=== PATIENT | female | born 1955 | race Caucasian/White ===

== ENCOUNTER 2019-01-19 19:56 | Emergency (ER) | payer OTHER ==
[2019-01-19] MEDS ORDERED: ASPIRIN 81 MG TABLET, CHEWABLE PO ONE (20:12)
--- NOTE | 2019-01-19 20:13 | ER Document Report ---
ED Medical Screen (RME) - General Chief Complaint: Chest Pain Stated Complaint: RAPID HEART BEAT Time Seen by Provider: 01/19/19 20:09 Mode of Arrival: Ambulatory Information source: Patient Notes: Patient presents complaining of fluttering in her chest for the past 5 days. Patient reports some shortness of breath and nausea. Patient states that she does not have chest pain although does report chest discomfort. I have greeted and performed a rapid initial assessment of this patient. A comprehensive ED assessment and evaluation of the patient, analysis of test results and completion of the medical decision making process will be conducted by additional ED providers. Physical Exam - Cardiovascular Rhythm: Regular Heart sounds: S1 appreciated, S2 appreciated
[2019-01-19 20:49] LABS: ABSOLUTE BASOPHILS # (AUTO) 0.1 10^3/uL (0.0-0.2); ABSOLUTE EOSINOPHILS # (AUTO) 0.1 10^3/uL (0.0-0.6); ABSOLUTE LYMPHOCYTES (AUTO) 0.8 10^3/uL (0.5-4.7); ABSOLUTE MONOCYTES (AUTO) 1.2 10^3/uL (0.1-1.4); BASOPHILS % (AUTO) 0.7 % (0-2); EOSINOPHILS % (AUTO) 1.6 % (0-6); HEMATOCRIT 29.1 % (36.0-47.0); HEMOGLOBIN 10.1 g/dL (12.0-15.5); LYMPHOCYTES % (AUTO) 10.1 % (13-45); MEAN CORPUSCULAR HEMOGLOBIN 32.1 pg (27.0-33.4); MEAN CORPUSCULAR HGB CONC 34.9 g/dL (32.0-36.0); MEAN CORPUSCULAR VOLUME 92 fl (80-97); MONOCYTES % (AUTO) 14.9 % (3-13); PLATELET COUNT 416 10^3/uL (150-450); RED BLOOD COUNT 3.16 10^6/uL (3.72-5.28); RED CELL DISTRIBUTION WIDTH 14.4 % (11.5-14.0); SEGMENTED NEUTROPHILS % (AUTO) 72.7 % (42-78); TOTAL CELLS COUNTED % (AUTO) 100 %; WHITE BLOOD COUNT 8.3 10^3/uL (4.0-10.5)
--- NOTE | 2019-01-19 21:02 | RADIOLOGY REPORT (SQ) ---
EXAM DESCRIPTION: XR CHEST 2 VIEWS COMPLETED DATE/TME: 01/19/2019 20:12 CLINICAL HISTORY: 63 years, Female, palpitations COMPARISON: None. NUMBER OF VIEWS: TECHNIQUE: LIMITATIONS: None. FINDINGS: There is possible emphysema. There is a probable calcified granuloma in the lateral aspect of the left mid lung. There is some scarring at the left costophrenic angle. No evidence of acute pulmonary infiltrate or pleural effusion. The heart and mediastinum are unremarkable. Pulmonary vascularity appears normal. IMPRESSION: Possible emphysema. copyright 2010 [employer]- All Rights Reserved
[2019-01-19 21:15] LABS: ALKALINE PHOSPHATASE 115 U/L (38-126); ANION GAP 10 (5-19); ASPARTATE AMINO TRANSFERASE 31 U/L (14-36); BILIRUBIN,DIRECT 0.1 mg/dL (0.0-0.4); BILIRUBIN,TOTAL 2.4 mg/dL (0.2-1.3); BLOOD UREA NITROGEN 13 mg/dL (7-20); CALCIUM 9.8 mg/dL (8.4-10.2); CARBON DIOXIDE 27 mmol/L (22-30); CHLORIDE 104 mmol/L (98-107); GLUCOSE 153 mg/dL (75-110); POTASSIUM 4.8 mmol/L (3.6-5.0); TOTAL PROTEIN 6.7 g/dL (6.3-8.2)
[2019-01-19 22:34] LABS: APPEARANCE,URINE CLEAR; BILIRUBIN,URINE NEGATIVE (NEGATIVE); COLOR,URINE YELLOW; GLUCOSE, URINE NEGATIVE (NEGATIVE); KETONES,URINE TRACE mg/dL (NEGATIVE); LEUKOCYTE ESTERASE,URINE NEGATIVE (NEGATIVE); NITRITE,URINE NEGATIVE (NEGATIVE); PROTEIN,URINE NEGATIVE (NEGATIVE); URINE SPECIFIC GRAVITY 1.013; UROBILINOGEN,URINE NEGATIVE mg/dL (<2.0)
--- NOTE | 2019-01-19 22:54 | EKG REPORT ---
SEVERITY:- ABNORMAL ECG - SINUS TACHYCARDIA MULTIPLE ATRIAL PREMATURE COMPLEXES BORDERLINE T ABNORMALITIES, ANT-LAT LEADS : Confirmed by: Marianela Lima MD 19-Jan-2019 22:53:06
--- NOTE | 2019-01-19 22:57 | ER Document Report ---
ED General - General Chief Complaint: Chest Pain Stated Complaint: RAPID HEART BEAT Time Seen by Provider: 01/19/19 20:09 Mode of Arrival: Ambulatory Notes: Patient is a 63-year-old female presents to the emergency department for a "fluttering sensation in my chest." Patient voices she is currently attempting to moved to [place] from [place]. States she has been under "so much stress" in the last 2 weeks. States she was diagnosed with "palpitations" in the 80s. States she was on digoxin but has not been on it since the 80s. States her primary care provider took her off of it. Patient's denying any chest pain or shortness of breath while sitting in bed. States when the "fluttering" feeling does happen she does get intermittently short of breath. States she is an every day smoker. Does have albuterol for home use. Patient is currently denying any chest pain, shortness of breath, abdominal pain , nausea, vomiting, headache. Past medical history: Cold agglutinin hemolytic anemia, mitral valve prolapse, palpitations Medications: Albuterol Allergies: Morphine - Related Data Allergies/Adverse Reactions: morphine Allergy (Verified 01/19/19 20:20) Home Medications: alavert Past Medical History - General Information source: Patient - Social History Smoking Status: Current Every Day Smoker Chew tobacco use (# tins/day): No Frequency of alcohol use: None Drug Abuse: None Family History: Reviewed & Not Pertinent Patient has suicidal ideation: No Patient has homicidal ideation: No Review of Systems - Review of Systems Constitutional: denies: Fever EENT: No symptoms reported Cardiovascular: See HPI Respiratory: See HPI Gastrointestinal: No symptoms reported Genitourinary: No symptoms reported Female Genitourinary: No symptoms reported Musculoskeletal: No symptoms reported Skin: No symptoms reported Hematologic/Lymphatic: See HPI Neurological/Psychological: No symptoms reported Physical Exam - Vital signs Vitals: Pulse Ox 98 01/19/19 19:57 - Notes Notes: GENERAL: Alert, interacts well. No acute distress. HEAD: Normocephalic, atraumatic. EYES: Pupils equal, round, and reactive to light. Extraocular movements intact. ENT: Oral mucosa moist, tongue midline. NECK: Full range of motion. Supple. Trachea midline. LUNGS: Scant and expiratory wheeze heard left upper lung field, cleared with cough. Then clear to auscultation bilaterally, no wheezes, rales, or rhonchi. No respiratory distress. HEART: Regular rate and rhythm. No murmur ABDOMEN: Soft, non-tender. Non-distended. Bowel sounds present in all 4 quadrants. EXTREMITIES: Moves all 4 extremities spontaneously. No edema, normal radial and dorsalis pedis pulses bilaterally. No cyanosis. BACK: no cervical, thoracic, lumbar midline tenderness. No saddle anesthesia, normal distal neurovascular exam. NEUROLOGICAL: Alert and oriented x3. Normal speech. cranial nerves II through XII grossly intact PSYCH: Normal affect, normal mood. SKIN: Warm, dry, normal turgor. No rashes or lesions noted. Course - Re-evaluation Re-evalutation: Laboratory 01/19/19 01/19/19 01/19/19 20:35 20:35 20:35 WBC 8.3 RBC 3.16 L Hgb 10.1 L Hct 29.1 L MCV 92 MCH 32.1 MCHC 34.9 RDW 14.4 H Plt Count 416 Lymph % (Auto) 10.1 L Addison % (Auto) 14.9 H Eos % (Auto) 1.6 Baso % (Auto) 0.7 Absolute Neuts (auto) 6.0 Absolute Lymphs (auto) 0.8 Absolute Monos (auto) 1.2 Absolute Eos (auto) 0.1 Absolute Basos (auto) 0.1 Seg Neutrophils % 72.7 Sodium 141.2 Potassium 4.8 Chloride 104 Carbon Dioxide 27 Anion Gap 10 BUN 13 Creatinine 0.76 Est GFR ( Amer) > 60 Est GFR (MDRD) Non-Af > 60 Glucose 153 H Calcium 9.8 Magnesium Total Bilirubin 2.4 H Direct Bilirubin 0.1 Neonat Total Bilirubin Not Reportable Neonat Direct Bilirubin Not Reportable Neonat Indirect Bili Not Reportable AST 31 ALT 21 Alkaline Phosphatase 115 Troponin I < 0.012 Total Protein 6.7 Albumin 4.0 TSH Free T4 Urine Color Urine Appearance Urine pH Ur Specific [place] Urine Protein Urine Glucose (UA) Urine Ketones Urine Blood Urine Nitrite Urine Bilirubin Urine Urobilinogen Ur Leukocyte Esterase Urine WBC (Auto) Urine RBC (Auto) U Hyaline Cast (Auto) Urine Mucus (Auto) Urine Ascorbic Acid 01/19/19 01/19/19 01/19/19 20:35 20:35 20:35 WBC RBC Hgb Hct MCV MCH MCHC RDW Plt Count Lymph % (Auto) Addison % (Auto) Eos % (Auto) Baso % (Auto) Absolute Neuts (auto) Absolute Lymphs (auto) Absolute Monos (auto) Absolute Eos (auto) Absolute Basos (auto) Seg Neutrophils % Sodium Potassium Chloride Carbon Dioxide Anion Gap BUN Creatinine Est GFR ( Amer) Est GFR (MDRD) Non-Af Glucose Calcium Magnesium 2.0 Total Bilirubin Direct Bilirubin Neonat Total Bilirubin Neonat Direct Bilirubin Neonat Indirect Bili AST ALT Alkaline Phosphatase Troponin I Total Protein Albumin TSH 1.57 Free T4 1.31 Urine Color Urine Appearance Urine pH Ur Specific [place] Urine Protein Urine Glucose (UA) Urine Ketones Urine Blood Urine Nitrite Urine Bilirubin Urine Urobilinogen Ur Leukocyte Esterase Urine WBC (Auto) Urine RBC (Auto) U Hyaline Cast (Auto) Urine Mucus (Auto) Urine Ascorbic Acid 01/19/19 21:51 WBC RBC Hgb Hct MCV MCH MCHC RDW Plt Count Lymph % (Auto) Addison % (Auto) Eos % (Auto) Baso % (Auto) Absolute Neuts (auto) Absolute Lymphs (auto) Absolute Monos (auto) Absolute Eos (auto) Absolute Basos (auto) Seg Neutrophils % Sodium Potassium Chloride Carbon Dioxide Anion Gap BUN Creatinine Est GFR ( Amer) Est GFR (MDRD) Non-Af Glucose Calcium Magnesium Total Bilirubin Direct Bilirubin Neonat Total Bilirubin Neonat Direct Bilirubin Neonat Indirect Bili AST ALT Alkaline Phosphatase Troponin I Total Protein Albumin TSH Free T4 Urine Color YELLOW Urine Appearance CLEAR Urine pH 6.0 Ur Specific [place] 1.013 Urine Protein NEGATIVE Urine Glucose (UA) NEGATIVE Urine Ketones TRACE H Urine Blood NEGATIVE Urine Nitrite NEGATIVE Urine Bilirubin NEGATIVE Urine Urobilinogen NEGATIVE Ur Leukocyte Esterase NEGATIVE Urine WBC (Auto) 0 Urine RBC (Auto) 1 U Hyaline Cast (Auto) 1 Urine Mucus (Auto) RARE Urine Ascorbic Acid NEGATIVE Chest X-Ray 01/19/19 20:12 IMPRESSION: Possible emphysema. copyright 2011 [employer]- All Rights Reserved I discussed patient's labs with her at bedside to include her anemia and elevated total bilirubin. Patient voices "my bilirubin has been way higher in the past." She is denying any abdominal pain. I see no scleral icterus or yellowing of the patient's skin. Patient also voices her hemoglobin has been down to 4 and she has had to have blood transfusions in the past. I discussed with her at length the need to follow-up with her primary care provider and inevitably cardiology. Patient voices she still has insurance and primary care providers in [place] at this time. States she is attempting to get insurance in [place] but is unsure when she will be able to follow- up. I have again discussed with her importance of following up in the next 12 to 24 hours. I provided her phone numbers to [facility] in [facility] as these are clinics she can go to even uninsured. Patient voices she has not had the "fluttering" sensation in her chest since being in the emergency department. Patient stable for discharge. - Vital Signs Vital signs: Temp Pulse Resp BP Pulse Ox 98.2 F 96 19 115/47 L 96 01/19/19 20:00 01/19/19 21:00 01/19/19 22:01 01/19/19 22:01 01/19/19 21:00 - Laboratory Result Diagrams: 01/19/19 20:35 01/19/19 20:35 Laboratory results interpreted by me: 01/19/19 01/19/19 01/19/19 20:35 20:35 21:51 RBC 3.16 L Hgb 10.1 L Hct 29.1 L RDW 14.4 H Lymph % (Auto) 10.1 L Addison % (Auto) 14.9 H Glucose 153 H Total Bilirubin 2.4 H Urine Ketones TRACE H Discharge - Discharge Clinical Impression: Fluttering heart, Total bilirubin, elevated Condition: Stable Disposition: HOME, SELF-CARE Additional Instructions: As we discussed you have been seen and treated in the emergency department for your "fluttering" heart. Your tests do show slight decrease in your hemoglobin and a slight increase in your bilirubin. This could be her baseline based on your history of hemolytic anemia. This is something you should have checked by a primary care provider in the next 12 to 24 hours. You should also follow-up with cardiology, phone numbers will be provided in this packet. I understand that you trying to change your insurance around. [facility], [facility] are to clinics you can go to in this area even though you are uninsured. It is my recommendation you follow-up as soon as possible. Referrals: [facility] [Provider Group] - Follow up as needed [facility] [Provider Group] - Follow up as needed MIAH SAEZ MD [ACTIVE STAFF] - Follow up as needed
[2019-01-19 23:17] VITALS: BP 113/60
== END 2019-01-19 23:14 | disposition home or self-care (01) ==
LOC: ER 19:56
DX: I49.8 Other specified cardiac arrhythmias (principal); E80.6 Other disorders of bilirubin metabolism; R07.9 Chest pain, unspecified; F17.200 Nicotine dependence, unspecified, uncomplicated; Z88.6 Allergy status to analgesic agent
CPT/HCPCS: 36415; 71046; 80053; 81001; 83735; 84439; 84443; 84484; 85025; 93005; 93010; 99285

== ENCOUNTER 2019-05-16 11:42 | Inpatient (IN) | payer MEDICAID, OTHER ==
--- NOTE | 2019-05-16 12:16 | ER Document Report ---
ED General - General Chief Complaint: Shortness Of Breath Stated Complaint: SHORTNESS OF BREATH Notes: 63-year-old lady heavy smoker, down from 2 packs a day to 4 cigarettes/day with help of Wellbutrin presents with chest pain pressure-like anterior with shortness of breath. Is been going on, the shortness of breath at least, for several weeks and is worse with exertion got position. No cough sputum hemoptysis or fever. The chest pressure is been the last couple days most with exertion but also when her breath gets worse, which also occurs with exertion. Also has right leg swelling which occurred about 2 3 days ago. She came from [place] over a month ago and is planning to move here, has no primary care. TRAVEL OUTSIDE OF THE [place] IN LAST 30 DAYS: No - Related Data Allergies/Adverse Reactions: morphine Allergy (Verified 01/19/19 20:20) shellfish derived Allergy (Verified 05/16/19 13:30) Home Medications: vitamin b-12 oxycarbazeoibne Past Medical History - Social History Smoking Status: Current Every Day Smoker Chew tobacco use (# tins/day): No Smoking Education Provided: Yes - The patient ED visit today was directly related to their abuse of tobacco. Frequency of alcohol use: None Drug Abuse: None Family History: Reviewed & Not Pertinent Patient has suicidal ideation: No Patient has homicidal ideation: No Review of Systems - Review of Systems Notes: REVIEW OF SYSTEMS GEN: Denies fever, chills, weight loss ENT: Denies sore throat, nasal discharge, ear pain EYES: Denies blurry vision, eye pain, discharge CV: As pressure RESP: Dyspnea GI: Denies abdominal pain, nausea, vomiting, diarrhea MSK: Denies joint pain/swelling, edema, SKIN: Denies rash, skin lesions LYMPH: Denies swollen glands/lymph nodes NEURO: Denies headache, focal weakness or numbness, dizziness PSYCH: Denies depression, suicidal or homicidal ideation PHYSICAL EXAMINATION General: No acute distress, well-nourished Head: Atraumatic, normocephalic ENT: Mouth normal, oropharynx moist, no exudates or tonsillar enlargement Eyes: Conjunctiva normal, pupils equal, lids normal Neck: No JVD, supple, no guarding CVS: Normal rate, regular rhythm, no murmurs Resp: No resp distress, equal and normal breath sounds bilaterally GI: Nondistended, soft, no tenderness to palpation, no rebound or guarding Ext: Very scant right lower extremity edema asymmetric to the left, with very faint erythema poorly delineated not tender Back: No CVA or midline TTP Skin: No rash, warm Lymphatic: No lymphadeopathy noted Neuro: Awake, alert. Face symmetric. GCS 15. Physical Exam - Vital signs Vitals: Resp Pulse Ox 17 95 05/16/19 12:28 05/16/19 12:28 Course - Re-evaluation Re-evalutation: 05/16/19 15:26 Patient presents progressive shortness of breath, and has a smoking history as well as right leg pain. No recent travel but is been here for about 2 months Concern for ACS PE pneumonia pleural effusion COPD Patient's EKG negative troponin negative labs normal X-ray shows possible left pleural effusion. CTA shows moderate left pleural effusion with some lesions and possible either pneumonia or mass No cough no white countdeferring antibiotics. Discussed with Connor garber hospitalist for admission for further diagnosis and treatment. - Vital Signs Vital signs: Temp Pulse Resp BP Pulse Ox 19 116/71 96 05/16/19 12:31 05/16/19 12:31 05/16/19 12:31 - Laboratory Result Diagrams: 05/16/19 12:42 05/16/19 13:11 Laboratory results interpreted by me: 05/16/19 12:42 RBC 3.19 L Hgb 10.0 L Hct 29.4 L RDW 16.6 H Lymph % (Auto) 9.5 L Seg Neutrophils % 79.0 H - Diagnostic Test Radiology reviewed: Image reviewed, Reports reviewed Discharge - Discharge Clinical Impression: Pleural effusion Condition: Good Disposition: ADMITTED INPATIENT Admitting Provider: Aaron (Hospitalist) Unit Admitted: Medical Floor
--- NOTE | 2019-05-16 12:54 | RADIOLOGY REPORT (SQ) ---
EXAM DESCRIPTION: CHEST SINGLE VIEW COMPLETED DATE/TIME: 05/16/2019 12:29 pm REASON FOR STUDY: sob COMPARISON: 01/19/2019 EXAM PARAMETERS: NUMBER OF VIEWS: One view. TECHNIQUE: Single frontal radiographic view of the chest acquired. RADIATION DOSE: NA LIMITATIONS: None. FINDINGS: LUNGS AND PLEURA: Increased opacification in the left base. There may be a small left ple ural effusion. MEDIASTINUM AND HILAR STRUCTURES: No masses. Contour normal. HEART AND VASCULAR STRUCTURES: Heart normal in size. Normal vasculature. BONES: No acute findings. HARDWARE: None in the chest. OTHER: No other significant finding. IMPRESSION: Possible small left pleural effusion. Cannot exclude airspace disease in the left lower lobe, pneumonia versus atelectasis. TECHNICAL DOCUMENTATION: JOB ID: [id number] 2010 [employer]- All Rights Reserved Reading location - IP/workstation name: [email or web address]
[2019-05-16 12:56] LABS: ABSOLUTE EOSINOPHILS # (AUTO) 0.1 10^3/uL (0.0-0.6); ABSOLUTE LYMPHOCYTES (AUTO) 0.6 10^3/uL (0.5-4.7); ABSOLUTE MONOCYTES (AUTO) 0.7 10^3/uL (0.1-1.4); ABSOLUTE NEUT (AUTO) 5.2 10^3/uL (1.7-8.2); BASOPHILS % (AUTO) 0.3 % (0-2); EOSINOPHILS % (AUTO) 0.9 % (0-6); HEMATOCRIT 29.4 % (36.0-47.0); LYMPHOCYTES % (AUTO) 9.5 % (13-45); MEAN CORPUSCULAR HEMOGLOBIN 31.2 pg (27.0-33.4); MEAN CORPUSCULAR HGB CONC 33.9 g/dL (32.0-36.0); MEAN CORPUSCULAR VOLUME 92 fl (80-97); MONOCYTES % (AUTO) 10.3 % (3-13); PLATELET COUNT 302 10^3/uL (150-450); RED BLOOD COUNT 3.19 10^6/uL (3.72-5.28); RED CELL DISTRIBUTION WIDTH 16.6 % (11.5-14.0); TOTAL CELLS COUNTED % (AUTO) 100 %; WHITE BLOOD COUNT 6.6 10^3/uL (4.0-10.5)
[2019-05-16 13:46] LABS: ANION GAP 7 (5-19); BLOOD UREA NITROGEN 13 mg/dL (7-20); CALCIUM 8.8 mg/dL (8.4-10.2); CARBON DIOXIDE 24 mmol/L (22-30); CHLORIDE 107 mmol/L (98-107); GLUCOSE 77 mg/dL (75-110)
--- NOTE | 2019-05-16 15:21 | RADIOLOGY REPORT (SQ) ---
EXAM DESCRIPTION: CTA CHEST COMPLETED DATE/TIME: 05/16/2019 2:02 pm REASON FOR STUDY: CO SOB. Palpitations. COMPARISON: Chest radiograph, 01/19/2019. Chest radiograph, same date. TECHNIQUE: CT scan of the chest performed using helical scanning technique with dynamic intravenous contrast injection. Images reviewed with lung, soft tissue and bone windows. Reconstructed coronal and sagittal MPR images reviewed. Additional 3 dimensional post-processing performed to develop Maximal Intensity Projection images (MA P). All images stored on PACS. All CT scanners at this facility use dose modulation, iterative reconstruction, and/or weight based d osing when appropriate to reduce radiation dose to as low as reasonably achievable (ALARA). [facility]: Dose Right [facility]: CareDose [facility]: Dose Right [facility]: Teradose 4D [facility]: Sovran [employer] CONTRAST TYPE AND DOSE: contrast/concentration: Isovue 350.00 mg/ml; Total Contrast Delivered: 57.0 ml; Total Saline Delivered: 80.0 ml Contrast bolus optimized for the pulmonary arteries. Not diagnostic for the aorta. RENAL FUNCTION: GFR > 60. RADIATION DOSE: CT Rad equipment meets quality standard of care and radiation dose reduction techniq ues were employed. CTDIvol: 3.3 - 14.3 mGy. DLP: 560 mGy-cm. . LIMITATIONS: None. FINDINGS: LUNGS AND PLEURA: The trachea has normal caliber and appearance. No bronchial wall thicke aleks or bronchiectasis. Background moderate to severe pulmonary emphysema. Biapical pleural and par enchymal scarring. There is a small to moderate left pleural effusion. No right effusion. Calcifie d granuloma in the right upper lobe. Spiculated 1.5 cm nodule in the left lower lobe along the fissu re. No focal consolidation. No pneumothorax. AORTA AND GREAT VESSELS: No aneurysm. Contrast bolus not optimized for the aorta. HEART: No pericardial effusion. No significant coronary artery calcifications. PULMONARY ARTERIES: No emboli visualized in the main pulmonary arteries or the segmental branches. HILAR AND MEDIASTINAL STRUCTURES: Enlarged left hilar lymph node measures 1.3 x 1.1 cm. No mediastin al adenopathy. The esophagus is unremarkable. HARDWARE: None in the chest. UPPER ABDOMEN: Asymmetric enhancement of the right kidney with moderate to severe right hydronephrosi s. Calcified gallstone within the gallbladder lumen. Benign left adrenal adenoma. THYROID AND OTHER SOFT TISSUES: No thyroid nodule. Asymmetric 2 cm rounded masslike nodule in the giraldo bareolar region left breast with central low density, indeterminate. Bilateral axillary adenopathy, with lymph nodes on the left measuring up to 2.8 by 2.8 x 1.3 cm and right axillary lymphadenopathy w ith lymph nodes measuring up to 2.3 by 1.7 cm. BONES: No acute or significant finding. 3D MIPS: Confirm above findings. OTHER: No other significant finding. IMPRESSION: 1. No pulmonary embolism. 2. Small to moderate left pleural effusion with compressive atelectasis. No focal consolidation. 3. Background moderate to severe pulmonary emphysema. 4. Spiculated 1.5 cm nodule left lower lobe, indeterminate. PET CT may provide additional informatio n. 5. Left breast mass. Further evaluation with nonemergent diagnostic mammogram and possible ultrasoun d recommended. 6. Bilateral axillary adenopathy and left hilar lymphadenopathy, indeterminate. 7. Asymmetric enhancement of the right kidney with moderate to severe right hydronephrosis. Finding is suspicious for distal right ureteral obstruction. Clinical correlation recommended. 8. Cholelithiasis. COMMENT: Quality ID # [id number]: Final reports with documentation of one or more dose reduction techniques (e.g., Automated exposure control, adjustment of the mA and/or kV according to patient size, use of iterative reconstruction technique) TECHNICAL DOCUMENTATION: JOB ID: [id number] 2010 [employer]- All Rights Reserved Reading location - IP/workstation name: [email or web address]
[2019-05-16] MEDS ORDERED: OXYCODONE-ACETAMINOPHEN 5-325 MG TABLET PO PRN (15:54)
[2019-05-16] MEDS ORDERED: MAG HYDROX/AL HYDROX/SIMETH SUSP 30 ML UDCUP PO PRN (15:54)
[2019-05-16] MEDS ORDERED: ACETAMINOPHEN 325 MG TABLET PO PRN (15:54)
[2019-05-16] MEDS ORDERED: ONDANSETRON 4 MG TAB.RAPDIS PO PRN (15:54)
[2019-05-16] MEDS ORDERED: ONDANSETRON HCL INJ/PF 4 MG/2 ML SDV IV PRN (15:54)
--- NOTE | 2019-05-16 16:53 | PDOC H&P ---
History of Present Illness Admission Date/PCP: 05/16/19 15:21 History of Present Illness: LUPILLO DE LA ROSA is a 63 year old female who comes in with increased shortness of breath since Sunday, 3 days ago, as well as right leg pain.. Patient states that Sunday evening she got up to go to the bathroom and when she did she noticed that her right leg was very painful and "swollen". She sta rivas she is never had any problems with her legs before, certainly nothing this painful. Patient states she did not think she was going to be able to get back to bed because of the right leg pain. Patient states that also at the same time she was very short of breath and noticed a significant increase in her difficulty breathing. Patient does have COPD although she is never been told emphysema. Chest x-ray done here at this hospital back in November showed emphysema at that time. Patient states that she used to smoke 2 packs of cigarettes per day and has done so for probably over 40 years. Recently she has cut back to 3 or 4 cigarettes/day. Patient has never had to use a nebulizer machine, she is never been on home oxygen, she has never used inhalers. Patient denies any recent fever or chills nausea or vomiting. Patient is still living between [place] and [place] but is making the transition to live permanently in [place] where her children and grandchildren are. Patient does not have any primary care down here. Patient denies other comorbidities such as diabetes or hypertension. 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 CTA of the chest shows no evidence of pulmonary emboli, ever it does show a 1.5 spiculated nodule of the left lower lung. Because of this and also because of the adenopathy that is mentioned in the report I have consulted oncology. I am going to start pulmonary toiletry with IV steroids and p.o. antibiotics, as we continue to work her up. Past Medical History Cardiac Medical History: Reports: Myocardial Infarction Pulmonary Medical History: Reports: Chronic Obstructive Pulmonary Disease (COPD) Social History Smoking Status: Current Every Day Smoker Electronic Cigarette use?: No - Advance Directive Resuscitation Status: Full Code Family History Family History: Reviewed & Not Pertinent Parental Family History Reviewed: No Children Family History Reviewed: No Sibling(s) Family History Reviewed.: No Medication/Allergy Allergies/Adverse Reactions: morphine Allergy (Verified 01/19/19 20:20) shellfish derived Allergy (Verified 05/16/19 13:30) Review of Systems Constitutional: ABSENT: chills, fever(s), headache(s), weight gain, weight loss Cardiovascular: PRESENT: dyspnea on exertion Respiratory: PRESENT: dyspnea Musculoskeletal: PRESENT: other - Right leg pain and swelling Neurological: ABSENT: abnormal gait, abnormal speech, confusion, dizziness, focal weakness, syncope Psychiatric: ABSENT: anxiety, depression, homidical ideation, suicidal ideation Physical Exam Vital Signs: Temp Pulse Resp BP Pulse Ox 19 116/71 96 05/16/19 12:31 05/16/19 12:31 05/16/19 12:31 General appearance: PRESENT: mild distress, other - Due to shortness of breath Respiratory exam: PRESENT: decreased breath sounds Cardiovascular exam: PRESENT: RRR. ABSENT: diastolic murmur, rubs, systolic murmur Extremities exam: PRESENT: tenderness, other - Patient has tenderness to palpation over the thigh, popliteal, calf region, also mild edema. No redness however and no warmth to the touch. Good distal pulses. Neurological exam: PRESENT: alert, awake, oriented to person, oriented to place, oriented to time, oriented to situation, CN II-XII grossly intact. ABSENT: motor sensory deficit Psychiatric exam: PRESENT: appropriate affect, normal mood. ABSENT: homicidal ideation, suicidal ideation Results Laboratory Results: 05/16/19 12:42 05/16/19 13:11 05/16/19 05/16/19 05/16/19 12:42 12:42 13:11 WBC 6.6 RBC 3.19 L Hgb 10.0 L Hct 29.4 L MCV 92 MCH 31.2 MCHC 33.9 RDW 16.6 H Plt Count 302 Seg Neutrophils % 79.0 H Sodium Cancelled 137.9 Potassium Cancelled 4.0 Chloride Cancelled 107 Carbon Dioxide Cancelled 24 Anion Gap Cancelled 7 BUN Cancelled 13 Creatinine Cancelled 0.60 Est GFR ( Amer) Cancelled > 60 Est GFR (Non-Af Amer) Cancelled Glucose Cancelled 77 Calcium Cancelled 8.8 05/16/19 05/16/19 12:42 13:11 Troponin I Cancelled < 0.012 Impressions: Chest/Abdomen CTA 05/16/19 12:14 IMPRESSION: 1. No pulmonary embolism. 2. Small to moderate left pleural effusion with compressive atelectasis. No focal consolidation. 3. Background moderate to severe pulmonary emphysema. 4. Spiculated 1.5 cm nodule left lower lobe, indeterminate. PET CT may provide additional information. 5. Left breast mass. Further evaluation with nonemergent diagnostic mammogram and possible ultrasound recommended. 6. Bilateral axillary adenopathy and left hilar lymphadenopathy, indeterminate. 7. Asymmetric enhancement of the right kidney with moderate to severe right hydronephrosis. Finding is suspicious for distal right ureteral obstruction. Clinical correlation recommended. 8. Cholelithiasis. Chest X-Ray 05/16/19 12:15 IMPRESSION: Possible small left pleural effusion. Cannot exclude airspace disease in the left lower lobe, pneumonia versus atelectasis. Assessment and Plan - Diagnosis (1) Abnormal CT scan, chest Is this a current diagnosis for this admission?: Yes (2) COPD (chronic obstructive pulmonary disease) Is this a current diagnosis for this admission?: Yes (3) Emphysema lung Is this a current diagnosis for this admission?: Yes (4) Tobacco abuse Is this a current diagnosis for this admission?: Yes (5) Lower extremity pain Is this a current diagnosis for this admission?: Yes (6) Cold agglutinin disease Is this a current diagnosis for this admission?: Yes (7) Pleural effusion Is this a current diagnosis for this admission?: Yes - Plan Summary Summary: Patient will be treated as a COPD exacerbation with pulmonary toiletry, IV steroids, antibiotics. Ever due to patient's abnormal CT scan of the chest involving the spiculated lesion, adenopathy, hilar fullness, I have consulted oncology as well. Also I have ordered a venous Doppler of the right lower extremity. I explained all this to the patient she seems satisfied with the admission and work-up so far. Patient's son was in the room during the history and physical - Time Time Spent with patient: 35 or more minutes
[2019-05-16 17:50] LABS: INTERNATIONAL RATION (INR) 1.05; PROTHROMBIN TIME 13.7 SEC (11.4-15.4)
[2019-05-16 17:59] LABS: ARTERIAL BLOOD BASE EXCESS -0.7 mmol/L; ARTERIAL BLOOD H2CO3 0.99 mmol/L (1.05-1.35); ARTERIAL BLOOD HCO3 22.8 mmol/L (20-24); ARTERIAL BLOOD O2 SATURATION 94.4 % (94-98); ARTERIAL BLOOD PH 7.46 (7.35-7.45); ARTERIAL BLOOD PO2 66.8 mmHg (80-100); ARTERIAL BLOOD TOTAL CO2 23.8 mmol/L (21-25)
[2019-05-16 18:00] LABS: ARTERIAL BLOOD FIO2 21%
[2019-05-16 18:14] LABS: CREATINE KINASE MB 0.44 ng/mL (<4.55); NT PRO BNP 308 pg/mL (<125)
[2019-05-16 18:23] LABS: TROPONIN I < 0.012 ng/mL
[2019-05-16] MEDS: DOXYCYCLINE HYCLATE 100 MG TABLET PO SCH (18:40)
--- NOTE | 2019-05-16 18:40 | EKG REPORT ---
SEVERITY:- NORMAL ECG - SINUS RHYTHM BORDERLINE T ABNORMALITIES, ANT-LAT LEADS : Confirmed by: Parth Argueta 16-May-2019 18:38:46
[2019-05-16] MEDS ORDERED: OXCARBAZEPINE 150 MG TABLET PO SCH (20:15)
[2019-05-16] MEDS: IPRATROPIUM/ALBUTEROL 0.5-2.5 MG/3 ML AMPUL NEB PRN (21:10)
[2019-05-16] MEDS: BUPROPION HCL 75 MG TABLET PO SCH (21:42)
[2019-05-16] MEDS: HYDROCODONE/ACETAMINOPHEN 5-325 MG TABLET PO PRN (21:42)
[2019-05-16] MEDS: METHYLPREDNISOLONE INJ 40 MG/1 ML SDV IV SCH (21:43)
[2019-05-16] MEDS: FAMOTIDINE 20 MG TABLET PO SCH (21:43)
[2019-05-16] MEDS: OXCARBAZEPINE 150 MG TABLET PO SCH (21:44)
[2019-05-16 22:31] LABS: APPEARANCE,URINE CLEAR; BILIRUBIN,URINE NEGATIVE (NEGATIVE); COLOR,URINE YELLOW; GLUCOSE, URINE NEGATIVE (NEGATIVE); KETONES,URINE TRACE mg/dL (NEGATIVE); LEUKOCYTE ESTERASE,URINE NEGATIVE (NEGATIVE); NITRITE,URINE NEGATIVE (NEGATIVE); PROTEIN,URINE NEGATIVE (NEGATIVE)
[2019-05-16 23:18] LABS: CREATINE KINASE MB 0.37 ng/mL (<4.55)
[2019-05-16 23:19] LABS: TROPONIN I < 0.012 ng/mL
[2019-05-17] MEDS: IPRATROPIUM/ALBUTEROL 0.5-2.5 MG/3 ML AMPUL NEB PRN ×6 (01:11→19:47)
[2019-05-17 05:19] LABS: ABSOLUTE LYMPHOCYTES (AUTO) 0.3 10^3/uL (0.5-4.7); ABSOLUTE MONOCYTES (AUTO) 0.1 10^3/uL (0.1-1.4); ABSOLUTE NEUT (AUTO) 5.2 10^3/uL (1.7-8.2); BASOPHILS % (AUTO) 0.4 % (0-2); HEMATOCRIT 26.5 % (36.0-47.0); LYMPHOCYTES % (AUTO) 5.6 % (13-45); MEAN CORPUSCULAR HEMOGLOBIN 30.9 pg (27.0-33.4); MEAN CORPUSCULAR VOLUME 91 fl (80-97); MONOCYTES % (AUTO) 2.1 % (3-13); PLATELET COUNT 300 10^3/uL (150-450); RED BLOOD COUNT 2.92 10^6/uL (3.72-5.28); RED CELL DISTRIBUTION WIDTH 16.9 % (11.5-14.0); SEGMENTED NEUTROPHILS % (AUTO) 91.9 % (42-78); TOTAL CELLS COUNTED % (AUTO) 100 %; WHITE BLOOD COUNT 5.7 10^3/uL (4.0-10.5)
[2019-05-17 05:41] LABS: ALBUMIN 3.7 g/dL (3.5-5.0); ALKALINE PHOSPHATASE 127 U/L (38-126); ANION GAP 7 (5-19); ASPARTATE AMINO TRANSFERASE 33 U/L (14-36); BILIRUBIN,DIRECT 0.3 mg/dL (0.0-0.4); BILIRUBIN,TOTAL 1.1 mg/dL (0.2-1.3); BLOOD UREA NITROGEN 13 mg/dL (7-20); CALCIUM 9.2 mg/dL (8.4-10.2); CARBON DIOXIDE 25 mmol/L (22-30); CHLORIDE 106 mmol/L (98-107); GLUCOSE 190 mg/dL (75-110); PHOSPHORUS 4.5 mg/dL (2.5-4.5); POTASSIUM 4.2 mmol/L (3.6-5.0); TOTAL PROTEIN 6.4 g/dL (6.3-8.2)
[2019-05-17 05:53] LABS: CREATINE KINASE MB 0.35 ng/mL (<4.55)
[2019-05-17 05:59] LABS: TROPONIN I < 0.012 ng/mL
[2019-05-17] MEDS: METHYLPREDNISOLONE INJ 40 MG/1 ML SDV IV SCH ×3 (06:35→21:05)
[2019-05-17] MEDS: ENOXAPARIN SODIUM INJ 40 MG/0.4 ML DISP.SYRIN SUBCUT SCH (09:37)
[2019-05-17] MEDS: CHOLECALCIFEROL (D3) 1,000 UNIT (25 MCG) TABLET PO SCH (09:38)
[2019-05-17] MEDS: ASPIRIN 81 MG TABLET, ENT COATED PO SCH (09:38)
[2019-05-17] MEDS: DOXYCYCLINE HYCLATE 100 MG TABLET PO SCH (09:38)
[2019-05-17] MEDS: OXCARBAZEPINE 150 MG TABLET PO SCH ×2 (09:38→21:06)
[2019-05-17] MEDS: FAMOTIDINE 20 MG TABLET PO SCH ×2 (09:38→21:06)
[2019-05-17] MEDS: CYANOCOBALAMIN (VITAMIN B-12) 1,000 MCG TABLET PO SCH (09:38)
[2019-05-17] MEDS: BUPROPION HCL 75 MG TABLET PO SCH ×2 (09:39→21:06)
[2019-05-17] MEDS ORDERED: DOCUSATE SODIUM 100 MG CAPSULE PO SCH (10:00)
--- NOTE | 2019-05-17 11:11 | PDOC PROGRESS REPORT ---
Subjective Progress Note for:: 05/17/19 Reason For Visit: COPD, RIGHT LEG PAIN, ACUTE SHORTNESS OF BREATH, 05/17/2019 Shortness of breath, COPD, emphysema, right leg pain Physical Exam Vital Signs: Temp Pulse Resp BP Pulse Ox 98.2 F 82 16 98/44 L 96 05/17/19 08:02 05/17/19 08:18 05/17/19 08:18 05/17/19 08:02 05/17/19 08:18 Intake & Output 05/16/19 05/17/19 05/18/19 06:59 06:59 06:59 Intake Total 200 Output Total 200 Balance 0 Weight 65 kg General appearance: PRESENT: no acute distress, other - Patient reports feeling significantly better Respiratory exam: PRESENT: wheezes - Both bases but mild Cardiovascular exam: PRESENT: RRR. ABSENT: diastolic murmur, rubs, systolic murmur Neurological exam: PRESENT: alert, awake, oriented to person, oriented to place, oriented to time, oriented to situation, CN II-XII grossly intact. ABSENT: motor sensory deficit Psychiatric exam: PRESENT: appropriate affect, normal mood. ABSENT: homicidal ideation, suicidal ideation Results Laboratory Results: 05/17/19 04:41 05/17/19 04:41 05/16/19 05/16/19 05/16/19 12:42 12:42 13:11 WBC 6.6 RBC 3.19 L Hgb 10.0 L Hct 29.4 L MCV 92 MCH 31.2 MCHC 33.9 RDW 16.6 H Plt Count 302 Seg Neutrophils % 79.0 H Carbonic Acid HCO3/H2CO3 Ratio ABG pH ABG pCO2 ABG pO2 ABG HCO3 ABG O2 Saturation ABG Base Excess FiO2 Sodium Cancelled 137.9 Potassium Cancelled 4.0 Chloride Cancelled 107 Carbon Dioxide Cancelled 24 Anion Gap Cancelled 7 BUN Cancelled 13 Creatinine Cancelled 0.60 Est GFR ( Amer) Cancelled > 60 Est GFR (Non-Af Amer) Cancelled Glucose Cancelled 77 Calcium Cancelled 8.8 Phosphorus Magnesium Total Bilirubin AST Alkaline Phosphatase Total Protein Albumin TSH Urine Color Urine Appearance Urine pH Ur Specific [place] Urine Protein Urine Glucose (UA) Urine Ketones Urine Blood Urine Nitrite Ur Leukocyte Esterase Urine WBC (Auto) Urine RBC (Auto) 05/16/19 05/16/19 05/16/19 17:25 17:44 21:46 WBC RBC Hgb Hct MCV MCH MCHC RDW Plt Count Seg Neutrophils % Carbonic Acid 0.99 L HCO3/H2CO3 Ratio 23:1 ABG pH 7.46 H ABG pCO2 33.0 L ABG pO2 66.8 L ABG HCO3 22.8 ABG O2 Saturation 94.4 ABG Base Excess -0.7 FiO2 21% Sodium Potassium Chloride Carbon Dioxide Anion Gap BUN Creatinine Est GFR ( Amer) Est GFR (Non-Af Amer) Glucose Calcium Phosphorus Magnesium Total Bilirubin AST Alkaline Phosphatase Total Protein Albumin TSH 1.36 Urine Color YELLOW Urine Appearance CLEAR Urine pH 7.0 Ur Specific [place] 1.040 Urine Protein NEGATIVE Urine Glucose (UA) NEGATIVE Urine Ketones TRACE H Urine Blood NEGATIVE Urine Nitrite NEGATIVE Ur Leukocyte Esterase NEGATIVE Urine WBC (Auto) 1 Urine RBC (Auto) 0 05/17/19 05/17/19 04:41 04:41 WBC 5.7 RBC 2.92 L Hgb 9.0 L Hct 26.5 L MCV 91 MCH 30.9 MCHC 34.0 RDW 16.9 H Plt Count 300 Seg Neutrophils % 91.9 H Carbonic Acid HCO3/H2CO3 Ratio ABG pH ABG pCO2 ABG pO2 ABG HCO3 ABG O2 Saturation ABG Base Excess FiO2 Sodium 138.1 Potassium 4.2 Chloride 106 Carbon Dioxide 25 Anion Gap 7 BUN 13 Creatinine 0.57 Est GFR ( Amer) > 60 Est GFR (Non-Af Amer) Glucose 190 H Calcium 9.2 Phosphorus 4.5 Magnesium 2.2 Total Bilirubin 1.1 AST 33 Alkaline Phosphatase 127 H Total Protein 6.4 Albumin 3.7 TSH Urine Color Urine Appearance Urine pH Ur Specific [place] Urine Protein Urine Glucose (UA) Urine Ketones Urine Blood Urine Nitrite Ur Leukocyte Esterase Urine WBC (Auto) Urine RBC (Auto) 05/16/19 05/16/19 05/16/19 12:42 13:11 17:25 CK-MB (CK-2) 0.44 Troponin I Cancelled < 0.012 < 0.012 NT-Pro-B Natriuret Pep 308 H 05/16/19 05/17/19 22:08 04:41 CK-MB (CK-2) 0.37 0.35 Troponin I < 0.012 < 0.012 NT-Pro-B Natriuret Pep Impressions: Chest/Abdomen CTA 05/16/19 12:14 IMPRESSION: 1. No pulmonary embolism. 2. Small to moderate left pleural effusion with compressive atelectasis. No focal consolidation. 3. Background moderate to severe pulmonary emphysema. 4. Spiculated 1.5 cm nodule left lower lobe, indeterminate. PET CT may provide additional information. 5. Left breast mass. Further evaluation with nonemergent diagnostic mammogram and possible ultrasound recommended. 6. Bilateral axillary adenopathy and left hilar lymphadenopathy, indeterminate. 7. Asymmetric enhancement of the right kidney with moderate to severe right hydronephrosis. Finding is suspicious for distal right ureteral obstruction. Clinical correlation recommended. 8. Cholelithiasis. Chest X-Ray 05/16/19 12:15 IMPRESSION: Possible small left pleural effusion. Cannot exclude airspace disease in the left lower lobe, pneumonia versus atelectasis. Assessment and Plan - Diagnosis (1) Abnormal CT scan, chest Is this a current diagnosis for this admission?: Yes (2) COPD (chronic obstructive pulmonary disease) Is this a current diagnosis for this admission?: Yes (3) Emphysema lung Is this a current diagnosis for this admission?: Yes (4) Tobacco abuse Is this a current diagnosis for this admission?: Yes (5) Lower extremity pain Is this a current diagnosis for this admission?: Yes (6) Cold agglutinin disease Is this a current diagnosis for this admission?: Yes (7) Pleural effusion Is this a current diagnosis for this admission?: Yes - Plan Summary Summary: Patient will be treated as a COPD exacerbation with pulmonary toiletry, IV steroids, antibiotics. Ever due to patient's abnormal CT scan of the chest involving the spiculated lesion, adenopathy, hilar fullness, I have consulted oncology as well. Also I have ordered a venous Doppler of the right lower extremity. I explained all this to the patient she seems satisfied with the admission and work-up so far. Patient's son was in the room during the history and physical 05/17/2019 Vital signs are stable temperature 97.5 pulse 86 blood pressure 123/56, although has been lower at 98/44 patient is asymptomatic O2 sat 94% on room air Patient's labs all look stable CBC grossly normal chemistry panel is normal hemoglobin A1c is normal at 5 Cardiac enzymes are normal BNP is normal Patient has significantly less shortness of breath today. She reports she can get up and walk to the bathroom without getting short of breath Patient feels like is the nebulizer treatments that are helping her a lot Venous Dopplers of the right lower extremity per the technologist are normal however physician has not read the study yet. She reports she is having less pain in her right leg. I suspect that the combination of the IV steroids and the nebulizer treatments that are making her feel better, will start to wean her steroids slightly tomorrow as well as decrease the frequency of her nebulizer treatments Oncology consult is pending concerning abnormal CT scan of the chest - Time Time Spent with patient: 25-34 minutes
--- NOTE | 2019-05-17 11:44 | PDOC CONSULTATION ---
Consultation Consult Date: 05/17/19 Attending physician:: KAREN GOSS Provider Consulted: RAY SALDANA Consult reason:: Patient with new left spiculated nodule, left pleural effusion and diffuse adenopathy History of Present Illness Admission Date/PCP: 05/16/19 15:21 Patient complains of: Increase shortness of breath, right lower extremity swelling History of Present Illness: LUPILLO DE LA ROSA is a 63 year old female with recently worsened shortness of breath. She has an [id number] history of tobacco and does have known COPD so goes through episodes of shortness of breath. She does get short of breath on exertion of 50 feet. But in the last 2 months the shortness of breath is gotten worse, about 3 months ago the whole family came down with some sort of viral illness, and she feels like she never fully recovered. However over the last 3 to 4 days prior to admission she had extreme worsening of shortness of breath along with right lower extremity swelling and pain to the point that she could not stand on it. Ultimately she was so short of breath and having pain in the right leg that she presented, the initial concern was DVT and PE, CTA of the chest was done and no PE was found but there was a left lung 1.5 cm spiculated nodule along with a left pleural effusion, mediastinal adenopathy, bilateral axillary adenopathy left greater than right, concern of a left breast mass, and although not reported on the imaging, I discussed her imaging extensively with radiology this morning there does seem to be some upper abdominal adenopathy as well. She notes about a 10 pound weight loss. She was primarily living in [place] but has mostly moved here, still waiting to sell the house in [place]. She wants to get further work-up done here because all of her family support is here. She notes that she has had longstanding history of fibrocystic breast disease and has had fluid drawn off as well as multiple biopsies done of both the right and left breast. The last mammogram however was 2 years ago. The last biopsy on the left breast was 3 years ago. The right breast biopsy was done about 2 years ago and fluid was drawn off then. Of note she also has history of cold agglutinin Hemolytic anemia. She was treated in [place], specifically at [facility] in [place]. She actually was on an experimental regimen for this, but unfortunately the regimen failed and ultimately she did receive standard R ituxan. After that, her hemoglobin has recovered to some extent and she has stabilized in the 9-10 range. Past Medical History Cardiac Medical History: Reports: Myocardial Infarction Pulmonary Medical History: Reports: Chronic Obstructive Pulmonary Disease (COPD) Past Surgical History Past Surgical History: Reports: Other - Breast biopsies Social History Information Source: Patient Smoking Status: Current Every Day Smoker Cigarettes Packs Per Day: 1 Electronic Cigarette use?: No Frequency of Alcohol Use: None Hx Recreational Drug Use: No Drugs: None Hx Prescription Drug Abuse: No - Advance Directive Resuscitation Status: Full Code Family History Family History: Reviewed & Not Pertinent Parental Family History Reviewed: Yes Children Family History Reviewed: Yes Sibling(s) Family History Reviewed.: Yes Medication/Allergy Home Medications: Aspirin [Ecotrin 81 mg EC Tablet] 81 mg PO DAILY 05/16/19 Bupropion HCl [Bupropion Xl] 150 mg PO DAILY 05/16/19 Cholecalciferol (Vitamin D3) [Vitamin D] 50,000 unit PO MCKAY 05/16/19 Cyanocobalamin (Vitamin B-12) [Vitamin B-12 1000 Mcg Tablet] 1 tab PO DAILY 05/16/19 Fexofenadine HCl [Jael Allergy] 60 mg PO Q12 05/16/19 Oxcarbazepine 300 mg PO BID 05/16/19 Allergies/Adverse Reactions: morphine Allergy (Verified 01/19/19 20:20) shellfish derived Allergy (Verified 05/16/19 13:30) Review of Systems Constitutional: ABSENT: chills, fever(s), headache(s), weight gain, weight loss Eyes: ABSENT: visual disturbances Ears: ABSENT: hearing changes Cardiovascular: ABSENT: chest pain, dyspnea on exertion, edema, orthropnea, palpitations Respiratory: ABSENT: cough, hemoptysis Gastrointestinal: ABSENT: abdominal pain, constipation, diarrhea, hematemesis, hematochezia, nausea, vomiting Genitourinary: ABSENT: dysuria, hematuria Musculoskeletal: ABSENT: joint swelling Integumentary: ABSENT: rash, wounds Neurological: ABSENT: abnormal gait, abnormal speech, confusion, dizziness, focal weakness, syncope Psychiatric: ABSENT: anxiety, depression, homidical ideation, suicidal ideation Endocrine: ABSENT: cold intolerance, heat intolerance, polydipsia, polyuria Hematologic/Lymphatic: ABSENT: easy bleeding, easy bruising Physical Exam Vital Signs: Temp Pulse Resp BP Pulse Ox 98.2 F 82 16 98/44 L 96 05/17/19 08:02 05/17/19 08:18 05/17/19 08:18 05/17/19 08:02 05/17/19 08:18 Intake & Output 05/16/19 05/17/19 05/18/19 06:59 06:59 06:59 Intake Total 200 Output Total 200 Balance 0 Weight 65 kg General appearance: PRESENT: no acute distress, well-developed, well-nourished Head exam: PRESENT: atraumatic, normocephalic Eye exam: PRESENT: conjunctiva pink, EOMI, PERRLA. ABSENT: scleral icterus Ear exam: PRESENT: normal external ear exam Mouth exam: PRESENT: moist, tongue midline Neck exam: ABSENT: carotid bruit, JVD, lymphadenopathy, thyromegaly Respiratory exam: PRESENT: clear to auscultation clare. ABSENT: rales, rhonchi, wheezes Cardiovascular exam: PRESENT: RRR. ABSENT: diastolic murmur, rubs, systolic murmur Pulses: PRESENT: normal dorsalis pedis pul Vascular exam: PRESENT: normal capillary refill GI/Abdominal exam: PRESENT: normal bowel sounds, soft. ABSENT: distended, guarding, mass, organolmegaly, rebound, tenderness Rectal exam: PRESENT: deferred Extremities exam: PRESENT: full ROM. ABSENT: calf tenderness, clubbing, pedal edema Neurological exam: PRESENT: alert, awake, oriented to person, oriented to place, oriented to time, oriented to situation, CN II-XII grossly intact. ABSENT: motor sensory deficit Psychiatric exam: PRESENT: appropriate affect, normal mood. ABSENT: homicidal ideation, suicidal ideation Skin exam: PRESENT: dry, intact, warm. ABSENT: cyanosis, rash Results Laboratory Results: 05/17/19 04:41 05/17/19 04:41 05/16/19 05/16/19 05/16/19 12:42 12:42 13:11 WBC 6.6 RBC 3.19 L Hgb 10.0 L Hct 29.4 L MCV 92 MCH 31.2 MCHC 33.9 RDW 16.6 H Plt Count 302 Seg Neutrophils % 79.0 H Carbonic Acid HCO3/H2CO3 Ratio ABG pH ABG pCO2 ABG pO2 ABG HCO3 ABG O2 Saturation ABG Base Excess FiO2 Sodium Cancelled 137.9 Potassium Cancelled 4.0 Chloride Cancelled 107 Carbon Dioxide Cancelled 24 Anion Gap Cancelled 7 BUN Cancelled 13 Creatinine Cancelled 0.60 Est GFR ( Amer) Cancelled > 60 Est GFR (Non-Af Amer) Cancelled Glucose Cancelled 77 Calcium Cancelled 8.8 Phosphorus Magnesium Total Bilirubin AST Alkaline Phosphatase Total Protein Albumin TSH Urine Color Urine Appearance Urine pH Ur Specific [place] Urine Protein Urine Glucose (UA) Urine Ketones Urine Blood Urine Nitrite Ur Leukocyte Esterase Urine WBC (Auto) Urine RBC (Auto) 05/16/19 05/16/19 05/16/19 17:25 17:44 21:46 WBC RBC Hgb Hct MCV MCH MCHC RDW Plt Count Seg Neutrophils % Carbonic Acid 0.99 L HCO3/H2CO3 Ratio 23:1 ABG pH 7.46 H ABG pCO2 33.0 L ABG pO2 66.8 L ABG HCO3 22.8 ABG O2 Saturation 94.4 ABG Base Excess -0.7 FiO2 21% Sodium Potassium Chloride Carbon Dioxide Anion Gap BUN Creatinine Est GFR ( Amer) Est GFR (Non-Af Amer) Glucose Calcium Phosphorus Magnesium Total Bilirubin AST Alkaline Phosphatase Total Protein Albumin TSH 1.36 Urine Color YELLOW Urine Appearance CLEAR Urine pH 7.0 Ur Specific [place] 1.040 Urine Protein NEGATIVE Urine Glucose (UA) NEGATIVE Urine Ketones TRACE H Urine Blood NEGATIVE Urine Nitrite NEGATIVE Ur Leukocyte Esterase NEGATIVE Urine WBC (Auto) 1 Urine RBC (Auto) 0 05/17/19 05/17/19 04:41 04:41 WBC 5.7 RBC 2.92 L Hgb 9.0 L Hct 26.5 L MCV 91 MCH 30.9 MCHC 34.0 RDW 16.9 H Plt Count 300 Seg Neutrophils % 91.9 H Carbonic Acid HCO3/H2CO3 Ratio ABG pH ABG pCO2 ABG pO2 ABG HCO3 ABG O2 Saturation ABG Base Excess FiO2 Sodium 138.1 Potassium 4.2 Chloride 106 Carbon Dioxide 25 Anion Gap 7 BUN 13 Creatinine 0.57 Est GFR ( Amer) > 60 Est GFR (Non-Af Amer) Glucose 190 H Calcium 9.2 Phosphorus 4.5 Magnesium 2.2 Total Bilirubin 1.1 AST 33 Alkaline Phosphatase 127 H Total Protein 6.4 Albumin 3.7 TSH Urine Color Urine Appearance Urine pH Ur Specific [place] Urine Protein Urine Glucose (UA) Urine Ketones Urine Blood Urine Nitrite Ur Leukocyte Esterase Urine WBC (Auto) Urine RBC (Auto) 05/16/19 05/16/19 05/16/19 12:42 13:11 17:25 CK-MB (CK-2) 0.44 Troponin I Cancelled < 0.012 < 0.012 NT-Pro-B Natriuret Pep 308 H 05/16/19 05/17/19 22:08 04:41 CK-MB (CK-2) 0.37 0.35 Troponin I < 0.012 < 0.012 NT-Pro-B Natriuret Pep Impressions: Chest/Abdomen CTA 05/16/19 12:14 IMPRESSION: 1. No pulmonary embolism. 2. Small to moderate left pleural effusion with compressive atelectasis. No focal consolidation. 3. Background moderate to severe pulmonary emphysema. 4. Spiculated 1.5 cm nodule left lower lobe, indeterminate. PET CT may provide additional information. 5. Left breast mass. Further evaluation with nonemergent diagnostic mammogram and possible ultrasound recommended. 6. Bilateral axillary adenopathy and left hilar lymphadenopathy, indeterminate. 7. Asymmetric enhancement of the right kidney with moderate to severe right hydronephrosis. Finding is suspicious for distal right ureteral obstruction. C linical correlation recommended. 8. Cholelithiasis. Chest X-Ray 05/16/19 12:15 IMPRESSION: Possible small left pleural effusion. Cannot exclude airspace disease in the left lower lobe, pneumonia versus atelectasis. Status: Image reviewed by me Assessment & Plan - Diagnosis (1) Pulmonary nodule Is this a current diagnosis for this admission?: Yes Plan: Pulmonary nodule spiculated in the setting of left pleural effusion and 80-pack- year history of tobacco concerning for a primary lung cancer. However patient has diffuse adenopathy in multiple areas that would not fully go along with lung cancer. I discussed her case with radiology who notes that the pleural effusion may be worsening her shortness of breath and may get us an answer in terms of diagnosis so recommended CT-guided thoracentesis. Also, because of the upper abdomen adenopathy and the fact that the right lower extremity Doppler was negative for DVT, recommendation for CT of the abdomen pelvis with IV and oral contrast to look for adenopathy. I am concerned that the right lower extremity swelling may be from adenopathy from the groin. (2) Diffuse lymphadenopathy Is this a current diagnosis for this admission?: Yes Plan: Diffuse lymphadenopathy, concerning for malignant process may be even concerning for something like lymphoma. 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 Will follow. - Time Time Spent: Greater than 70 Minutes - Inpatient Certification Based on my medical assessment, after consideration of the patient's comorbidities, presenting symptoms, or acuity I expect that the services needed warrant INPATIENT care.: Yes I certify that my determination is in accordance with my understanding of Medicare's requirements for reasonable and necessary INPATIENT services [42 CFR 412.3e].: Yes Medical Necessity: Need for Nebulizer Therapy and Monitoring of Response, Need for Surgery, Risk of Complication if Not Cared For in Hospital
--- NOTE | 2019-05-17 12:12 | XCELERA REPORT ---
[address] [facility] [address] Lower Extremity Venous Evaluation Procedure: Color flow and duplex imaging of the veins of the right lower extremity as well as the right Common Femoral vein. Right Sided Venous Evaluation Normal vessel filling wall to wall, compression and augmentation as well as Colour flow down to the infrageniculate veins. Left Sided Venous Evaluation The left common femoral vein is fully compressible. Spontaneous and phasic flow is present in the left common femoral vein. Interpretation Summary No duplex evidence of DVT or obstruction in the right lower extremity nor in the left Common Femoral vein. Name: LUPILLO DE LA ROSA Age: 63 yrs Gender: Female : 1955 Patient Status: Inpatient Patient Location: [place] [address]^A Study Date: 05/16/2019 04:38 PM Reason For Study: right leg pain and edema Ordering Physician: BRITTNY CLINE Performed By: Adelaida Pastrana : BRITTNY CLINE > Arturo Clark
--- NOTE | 2019-05-17 17:06 | RADIOLOGY REPORT (SQ) ---
EXAM DESCRIPTION: CT ABD/PELVIS WITH IV ORAL COMPLETED DATE/TIME: 05/17/2019 3:01 pm REASON FOR STUDY: adenopathy, malignancy r/o. Recent CT angiography of the chest demonstrated moder ate to severe right hydronephrosis suspicious for distal right ureteral obstruction. Right breast ma ss was seen on that CT. COMPARISON: CT angiography, 05/16/2019. TECHNIQUE: CT scan of the abdomen and pelvis performed using helical scanning technique with dynamic intravenous contrast injection. No oral contrast. Images reviewed with lung, soft tissue, and bone windows. Reconstructed coronal and sagittal MPR images reviewed. Delayed images for evaluation of the urinary system also acquired. All images stored on PACS. All CT scanners at this facility use dose modulation, iterative reconstruction, and/or weight based d osing when appropriate to reduce radiation dose to as low as reasonably achievable (ALARA). [facility]: Dose Right [facility]: CareDose [facility]: Dose Right [facility]: Teradose 4D [facility]: Popdeem CONTRAST TYPE AND DOSE: contrast/concentration: Isovue 350.00 mg/ml; Total Contrast Delivered: 74.0 ml; Total Saline Delivered: 67.0 ml RENAL FUNCTION: GFR > 60. RADIATION DOSE: CT Rad equipment meets quality standard of care and radiation dose reduction techniq ues were employed. CTDIvol: 7.6 - 9.8 mGy. DLP: 882 mGy-cm.. LIMITATIONS: None. FINDINGS: LOWER CHEST: Partial visualization of a small left pleural effusion, appears to be decreas ed from previous examination. Compressive atelectasis at the left lung base is stable. Trace right pleural effusion. No focal consolidation. LIVER: The liver has normal size and contour. No focal hepatic mass. Hepatic and portal veins are p atent. No intrahepatic or extrahepatic biliary ductal dilation. SPLEEN: Normal size. Multiple calcified granulomas consistent with healed granulomatous disease. PANCREAS: No masses. No significant calcifications. No adjacent inflammation or peripancreatic fluid collections. Pancreatic duct not dilated. GALLBLADDER: The gallbladder is moderately distended measuring 5.8 x 4.6 cm diameter. There is circu mferential gallbladder wall calcification and asymmetric thickening of the gallbladder wall along the anterior margin measuring up to 8 mm thickness. No calcified gallstones are detected. No perichole cystic fluid. ADRENAL GLANDS: 1.1 cm left adrenal adenoma. No right adrenal mass. . RIGHT KIDNEY AND URETER: There is no solid or cystic right renal mass. No significant calcification s. Moderate right hydronephrosis and hydroureter to the mid ureter . The delayed phase images demo nstrate excretion of contrast into the dilated collecting system and possible enhancement of the stri cture or ureteral mass at the mid ureter. The transition point is not well visualized. The distal u reter appears normal in caliber. No ureteral calculi are detected. LEFT KIDNEY AND URETER: No solid masses. No significant calcifications. No hydronephrosis or hydr oureter. AORTA AND VESSELS: No aneurysm. No dissection. Renal arteries, SMA, celiac without stenosis. RETROPERITONEUM: There appear to be prominent retroperitoneal lymph nodes particularly along the left para-aortic region measuring approximately 1.8 x 1.7 cm. There are also enlarged external iliac and bilateral inguinal lymph nodes, for example a right inguinal node measures 3.5 by 1.4 cm, a left ing uinal node measures 2.5 x 2 cm, a right external iliac node measures 1.6 x 1.6 cm and the left accounts receivable collector al iliac node measures 1.7 by 1.1 cm. No mesenteric or upper abdominal adenopathy. BOWEL AND PERITONEAL CAVITY: No masses or inflammatory changes. No free fluid or peritoneal masses. APPENDIX: Normal. PELVIS: Uterus and ovaries have normal size. No adnexal mass. Urinary bladder has normal contour. No bladder wall thickening, intraluminal bladder mass or debris. ABDOMINAL WALL: No masses. No hernias. BONES: No significant or acute findings. OTHER: No other significant finding. IMPRESSION: 1. Irregular gallbladder wall calcification and asymmetric gallbladder wall thickening, suggestive of porcelain gallbladder. This has increased risk for gallbladder carcinoma. Surgical consultation sh ould be considered. No calcified gallstones are seen. 2. There is retroperitoneal and bilateral external iliac and inguinal lymphadenopathy. Findings are nonspecific. Differential includes infectious or inflammatory process or lymphoma. Metastatic disea se is thought less likely given the bilateral inguinal involvement. 3. Moderate severe right hydronephrosis and hydroureter with possible ureteral stricture or mass in t he mid ureter. Finding may represent a transitional cell carcinoma or ureteral stricture. Clinical correlation and correlation with cystoscopy/ureteroscopy should be considered. 4. Small to moderate left pleural effusion appears decreased since previous CT chest. TECHNICAL DOCUMENTATION: JOB ID: [id number] Quality ID # [id number]: Final reports with documentation of one or more dose reduction techniques (e.g., Au tomated exposure control, adjustment of the mA and/or kV according to patient size, use of iterative reconstruction technique) 2010 [employer]- All Rights Reserved Reading location - IP/workstation name: [email or web address]
[2019-05-17] MEDS: HYDROCODONE/ACETAMINOPHEN 5-325 MG TABLET PO PRN (22:37)
[2019-05-18] MEDS: IPRATROPIUM/ALBUTEROL 0.5-2.5 MG/3 ML AMPUL NEB PRN ×3 (00:42→12:32)
[2019-05-18] MEDS: HYDROCODONE/ACETAMINOPHEN 5-325 MG TABLET PO PRN (05:07)
[2019-05-18] MEDS: METHYLPREDNISOLONE INJ 40 MG/1 ML SDV IV SCH (05:07)
[2019-05-18] MEDS: BUPROPION HCL 75 MG TABLET PO SCH (09:31)
[2019-05-18] MEDS: CHOLECALCIFEROL (D3) 1,000 UNIT (25 MCG) TABLET PO SCH (09:31)
[2019-05-18] MEDS: ASPIRIN 81 MG TABLET, ENT COATED PO SCH (09:31)
[2019-05-18] MEDS: ENOXAPARIN SODIUM INJ 40 MG/0.4 ML DISP.SYRIN SUBCUT SCH (09:31)
[2019-05-18] MEDS: FAMOTIDINE 20 MG TABLET PO SCH (09:31)
[2019-05-18] MEDS: OXCARBAZEPINE 150 MG TABLET PO SCH (09:31)
[2019-05-18] MEDS: CYANOCOBALAMIN (VITAMIN B-12) 1,000 MCG TABLET PO SCH (09:31)
[2019-05-18] MEDS: DOXYCYCLINE HYCLATE 100 MG TABLET PO SCH (09:31)
--- NOTE | 2019-05-18 10:28 | PDOC PROGRESS REPORT ---
Subjective Progress Note for:: 05/18/19 Subjective:: Patient feeling really good this morning, swelling in the legs still improved, eating well, getting up and around very well. Breathing seems back to baseline. Reason For Visit: COPD, RIGHT LEG PAIN, ACUTE SHORTNESS OF BREATH, Physical Exam Vital Signs: Temp Pulse Resp BP Pulse Ox 98.6 F 103 H 16 121/63 92 05/18/19 08:34 05/18/19 08:34 05/18/19 08:34 05/18/19 08:34 05/18/19 08:34 Intake & Output 05/17/19 05/18/19 05/19/19 06:59 06:59 06:59 Intake Total 200 1088 Output Total 200 Balance 0 1088 Weight 65 kg 61.4 kg Results Laboratory Results: 05/17/19 04:41 05/17/19 04:41 05/16/19 05/16/19 05/16/19 12:42 13:11 17:25 CK-MB (CK-2) 0.44 Troponin I Cancelled < 0.012 < 0.012 NT-Pro-B Natriuret Pep 308 H 05/16/19 05/17/19 22:08 04:41 CK-MB (CK-2) 0.37 0.35 Troponin I < 0.012 < 0.012 NT-Pro-B Natriuret Pep Impressions: Chest/Abdomen CTA 05/16/19 12:14 IMPRESSION: 1. No pulmonary embolism. 2. Small to moderate left pleural effusion with compressive atelectasis. No focal consolidation. 3. Background moderate to severe pulmonary emphysema. 4. Spiculated 1.5 cm nodule left lower lobe, indeterminate. PET CT may provide additional information. 5. Left breast mass. Further evaluation with nonemergent diagnostic mammogram and possible ultrasound recommended. 6. Bilateral axillary adenopathy and left hilar lymphadenopathy, indeterminate. 7. Asymmetric enhancement of the right kidney with moderate to severe right hydronephrosis. Finding is suspicious for distal right ureteral obstruction. Clinical correlation recommended. 8. Cholelithiasis. Chest X-Ray 05/16/19 12:15 IMPRESSION: Possible small left pleural effusion. Cannot exclude airspace disease in the left lower lobe, pneumonia versus atelectasis. Abdomen/Pelvis CT 05/17/19 00:00 IMPRESSION: 1. Irregular gallbladder wall calcification and asymmetric gallbladder wall thickening, suggestive of porcelain gallbladder. This has increased risk for gallbladder carcinoma. Surgical consultation should be considered. No calcified gallstones are seen. 2. There is retroperitoneal and bilateral external iliac and inguinal lymphadenopathy. Findings are nonspecific. Differential includes infectious or inflammatory process or lymphoma. Metastatic disease is thought less likely given the bilateral inguinal involvement. 3. Moderate severe right hydronephrosis and hydroureter with possible ureteral stricture or mass in the mid ureter. Finding may represent a transitional cell carcinoma or ureteral stricture. Clinical correlation and correlation with cystoscopy/ureteroscopy should be considered. 4. Small to moderate left pleural effusion appears decreased since previous CT chest. 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 This may be a cholangiocarcinoma with metastatic spread to lymph nodes. Of note there is also a hydro-nephrosis on the right side, probably from ureteric compression from a mass, so ultimately if patient is going to require surgical approach she may need urology support as well. Ultimately we will need to do a PET scan as an outpatient to further characterize PET positive disease, Prior to considering a surgical approach. 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
--- NOTE | 2019-05-18 11:54 | PDOC CONSULTATION ---
Consultation Consult Date: 05/18/19 Attending physician:: RAY HILLMAN Provider Consulted: YONATAN GRAEJDA Consult reason:: lymphadenopathy. dilated gallbladder History of Present Illness Admission Date/PCP: 05/16/19 15:21 History of Present Illness: LUPILLO DE LA ROSA is a 64 year old female a 63 year old female with recently worsened shortness of breath. She has an 80 -pack-year history of tobacco and does have known COPD so goes through episodes of shortness of breath. She does get short of breath on exertion of 50 feet. But in the last 2 months the shortness of breath is gotten worse, about 3 months ago the whole family came down with some sort of viral illness, and she feels like she never fully recovered. However over the last 3 to 4 days prior to admission she had extreme worsening of shortness of breath along with right lower extremity swelling and pain to the point that she could not stand on it. Ultimately she was so short of breath and having pain in the right leg that she presented, the initial concern was DVT and PE, CTA of the chest was done and no PE was found but there was a left lung 1.5 cm spiculated nodule along with a left pleural effusion, mediastinal adenopathy, bilateral axillary adenopathy left greater than right, concern of a left breast mass, and although not reported on the imaging, there does seem to be some upper abdominal adenopathy as well. 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 She was primarily living in [place] but has mostly moved here, still waiting to sell the house in [place]. She wants to get further work-up done here because all of her family support is here. She notes that she has had longstanding history of fibrocystic breast disease and has had fluid drawn off as well as multiple biopsies done of both the right and left breast. The last mammogram however was 2 years ago. The last biopsy on the left breast was 3 years ago. The right breast biopsy was done about 2 years ago and fluid was drawn off then. Of note she also has history of cold aggl utinin Hemolytic anemia. She was treated in [facility] She underwent a colonoscopy 3 years ago because of her anemia which was reported by her is negative. Evelyn vang from oncology is concerned that because of her dilated gallbladder this could be indicative of possible metastatic cholangiocarcinoma however liver function studies have been reported as normal so far. So noted on the CT scan there is difficult ureteral obstruction on the right side causing a hydronephrosis on the right side. Past Medical History Cardiac Medical History: Reports: Myocardial Infarction Pulmonary Medical History: Reports: Chronic Obstructive Pulmonary Disease (COPD) Past Surgical History Past Surgical History: Reports: Other - Breast biopsies, multiple always negative for malignant disease. Social History Smoking Status: Current Every Day Smoker Cigarettes Packs Per Day: 1 Electronic Cigarette use?: No Frequency of Alcohol Use: None Hx Recreational Drug Use: No Drugs: None Hx Prescription Drug Abuse: No - Advance Directive Resuscitation Status: Full Code Family History Family History: Reviewed & Not Pertinent Parental Family History Reviewed: No Children Family History Reviewed: NA Sibling(s) Family History Reviewed.: NA Medication/Allergy Home Medications: Aspirin [Ecotrin 81 mg EC Tablet] 81 mg PO DAILY 05/16/19 Bupropion HCl [Bupropion Xl] 150 mg PO DAILY 05/16/19 Cholecalciferol (Vitamin D3) [Vitamin D3] 50,000 unit PO MCKAY 05/16/19 Cyanocobalamin (Vitamin B-12) [Vitamin B-12 1000 mcg Tablet] 1 tab PO DAILY 05/16/19 Fexofenadine HCl [Jael Allergy] 60 mg PO Q12 05/16/19 Oxcarbazepine 300 mg PO BID 05/16/19 Acetaminophen [Tylenol 325 mg Tablet] 650 mg PO Q4HP PRN tablet 05/18/19 Doxycycline Hyclate [Vibramycin 100 mg Tablet] 100 mg PO DAILY 8 Days #8 tablet 05/18/19 Hydrocodone/Acetaminophen [[place] 5-325 mg Tablet] 1 tab PO Q6HP PRN 3 Days #12 tablet 05/18/19 Methylprednisolone [Medrol Dosepack (4 mg/Tab) 21 Tab/Dosepak] 4 mg PO ASDIR PRN #21 tab.ds.pk 05/18/19 Allergies/Adverse Reactions: morphine Allergy (Verified 01/19/19 20:20) shellfish derived Allergy (Verified 05/16/19 13:30) Review of Systems Constitutional: PRESENT: fatigue Eyes: ABSENT: as per HPI, visual disturbances, other Ears: ABSENT: as per HPI, hearing changes, other Nose, Mouth, and Throat: ABSENT: as per HPI, headache(s), mouth pain, sore throat, vertigo, other Breasts: PRESENT: other - Fibrocystic changes in both breasts with palpable mass in the left breast however this is unchanged according the patient Cardiovascular: ABSENT: as per HPI, chest pain, dyspnea on exertion, edema, orthropnea, palpitations, other Respiratory: PRESENT: other - Mild shortness of breath which has improved since her hospitalization here. Gastrointestinal: ABSENT: as per HPI, abdominal pain, bloating, coffee ground emesis, constipation, diarrhea, dysphagia, heartburn, hematemesis, hematochezia, melena, nausea, vomiting, other Genitourinary: ABSENT: as per HPI, difficulty urinating, dysuria, hematuria, nocturia, other Musculoskeletal: PRESENT: other - Right lower extremity swelling which also has improved since her hospitalization here Integumentary: ABSENT: as per HPI, diaphoresis, erythema, lesions, pruritus, rash, wounds, other Neurological: ABSENT: as per HPI, abnormal gait, abnormal movements, abnormal speech, confusion, convulsions, dizziness, focal weakness, frequent falls, lack of coordination, memory loss, numbness, paresthesias, restless legs, syncope, tingling, tremor(s), vertigo, weakness, other Psychiatric: ABSENT: as per HPI, anxiety, depression, hallucinations, homidical ideation, suicidal ideation, other Endocrine: ABSENT: as per HPI, cold intolerance, flushing, heat intolerance, menstrual abnormalities, polydipsia, polyphagia, polyuria, other Hematologic/Lymphatic: ABSENT: as per HPI, easy bleeding, easy bruising, lymphadenopathy, other Physical Exam Vital Signs: Temp Pulse Resp BP Pulse Ox 98.6 F 103 H 16 121/63 92 05/18/19 08:34 05/18/19 08:34 05/18/19 08:34 05/18/19 08:34 05/18/19 08:34 Intake & Output 05/17/19 05/18/19 05/19/19 06:59 06:59 06:59 Intake Total 200 1088 Output Total 200 Balance 0 1088 Weight 65 kg 61.4 kg General appearance: PRESENT: no acute distress Head exam: PRESENT: normocephalic Eye exam: PRESENT: EOMI Ear exam: PRESENT: normal external ear exam Mouth exam: PRESENT: moist Neck exam: PRESENT: full ROM Respiratory exam: PRESENT: decreased breath sounds - Decreased on the right side Cardiovascular exam: ABSENT: bradycardia, clicks, diastolic murmur, gallop, irregular rhythm, RRR, rubs, +S1, +S2, systolic murmur, tachycardia, other Pulses: PRESENT: normal dorsalis pedis pul Vascular exam: PRESENT: normal capillary refill Breast: PRESENT: Other - Bilateral fibrocystic changes in both breasts on the left side there is a more dominant mass on the lateral aspect of the left breast at the 9 o'clock position is approximately 2 cm in diameter is firm. Shotty lymphadenopathy bilaterally right greater than left. GI/Abdominal exam: PRESENT: soft Rectal exam: PRESENT: deferred Extremities exam: PRESENT: full ROM Musculoskeletal exam: PRESENT: full ROM Neurological exam: PRESENT: alert, awake, oriented to person, oriented to place Skin exam: PRESENT: dry Results Laboratory Results: 05/17/19 04:41 05/17/19 04:41 05/16/19 05/16/19 05/16/19 12:42 13:11 17:25 CK-MB (CK-2) 0.44 Troponin I Cancelled < 0.012 < 0.012 NT-Pro-B Natriuret Pep 308 H 05/16/19 05/17/19 22:08 04:41 CK-MB (CK-2) 0.37 0.35 Troponin I < 0.012 < 0.012 NT-Pro-B Natriuret Pep Impressions: Chest/Abdomen CTA 05/16/19 12:14 IMPRESSION: 1. No pulmonary embolism. 2. Small to moderate left pleural effusion with compressive atelectasis. No focal consolidation. 3. Background moderate to severe pulmonary emphysema. 4. Spiculated 1.5 cm nodule left lower lobe, indeterminate. PET CT may provide additional information. 5. Left breast mass. Further evaluation with nonemergent diagnostic mammogram and possible ultrasound recommended. 6. Bilateral axillary adenopathy and left hilar lymphadenopathy, indeterminate. 7. Asymmetric enhancement of the right kidney with moderate to severe right hydronephrosis. Finding is suspicious for distal right ureteral obstruction. Clinical correlation recommended. 8. Cholelithiasis. Chest X-Ray 05/16/19 12:15 IMPRESSION: Possible small left pleural effusion. Cannot exclude airspace disease in the left lower lobe, pneumonia versus atelectasis. Abdomen/Pelvis CT 05/17/19 00:00 IMPRESSION: 1. Irregular gallbladder wall calcification and asymmetric gallbladder wall thickening, suggestive of porcelain gallbladder. This has increased risk for gallbladder carcinoma. Surgical consultation should be considered. No calcified gallstones are seen. 2. There is retroperitoneal and bilateral external iliac and inguinal lymphadenopathy. Findings are nonspecific. Differential includes infectious or inflammatory process or lymphoma. Metastatic disease is thought less likely given the bilateral inguinal involvement. 3. Moderate severe right hydronephrosis and hydroureter with possible ureteral stricture or mass in the mid ureter. Finding may represent a transitional cell carcinoma or ureteral stricture. Clinical correlation and correlation with cystoscopy/ureteroscopy should be considered. 4. Small to moderate left pleural effusion appears decreased since previous CT chest. Assessment & Plan - Plan Summary Plan Summary: This is a 64-year-old female with a long history of smoking and COPD who presents with increasing dyspnea right lower extremity swelling and fatigue. She recently moved here from [place] and has yet to have a follow-up with a MD here in [place]. She has a history of cold agglutinin anemia which she has been cared for in [place] by an oncologist. Work-up while she is been admitted here included a CT scan of her chest and abdomen as well as work-up for a right lower extremity swelling with Dopplers which were negative for deep venous thrombosis. She has generalized lymphadenopathy greatest in the right groin as well as a dilated gallbladder with calcifications in the wall on CT scan and a near obstructing right ureteral obstruction. Current plans are for PET scan in the next week to evaluate her lymphadenopathy. Surgical consult was made because of her dilated gallbladder with calcifications in the wall rule out possible cholangiocarcinoma. Recommendations I discussed the case with Dr. Hillman from oncology who is ordered a PET scan scheduled next week. Most likely she will need lymph node biopsy in order to make a diagnosis of the diffuse lymphadenopathy. In addition to that I have contacted Dr. Jeferson Shine and urologist at [facility]. I will attempt to schedule an appointment for her with him when he returns my phone call. Patient will follow-up with Dr. Evelyn vang as well as myself next week after PET scan for further discussion.
[2019-05-18 13:09] VITALS: BP 122/66
--- NOTE | 2019-05-19 18:14 | PDOC DISCHARGE SUMMARY ---
Impression - Admit/DC Date/PCP Admission Date/Primary Care Provider: 05/16/19 15:21 Discharge Date: 05/18/19 - Discharge Diagnosis (1) Abnormal CT scan, chest Is this a current diagnosis for this admission?: Yes (2) COPD (chronic obstructive pulmonary disease) Is this a current diagnosis for this admission?: Yes (3) Emphysema lung Is this a current diagnosis for this admission?: Yes (4) Tobacco abuse Is this a current diagnosis for this admission?: Yes (5) Lower extremity pain Is this a current diagnosis for this admission?: Yes (6) Cold agglutinin disease Is this a current diagnosis for this admission?: Yes (7) Pleural effusion Is this a current diagnosis for this admission?: Yes - Assessment Summary: Patient will be treated as a COPD exacerbation with pulmonary toiletry, IV steroids, antibiotics. Ever due to patient's abnormal CT scan of the chest involving the spiculated lesion, adenopathy, hilar fullness, I have consulted oncology as well. Also I have ordered a venous Doppler of the right lower extremity. I explained all this to the patient she seems satisfied with the admission and work-up so far. Patient's son was in the room during the history and physical 05/17/2019 Vital signs are stable temperature 97.5 pulse 86 blood pressure 123/56, although has been lower at 98/44 patient is asymptomatic O2 sat 94% on room air Patient's labs all look stable CBC grossly normal chemistry panel is normal hemoglobin A1c is normal at 5 Cardiac enzymes are normal BNP is normal Patient has significantly less shortness of breath today. She reports she can get up and walk to the bathroom without getting short of breath Patient feels like is the nebulizer treatments that are helping her a lot Venous Dopplers of the right lower extremity per the technologist are normal however physician has not read the study yet. She reports she is having less pain in her right leg. I suspect that the combination of the IV steroids and the nebulizer treatments that are making her feel better, will start to wean her steroids slightly tomorrow as well as decrease the frequency of her nebulizer treatments Oncology consult is pending concerning abnormal CT scan of the chest 05/18/2019 She is feeling significantly better concerning her shortness of breath. Not requiring oxygen She has been seen by general surgery as well as oncology. Feel that she can be managed as an outpatient We will follow-up with Dr. Hillman with a PET scan next week She will need probably a lymph node biopsy Will need to see urologist at [facility] Dr. Shine she was discharged home on a Medrol Dosepak 8 days of doxycycline and 3 days worth of Vicodin She is medically stable for discharge follow-up as an outpatient Patient has a dilated gallbladder with calcifications in the wall that needs to be studied further to rule out cholangiocarcinoma Also has a spiculated nodule in her lungs Patient also has narrowing of the ureter which could be secondary to a mass - Additional Information Resuscitation Status: Full Code Discharge Diet: As Tolerated Discharge Activity: Activity As Tolerated Referrals: YONATAN GRAJEDA MD [ACTIVE STAFF] - 05/30/19 10:30 am RAY HILLMAN MD [ACTIVE STAFF] - 05/30/19 8:15 am Prescriptions: Methylprednisolone [Medrol Dosepack (4 mg/Tab) 21 Tab/Dosepak] 4 mg PO ASDIR PRN #21 tab.ds.pk PRN Reason: Hydrocodone/Acetaminophen [[place] 5-325 mg Tablet] 1 tab PO Q6HP PRN 3 Days #12 tablet PRN Reason: Doxycycline Hyclate [Vibramycin 100 mg Tablet] 100 mg PO DAILY 8 Days #8 tablet Home Medications: Aspirin [Ecotrin 81 mg EC Tablet] 81 mg PO DAILY 05/16/19 Bupropion HCl [Bupropion Xl] 150 mg PO DAILY 05/16/19 Cholecalciferol (Vitamin D3) [Vitamin D3] 50,000 unit PO MCKAY 05/16/19 Cyanocobalamin (Vitamin B-12) [Vitamin B-12 1000 mcg Tablet] 1 tab PO DAILY 05/16/19 Fexofenadine HCl [Jael Allergy] 60 mg PO Q12 05/16/19 Oxcarbazepine 300 mg PO BID 05/16/19 Acetaminophen [Tylenol 325 mg Tablet] 650 mg PO Q4HP PRN tablet 05/18/19 Doxycycline Hyclate [Vibramycin 100 mg Tablet] 100 mg PO DAILY 8 Days #8 tablet 05/18/19 Hydrocodone/Acetaminophen [[place] 5-325 mg Tablet] 1 tab PO Q6HP PRN 3 Days #12 tablet 05/18/19 Methylprednisolone [Medrol Dosepack (4 mg/Tab) 21 Tab/Dosepak] 4 mg PO ASDIR PRN #21 tab.ds.pk 05/18/19 History of Present Illiness History of Present Illness: LUPILLO DE LA ROSA is a 63 year old female who comes in with increased shortness of breath since Sunday, 3 days ago, as well as right leg pain.. Patient states that Sunday evening she got up to go to the bathroom and when she did she noticed that her right leg was very painful and "swollen". She states she is never had any problems with her legs before, certainly nothing this painful. Patient states she did not think she was going to be able to get back to bed because of the right leg pain. Patient states that also at the same time she was very short of breath and noticed a significant increase in her difficulty breathing. Patient does have COPD although she is never been told emphysema. Chest x-ray done here at this hospital back in November showed emphysema at that time. Patient states that she used to smoke 2 packs of cigarettes per day and has done so for probably over 40 years. Recently she has cut back to 3 or 4 cigarettes/day. Patient has never had to use a nebulizer machine, she is never been on home oxygen, she has never used inhalers. Patient denies any recent fever or chills nausea or vomiting. Patient is still living between [place] and [place] but is making the transition to live permanently in [place] where her children and grandchildren are. Patient does not have any primary care down here. Patient denies other comorbidities such as diabetes or hypertension. 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 CTA of the chest shows no evidence of pulmonary emboli, ever it does show a 1.5 spiculated nodule of the left lower lung. Because of this and also because of the adenopathy that is mentioned in the report I have consulted oncology. I am going to start pulmonary toiletry with IV steroids and p.o. antibiotics, as we continue to work her up. Physical Exam Vital Signs: Temp Pulse Resp BP Pulse Ox 98.6 F 86 16 122/66 95 05/18/19 13:04 05/18/19 13:04 05/18/19 13:04 05/18/19 13:04 05/18/19 13:04 Intake & Output 05/18/19 05/19/19 05/20/19 06:59 06:59 06:59 Intake Total 1088 600 Output Total 2 Balance 1088 598 Weight 61.4 kg Results Laboratory Results: WBC 5.7 10^3/uL (4.0-10.5) 05/17/19 04:41 RBC 2.92 10^6/uL (3.72-5.28) L 05/17/19 04:41 Hgb 9.0 g/dL (12.0-15.5) L 05/17/19 04:41 Hct 26.5 % (36.0-47.0) L 05/17/19 04:41 MCV 91 fl (80-97) 05/17/19 04:41 MCH 30.9 pg (27.0-33.4) 05/17/19 04:41 MCHC 34.0 g/dL (32.0-36.0) 05/17/19 04:41 RDW 16.9 % (11.5-14.0) H 05/17/19 04:41 Plt Count 300 10^3/uL (150-450) 05/17/19 04:41 Lymph % (Auto) 5.6 % (13-45) L 05/17/19 04:41 [place] % (Auto) 2.1 % (3-13) L 05/17/19 04:41 Eos % (Auto) 0.0 % (0-6) 05/17/19 04:41 Baso % (Auto) 0.4 % (0-2) 05/17/19 04:41 Absolute Neuts (auto) 5.2 10^3/uL (1.7-8.2) 05/17/19 04:41 Absolute Lymphs (auto) 0.3 10^3/uL (0.5-4.7) L 05/17/19 04:41 Absolute Monos (auto) 0.1 10^3/uL (0.1-1.4) 05/17/19 04:41 Absolute Eos (auto) 0.0 10^3/uL (0.0-0.6) 05/17/19 04:41 Absolute Basos (auto) 0.0 10^3/uL (0.0-0.2) 05/17/19 04:41 Seg Neutrophils % 91.9 % (42-78) H 05/17/19 04:41 PT 13.7 SEC (11.4-15.4) 05/16/19 17:25 INR 1.05 05/16/19 17:25 APTT 32.6 SEC (23.5-35.8) 05/17/19 04:41 Carbonic Acid 0.99 mmol/L (1.05-1.35) L 05/16/19 17:44 HCO3/H2CO3 Ratio 23:1 05/16/19 17:44 ABG pH 7.46 (7.35-7.45) H 05/16/19 17:44 ABG pCO2 33.0 mmHg (35-45) L 05/16/19 17:44 ABG pO2 66.8 mmHg (80-100) L 05/16/19 17:44 ABG HCO3 22.8 mmol/L (20-24) 05/16/19 17:44 ABG Total CO2 23.8 mmol/L (21-25) 05/16/19 17:44 ABG O2 Saturation 94.4 % (94-98) 05/16/19 17:44 ABG Base Excess -0.7 mmol/L 05/16/19 17:44 FiO2 21% 05/16/19 17:44 Sodium 138.1 mmol/L (137-145) 05/17/19 04:41 Potassium 4.2 mmol/L (3.6-5.0) 05/17/19 04:41 Chloride 106 mmol/L (98-107) 05/17/19 04:41 Carbon Dioxide 25 mmol/L (22-30) 05/17/19 04:41 Anion Gap 7 (5-19) 05/17/19 04:41 BUN 13 mg/dL (7-20) 05/17/19 04:41 Creatinine 0.57 mg/dL (0.52-1.25) 05/17/19 04:41 Est GFR ( Amer) > 60 (>60) 05/17/19 04:41 Est GFR (Non-Af Amer) Cancelled 05/16/19 12:42 Est GFR (MDRD) Non-Af > 60 (>60) 05/17/19 04:41 Glucose 190 mg/dL (75-110) H 05/17/19 04:41 Hemoglobin A1c % 5.0 % (4.7-6.0) 05/17/19 04:41 Calcium 9.2 mg/dL (8.4-10.2) 05/17/19 04:41 Phosphorus 4.5 mg/dL (2.5-4.5) 05/17/19 04:41 Magnesium 2.2 mg/dL (1.6-2.3) 05/17/19 04:41 Total Bilirubin 1.1 mg/dL (0.2-1.3) 05/17/19 04:41 Direct Bilirubin 0.3 mg/dL (0.0-0.4) 05/17/19 04:41 Neonat Total Bilirubin Not Reportable 05/17/19 04:41 Neonat Direct Bilirubin Not Reportable 05/17/19 04:41 Neonat Indirect Bili Not Reportable 05/17/19 04:41 AST 33 U/L (14-36) 05/17/19 04:41 ALT 23 U/L (<35) 05/17/19 04:41 Alkaline Phosphatase 127 U/L (38-126) H 05/17/19 04:41 CK-MB (CK-2) 0.35 ng/mL (<4.55) 05/17/19 04:41 Troponin I < 0.012 ng/mL 05/17/19 04:41 NT-Pro-B Natriuret Pep 308 pg/mL (<125) H 05/16/19 17:25 Total Protein 6.4 g/dL (6.3-8.2) 05/17/19 04:41 Albumin 3.7 g/dL (3.5-5.0) 05/17/19 04:41 EGFR Cancelled 05/16/19 12:42 TSH 1.36 uIU/mL (0.47-4.68) 05/16/19 17:25 Urine Color YELLOW 05/16/19 21:46 Urine Appearance CLEAR 05/16/19 21:46 Urine pH 7.0 (5.0-9.0) 05/16/19 21:46 Ur Specific [place] 1.040 05/16/19 21:46 Urine Protein NEGATIVE mg/dL (NEGATIVE) 05/16/19 21:46 Urine Glucose (UA) NEGATIVE mg/dL (NEGATIVE) 05/16/19 21:46 Urine Ketones TRACE mg/dL (NEGATIVE) H 05/16/19 21:46 Urine Blood NEGATIVE (NEGATIVE) 05/16/19 21:46 Urine Nitrite NEGATIVE (NEGATIVE) 05/16/19 21:46 Urine Bilirubin NEGATIVE (NEGATIVE) 05/16/19 21:46 Urine Urobilinogen 2.0 mg/dL (<2.0) H 05/16/19 21:46 Ur Leukocyte Esterase NEGATIVE (NEGATIVE) 05/16/19 21:46 Urine WBC (Auto) 1 /HPF 05/16/19 21:46 Urine RBC (Auto) 0 /HPF 05/16/19 21:46 Urine Bacteria (Auto) TRACE /HPF 05/16/19 21:46 Squamous Epi Cells Auto <1 /HPF 05/16/19 21:46 Urine Ascorbic Acid NEGATIVE (NEGATIVE) 05/16/19 21:46 05/16/19 05/16/19 05/16/19 12:42 13:11 17:25 CK-MB (CK-2) 0.44 Troponin I Cancelled < 0.012 < 0.012 NT-Pro-B Natriuret Pep 308 H 05/16/19 05/17/19 22:08 04:41 CK-MB (CK-2) 0.37 0.35 Troponin I < 0.012 < 0.012 NT-Pro-B Natriuret Pep Impressions: Chest/Abdomen CTA 05/16/19 12:14 IMPRESSION: 1. No pulmonary embolism. 2. Small to moderate left pleural effusion with compressive atelectasis. No focal consolidation. 3. Background moderate to severe pulmonary emphysema. 4. Spiculated 1.5 cm nodule left lower lobe, indeterminate. PET CT may provide additional information. 5. Left breast mass. Further evaluation with nonemergent diagnostic mammogram and possible ultrasound recommended. 6. Bilateral axillary adenopathy and left hilar lymphadenopathy, indeterminate. 7. Asymmetric enhancement of the right kidney with moderate to severe right hydronephrosis. Finding is suspicious for distal right ureteral obstruction. Clinical correlation recommended. 8. Cholelithiasis. Chest X-Ray 05/16/19 12:15 IMPRESSION: Possible small left pleural effusion. Cannot exclude airspace dis ease in the left lower lobe, pneumonia versus atelectasis. Abdomen/Pelvis CT 05/17/19 00:00 IMPRESSION: 1. Irregular gallbladder wall calcification and asymmetric gallbladder wall thickening, suggestive of porcelain gallbladder. This has increased risk for gallbladder carcinoma. Surgical consultation should be considered. No calcified gallstones are seen. 2. There is retroperitoneal and bilateral external iliac and inguinal lymphadenopathy. Findings are nonspecific. Differential includes infectious or inflammatory process or lymphoma. Metastatic disease is thought less likely given the bilateral inguinal involvement. 3. Moderate severe right hydronephrosis and hydroureter with possible ureteral stricture or mass in the mid ureter. Finding may represent a transitional cell carcinoma or ureteral stricture. Clinical correlation and correlation with cystoscopy/ureteroscopy should be considered. 4. Small to moderate left pleural effusion appears decreased since previous CT chest. Stroke Is this a Stroke Patient?: No Acute Heart Failure - Is this a Heart Failure Patient?: No
== END 2019-05-18 13:40 | disposition home health service (06) | DRG 191 ==
LOC: ER 11:42 → EH 15:21 → 3W 18:07
PROVIDERS: ADMIT Hospitalist; ATTEND Hospitalist
DX: J43.9 Emphysema, unspecified (principal); D59.1 Other autoimmune hemolytic anemias; N13.30 Unspecified hydronephrosis; R59.0 Localized enlarged lymph nodes; K82.8 Other specified diseases of gallbladder; R91.1 Solitary pulmonary nodule; K80.20 Calculus of gallbladder without cholecystitis without obstruction; N60.11 Diffuse cystic mastopathy of right breast; N60.12 Diffuse cystic mastopathy of left breast; F17.210 Nicotine dependence, cigarettes, uncomplicated; I25.2 Old myocardial infarction; Z91.013 Allergy to seafood; Z88.5 Allergy status to narcotic agent; Z79.82 Long term (current) use of aspirin
CPT/HCPCS: 36415; 36600; 71045; 71275; 74177; 80048; 80053; 81001; 82553; 82803; 83036; 83735; 83880; 84100; 84443; 84484; 85025; 85610; 85730; 93005; 93010; 93971; 94640; 99285; J1650; J2920; J7620

== ENCOUNTER → 2019-05-27 | Outpatient (CLI) | payer MEDICAID ==
--- NOTE | 2019-05-28 09:50 | RADIOLOGY REPORT (SQ) ---
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 TECHNIQUE: Blood glucose level was verified. Above dose of FDG was injected intravenously. 2-D seg mented attenuation correction images were obtained from the base of the skull to the midthighs. Nonc ontrast CT images were obtained for attenuation correction and fusion with emission images. CT image s were performed without oral or intravenous contrast and are not sensitive for parenchymal lesions. A series of overlapping emission PET images were obtained. Images reviewed and manipulated at indep [employer] work station by the radiologist. Images stored on PACS. LIMITATIONS: None. FINDINGS: HEAD AND NECK: No areas of abnormal metabolic activity in the soft tissues of the head and neck. CHEST: The mass in the left breast (image 89 of series 3) that measures 2.3 x 1.6 cm demonstrates mil d FDG uptake with a maximum SUV of 2.1. There are enlarged bilateral axillary lymph nodes that on th e left measure up to 2 x 1 cm and on the right measure up to 2.2 x 8 cm ; the lymph nodes demonstrate mild FDG uptake with maximum SUVs up to 3.7. The 1.2 x 1.1 cm spiculated perifissural nodule in the left lower lobe demonstrates mild FDG uptake with a maximum SUV of 2.1. There is a moderate left pl eural effusion and nodular thickening of the posterior-lateral aspect of the left hemithorax ; the ef fusion and the pleura demonstrate increased FDG uptake with maximum SUVs in the range of 3 to 4. The confluent adenopathy in the left rosina also demonstrates mild FDG uptake with maximum SUVs in the range of 3 to 4. ABDOMEN AND PELVIS: The liver demonstrates heterogeneous non focal FDG uptake with an average SUV of 2.1. There is expected physiologic activity throughout the gastrointestinal and genitourinary tracts . There is no abnormal uptake in the gallbladder. The confluent asymmetric retroperitoneal adenopat hy/ mass that on the right-side encases the common iliac artery demonstrates diffuse increased FDG up take with a maximum SUV of 3.9. There are also enlarged bilateral external iliac, obturator, deep in guinal and superficial inguinal lymph nodes that demonstrate varying degrees of increased FDG uptake with maximum SUVs in the range of 3 to 4 ; for reference these include the 2.9 x 2.2 cm left deep ing uinal lymph node on image 197 of series 3 There is increased abnormal soft tissue in the presacral space and there is asymmetric effacement of the intramuscular fat of the right gluteus medius (image 171 of series 3) ; these areas also demonstr ate increased abnormal FDG uptake. PROXIMAL LOWER EXTREMITIES: As above. BONES: There is diffuse increased marrow FDG uptake with superimposed focal areas of increased FDG up take in the right humerus (maximum SUV of 5.1), right ilium (maximum SUV is 6.7) and left femur (maxi mum SUV of 4.3). ADDITIONAL CT FINDINGS: The gallbladder is filled with calculi ; the asymmetric thickening of the gal lbladder wall demonstrates no abnormal FDG uptake on PET. The spleen is normal in size. The degree of right-sided hydronephrosis has decreased. OTHER: No other findings. IMPRESSION: The overall constellation of findings suggests a lymphomatous process given the confluen t retroperitoneal adenopathy and diffuse increased marrow uptake. However, given the left breast mas s and the spiculated nodule in the left lower lobe further work-up to exclude synchronous breast and bronchogenic neoplasms is recommended. TECHNICAL DOCUMENTATION: JOB ID: [id number] 2010 [employer]- All Rights Reserved Reading location - IP/workstation name: [email or web address]
== END ==
LOC: RAD 09:01
PROVIDERS: ATTEND Internal Medicine
DX: C24.0 Malignant neoplasm of extrahepatic bile duct (principal)
CPT/HCPCS: 78815; A9552

== ENCOUNTER 2019-06-02 13:14 | Inpatient (IN) | payer MEDICAID ==
--- NOTE | 2019-06-02 13:46 | ER Document Report ---
ED Medical Screen (RME) - General Chief Complaint: Breathing Difficulty Stated Complaint: DIFFICULTY BREATHING Time Seen by Provider: 06/02/19 13:41 Mode of Arrival: Wheelchair Information source: Patient Notes: 64-year-old female patient with recent cancer diagnosis presenting to the emergency department with extreme shortness of breath. Patient reports she does not know what type of cancer she has, states that they were still in the process of working her up. She states over the last 2 days she has had worsening dyspnea and shortness of breath. Patient is working hard to breathe up in triage, her respiratory rate is at least 30. Her pulse ox is 94% and her heart rate is 110. She was designated as an JEANMARIE 2, she will be taken straight to a room. I have greeted and performed a rapid initial assessment of this patient. A comprehensive ED assessment and evaluation of the patient, analysis of test results and completion of the medical decision making process will be conducted by additional ED providers. I have specifically instructed the patient or family members with the patient to immediately return to any nursing staff should anything change in the patient's condition or with their chief complaint. TRAVEL OUTSIDE OF THE [place] IN LAST 30 DAYS: No - Related Data Allergies/Adverse Reactions: morphine Allergy (Verified 06/02/19 13:43) shellfish derived Allergy (Verified 06/02/19 13:43) Past Medical History - Past Medical History Cardiac Medical History: Reports: Hx Heart Attack Pulmonary Medical History: Reports: Hx COPD Past Surgical History: Reports: Other - Breast biopsies, multiple always negative for malignant disease. Physical Exam - Vital signs Vitals: Temp Pulse Resp BP Pulse Ox 97.4 F 110 H 22 H 117/53 L 94 06/02/19 13:21 06/02/19 13:21 06/02/19 13:21 06/02/19 13:21 06/02/19 13:21 Course - Vital Signs Vital signs: Temp Pulse Resp BP Pulse Ox 97.4 F 110 H 22 H 117/53 L 94 06/02/19 13:21 06/02/19 13:21 06/02/19 13:21 06/02/19 13:21 06/02/19 13:21
--- NOTE | 2019-06-02 13:50 | ER Document Report ---
ED General - General Chief Complaint: Shortness Of Breath Stated Complaint: DIFFICULTY BREATHING Time Seen by Provider: 06/02/19 13:41 Mode of Arrival: Wheelchair TRAVEL OUTSIDE OF THE [place] IN LAST 30 DAYS: No - HPI Patient complains to provider of: SOB Notes: Unfortunate 64-year-old female presents with increasing shortness of breath and cough. Patient does have history of COPD. Patient recently diagnosed with diffuse metastatic cancer and large lymph nodes throughout her body in April. Secondary to PET scan. Patient still undergoing evaluation by oncology to find primary source. Patient scheduled to get biopsies of her breast performed. Patient also has recent history of pleural effusion did not require drainage self resolved. Patient was just discharged from our hospital about 7 days ago had been doing better at home but getting worse and worse since last Sunday. Now patient having profound tachypnea. Denies fever nausea vomiting or any pain. - Related Data Allergies/Adverse Reactions: morphine Allergy (Verified 06/02/19 13:43) shellfish derived Allergy (Verified 06/02/19 13:43) Past Medical History - General Information source: Patient - Social History Smoking Status: Former Smoker Chew tobacco use (# tins/day): No Frequency of alcohol use: None Drug Abuse: None Family History: Reviewed & Not Pertinent Patient has suicidal ideation: No Patient has homicidal ideation: No - Past Medical History Cardiac Medical History: Reports: Hx Heart Attack Pulmonary Medical History: Reports: Hx COPD Past Surgical History: Reports: Other - Breast biopsies, multiple always negative for malignant disease. Review of Systems - Review of Systems Notes: REVIEW OF SYSTEMS: CONSTITUTIONAL: -fevers, -chills EENT: -eye pain, -difficulty swallowing, -nasal congestion CARDIOVASCULAR: -chest pain, -syncope. RESPIRATORY: cough and SOB GASTROINTESTINAL: -abdominal pain, -nausea, -vomiting, -diarrhea GENITOURINARY: -dysuria, -hematuria MUSCULOSKELETAL: -back pain, -neck pain SKIN: -rash or skin lesions. HEMATOLOGIC: -easy bruising or bleeding. LYMPHATIC: -swollen, enlarged glands. NEUROLOGICAL: -altered mental status or loss of consciousness, -headache, - neurologic symptoms PSYCHIATRIC: -anxiety, -depression. ALL OTHER SYSTEMS REVIEWED AND NEGATIVE. Physical Exam - Vital signs Vitals: Temp Pulse Resp BP Pulse Ox 97.4 F 110 H 22 H 117/53 L 94 06/02/19 13:21 06/02/19 13:21 06/02/19 13:21 06/02/19 13:21 06/02/19 13:21 - Notes Notes: PHYSICAL EXAMINATION: GENERAL: Well-appearing, well-nourished and in severe acute distress. HEAD: Atraumatic, normocephalic. EYES: Pupils equal round and reactive to light, extraocular movements intact, sclera anicteric, conjunctiva are normal. ENT: nares patent, oropharynx clear without exudates. Moist mucous membranes. NECK: Normal range of motion, supple without lymphadenopathy LUNGS: Diffuse rhonchi, mild respiratory distress. HEART: Regular rate and rhythm without murmurs ABDOMEN: Soft, nontender, normoactive bowel sounds. No guarding, no rebound. No masses appreciated. EXTREMITIES: Normal range of motion, no pitting or edema. No cyanosis. NEUROLOGICAL: Cranial nerves grossly intact. Normal speech, normal gait. Normal sensory and motor exams. PSYCH: Normal mood, normal affect. SKIN: Warm, Dry, normal turgor, no rashes or lesions noted. Course - Re-evaluation Re-evalutation: 06/02/19 13:57 Unfortunate 64-year-old female underlying malignancy presents with profound shortness of breath tachypnea. Tachycardia as well. Will obtain extensive lab work-up patient will require CAT scan chest to make sure there are no blood clots in the lung to further evaluate possible pleural pleural effusion she had last week. Will initiate aggressive pulmonary care with numerous breathing treatments and IV steroids. 06/02/19 16:34 64-year-old female presents in mild respiratory distress. Patient not requiring any additional oxygen at this time. Patient is extensive lab work-up shows no gross abnormalities. Patient has CAT scan chest performed with IV contrast finds worsening left-sided pleural effusion, left lung mass along with left breast mass. Patient pain markedly improved this time. Patient will require admission to hospital for further management thoracentesis. - Vital Signs Vital signs: Temp Pulse Resp BP Pulse Ox 97.4 F 110 H 22 H 117/53 L 94 06/02/19 13:21 06/02/19 13:21 06/02/19 13:21 06/02/19 13:21 06/02/19 14:01 - Laboratory Result Diagrams: 06/02/19 15:38 06/02/19 15:38 Laboratory results interpreted by me: 06/02/19 06/02/19 15:38 15:38 RBC 3.01 L Hgb 9.4 L Hct 28.0 L RDW 18.9 H Lymph % (Auto) 6.6 L Seg Neutrophils % 88.9 H Glucose 126 H Total Bilirubin 2.4 H Total Protein 6.2 L Critical Care Note - Critical Care Note Total time excluding time spent on procedures (mins): 32 Discharge - Discharge Clinical Impression: Pleural effusion COPD (chronic obstructive pulmonary disease) Qualifiers: COPD type: unspecified COPD Qualified Code(s): J44.9 - Chronic obstructive pulmonary disease, unspecified Condition: Stable Disposition: ADMITTED INPATIENT Admitting Provider: Rafa (Hospitalist) Unit Admitted: Medical Floor
[2019-06-02] MEDS ORDERED: IPRATROPIUM/ALBUTEROL 0.5-2.5 MG/3 ML AMPUL NEB ONE ×3 (13:54)
[2019-06-02] MEDS ORDERED: METHYLPREDNISOLONE INJ 125 MG/2 ML SDV IV ONE (13:55)
--- NOTE | 2019-06-02 14:30 | RADIOLOGY REPORT (SQ) ---
EXAM DESCRIPTION: CHEST SINGLE VIEW COMPLETED DATE/TIME: 06/02/2019 2:12 pm REASON FOR STUDY: SHORTNESS OF BREATH COMPARISON: 05/16/2019 EXAM PARAMETERS: NUMBER OF VIEWS: One view. TECHNIQUE: Single frontal radiographic view of the chest acquired. RADIATION DOSE: NA LIMITATIONS: None. FINDINGS: LUNGS AND PLEURA: Increasing size of the moderate left-sided pleural effusion with associa carolyn basilar consolidation. No pneumothorax. Unremarkable right hemithorax. MEDIASTINUM AND HILAR STRUCTURES: No masses. Contour normal. HEART AND VASCULAR STRUCTURES: Partially obscured. BONES: No acute findings. HARDWARE: None in the chest. OTHER: No other significant finding. IMPRESSION: Increased size of the moderate left-sided pleural effusion with associated basilar conso lidation, likely atelectasis. TECHNICAL DOCUMENTATION: JOB ID: [id number] 2010 [employer]- All Rights Reserved Reading location - IP/workstation name: [email or web address]
[2019-06-02] MEDS ORDERED: HYDROMORPHONE HCL INJ/PF 2 MG/ML AMPULE IV ONE (15:23)
[2019-06-02 15:49] LABS: ABSOLUTE LYMPHOCYTES (AUTO) 0.5 10^3/uL (0.5-4.7); ABSOLUTE MONOCYTES (AUTO) 0.3 10^3/uL (0.1-1.4); ABSOLUTE NEUT (AUTO) 7.1 10^3/uL (1.7-8.2); BASOPHILS % (AUTO) 0.5 % (0-2); EOSINOPHILS % (AUTO) 0.3 % (0-6); HEMOGLOBIN 9.4 g/dL (12.0-15.5); LYMPHOCYTES % (AUTO) 6.6 % (13-45); MEAN CORPUSCULAR HEMOGLOBIN 31.3 pg (27.0-33.4); MEAN CORPUSCULAR HGB CONC 33.6 g/dL (32.0-36.0); MEAN CORPUSCULAR VOLUME 93 fl (80-97); MONOCYTES % (AUTO) 3.7 % (3-13); PLATELET COUNT 310 10^3/uL (150-450); RED BLOOD COUNT 3.01 10^6/uL (3.72-5.28); RED CELL DISTRIBUTION WIDTH 18.9 % (11.5-14.0); SEGMENTED NEUTROPHILS % (AUTO) 88.9 % (42-78); TOTAL CELLS COUNTED % (AUTO) 100 %
--- NOTE | 2019-06-02 15:54 | RADIOLOGY REPORT (SQ) ---
EXAM DESCRIPTION: CT CHEST WITH COMPLETED DATE/TIME: 06/02/2019 3:12 pm REASON FOR STUDY: Shortness of breath COMPARISON: 05/27/2019 TECHNIQUE: CT scan of the chest performed using helical scanning technique with dynamic intravenous contrast injection. Images reviewed with lung, soft tissue and bone windows. Reconstructed coronal and sagittal MPR and MIP images reviewed. All images stored on PACS. All CT scanners at this facility use dose modulation, iterative reconstruction, and/or weight based d osing when appropriate to reduce radiation dose to as low as reasonably achievable (ALARA). [facility]: Dose Right [facility]: CareDose [facility]: Dose Right [facility]: Teradose 4D [facility]: Bityota CONTRAST TYPE AND DOSE: contrast/concentration: Isovue 350.00 mg/ml; Total Contrast Delivered: 80.0 ml; Total Saline Delivered: 42.8 ml RENAL FUNCTION: Creatinine 0.57 RADIATION DOSE: CT Rad equipment meets quality standard of care and radiation dose reduction techniq ues were employed. CTDIvol: 5.6 mGy. DLP: 221 mGy-cm. . LIMITATIONS: None. FINDINGS: LUNGS AND PLEURA: Increased size of the moderate to large left-sided pleural effusion with associated lower lobe consolidation, likely atelectasis. Previously-seen left lower lobe nodule is largely obscured. Emphysematous change. Unremarkable right hemithorax aside from a calcified granul darren. No pneumothorax. HILAR AND MEDIASTINAL STRUCTURES: Stable bilateral axillary adenopathy from recent PET-CT. Largest l eft axillary node measures 1 cm in short axis. No discrete mediastinal or hilar adenopathy. HEART AND VASCULAR STRUCTURES: Normal heart size. No aneurysm. No central PE. HARDWARE: None in the chest. UPPER ABDOMEN: No significant findings. Limited exam. THYROID AND OTHER SOFT TISSUES: Asymmetric left breast soft tissue density measuring 29 x 17 mm, stab le. BONES: No acute bony abnormality. No suspicious osseous lesions. OTHER: No other significant finding. IMPRESSION: 1. Increased size of the moderate to large left-sided pleural effusion with associated lower lobe atelectasis. 2. Stable bilateral axillary adenopathy from recent PET-CT. Stable asymmetric left breast mass. 3. Previously-seen left lower lobe pulmonary nodule is largely obscured on today's exam. TECHNICAL DOCUMENTATION: JOB ID: [id number] Quality ID # [id number]: Final reports with documentation of one or more dose reduction techniques (e.g., Au tomated exposure control, adjustment of the mA and/or kV according to patient size, use of iterative reconstruction technique) 2010 [employer]- All Rights Reserved Reading location - IP/workstation name: [email or web address]
[2019-06-02 16:09] LABS: ALBUMIN 3.8 g/dL (3.5-5.0); ALKALINE PHOSPHATASE 102 U/L (38-126); ANION GAP 9 (5-19); ASPARTATE AMINO TRANSFERASE 21 U/L (14-36); BILIRUBIN,DIRECT 0.1 mg/dL (0.0-0.4); BILIRUBIN,TOTAL 2.4 mg/dL (0.2-1.3); BLOOD UREA NITROGEN 7 mg/dL (7-20); CALCIUM 8.9 mg/dL (8.4-10.2); CARBON DIOXIDE 24 mmol/L (22-30); CHLORIDE 105 mmol/L (98-107); GLUCOSE 126 mg/dL (75-110); POTASSIUM 4.1 mmol/L (3.6-5.0); TOTAL PROTEIN 6.2 g/dL (6.3-8.2)
--- NOTE | 2019-06-02 17:25 | PDOC H&P ---
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 All this started about 2-1/2 weeks ago when she first came to the hospital. She has been scheduled to have follow-up for a surgery for the breast lump as well as a lymph node dissection. Back in April she was noted to have a pleural effusion on the left side but it was not draining. She said that today try to walk and discuss short of breath and could not catch her breath. She came to the ER and she got a couple of nebulizer treatments and her breathing was feeling better. She is being admitted for drainage of the pleural effusion and fluid studies. Past Medical History Cardiac Medical History: Reports: Myocardial Infarction Pulmonary Medical History: Reports: Chronic Obstructive Pulmonary Disease (COPD) Past Surgical History Past Surgical History: Reports: Other - Breast biopsies, multiple always negative for malignant disease. Social History Smoking Status: Former Smoker Electronic Cigarette use?: No Frequency of Alcohol Use: None Hx Recreational Drug Use: No Drugs: None Hx Prescription Drug Abuse: No Family History Family History: Reviewed & Not Pertinent, Arthritis, Hypertension, Thyroid Disfunction Parental Family History Reviewed: Yes Children Family History Reviewed: Yes Sibling(s) Family History Reviewed.: Yes Medication/Allergy Home Medications: Aspirin [Ecotrin 81 mg EC Tablet] 81 mg PO DAILY 05/16/19 Bupropion HCl [Bupropion Xl] 150 mg PO DAILY 05/16/19 Cholecalciferol (Vitamin D3) [Vitamin D3] 50,000 unit PO MCKAY 05/16/19 Cyanocobalamin (Vitamin B-12) [Vitamin B-12 1000 mcg Tablet] 1 tab PO DAILY 05/16/19 Fexofenadine HCl [Jael Allergy] 60 mg PO Q12 05/16/19 Oxcarbazepine 300 mg PO DAILY 05/16/19 Allergies/Adverse Reactions: morphine Allergy (Verified 06/02/19 13:43) shellfish derived Allergy (Verified 06/02/19 13:43) Review of Systems All systems: reviewed and no additional remarkable complaints except as stated - All systems were reviewed and were negative except as noted in the HPI Physical Exam Vital Signs: Temp Pulse Resp BP Pulse Ox 97.4 F 110 H 22 H 117/53 L 94 06/02/19 13:21 06/02/19 13:21 06/02/19 13:21 06/02/19 13:21 06/02/19 14:01 Intake & Output 06/01/19 06/02/19 06/03/19 06:59 06:59 06:59 Weight 60.6 kg General appearance: PRESENT: no acute distress, cooperative, disheveled Head exam: PRESENT: atraumatic, normocephalic Eye exam: PRESENT: EOMI, PERRLA. ABSENT: conjunctival injection, nystagmus, scleral icterus Ear exam: PRESENT: normal external ear exam Mouth exam: PRESENT: moist, neck supple Throat exam: ABSENT: post pharyngeal erythema Neck exam: PRESENT: full ROM. ABSENT: carotid bruit, JVD, lymphadenopathy, meningismus, tenderness, thyromegaly Respiratory exam: PRESENT: decreased breath sounds - Overall, worse in left base, unlabored. ABSENT: accessory muscle use, chest wall tenderness, prolonged expiratory phas, retraction, rhonchi, symmetrical, tachypnea, wheezes Cardiovascular exam: PRESENT: RRR, +S1, +S2 Pulses: PRESENT: normal carotid pulses Vascular exam: PRESENT: normal capillary refill GI/Abdominal exam: PRESENT: normal bowel sounds, soft. ABSENT: distended, guarding, rebound, tenderness Extremities exam: ABSENT: clubbing, pedal edema Musculoskeletal exam: PRESENT: normal inspection. ABSENT: deformity Neurological exam: PRESENT: alert, awake, oriented to person, oriented to place, oriented to time, oriented to situation, CN II-XII grossly intact. ABSENT: motor sensory deficit Psychiatric exam: PRESENT: appropriate affect, normal mood Skin exam: PRESENT: dry, warm Results Laboratory Results: 06/02/19 15:38 06/02/19 15:38 06/02/19 06/02/19 06/02/19 14:04 14:04 15:38 WBC Cancelled RBC Cancelled Hgb Cancelled Hct Cancelled MCV Cancelled MCH Cancelled MCHC Cancelled RDW Cancelled Plt Count Cancelled Seg Neutrophils % Cancelled Sodium Cancelled 138.1 Potassium Cancelled 4.1 Chloride Cancelled 105 Carbon Dioxide Cancelled 24 Anion Gap Cancelled 9 BUN Cancelled 7 Creatinine Cancelled 0.57 Est GFR ( Amer) Cancelled > 60 Est GFR (Non-Af Amer) Cancelled Glucose Cancelled 126 H Calcium Cancelled 8.9 Total Bilirubin Cancelled 2.4 H AST Cancelled 21 Alkaline Phosphatase Cancelled 102 Total Protein Cancelled 6.2 L Albumin Cancelled 3.8 06/02/19 15:38 WBC 8.0 RBC 3.01 L Hgb 9.4 L Hct 28.0 L MCV 93 MCH 31.3 MCHC 33.6 RDW 18.9 H Plt Count 310 Seg Neutrophils % 88.9 H Sodium Potassium Chloride Carbon Dioxide Anion Gap BUN Creatinine Est GFR ( Amer) Est GFR (Non-Af Amer) Glucose Calcium Total Bilirubin AST Alkaline Phosphatase Total Protein Albumin 06/02/19 06/02/19 14:04 15:38 Troponin I Cancelled < 0.012 Impressions: Chest X-Ray 06/02/19 00:00 IMPRESSION: Increased size of the moderate left-sided pleural effusion with associated basilar consolidation, likely atelectasis. Chest CT 06/02/19 13:54 IMPRESSION: 1. Increased size of the moderate to large left-sided pleural effusion with associated lower lobe atelectasis. 2. Stable bilateral axillary adenopathy from recent PET-CT. Stable asymmetric left breast mass. 3. Previously-seen left lower lobe pulmonary nodule is largely obscured on today's exam. Assessment and Plan - Diagnosis (1) Malignant pleural effusion Is this a current diagnosis for this admission?: Yes Plan: She has a greater than 1 cm spiculated left lung mass. The effusion is been there for at least a couple of weeks. She is having worsening trouble breathing. We will get a drain the fluid do fluid studies on her including cytology. If her breathing is improved after the thoracentesis we will watch her for a little while to make sure she does not have any complications and then possibly let her go home. (2) COPD (chronic obstructive pulmonary disease) Qualifiers: COPD type: unspecified COPD Qualified Code(s): J44.9 - Chronic obstructive pulmonary disease, unspecified Is this a current diagnosis for this admission?: Yes Plan: Not acutely exacerbated. She does not seem to be on any medications for it at home. We will have PRN bronchodilators. - Time Time Spent with patient: 35 or more minutes - Inpatient Certification Based on my medical assessment, after consideration of the patient's c omorbidities, presenting symptoms, or acuity I expect that the services needed warrant INPATIENT care.: Yes I certify that my determination is in accordance with my understanding of Medicare's requirements for reasonable and necessary INPATIENT services [42 CFR 412.3e].: Yes Medical Necessity: Significant Comorbidiites Make Outpatient Treatment Too Risky, Need Close Monitoring Due to Risk of Patient Decompensation, Need for Surgery
[2019-06-02] MEDS: IPRATROPIUM/ALBUTEROL 0.5-2.5 MG/3 ML AMPUL NEB PRN (22:44)
[2019-06-02] MEDS ORDERED: KETOROLAC TROMETHAMINE INJ/PF 30 MG/1 ML SDV IV PRN (23:22)
[2019-06-03 06:16] LABS: HEMATOCRIT 25.3 % (36.0-47.0); HEMOGLOBIN 8.4 g/dL (12.0-15.5); MEAN CORPUSCULAR HEMOGLOBIN 31.1 pg (27.0-33.4); MEAN CORPUSCULAR HGB CONC 33.4 g/dL (32.0-36.0); MEAN CORPUSCULAR VOLUME 93 fl (80-97); PLATELET COUNT 289 10^3/uL (150-450); RED BLOOD COUNT 2.71 10^6/uL (3.72-5.28); WHITE BLOOD COUNT 5.9 10^3/uL (4.0-10.5)
[2019-06-03 06:29] LABS: ANION GAP 9 (5-19); BLOOD UREA NITROGEN 10 mg/dL (7-20); CALCIUM 8.9 mg/dL (8.4-10.2); CARBON DIOXIDE 24 mmol/L (22-30); CHLORIDE 106 mmol/L (98-107); GLUCOSE 150 mg/dL (75-110); POTASSIUM 4.4 mmol/L (3.6-5.0)
[2019-06-03 11:13] LABS: PROTHROMBIN TIME 14.3 SEC (11.4-15.4)
[2019-06-03 11:14] LABS: PARTIAL THROMBOPLASTIN TIME 27.7 SEC (23.5-35.8)
--- NOTE | 2019-06-03 11:46 | EKG REPORT ---
SEVERITY:- BORDERLINE ECG - SINUS TACHYCARDIA LOW VOLTAGE IN FRONTAL LEADS BORDERLINE T ABNORMALITIES, INFERIOR LEADS : Confirmed by: Parth Argueta 03-Jun-2019 11:45:51
[2019-06-03] MEDS: IPRATROPIUM/ALBUTEROL 0.5-2.5 MG/3 ML AMPUL NEB PRN (13:34)
--- NOTE | 2019-06-03 15:17 | RADIOLOGY REPORT (SQ) ---
EXAM DESCRIPTION: U/S THORACENTESIS WITH IMAGING COMPLETED DATE/TIME: 06/03/2019 2:58 pm REASON FOR STUDY: malignant pleural effusion COMPARISON: CT chest 06/01/2028 PET-CT 05/27/2019 LIMITATIONS: None. PROCEDURE: Procedure, risks, benefit, and alternative explained to patient who then gave written con sent. The posterior left chest wall was marked using ultrasound guidance. A time-out was called for correct marking verification. Chest prepped and draped using sterile technique. Local anesthesia ac hieved using 6 ml of 1% lidocaine injection. A 6fr Safe-T- Centesis set was introduced into the left pleural space. Fluid was aspirated. The catheter was removed and the entry site was covered with s terile bandage. No immediate complications noted. Fluid was sent for testing to include cytology Images acquired during the procedure were stored on PACS. FINDINGS: ENTRY SITE: Left posterior pleural space FLUID VOLUME: 1 L of magi colored fluid FLUID ANALYSIS: Sent for testing to the lab including cytology OTHER: Post procedure chest film dictated separately demonstrates no left apical pneumothorax. IMPRESSION: SUCCESSFUL THORACENTESIS USING ULTRASOUND GUIDANCE. LEFT PLEURAL FLUID SENT FOR TESTING COMMENT: Patient medication list reviewed: Yes- Quality ID# [id number]:Eligible professional attests to doc umenting in the medical record they obtained, updated, or reviewed the patient's current medications. TECHNICAL DOCUMENTATION: JOB ID: [id number] 2010 [employer]- All Rights Reserved Reading location - IP/workstation name: [email or web address]
--- NOTE | 2019-06-03 15:20 | RADIOLOGY REPORT (SQ) ---
EXAM DESCRIPTION: CHEST SINGLE VIEW COMPLETED DATE/TIME: 06/03/2019 3:01 pm REASON FOR STUDY: S/P LT THORA COMPARISON: PET-CT 05/27/2019 Chest films 05/16/2019, 06/02/2019 EXAM PARAMETERS: NUMBER OF VIEWS: One view. TECHNIQUE: Single frontal radiographic view of the chest acquired. RADIATION DOSE: NA LIMITATIONS: None. FINDINGS: LUNGS AND PLEURA: Post left thoracentesis with removal of 1 L of fluid from the left hemit horax. No left pneumothorax. Trace residual left pleural fluid with left basilar atelectasis. Right lung well inflated and grossly clear. No right pleural effusion or pneumothorax. Calcified gr anuloma right midlung. MEDIASTINUM AND HILAR STRUCTURES: No masses. Contour normal. HEART AND VASCULAR STRUCTURES: Heart normal in size. Normal vasculature. BONES: No acute findings. HARDWARE: None in the chest. OTHER: No other significant finding. IMPRESSION: No pneumothorax immediately post left thoracentesis TECHNICAL DOCUMENTATION: JOB ID: [id number] 2010 [employer]- All Rights Reserved Reading location - IP/workstation name: [email or web address]
[2019-06-03 16:27] LABS: FLUID SOURCE LUNG; FLUID TYPE PLEURAL
[2019-06-03 16:30] LABS: FLUID APPEARANCE CLOUDY; FLUID COLOR AMBER; FLUID VISCOSITY SLIGHTLY VISCOUS
[2019-06-03] MEDS: ASPIRIN 81 MG TABLET, ENT COATED PO SCH (18:14)
[2019-06-03] MEDS: LORATADINE 10 MG TABLET PO SCH (18:14)
[2019-06-03] MEDS: OXCARBAZEPINE 150 MG TABLET PO SCH (18:14)
[2019-06-03] MEDS: CYANOCOBALAMIN (VITAMIN B-12) 1,000 MCG TABLET PO SCH (18:14)
--- NOTE | 2019-06-03 18:38 | RADIOLOGY REPORT (SQ) ---
EXAM DESCRIPTION: CHEST SINGLE VIEW COMPLETED DATE/TIME: 06/03/2019 5:01 pm REASON FOR STUDY: 2 HRS S/P LT THORA COMPARISON: 06/03/2019 at 1503 hours. EXAM PARAMETERS: NUMBER OF VIEWS: One view. TECHNIQUE: Single frontal radiographic view of the chest acquired. RADIATION DOSE: NA LIMITATIONS: None. FINDINGS: LUNGS AND PLEURA: Left pleural effusion. No pneumothorax. Right lung clear. MEDIASTINUM AND HILAR STRUCTURES: No masses. Contour normal. HEART AND VASCULAR STRUCTURES: Heart normal in size. Normal vasculature. BONES: No acute findings. HARDWARE: None in the chest. OTHER: No other significant finding. IMPRESSION: NO PNEUMOTHORAX 2 HOURS FOLLOWING THORACENTESIS. TECHNICAL DOCUMENTATION: JOB ID: [id number] 2010 [employer]- All Rights Reserved Reading location - IP/workstation name: [email or web address]
[2019-06-03] MEDS ORDERED: ERGOCALCIFEROL (VITAMIN D2) 50000 UNIT (1.25 MG) CAPSULE PO SCH (19:00)
[2019-06-03] MEDS ORDERED: BUPROPION HCL 75 MG TABLET PO SCH (19:00)
--- NOTE | 2019-06-03 19:51 | PDOC PROGRESS REPORT ---
Subjective Progress Note for:: 06/03/19 Subjective:: No adverse events overnight. No new complaints. Vital signs been stable. She initially did not want to do the thoracentesis, and she was questioning everyone and they called Dr. Hillman and he told her to do it and so she agreed. They got 1 L of fluid off of her chest. Reason For Visit: MALIGNANT PLEURAL EFFUSION, DYSPNEA Physical Exam Vital Signs: Temp Pulse Resp BP Pulse Ox 98.3 F 76 16 111/55 L 99 06/03/19 15:54 06/03/19 15:54 06/03/19 15:54 06/03/19 15:54 06/03/19 15:54 Intake & Output 06/02/19 06/03/19 06/04/19 06:59 06:59 06:59 Weight 63.8 kg General appearance: PRESENT: no acute distress, cooperative, disheveled Respiratory exam: PRESENT: decreased breath sounds - Overall, worse in left base, unlabored. ABSENT: accessory muscle use, chest wall tenderness, prolonged expiratory phas, retraction, rhonchi, symmetrical, tachypnea, wheezes Cardiovascular exam: PRESENT: RRR, +S1, +S2 Pulses: PRESENT: normal carotid pulses Vascular exam: PRESENT: normal capillary refill GI/Abdominal exam: PRESENT: normal bowel sounds, soft. ABSENT: distended, guarding, rebound, tenderness Extremities exam: ABSENT: clubbing, pedal edema Musculoskeletal exam: PRESENT: normal inspection. ABSENT: deformity Neurological exam: PRESENT: alert, awake, oriented to person, oriented to place, oriented to time, oriented to situation Psychiatric exam: PRESENT: appropriate affect, normal mood Skin exam: PRESENT: dry, warm Results Laboratory Results: 06/03/19 06:02 06/03/19 06:02 06/03/19 06/03/19 06/03/19 06:02 06:02 14:40 WBC 5.9 RBC 2.71 L Hgb 8.4 L Hct 25.3 L MCV 93 MCH 31.1 MCHC 33.4 RDW 19.0 H Plt Count 289 Sodium 138.6 Potassium 4.4 Chloride 106 Carbon Dioxide 24 Anion Gap 9 BUN 10 Creatinine 0.54 Est GFR ( Amer) > 60 Glucose 150 H Calcium 8.9 Total Protein 6.0 L Fluid Type PLEURAL Fluid Source LUNG Fluid Color DANE Fluid Appearance CLOUDY Fluid Viscosity SLIGHTLY VISCOUS Fluid WBC 1547 Fluid RBC 5885 06/02/19 06/02/19 14:04 15:38 Troponin I Cancelled < 0.012 Impressions: Chest CT 06/02/19 13:54 IMPRESSION: 1. Increased size of the moderate to large left-sided pleural effusion with associated lower lobe atelectasis. 2. Stable bilateral axillary adenopathy from recent PET-CT. Stable asymmetric left breast mass. 3. Previously-seen left lower lobe pulmonary nodule is largely obscured on today's exam. Thoracentesis Ultrasound 06/03/19 00:00 IMPRESSION: SUCCESSFUL THORACENTESIS USING ULTRASOUND GUIDANCE. LEFT PLEURAL FLUID SENT FOR TESTING Chest X-Ray 06/03/19 16:50 IMPRESSION: NO PNEUMOTHORAX 2 HOURS FOLLOWING THORACENTESIS. Assessment and Plan - Diagnosis (1) Malignant pleural effusion Is this a current diagnosis for this admission?: Yes Plan: Age her a liter of fluid off of her chest today. It has been sent for multiple studies. When she is breathing better she can be discharged home and can follow-up on the studies as an outpatient. (2) COPD (chronic obstructive pulmonary disease) Qualifiers: COPD type: unspecified COPD Qualified Code(s): J44.9 - Chronic obstructive pulmonary disease, unspecified Is this a current diagnosis for this admission?: Yes Plan: Not acutely exacerbated - Time Time Spent with patient: 15-24 minutes
[2019-06-03] MEDS ORDERED: (PENDING PHARMACY ID) (Fexofenadine Hcl [Allegra Allergy] 60 MG) PO SCH (22:00)
[2019-06-04 05:26] LABS: HEMATOCRIT 23.6 % (36.0-47.0); MEAN CORPUSCULAR HEMOGLOBIN 31.7 pg (27.0-33.4); MEAN CORPUSCULAR HGB CONC 33.8 g/dL (32.0-36.0); MEAN CORPUSCULAR VOLUME 94 fl (80-97); PLATELET COUNT 280 10^3/uL (150-450); RED BLOOD COUNT 2.52 10^6/uL (3.72-5.28); RED CELL DISTRIBUTION WIDTH 18.8 % (11.5-14.0); WHITE BLOOD COUNT 5.1 10^3/uL (4.0-10.5)
[2019-06-04 05:51] LABS: ANION GAP 5 (5-19); BLOOD UREA NITROGEN 13 mg/dL (7-20); CALCIUM 8.5 mg/dL (8.4-10.2); CARBON DIOXIDE 26 mmol/L (22-30); CHLORIDE 109 mmol/L (98-107); GLUCOSE 84 mg/dL (75-110)
[2019-06-04] MEDS: OXCARBAZEPINE 150 MG TABLET PO SCH (06:21)
[2019-06-04] MEDS: CYANOCOBALAMIN (VITAMIN B-12) 1,000 MCG TABLET PO SCH (09:50)
[2019-06-04] MEDS: ASPIRIN 81 MG TABLET, ENT COATED PO SCH (09:50)
[2019-06-04] MEDS: LORATADINE 10 MG TABLET PO SCH (09:50)
[2019-06-04] MEDS: IPRATROPIUM/ALBUTEROL 0.5-2.5 MG/3 ML AMPUL NEB PRN (09:56)
[2019-06-04] MEDS ORDERED: BUPROPION HCL 75 MG TABLET PO SCH (10:00)
[2019-06-04 16:32] VITALS: BP 104/59
--- NOTE | 2019-06-04 18:53 | PDOC DISCHARGE SUMMARY ---
Impression - Admit/DC Date/PCP Admission Date/Primary Care Provider: 06/02/19 17:26 Discharge Date: 06/04/19 - Discharge Diagnosis (1) Malignant pleural effusion Is this a current diagnosis for this admission?: Yes (2) COPD (chronic obstructive pulmonary disease) Is this a current diagnosis for this admission?: Yes - Additional Information Resuscitation Status: Full Code Discharge Diet: Regular Discharge Activity: Activity As Tolerated, Balance Activity w/Rest Referrals: RAY SALDANA MD [ACTIVE STAFF] - 06/13/19 1:15 pm Prescriptions: Nebulizer [Compact Ultrasonic Nebulizer] 1 each IH Q6HP PRN #1 each PRN Reason: Albuterol Sulfate [Ventolin 0.042% Neb 1.25 mg/3 mL Ampul] 1 vial NEB Q6HP PRN #60 vial.neb PRN Reason: Home Medications: Aspirin [Ecotrin 81 mg EC Tablet] 81 mg PO DAILY 05/16/19 Bupropion HCl [Bupropion Xl] 150 mg PO DAILY 05/16/19 Cholecalciferol (Vitamin D3) [Vitamin D3] 50,000 unit PO MCKAY 05/16/19 Cyanocobalamin (Vitamin B-12) [Vitamin B-12 1000 mcg Tablet] 1 tab PO DAILY 05/16/19 Fexofenadine HCl [Jael Allergy] 60 mg PO Q12 05/16/19 Oxcarbazepine 150 mg PO Q12 05/16/19 Albuterol Sulfate [Ventolin 0.042% Neb 1.25 mg/3 mL Ampul] 1 vial NEB Q6HP PRN #60 vial.neb 06/04/19 Nebulizer [Compact Ultrasonic Nebulizer] 1 each IH Q6HP PRN #1 each 06/04/19 History of Present Illiness History of Present Illness: LUPILLO DE LA ROSA is a 64 year old female with a history of recently diagnosed left breast mass was also found to have a spiculated left lung mass along with 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 All this started about 2-1/2 weeks ago when she first came to the hospital. She has been scheduled to have follow-up for a surgery for the breast lump as well as a lymph node dissection. Back in April she was noted to have a pleural effusion on the left side but it was not draining. She said that today try to walk and discuss short of breath and could not catch her breath. She came to the ER and she got a couple of nebulizer treatments and her breathing was feeling better. She is being admitted for drainage of the pleural effusion and fluid studies. Hospital Course Hospital Course: She had the fluid drained and it has been sent for studies. Gram stain appeared negative. Fluid appears exudative. Fluid was sent for cytology. She had immediate improvement in her breathing after a liter of fluid was taken out of her chest. She did not have any postprocedural pneumothorax. She was ambulating independently on room air. Her hemoglobin is in normal range. She asked if she can have a nebulizer at discharge and a prescription was provided. Her labs and examination were reassuring and she was discharged in stable condition. She has a follow-up scheduled for just over a week with Dr. Saldana. Physical Exam Vital Signs: Temp Pulse Resp BP Pulse Ox 98.0 F 83 18 108/41 L 96 06/04/19 16:24 06/04/19 16:24 06/04/19 16:24 06/04/19 16:24 06/04/19 16:24 Intake & Output 06/03/19 06/04/19 06/05/19 06:59 06:59 06:59 Intake Total 400 480 Balance 400 480 Weight 63.8 kg 64.5 kg General appearance: PRESENT: no acute distress, cooperative, disheveled Respiratory exam: PRESENT: decreased breath sounds - Overall, worse in left base, unlabored. ABSENT: accessory muscle use, chest wall tenderness, prolonged expiratory phas, retraction, rhonchi, symmetrical, tachypnea, wheezes Cardiovascular exam: PRESENT: RRR, +S1, +S2 Pulses: PRESENT: normal carotid pulses Vascular exam: PRESENT: normal capillary refill GI/Abdominal exam: PRESENT: normal bowel sounds, soft. ABSENT: distended, guarding, rebound, tenderness Extremities exam: ABSENT: clubbing, pedal edema Musculoskeletal exam: PRESENT: normal inspection. ABSENT: deformity Neurological exam: PRESENT: alert, awake, oriented to person, oriented to place, oriented to time, oriented to situation Psychiatric exam: PRESENT: appropriate affect, normal mood Skin exam: PRESENT: dry, warm Results Laboratory Results: WBC 5.1 10^3/uL (4.0-10.5) 06/04/19 05:17 RBC 2.52 10^6/uL (3.72-5.28) L 06/04/19 05:17 Hgb 8.0 g/dL (12.0-15.5) L 06/04/19 05:17 Hct 23.6 % (36.0-47.0) L 06/04/19 05:17 MCV 94 fl (80-97) 06/04/19 05:17 MCH 31.7 pg (27.0-33.4) 06/04/19 05:17 MCHC 33.8 g/dL (32.0-36.0) 06/04/19 05:17 RDW 18.8 % (11.5-14.0) H 06/04/19 05:17 Plt Count 280 10^3/uL (150-450) 06/04/19 05:17 Lymph % (Auto) 6.6 % (13-45) L 06/02/19 15:38 [place] % (Auto) 3.7 % (3-13) 06/02/19 15:38 Eos % (Auto) 0.3 % (0-6) 06/02/19 15:38 Baso % (Auto) 0.5 % (0-2) 06/02/19 15:38 Absolute Neuts (auto) 7.1 10^3/uL (1.7-8.2) 06/02/19 15:38 Absolute Lymphs (auto) 0.5 10^3/uL (0.5-4.7) 06/02/19 15:38 Absolute Monos (auto) 0.3 10^3/uL (0.1-1.4) 06/02/19 15:38 Absolute Eos (auto) 0.0 10^3/uL (0.0-0.6) 06/02/19 15:38 Absolute Basos (auto) 0.0 10^3/uL (0.0-0.2) 06/02/19 15:38 Seg Neutrophils % 88.9 % (42-78) H 06/02/19 15:38 Platelet Estimate Cancelled 06/02/19 14:04 PT 14.3 SEC (11.4-15.4) 06/03/19 10:55 INR 1.10 06/03/19 10:55 APTT 27.7 SEC (23.5-35.8) 06/03/19 10:55 Sodium 140.0 mmol/L (137-145) 06/04/19 05:17 Potassium 4.0 mmol/L (3.6-5.0) 06/04/19 05:17 Chloride 109 mmol/L (98-107) H 06/04/19 05:17 Carbon Dioxide 26 mmol/L (22-30) 06/04/19 05:17 Anion Gap 5 (5-19) 06/04/19 05:17 BUN 13 mg/dL (7-20) 06/04/19 05:17 Creatinine 0.63 mg/dL (0.52-1.25) 06/04/19 05:17 Est GFR ( Amer) > 60 (>60) 06/04/19 05:17 Est GFR (Non-Af Amer) Cancelled 06/02/19 14:04 Est GFR (MDRD) Non-Af > 60 (>60) 06/04/19 05:17 Glucose 84 mg/dL (75-110) 06/04/19 05:17 Calcium 8.5 mg/dL (8.4-10.2) 06/04/19 05:17 Total Bilirubin 2.4 mg/dL (0.2-1.3) H 06/02/19 15:38 Direct Bilirubin 0.1 mg/dL (0.0-0.4) 06/02/19 15:38 Neonat Total Bilirubin Not Reportable 06/02/19 15:38 Neonat Direct Bilirubin Not Reportable 06/02/19 15:38 Neonat Indirect Bili Not Reportable 06/02/19 15:38 AST 21 U/L (14-36) 06/02/19 15:38 ALT 14 U/L (<35) 06/02/19 15:38 Alkaline Phosphatase 102 U/L (38-126) 06/02/19 15:38 Lactate Dehydrogenase 188 U/L (120-246) 06/03/19 06:02 Troponin I < 0.012 ng/mL 06/02/19 15:38 Total Protein 6.0 g/dL (6.3-8.2) L 06/03/19 06:02 Albumin 3.8 g/dL (3.5-5.0) 06/02/19 15:38 EGFR Cancelled 06/02/19 14:04 Fluid Type PLEURAL 06/03/19 14:40 Fluid Source LUNG 06/03/19 14:40 Fluid Color DANE 06/03/19 14:40 Fluid Appearance CLOUDY 06/03/19 14:40 Fluid Viscosity SLIGHTLY VISCOUS 06/03/19 14:40 Fluid WBC 1547 /uL 06/03/19 14:40 Fluid RBC 5885 /uL 06/03/19 14:40 Fluid Seg Neutrophils 44 % 06/03/19 14:40 Fluid Lymphocytes 56 % 06/03/19 14:40 Fluid Monocytes 0 % 06/03/19 14:40 Fluid Eosinophils 0 % 06/03/19 14:40 Fluid Basophils 0 % 06/03/19 14:40 Slides for Path Review Cancelled 06/02/19 14:04 06/02/19 06/02/19 14:04 15:38 Troponin I Cancelled < 0.012 Impressions: Chest X-Ray 06/02/19 00:00 IMPRESSION: Increased size of the moderate left-sided pleural effusion with associated basilar consolidation, likely atelectasis. Chest CT 06/02/19 13:54 IMPRESSION: 1. Increased size of the moderate to large left-sided pleural effusion with associated lower lobe atelectasis. 2. Stable bilateral axillary adenopathy from recent PET-CT. Stable asymmetric left breast mass. 3. Previously-seen left lower lobe pulmonary nodule is largely obscured on today's exam. Thoracentesis Ultrasound 06/03/19 00:00 IMPRESSION: SUCCESSFUL THORACENTESIS USING ULTRASOUND GUIDANCE. LEFT PLEURAL FLUID SENT FOR TESTING Chest X-Ray 06/03/19 14:50 IMPRESSION: No pneumothorax immediately post left thoracentesis Chest X-Ray 06/03/19 16:50 IMPRESSION: NO PNEUMOTHORAX 2 HOURS FOLLOWING THORACENTESIS. Plan Time Spent: Greater than 30 Minutes Stroke Is this a Stroke Patient?: No Acute Heart Failure - Is this a Heart Failure Patient?: No
[2019-06-05 11:46] LABS: TOTAL PROTEIN BODY FLUID 3.5 g/dL (.)
[2019-06-08] MEDS ORDERED: ERGOCALCIFEROL (VITAMIN D2) 50000 UNIT (1.25 MG) CAPSULE PO SCH (10:00)
[2019-06-08] MEDS ORDERED: (PENDING PHARMACY ID) (Cholecalciferol (Vitamin D3) [Vitamin D3] 50,000 UNIT) PO SCH (17:35)
== END 2019-06-04 16:55 | disposition home or self-care (01) | DRG 845 ==
LOC: ER 13:14 → EH 17:26 → 5 18:36
PROVIDERS: ADMIT Family Medicine; ATTEND Family Medicine
PROC: 0W9B3ZX Drainage of Left Pleural Cavity, Percutaneous Approach, Diagnostic (ICD-10-PCS; principal; 2019-06-03)
DX: C80.1 Malignant (primary) neoplasm, unspecified (principal); J91.0 Malignant pleural effusion; R91.8 Other nonspecific abnormal finding of lung field; N63.20 Unspecified lump in the left breast, unspecified quadrant; J44.9 Chronic obstructive pulmonary disease, unspecified; I25.2 Old myocardial infarction
CPT/HCPCS: 32555; 36415; 71045; 71260; 80048; 80053; 82945; 83615; 84155; 84157; 84484; 85025; 85027; 85610; 85730; 87070; 87075; 87205; 88305; 88341; 88342; 89050; 93005; 93010; 94640; 96374; 96375; 99291; J1170; J1885; J2930; J7620

== ENCOUNTER → 2019-06-05 | Outpatient (CLI) | payer MEDICAID ==
--- NOTE | 2019-06-05 13:14 | WOMENS IMAGING REPORT ---
EXAM DESCRIPTION: BILAT DIAGNOSTIC MAMMO W/CAD; U/S BREAST UNILAT LIMITED COMPLETED DATE/TIME: 06/05/2019 10:52 am; 06/05/2019 11:36 am REASON FOR STUDY: N63.20 UNSPECIFIED LUMP IN THE LEFT BREAST, UNSPECIFIED QUADRANT; RIGHT BREAST; N6 3.20 LEFT BREAST N63.20 UNSPECIFIED LUMP IN THE LEFT BREAST, UNSPECIFIED QUAD COMPARISON: None. EXAM PARAMETERS: Standard craniocaudal and mediolateral oblique views of each breast recorded using digital acquisition. True lateral views and cone compression views of both breasts. Read with the assistance of CAD: .[facility] - [employer] Version 9.2 LIMITATIONS: None. FINDINGS: RIGHT BREAST MASSES: No suspicious masses. CALCIFICATIONS: No new or suspicious calcifications. ARCHITECTURAL DISTORTION: None. ASYMMETRY: Focal asymmetry upper outer quadrant posterior 3rd. OTHER: No other significant findings. LEFT BREAST MASSES: Dominant mass at 3 o'clock corresponding to the palpable abnormality. CALCIFICATIONS: No new or suspicious calcifications. ARCHITECTURAL DISTORTION: None. ASYMMETRY: None noted. OTHER: No other significant finding. Ultrasound of both breasts was performed. On the left, there is a 3.1 x 1.8 x 2.5 cm hypoechoic mass with irregular margins and internal flow on color Doppler. Enlarged left axillary nodes measuring u p to 2.2 x 1.5 cm. On the right, enlarged lymph node in the axilla measuring 3.0 x 1.4 cm. IMPRESSION: Suspicious mass in the left breast confirmed with ultrasound. Focal asymmetry in the right breast without clear correlate on ultrasound. Bilateral axillary adenopathy. BREAST DENSITY: b. There are scattered areas of fibroglandular density. BIRAD: ASSESSMENT: 5 Highly suggestive of malignancy. Biopsy should be performed in the absence of clinical contra-indication. RECOMMENDATION: RECOMMENDED FOLLOW UP: Birads 5: Biopsy should be performed in the absence of clinic al contraindication. SPECIFIC INTERVENTION/IMAGING/CONSULTATION RECOMMENDED:The suspicious finding in the left breast amen able to US guided core/vacuum assisted biopsy. Ultimately breast MRI may be necessary to assess the findings in the right breast. COMMUNICATION:The imaging findings were not discussed with the patient. Her referring provider has be en notified of the findings. COMMENT: The patient has been notified of the results by letter per MQSA requirements. Additional no tification policies are in place for contacting patient with suspicious or incomplete findings. Quality ID #225: The [employer] recommends an annual screening mammogram for women aged 40 years or over. This facility utilizes a reminder system to ensure that all patients receive reminder letters, and/or direct phone calls for appointments. This includes reminders for routine scr eening mammograms, diagnostic mammograms, or other Breast Imaging Interventions when appropriate. Th is patient will be placed in the appropriate reminder system. TECHNICAL DOCUMENTATION: FINDING NUMBER: (1) ASSESSMENT: (1) JOB ID: [id number] 2010 [employer]- All Rights Reserved Reading location - IP/workstation name: [email or web address]
--- NOTE | 2019-06-05 13:14 | WOMENS IMAGING REPORT ---
EXAM DESCRIPTION: BILAT DIAGNOSTIC MAMMO W/CAD; U/S BREAST UNILAT LIMITED COMPLETED DATE/TIME: 06/05/2019 10:52 am; 06/05/2019 11:36 am REASON FOR STUDY: N63.20 UNSPECIFIED LUMP IN THE LEFT BREAST, UNSPECIFIED QUADRANT; RIGHT BREAST; N6 3.20 LEFT BREAST N63.20 UNSPECIFIED LUMP IN THE LEFT BREAST, UNSPECIFIED QUAD COMPARISON: None. EXAM PARAMETERS: Standard craniocaudal and mediolateral oblique views of each breast recorded using digital acquisition. True lateral views and cone compression views of both breasts. Read with the assistance of CAD: .[facility] - [employer] Director Of Cardiac Rehabilitation Version 9.2 LIMITATIONS: None. FINDINGS: RIGHT BREAST MASSES: No suspicious masses. CALCIFICATIONS: No new or suspicious calcifications. ARCHITECTURAL DISTORTION: None. ASYMMETRY: Focal asymmetry upper outer quadrant posterior 3rd. OTHER: No other significant findings. LEFT BREAST MASSES: Dominant mass at 3 o'clock corresponding to the palpable abnormality. CALCIFICATIONS: No new or suspicious calcifications. ARCHITECTURAL DISTORTION: None. ASYMMETRY: None noted. OTHER: No other significant finding. Ultrasound of both breasts was performed. On the left, there is a 3.1 x 1.8 x 2.5 cm hypoechoic mass with irregular margins and internal flow on color Doppler. Enlarged left axillary nodes measuring u p to 2.2 x 1.5 cm. On the right, enlarged lymph node in the axilla measuring 3.0 x 1.4 cm. IMPRESSION: Suspicious mass in the left breast confirmed with ultrasound. Focal asymmetry in the right breast without clear correlate on ultrasound. Bilateral axillary adenopathy. BREAST DENSITY: b. There are scattered areas of fibroglandular density. BIRAD: ASSESSMENT: 5 Highly suggestive of malignancy. Biopsy should be performed in the absence of clinical contra-indication. RECOMMENDATION: RECOMMENDED FOLLOW UP: Birads 5: Biopsy should be performed in the absence of clinic al contraindication. SPECIFIC INTERVENTION/IMAGING/CONSULTATION RECOMMENDED:The suspicious finding in the left breast amen able to US guided core/vacuum assisted biopsy. Ultimately breast MRI may be necessary to assess the findings in the right breast. COMMUNICATION:The imaging findings were not discussed with the patient. Her referring provider has be en notified of the findings. COMMENT: The patient has been notified of the results by letter per MQSA requirements. Additional no tification policies are in place for contacting patient with suspicious or incomplete findings. Quality ID #225: The [employer] recommends an annual screening mammogram for women aged 40 years or over. This facility utilizes a reminder system to ensure that all patients receive reminder letters, and/or direct phone calls for appointments. This includes reminders for routine scr eening mammograms, diagnostic mammograms, or other Breast Imaging Interventions when appropriate. Th is patient will be placed in the appropriate reminder system. TECHNICAL DOCUMENTATION: FINDING NUMBER: (1) ASSESSMENT: (1) JOB ID: [id number] 2010 [employer]- All Rights Reserved Reading location - IP/workstation name: [email or web address]-
--- NOTE | 2019-06-05 13:14 | WOMENS IMAGING REPORT ---
EXAM DESCRIPTION: BILAT DIAGNOSTIC MAMMO W/CAD; U/S BREAST UNILAT LIMITED COMPLETED DATE/TIME: 06/05/2019 10:52 am; 06/05/2019 11:36 am REASON FOR STUDY: N63.20 UNSPECIFIED LUMP IN THE LEFT BREAST, UNSPECIFIED QUADRANT; RIGHT BREAST; N6 3.20 LEFT BREAST N63.20 UNSPECIFIED LUMP IN THE LEFT BREAST, UNSPECIFIED QUAD COMPARISON: None. EXAM PARAMETERS: Standard craniocaudal and mediolateral oblique views of each breast recorded using digital acquisition. True lateral views and cone compression views of both breasts. Read with the assistance of CAD: .[facility] - [employer] Facility Administrator Version 9.2 LIMITATIONS: None. FINDINGS: RIGHT BREAST MASSES: No suspicious masses. CALCIFICATIONS: No new or suspicious calcifications. ARCHITECTURAL DISTORTION: None. ASYMMETRY: Focal asymmetry upper outer quadrant posterior 3rd. OTHER: No other significant findings. LEFT BREAST MASSES: Dominant mass at 3 o'clock corresponding to the palpable abnormality. CALCIFICATIONS: No new or suspicious calcifications. ARCHITECTURAL DISTORTION: None. ASYMMETRY: None noted. OTHER: No other significant finding. Ultrasound of both breasts was performed. On the left, there is a 3.1 x 1.8 x 2.5 cm hypoechoic mass with irregular margins and internal flow on color Doppler. Enlarged left axillary nodes measuring u p to 2.2 x 1.5 cm. On the right, enlarged lymph node in the axilla measuring 3.0 x 1.4 cm. IMPRESSION: Suspicious mass in the left breast confirmed with ultrasound. Focal asymmetry in the right breast without clear correlate on ultrasound. Bilateral axillary adenopathy. BREAST DENSITY: b. There are scattered areas of fibroglandular density. BIRAD: ASSESSMENT: 5 Highly suggestive of malignancy. Biopsy should be performed in the absence of clinical contra-indication. RECOMMENDATION: RECOMMENDED FOLLOW UP: Birads 5: Biopsy should be performed in the absence of clinic al contraindication. SPECIFIC INTERVENTION/IMAGING/CONSULTATION RECOMMENDED:The suspicious finding in the left breast amen able to US guided core/vacuum assisted biopsy. Ultimately breast MRI may be necessary to assess the findings in the right breast. COMMUNICATION:The imaging findings were not discussed with the patient. Her referring provider has be en notified of the findings. COMMENT: The patient has been notified of the results by letter per MQSA requirements. Additional no tification policies are in place for contacting patient with suspicious or incomplete findings. Quality ID #225: The [employer] recommends an annual screening mammogram for women aged 40 years or over. This facility utilizes a reminder system to ensure that all patients receive reminder letters, and/or direct phone calls for appointments. This includes reminders for routine scr eening mammograms, diagnostic mammograms, or other Breast Imaging Interventions when appropriate. Th is patient will be placed in the appropriate reminder system. TECHNICAL DOCUMENTATION: FINDING NUMBER: (1) ASSESSMENT: (1) JOB ID: [id number] 2010 [employer]- All Rights Reserved Reading location - IP/workstation name: [email or web address]
== END ==
LOC: WI 10:15
PROVIDERS: ATTEND Internal Medicine
DX: N63.20 Unspecified lump in the left breast, unspecified quadrant (principal); N63.10 Unspecified lump in the right breast, unspecified quadrant; R59.0 Localized enlarged lymph nodes
CPT/HCPCS: 76642; 77066

== ENCOUNTER 2019-06-11 06:02 | Inpatient (IN) | payer MEDICAID ==
--- NOTE | 2019-06-11 06:58 | ER Document Report ---
ED Medical Screen (RME) - General Chief Complaint: Shortness Of Breath Stated Complaint: SHORTNESS OF BREATH TRAVEL OUTSIDE OF THE [place] IN LAST 30 DAYS: No - HPI Notes: 06/11/19 06:57 Patient is a 64-year-old female with a history of COPD as well as cancer, unknown as to the specifics (left breast mass, left lung, and retroperitoneal adenopathy), pleural effusion presents complaining of having increased shortness of breath for the past week. She was admitted a week ago and had a liter of fluid drained from her left lung area and was noted to be malignant pleural effusion. No fever or recent illness otherwise. I have treated and performed a rapid initial assessment of this patient. A comprehensive ED assessment and evaluation of the patient, analysis of test results and completion of medical decision making process will be conducted by additional ED providers. PHYSICAL EXAMINATION: GENERAL: no acute distress. A&Ox4. Answers questions appropriately. Lungs: Diminished bilaterally at the base. Scant expiratory wheeze noted on the right. - Related Data Allergies/Adverse Reactions: morphine Allergy (Verified 06/02/19 13:43) shellfish derived Allergy (Verified 06/02/19 13:43) Past Medical History - Past Medical History Cardiac Medical History: Reports: Hx Heart Attack Pulmonary Medical History: Reports: Hx COPD Past Surgical History: Reports: Other - Breast biopsies, multiple always negative for malignant disease. Course - Laboratory Result Diagrams: 06/11/19 06:10 06/11/19 06:10
[2019-06-11] MEDS ORDERED: IPRATROPIUM/ALBUTEROL 0.5-2.5 MG/3 ML AMPUL NEB ONE (06:59)
[2019-06-11 07:42] LABS: HEMATOCRIT 22.5 % (36.0-47.0); MEAN CORPUSCULAR HEMOGLOBIN 31.5 pg (27.0-33.4); MEAN CORPUSCULAR HGB CONC 34.2 g/dL (32.0-36.0); MEAN CORPUSCULAR VOLUME 92 fl (80-97); PLATELET COUNT 350 10^3/uL (150-450); RED BLOOD COUNT 2.44 10^6/uL (3.72-5.28); RED CELL DISTRIBUTION WIDTH 18.6 % (11.5-14.0); WHITE BLOOD COUNT 3.7 10^3/uL (4.0-10.5)
[2019-06-11] MEDS ORDERED: METHYLPREDNISOLONE INJ 125 MG/2 ML SDV IV ONE (07:54)
[2019-06-11 07:55] LABS: HEMOGLOBIN 7.7 g/dL (12.0-15.5)
--- NOTE | 2019-06-11 08:01 | RADIOLOGY REPORT (SQ) ---
EXAM DESCRIPTION: XR CHEST 1 VIEW COMPLETED DATE/TME: 06/11/2019 06:35 CLINICAL HISTORY: SOB COMPARISON: 06/03/2019 FINDINGS: Single frontal view of the chest. Cardiomediastinal silhouette: Normal size and contour. This is incompletely characterized due to left basilar opacity. Lungs: Interval increase in size of now moderate left pleural effusion with underlying opacity. No pneumothorax. Leads overlie the chest. Bones: No acute osseous abnormality. Upper abdomen: No abnormality identified. IMPRESSION: 1. Moderate left pleural effusion with likely underlying consolidation or atelectasis.
[2019-06-11 08:04] LABS: ALBUMIN 3.3 g/dL (3.5-5.0); ALKALINE PHOSPHATASE 89 U/L (38-126); ANION GAP 9 (5-19); ASPARTATE AMINO TRANSFERASE 27 U/L (14-36); BILIRUBIN,TOTAL 1.3 mg/dL (0.2-1.3); BLOOD UREA NITROGEN 7 mg/dL (7-20); CALCIUM 8.5 mg/dL (8.4-10.2); CARBON DIOXIDE 26 mmol/L (22-30); CHLORIDE 105 mmol/L (98-107); GLUCOSE 102 mg/dL (75-110); POTASSIUM 3.6 mmol/L (3.6-5.0); TOTAL PROTEIN 5.8 g/dL (6.3-8.2)
[2019-06-11 08:07] LABS: CREATINE KINASE < 20 U/L (30-135)
[2019-06-11 08:08] LABS: ABSOLUTE LYMPHOCYTES# (MANUAL) 0.3 10^3/uL (0.5-4.7); ABSOLUTE MONOCYTES # (MANUAL) 0.2 10^3/uL (0.1-1.4); BAND NEUTROPHILS % (MANUAL) 1 % (3-5); BASOPHILS % (MANUAL) 0 % (0-2); EOSINOPHILS % (MANUAL) 1 % (0-6); LYMPHOCYTES % (MANUAL) 8 % (13-45); MONOCYTES % (MANUAL) 6 % (3-13); SEGMENTED NEUTROPHILS % (MAN) 84 % (42-78); TOTAL CELLS COUNTED 100
[2019-06-11 08:09] LABS: ANISOCYTOSIS 1+; HYPOCHROMASIA 1+; OVALOCYTES SLIGHT; PLATELET CLUMPS PRESENT; PLATELET COMMENT ADEQUATE; POIKILOCYTOSIS SLIGHT; POLYCHROMASIA SLIGHT
[2019-06-11 08:17] LABS: NT PRO BNP 182 pg/mL (<125)
[2019-06-11 08:19] LABS: CREATINE KINASE MB < 0.22 ng/mL (<4.55); TROPONIN I < 0.012 ng/mL
--- NOTE | 2019-06-11 08:42 | ER Document Report ---
Entered by COLBY AGUIRRE SCRIBE 06/11/19 0745 Acting as scribe for:BRIDGETT SWEET MD ED General - General Chief Complaint: Shortness Of Breath Stated Complaint: SHORTNESS OF BREATH Time Seen by Provider: 06/11/19 07:41 Mode of Arrival: Medic Information source: Patient Notes: This 64 year old female patient with a history of COPD brought in by EMS presents to the ED today with increasing shortness of breath for the past x1 week. 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 Patient was admitted x8 days ago where x1 L of fluid was drained from the left lung area. Patient states that her chest hurts when she breaths, but denies a fever. EMS report that they administered x3 breathing treatment en route, x2 Albuterol and x1 DuoNeb. EMS states that the patient's pulse ox was 84% on RA at home. Patient notes that she has a biopsy scheduled in the future. TRAVEL OUTSIDE OF THE [place] IN LAST 30 DAYS: No - Related Data Allergies/Adverse Reactions: morphine Allergy (Verified 06/02/19 13:43) shellfish derived Allergy (Verified 06/02/19 13:43) Past Medical History - Social History Smoking Status: Former Smoker Cigarette use (# per day): No Chew tobacco use (# tins/day): No Smoking Education Provided: No Family History: Reviewed & Not Pertinent, Arthritis, Hypertension, Thyroid Disfunction Patient has suicidal ideation: No Patient has homicidal ideation: No - Past Medical History Cardiac Medical History: Reports: Hx Heart Attack Pulmonary Medical History: Reports: Hx COPD Past Surgical History: Reports: Hx Orthopedic Surgery - L5-S1 discectomy, Other - Breast biopsies, multiple always negative for malignant disease. Review of Systems - Review of Systems Constitutional: See HPI. denies: Fever EENT: No symptoms reported Cardiovascular: See HPI, Chest pain Respiratory: See HPI, Short of breath Gastrointestinal: No symptoms reported Genitourinary: No symptoms reported Female Genitourinary: No symptoms reported Musculoskeletal: No symptoms reported Skin: No symptoms reported Hematologic/Lymphatic: No symptoms reported Neurological/Psychological: No symptoms reported -: Yes All other systems reviewed and negative Physical Exam - Vital signs Vitals: Resp 29 H 06/11/19 06:08 - General General appearance: Alert - HEENT Head: Normocephalic, Atraumatic Eyes: Normal Pupils: PERRL - Respiratory Respiratory status: No respiratory distress Chest status: Nontender Breath sounds: Rhonchi - In right side, Wheezing - In left upper lung and right side of lung, none appreciated in left lower lung., Other - Dyspneic when talking Chest palpation: Normal - Cardiovascular Rhythm: Regular Heart sounds: Normal auscultation Murmur: No Friction rub: No Gallop: None auscultated - Abdominal Inspection: Normal Distension: No distension Bowel sounds: Normal Tenderness: Nontender - Abdomen soft Organomegaly: No organomegaly - Back Back: Normal, Nontender - Extremities General upper extremity: Normal inspection General lower extremity: Normal inspection. No: Edema - Neurological Neuro grossly intact: Yes - Psychological Associated symptoms: Normal affect, Normal mood - Skin Skin Temperature: Warm Skin Moisture: Dry Skin Color: Normal Course - Vital Signs Vital signs: Temp Pulse Resp BP Pulse Ox 98.3 F 15 105/55 L 93 06/11/19 06:32 06/11/19 08:01 06/11/19 08:01 06/11/19 08:01 - Laboratory Result Diagrams: 06/11/19 07:25 06/11/19 07:25 Laboratory results interpreted by me: 06/11/19 06/11/19 06/11/19 07:25 07:25 07:25 WBC 3.7 L RBC 2.44 L Hgb 7.7 L Hct 22.5 L RDW 18.6 H Seg Neuts % (Manual) 84 H Band Neutrophils % 1 L Lymphocytes % (Manual) 8 L Abs Lymphs (Manual) 0.3 L Creatine Kinase < 20 L NT-Pro-B Natriuret Pep 182 H Total Protein 5.8 L Albumin 3.3 L - Diagnostic Test Radiology reviewed: Image reviewed, Reports reviewed - Chest x-ray shows reaccumulation of left pleural effusion with some atelectasis. - EKG Interpretation by Ma EKG shows normal: Sinus rhythm, [place], Intervals, QRS Complexes. abnormal: ST-T Waves - Borderline T abnormalities in the anterior lateral leads Rate: Normal - 96 Rhythm: NSR, PVC's Voltage: Decreased voltage, Throughout P Waves: LAE When compared to previous EKG there are: No significant change - Consults ZOE Howell Time consulted: 08:50 Consulted provider: will come to ER Discharge - Discharge Clinical Impression: Pleural effusion, left, Cold agglutinin disease, Tobacco abuse, Shortness of breath Anemia Qualifiers: Anemia type: unspecified type Qualified Code(s): D64.9 - Anemia, unspecified Emphysema lung Qualifiers: Emphysema type: unspecified Qualified Code(s): J43.9 - Emphysema, unspecified Condition: Stable Disposition: ADMITTED INPATIENT Admitting Provider: Aaron (Hospitalist) Unit Admitted: Medical Floor I personally performed the services described in the documentation, reviewed and edited the documentation which was dictated to the scribe in my presence, and it accurately records my words and actions.
[2019-06-11] MEDS: MAGNESIUM SULFATE/D5W 1 GM/100 ML RTUPB IV SCH ×2 (08:43→09:02)
[2019-06-11] MEDS ORDERED: OXYCODONE-ACETAMINOPHEN 5-325 MG TABLET PO PRN (10:43)
[2019-06-11] MEDS ORDERED: PROMETHAZINE HCL INJ 25 MG/1 ML VIAL IV PRN (10:43)
[2019-06-11] MEDS ORDERED: ACETAMINOPHEN 325 MG TABLET PO PRN (10:43)
[2019-06-11 11:13] LABS: INTERNATIONAL RATION (INR) 1.06; PROTHROMBIN TIME 13.8 SEC (11.4-15.4)
--- NOTE | 2019-06-11 11:14 | EKG REPORT ---
SEVERITY:- ABNORMAL ECG - SINUS RHYTHM VENTRICULAR PREMATURE COMPLEX PROBABLE LEFT ATRIAL ABNORMALITY LOW VOLTAGE THROUGHOUT BORDERLINE T ABNORMALITIES, ANT-LAT LEADS : Confirmed by: Marianela Lima MD 11-Jun-2019 11:13:49
[2019-06-11 11:39] LABS: APPEARANCE,URINE CLEAR; BILIRUBIN,URINE NEGATIVE (NEGATIVE); COLOR,URINE YELLOW; GLUCOSE, URINE NEGATIVE (NEGATIVE); KETONES,URINE TRACE mg/dL (NEGATIVE); LEUKOCYTE ESTERASE,URINE NEGATIVE (NEGATIVE); NITRITE,URINE NEGATIVE (NEGATIVE); PROTEIN,URINE NEGATIVE (NEGATIVE); UROBILINOGEN,URINE NEGATIVE mg/dL (<2.0)
[2019-06-11] MEDS ORDERED: DEXTROSE 40% GEL 15 GM TUBE PO PRN ×2 (13:47)
[2019-06-11] MEDS ORDERED: GLUCAGON,HUMAN RECOMB 1 MG INJ SUBCUT PRN (13:47)
[2019-06-11] MEDS ORDERED: DEXTROSE 50%-WATER 25 GM/50 ML DISP.SYRIN IV PRN ×2 (13:47)
--- NOTE | 2019-06-11 14:48 | PDOC H&P ---
History of Present Illness Admission Date/PCP: 06/11/19 09:22 History of Present Illness: LUPILLO DE LA ROSA is a 64 year old female who unfortunately probably has a history of lung cancer although this is not been definitively diagnosed at the present time. Patient comes in with an acute onset of shortness of breath last night and subsequently today has been found to have a large left pleural effusion. Patient had this actually tapped last time she was here in the hospital within the last week, at which time the thoracentesis yielded 1 L of fluid. Pathology is unknown at this time. Patient also reportedly has retroperitoneal adenopathy and possible adenopathy in the axilla and breast. Patient is currently being worked up by general surgery as well as oncology. Resenting complaint today is shortness of breath secondary to the large left pleural effusion. Patient does have underlying COPD however. Patient is to be admitted to the hospital for general surgery consultation concerning the best way to drain her pleural effusion as well as possible staging of her probable m alignancy. Patient is only in mild respiratory distress at this time, however reportedly her oxygen saturation was 84% at home on room air according to EMS. Patient recently moved here from [place] to be with her family. Past Medical History Cardiac Medical History: Reports: Myocardial Infarction Pulmonary Medical History: Reports: Chronic Obstructive Pulmonary Disease (COPD) Past Surgical History Past Surgical History: Reports: Orthopedic Surgery - L5-S1 discectomy, Other - Breast biopsies, multiple always negative for malignant disease. Social History Smoking Status: Former Smoker Frequency of Alcohol Use: None Hx Recreational Drug Use: No Drugs: None Hx Prescription Drug Abuse: No - Advance Directive Resuscitation Status: Full Code Family History Family History: Reviewed & Not Pertinent, Arthritis, Hypertension, Thyroid Disfunction Parental Family History Reviewed: No Children Family History Reviewed: No Sibling(s) Family History Reviewed.: No Medication/Allergy Home Medications: Aspirin [Ecotrin 81 mg EC Tablet] 81 mg PO DAILY 05/16/19 Bupropion HCl [Bupropion Xl] 150 mg PO DAILY 05/16/19 Cholecalciferol (Vitamin D3) [Vitamin D3] 50,000 unit PO MCKAY 05/16/19 Cyanocobalamin (Vitamin B-12) [Vitamin B-12 1000 mcg Tablet] 1 tab PO DAILY 05/16/19 Fexofenadine HCl [Jael Allergy] 60 mg PO Q12 05/16/19 Oxcarbazepine 150 mg PO Q12 05/16/19 Allergies/Adverse Reactions: morphine Allergy (Verified 06/02/19 13:43) shellfish derived Allergy (Verified 06/02/19 13:43) Review of Systems Constitutional: PRESENT: night sweats. ABSENT: chills, fever(s), headache(s), weight gain, weight loss Cardiovascular: PRESENT: dyspnea on exertion, orthropnea Respiratory: PRESENT: dyspnea Neurological: ABSENT: abnormal gait, abnormal speech, confusion, dizziness, focal weakness, syncope Psychiatric: ABSENT: anxiety, depression, homidical ideation, suicidal ideation Physical Exam Vital Signs: Temp Pulse Resp BP Pulse Ox 98.4 F 92 20 108/53 L 90 L 06/11/19 11:59 06/11/19 11:59 06/11/19 11:59 06/11/19 11:59 06/11/19 11:59 Intake & Output 06/10/19 06/11/19 06/12/19 06:59 06:59 06:59 Intake Total 200 Balance 200 Weight 64.5 kg 61.1 kg General appearance: PRESENT: mild distress, other - Patient is sitting up in the bed talking although she becomes short of breath with long sentences Respiratory exam: PRESENT: decreased breath sounds - Left lower lobe, wheezes Cardiovascular exam: PRESENT: RRR. ABSENT: diastolic murmur, rubs, systolic murmur Neurological exam: PRESENT: alert, awake, oriented to person, oriented to place, oriented to time, oriented to situation, CN II-XII grossly intact. ABSENT: motor sensory deficit Psychiatric exam: PRESENT: depressed - Situational depression Results Laboratory Results: 06/11/19 07:25 06/11/19 07:25 06/11/19 06/11/19 06/11/19 06:10 06:10 07:25 WBC Cancelled RBC Cancelled Hgb Cancelled Hct Cancelled MCV Cancelled MCH Cancelled MCHC Cancelled RDW Cancelled Plt Count Cancelled Seg Neutrophils % Cancelled Sodium Cancelled 139.7 Potassium Cancelled 3.6 Chloride Cancelled 105 Carbon Dioxide Cancelled 26 Anion Gap Cancelled 9 BUN Cancelled 7 Creatinine Cancelled 0.54 Est GFR ( Amer) Cancelled > 60 Est GFR (Non-Af Amer) Cancelled Glucose Cancelled 102 Calcium Cancelled 8.5 Total Bilirubin Cancelled 1.3 AST Cancelled 27 Alkaline Phosphatase Cancelled 89 Total Protein Cancelled 5.8 L Albumin Cancelled 3.3 L Urine Color Urine Appearance Urine pH Ur Specific [place] Urine Protein Urine Glucose (UA) Urine Ketones Urine Blood Urine Nitrite Ur Leukocyte Esterase Urine WBC (Auto) Urine RBC (Auto) Blood Type Antibody Screen 06/11/19 06/11/19 06/11/19 07:25 08:30 11:19 WBC 3.7 L RBC 2.44 L Hgb 7.7 L Hct 22.5 L MCV 92 MCH 31.5 MCHC 34.2 RDW 18.6 H Plt Count 350 Seg Neutrophils % Not Reportable Sodium Potassium Chloride Carbon Dioxide Anion Gap BUN Creatinine Est GFR ( Amer) Est GFR (Non-Af Amer) Glucose Calcium Total Bilirubin AST Alkaline Phosphatase Total Protein Albumin Urine Color YELLOW Urine Appearance CLEAR Urine pH 5.0 Ur Specific [place] 1.010 Urine Protein NEGATIVE Urine Glucose (UA) NEGATIVE Urine Ketones TRACE H Urine Blood NEGATIVE Urine Nitrite NEGATIVE Ur Leukocyte Esterase NEGATIVE Urine WBC (Auto) 1 Urine RBC (Auto) 1 Blood Type O NEGATIVE Antibody Screen NEGATIVE 06/11/19 06/11/19 06/11/19 06:10 06:10 07:25 Creatine Kinase Cancelled < 20 L CK-MB (CK-2) Cancelled Troponin I Cancelled NT-Pro-B Natriuret Pep Cancelled 06/11/19 07:25 Creatine Kinase CK-MB (CK-2) < 0.22 Troponin I < 0.012 NT-Pro-B Natriuret Pep 182 H Impressions: Chest X-Ray 06/11/19 06:35 IMPRESSION: 1. Moderate left pleural effusion with likely underlying consolidation or atelectasis. Assessment and Plan - Diagnosis (1) Anemia Qualifiers: Anemia type: unspecified type Qualified Code(s): D64.9 - Anemia, unspecified Is this a current diagnosis for this admission?: Yes (2) Cold agglutinin disease Is this a current diagnosis for this admission?: Yes (3) Emphysema lung Qualifiers: Emphysema type: unspecified Qualified Code(s): J43.9 - Emphysema, unspecified Is this a current diagnosis for this admission?: Yes (4) Pleural effusion, left Is this a current diagnosis for this admission?: Yes (5) Shortness of breath Is this a current diagnosis for this admission?: Yes (6) Tobacco abuse Is this a current diagnosis for this admission?: Yes (7) Abnormal CT scan, chest Is this a current diagnosis for this admission?: Yes (8) COPD (chronic obstructive pulmonary disease) Is this a current diagnosis for this admission?: Yes (9) Diffuse lymphadenopathy Is this a current diagnosis for this admission?: Yes (10) Pleural effusion Is this a current diagnosis for this admission?: Yes (11) Pulmonary nodule Is this a current diagnosis for this admission?: Yes - Plan Summary Summary: Patient will be admitted to the hospital and will consult general surgery concerning her left pleural effusion, and possibly biopsy of the adenopathy, this was being contemplated just 48 hours ago by general surgery. We will also notify oncology of her admission, for their input. Will treat patient with pulmonary toiletry concerning her underlying COPD, although her primary pathology for her shortness of breath is her pleural effusion. Patient's son is in the room and he understands the treatment plan - Time Time Spent with patient: 35 or more minutes
--- NOTE | 2019-06-11 15:07 | PDOC CONSULTATION ---
Consultation Consult Date: 06/11/19 Attending physician:: KAREN GOSS Provider Consulted: RAY SALDANA Consult reason:: Increasing shortness of breath with recurrent pleural effusion, diffuse adenopathy, concern of malignancy History of Present Illness Admission Date/PCP: 06/11/19 09:22 Patient complains of: Shortness of breath History of Present Illness: LUPILLO DE LA ROSA is a 64 year old female well-known to our oncology service we have been seeing her for about a month now, trying to diagnosis suspected cancer, recently we saw her at our office after which she had a PET/CT and this indicated multiple hypermetabolic lymph nodes bilateral axilla mediastinum, and multiple lymph nodes in the abdomen and inguinal areas. She also had pleural effusion as well as lung nodule. She also had hypermetabolic breast mass. She was seen by Dr. Mittal of general surgery who is planning on taking her as an outpatient to get axillary lymph node excision as well as breast biopsy, but unfortunately patient came back with recurrent pleural effusion, so is planning on doing these procedures as well as thoracentesis tomorrow. 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 Past Medical History Cardiac Medical History: Reports: Myocardial Infarction Pulmonary Medical History: Reports: Chronic Obstructive Pulmonary Disease (COPD) Past Surgical History Past Surgical History: Reports: Orthopedic Surgery - L5-S1 discectomy, Other - Breast biopsies, multiple always negative for malignant disease. Social History Smoking Status: Former Smoker Frequency of Alcohol Use: None Hx Recreational Drug Use: No Drugs: None Hx Prescription Drug Abuse: No - Advance Directive Resuscitation Status: Full Code Family History Family History: Reviewed & Not Pertinent, Arthritis, Hypertension, Thyroid Disfunction Parental Family History Reviewed: Yes Children Family History Reviewed: Yes Sibling(s) Family History Reviewed.: Yes Medication/Allergy Home Medications: Aspirin [Ecotrin 81 mg EC Tablet] 81 mg PO DAILY 05/16/19 Bupropion HCl [Bupropion Xl] 150 mg PO DAILY 05/16/19 Cholecalciferol (Vitamin D3) [Vitamin D3] 50,000 unit PO MCKAY 05/16/19 Cyanocobalamin (Vitamin B-12) [Vitamin B-12 1000 mcg Tablet] 1 tab PO DAILY 05/16/19 Fexofenadine HCl [Jael Allergy] 60 mg PO Q12 05/16/19 Oxcarbazepine 150 mg PO Q12 05/16/19 Allergies/Adverse Reactions: morphine Allergy (Verified 06/02/19 13:43) shellfish derived Allergy (Verified 06/02/19 13:43) Review of Systems Constitutional: ABSENT: chills, fever(s), headache(s), weight gain, weight loss Eyes: ABSENT: visual disturbances Ears: ABSENT: hearing changes Cardiovascular: ABSENT: chest pain, dyspnea on exertion, edema, orthropnea, palpitations Respiratory: ABSENT: cough, hemoptysis Gastrointestinal: ABSENT: abdominal pain, constipation, diarrhea, hematemesis, hematochezia, nausea, vomiting Genitourinary: ABSENT: dysuria, hematuria Musculoskeletal: ABSENT: joint swelling Integumentary: ABSENT: rash, wounds Neurological: ABSENT: abnormal gait, abnormal speech, confusion, dizziness, focal weakness, syncope Psychiatric: ABSENT: anxiety, depression, homidical ideation, suicidal ideation Endocrine: ABSENT: cold intolerance, heat intolerance, polydipsia, polyuria Hematologic/Lymphatic: ABSENT: easy bleeding, easy bruising Physical Exam Vital Signs: Temp Pulse Resp BP Pulse Ox 98.4 F 92 20 108/53 L 90 L 06/11/19 11:59 06/11/19 11:59 06/11/19 11:59 06/11/19 11:59 06/11/19 11:59 Intake & Output 06/10/19 06/11/19 06/12/19 06:59 06:59 06:59 Intake Total 200 Balance 200 Weight 64.5 kg 61.1 kg General appearance: PRESENT: no acute distress, well-developed, well-nourished Head exam: PRESENT: atraumatic, normocephalic Eye exam: PRESENT: conjunctiva pink, EOMI, PERRLA. ABSENT: scleral icterus Ear exam: PRESENT: normal external ear exam Mouth exam: PRESENT: moist, tongue midline Neck exam: ABSENT: carotid bruit, JVD, lymphadenopathy, thyromegaly Respiratory exam: PRESENT: clear to auscultation clare. ABSENT: rales, rhonchi, wheezes Cardiovascular exam: PRESENT: RRR. ABSENT: diastolic murmur, rubs, systolic murmur Pulses: PRESENT: normal dorsalis pedis pul Vascular exam: PRESENT: normal capillary refill GI/Abdominal exam: PRESENT: normal bowel sounds, soft. ABSENT: distended, guarding, mass, organolmegaly, rebound, tenderness Rectal exam: PRESENT: deferred Extremities exam: PRESENT: full ROM. ABSENT: calf tenderness, clubbing, pedal edema Neurological exam: PRESENT: alert, awake, oriented to person, oriented to place, oriented to time, oriented to situation, CN II-XII grossly intact. ABSENT: motor sensory deficit Psychiatric exam: PRESENT: appropriate affect, normal mood. ABSENT: homicidal ideation, suicidal ideation Skin exam: PRESENT: dry, intact, warm. ABSENT: cyanosis, rash Results Laboratory Results: 06/11/19 07:25 06/11/19 07:25 06/11/19 06/11/19 06/11/19 06:10 06:10 07:25 WBC Cancelled RBC Cancelled Hgb Cancelled Hct Cancelled MCV Cancelled MCH Cancelled MCHC Cancelled RDW Cancelled Plt Count Cancelled Seg Neutrophils % Cancelled Sodium Cancelled 139.7 Potassium Cancelled 3.6 Chloride Cancelled 105 Carbon Dioxide Cancelled 26 Anion Gap Cancelled 9 BUN Cancelled 7 Creatinine Cancelled 0.54 Est GFR ( Amer) Cancelled > 60 Est GFR (Non-Af Amer) Cancelled Glucose Cancelled 102 Calcium Cancelled 8.5 Total Bilirubin Cancelled 1.3 AST Cancelled 27 Alkaline Phosphatase Cancelled 89 Total Protein Cancelled 5.8 L Albumin Cancelled 3.3 L Urine Color Urine Appearance Urine pH Ur Specific [place] Urine Protein Urine Glucose (UA) Urine Ketones Urine Blood Urine Nitrite Ur Leukocyte Esterase Urine WBC (Auto) Urine RBC (Auto) Blood Type Antibody Screen 06/11/19 06/11/19 06/11/19 07:25 08:30 11:19 WBC 3.7 L RBC 2.44 L Hgb 7.7 L Hct 22.5 L MCV 92 MCH 31.5 MCHC 34.2 RDW 18.6 H Plt Count 350 Seg Neutrophils % Not Reportable Sodium Potassium Chloride Carbon Dioxide Anion Gap BUN Creatinine Est GFR ( Amer) Est GFR (Non-Af Amer) Glucose Calcium Total Bilirubin AST Alkaline Phosphatase Total Protein Albumin Urine Color YELLOW Urine Appearance CLEAR Urine pH 5.0 Ur Specific [place] 1.010 Urine Protein NEGATIVE Urine Glucose (UA) NEGATIVE Urine Ketones TRACE H Urine Blood NEGATIVE Urine Nitrite NEGATIVE Ur Leukocyte Esterase NEGATIVE Urine WBC (Auto) 1 Urine RBC (Auto) 1 Blood Type O NEGATIVE Antibody Screen NEGATIVE 06/11/19 06/11/19 06/11/19 06:10 06:10 07:25 Creatine Kinase Cancelled < 20 L CK-MB (CK-2) Cancelled Troponin I Cancelled NT-Pro-B Natriuret Pep Cancelled 06/11/19 07:25 Creatine Kinase CK-MB (CK-2) < 0.22 Troponin I < 0.012 NT-Pro-B Natriuret Pep 182 H Impressions: Chest X-Ray 06/11/19 06:35 IMPRESSION: 1. Moderate left pleural effusion with likely underlying consolidation or atelectasis. Assessment & Plan - Diagnosis (1) Diffuse lymphadenopathy Is this a current diagnosis for this admission?: Yes Plan: Very concerning for malignancy, agree with procedure Dr. Mittal is going to do, await results (2) Pleural effusion, left Is this a current diagnosis for this admission?: Yes Plan: Likely to be malignant although cytology was previously negative, plan for repeat thoracentesis, agree that given the fact that we do not have tissue diagnosis and official diagnosis of malignancy because of that, would not place Pleurx catheter until we have that diagnosis. 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 Otherwise, transfusion can be given if patient is unstable, but we usually hold on this until absolutely necessary as there is multiple antibodies usually. Steroids can be tried but have been ineffective in the past. I discussed her case with anesthesia, to ensure that they would be able to do the procedure even though the hemoglobin was lower, and since she is hemod ynamically stable they feel that this is a low risk. I would agree. - Time Time Spent: Greater than 70 Minutes - Inpatient Certification Based on my medical assessment, after consideration of the patient's comorbidities, presenting symptoms, or acuity I expect that the services needed warrant INPATIENT care.: Yes I certify that my determination is in accordance with my understanding of Medicare's requirements for reasonable and necessary INPATIENT services [42 CFR 412.3e].: Yes Medical Necessity: Need for Nebulizer Therapy and Monitoring of Response, Need for Surgery, Risk of Complication if Not Cared For in Hospital
[2019-06-11] MEDS: IPRATROPIUM/ALBUTEROL 0.5-2.5 MG/3 ML AMPUL NEB PRN ×2 (17:43→22:15)
[2019-06-11] MEDS ORDERED: (PENDING PHARMACY ID) (Bupropion Hcl [Bupropion Xl] 150 MG) PO SCH (18:30)
[2019-06-11] MEDS: METHYLPREDNISOLONE INJ 40 MG/1 ML SDV IV SCH ×2 (18:55→21:11)
--- NOTE | 2019-06-11 20:03 | EKG REPORT ---
SEVERITY:- OTHERWISE NORMAL ECG - SINUS RHYTHM LOW VOLTAGE IN FRONTAL LEADS : Confirmed by: Marianela Lima MD 11-Jun-2019 20:02:01
[2019-06-11] MEDS: OXCARBAZEPINE 150 MG TABLET PO SCH (21:19)
--- NOTE | 2019-06-11 21:54 | PDOC CONSULTATION ---
Consultation Consult Date: 06/11/19 Provider Consulted: SURGICAL SURGICALIST History of Present Illness Admission Date/PCP: 06/11/19 09:22 Patient complains of: shortness of breath History of Present Illness: LUPILLO DE LA ROSA is a 64 year old female with a breast mass, axillary lymphadenopathy, and left-sided pleural effusion. 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 The patient reports increasing amounts of shortness of breath today. She presented to the emergency department for acute care. The patient is now receiving supplemental oxygen. Her shortness of breath is much improved. She denies chest pain, fevers, chills, nausea, vomiting, melena, hematochezia, hematemesis, dizziness, blurry vision, orthostasis, malaise, or fatigue. The patient is currently undergoing work-up for her lymphadenopathy, breast mass, and pleural effusion. Recent cytology for pleural fluid was negative for malignancy. She sees Dr. Mittal in the office, at [facility]. Past Medical History Cardiac Medical History: Reports: Myocardial Infarction Pulmonary Medical History: Reports: Chronic Obstructive Pulmonary Disease (COPD) Past Surgical History Past Surgical History: Reports: Orthopedic Surgery - L5-S1 discectomy, Other - Breast biopsies, multiple always negative for malignant disease. Social History Smoking Status: Former Smoker Frequency of Alcohol Use: None Hx Recreational Drug Use: No Drugs: None Hx Prescription Drug Abuse: No - Advance Directive Resuscitation Status: Full Code Family History Family History: Reviewed & Not Pertinent, Arthritis, Hypertension, Thyroid Disfunction Parental Family History Reviewed: Yes Children Family History Reviewed: Yes Sibling(s) Family History Reviewed.: Yes Medication/Allergy Home Medications: Aspirin [Ecotrin 81 mg EC Tablet] 81 mg PO DAILY 05/16/19 Bupropion HCl [Bupropion Xl] 150 mg PO DAILY 05/16/19 Cholecalciferol (Vitamin D3) [Vitamin D3] 50,000 unit PO MCKAY 05/16/19 Cyanocobalamin (Vitamin B-12) [Vitamin B-12 1000 mcg Tablet] 1 tab PO DAILY 05/16/19 Fexofenadine HCl [Jael Allergy] 60 mg PO Q12 05/16/19 Oxcarbazepine 150 mg PO Q12 05/16/19 Allergies/Adverse Reactions: morphine Allergy (Verified 06/02/19 13:43) shellfish derived Allergy (Verified 06/02/19 13:43) Review of Systems Constitutional: ABSENT: fatigue, fever(s), headache(s) Eyes: ABSENT: visual disturbances Ears: ABSENT: hearing changes Nose, Mouth, and Throat: ABSENT: mouth pain, sore throat Cardiovascular: PRESENT: dyspnea on exertion. ABSENT: chest pain Respiratory: PRESENT: dyspnea. ABSENT: cough, hemoptysis Gastrointestinal: ABSENT: abdominal pain, bloating, nausea, vomiting Genitourinary: ABSENT: difficulty urinating Musculoskeletal: ABSENT: back pain Integumentary: ABSENT: pruritus, rash Neurological: ABSENT: confusion, convulsions, dizziness Psychiatric: ABSENT: anxiety, depression Endocrine: ABSENT: cold intolerance, heat intolerance Hematologic/Lymphatic: ABSENT: easy bleeding, easy bruising Physical Exam Vital Signs: Temp Pulse Resp BP Pulse Ox 98.5 F 86 20 110/44 L 94 06/11/19 19:29 06/11/19 19:29 06/11/19 19:29 06/11/19 19:29 06/11/19 19:29 Intake & Output 06/10/19 06/11/19 06/12/19 06:59 06:59 06:59 Intake Total 680 Balance 680 Weight 64.5 kg 61.1 kg General appearance: PRESENT: no acute distress, cooperative Head exam: PRESENT: atraumatic, normocephalic Eye exam: PRESENT: EOMI, PERRLA. ABSENT: scleral icterus Mouth exam: PRESENT: moist, neck supple Neck exam: ABSENT: meningismus, tenderness, thyromegaly, tracheal deviation Respiratory exam: PRESENT: decreased breath sounds - left base. ABSENT: chest wall tenderness Cardiovascular exam: ABSENT: tachycardia Pulses: PRESENT: normal radial pulses Vascular exam: PRESENT: normal capillary refill. ABSENT: pallor GI/Abdominal exam: PRESENT: soft. ABSENT: distended, firm, guarding, tenderness Rectal exam: PRESENT: deferred Extremities exam: ABSENT: clubbing Musculoskeletal exam: ABSENT: deformity Neurological exam: PRESENT: alert, awake, oriented to person, oriented to place, oriented to time, oriented to situation, CN II-XII grossly intact Psychiatric exam: ABSENT: agitated, anxious, depressed Focused psych exam: ABSENT: delusional Skin exam: ABSENT: cyanosis, erythema, jaundice Results Laboratory Results: 06/11/19 07:25 06/11/19 07:25 06/11/19 06/11/19 06/11/19 06:10 06:10 07:25 WBC Cancelled RBC Cancelled Hgb Cancelled Hct Cancelled MCV Cancelled MCH Cancelled MCHC Cancelled RDW Cancelled Plt Count Cancelled Seg Neutrophils % Cancelled Sodium Cancelled 139.7 Potassium Cancelled 3.6 Chloride Cancelled 105 Carbon Dioxide Cancelled 26 Anion Gap Cancelled 9 BUN Cancelled 7 Creatinine Cancelled 0.54 Est GFR ( Amer) Cancelled > 60 Est GFR (Non-Af Amer) Cancelled Glucose Cancelled 102 Calcium Cancelled 8.5 Total Bilirubin Cancelled 1.3 AST Cancelled 27 Alkaline Phosphatase Cancelled 89 Total Protein Cancelled 5.8 L Albumin Cancelled 3.3 L Urine Color Urine Appearance Urine pH Ur Specific [place] Urine Protein Urine Glucose (UA) Urine Ketones Urine Blood Urine Nitrite Ur Leukocyte Esterase Urine WBC (Auto) Urine RBC (Auto) Blood Type Antibody Screen 06/11/19 06/11/19 06/11/19 07:25 08:30 11:19 WBC 3.7 L RBC 2.44 L Hgb 7.7 L Hct 22.5 L MCV 92 MCH 31.5 MCHC 34.2 RDW 18.6 H Plt Count 350 Seg Neutrophils % Not Reportable Sodium Potassium Chloride Carbon Dioxide Anion Gap BUN Creatinine Est GFR ( Amer) Est GFR (Non-Af Amer) Glucose Calcium Total Bilirubin AST Alkaline Phosphatase Total Protein Albumin Urine Color YELLOW Urine Appearance CLEAR Urine pH 5.0 Ur Specific [place] 1.010 Urine Protein NEGATIVE Urine Glucose (UA) NEGATIVE Urine Ketones TRACE H Urine Blood NEGATIVE Urine Nitrite NEGATIVE Ur Leukocyte Esterase NEGATIVE Urine WBC (Auto) 1 Urine RBC (Auto) 1 Blood Type O NEGATIVE Antibody Screen NEGATIVE 06/11/19 06/11/19 06/11/19 06:10 06:10 07:25 Creatine Kinase Cancelled < 20 L CK-MB (CK-2) Cancelled Troponin I Cancelled NT-Pro-B Natriuret Pep Cancelled 06/11/19 07:25 Creatine Kinase CK-MB (CK-2) < 0.22 Troponin I < 0.012 NT-Pro-B Natriuret Pep 182 H Impressions: Chest X-Ray 06/11/19 06:35 IMPRESSION: 1. Moderate left pleural effusion with likely underlying consolidation or atelectasis. Assessment & Plan - Diagnosis (1) Lymphadenopathy Is this a current diagnosis for this admission?: Yes (2) Pleural effusion, left Is this a current diagnosis for this admission?: Yes - Plan Summary Plan Summary: This is a 64-year-old female followed at [facility] by Dr. Mittal. Consult has been made for treatment and diagnosis of the cause of her pleural effusion. Her constellation of symptoms are very suspicious for malignancy. I have discussed the case at length with Dr. Mittal. We will make the patient n.p.o. after midnight, with an expectation to perform lymph node biopsy, thoracentesis, possible breast biopsy. The patient is in agreement with the treatment plan. Risks/benefits discussed, informed consent obtained, and all questions answered.
[2019-06-11] MEDS ORDERED: OXCARBAZEPINE 150 MG PO SCH (22:00)
[2019-06-11] MEDS ORDERED: BUPROPION HCL 75 MG TABLET PO SCH (22:00)
[2019-06-12] MEDS: METHYLPREDNISOLONE INJ 40 MG/1 ML SDV IV SCH ×3 (05:13→21:47)
[2019-06-12] MEDS: PANTOPRAZOLE SODIUM 20 MG TABLET.DR PO SCH (05:16)
[2019-06-12] MEDS: IPRATROPIUM/ALBUTEROL 0.5-2.5 MG/3 ML AMPUL NEB PRN ×2 (05:55→17:42)
[2019-06-12 06:06] LABS: ANION GAP 8 (5-19); BLOOD UREA NITROGEN 11 mg/dL (7-20); CARBON DIOXIDE 25 mmol/L (22-30); CHLORIDE 107 mmol/L (98-107); GLUCOSE 160 mg/dL (75-110)
[2019-06-12 06:10] LABS: ABSOLUTE LYMPHOCYTES (AUTO) 0.5 10^3/uL (0.5-4.7); ABSOLUTE MONOCYTES (AUTO) 0.6 10^3/uL (0.1-1.4); ABSOLUTE NEUT (AUTO) 4.8 10^3/uL (1.7-8.2); HEMATOCRIT 21.8 % (36.0-47.0); LYMPHOCYTES % (AUTO) 8.8 % (13-45); MEAN CORPUSCULAR HEMOGLOBIN 30.9 pg (27.0-33.4); MEAN CORPUSCULAR HGB CONC 33.5 g/dL (32.0-36.0); MEAN CORPUSCULAR VOLUME 92 fl (80-97); MONOCYTES % (AUTO) 9.4 % (3-13); PLATELET COUNT 381 10^3/uL (150-450); RED BLOOD COUNT 2.36 10^6/uL (3.72-5.28); RED CELL DISTRIBUTION WIDTH 18.9 % (11.5-14.0); SEGMENTED NEUTROPHILS % (AUTO) 81.8 % (42-78); TOTAL CELLS COUNTED % (AUTO) 100 %; WHITE BLOOD COUNT 5.9 10^3/uL (4.0-10.5)
[2019-06-12 06:19] LABS: POTASSIUM 4.9 mmol/L (3.6-5.0)
[2019-06-12 06:21] LABS: HEMOGLOBIN 7.3 g/dL (12.0-15.5)
[2019-06-12] MEDS ORDERED: LIDOCAINE 2% INJ (20 MG/ML) 20 ML MDV ONE (07:14)
[2019-06-12] MEDS ORDERED: BUPIVACAINE HCL 0.5%-EPI 1:200000 INJ/PF 30 ML VIAL ONE (10:53)
[2019-06-12] MEDS ORDERED: LIDOCAINE 2% INJ-PF (20 MG/ML) 10 ML AMPUL ONE (10:55)
[2019-06-12] MEDS ORDERED: MIDAZOLAM 2 MG/2 ML INJ ONE (10:56)
[2019-06-12] MEDS ORDERED: ONDANSETRON HCL INJ/PF 4 MG/2 ML SDV ONE (10:56)
[2019-06-12] MEDS ORDERED: DEXAMETHASONE SOD PHOSPHATE INJ 4 MG/1 ML VIAL ONE (10:56)
[2019-06-12] MEDS ORDERED: FENTANYL CITRATE INJ/PF 100 MCG/2 ML AMPUL ONE (10:56)
[2019-06-12] MEDS ORDERED: PROPOFOL INJ 200 MG/20 ML VIAL IV ONE (10:56)
--- NOTE | 2019-06-12 13:13 | Operative Report ---
Nonrecallable Operative Report DATE OF SURGERY: 06/12/19 PREOPERATIVE DIAGNOSIS: pleural effusion, left breast mass POSTOPERATIVE DIAGNOSIS: pleural effusion, left breast mass OPERATION: left thoracentesis, left breast biopsy, bilateral axillary node biopsy TISSUE REMOVED OR ALTERED: bilateral axillary nodes, left breast mass, 1200cc of serous pleural fluid COMPLICATIONS: none ESTIMATED BLOOD LOSS: 20cc. INTRAOPERATIVE FINDINGS: see note PROCEDURE: Patient was brought to the operating awake alert stable condition placed on the operative table in a sitting position and draped her arms over a reinforced Espinoza stand for her thoracentesis. The left posterior chest was prepped and draped in usual sterile fashion. After appropriate timeout and site verification the procedure commenced. A area over the seventh intercostal space with anesthetized with 1% lidocaine plain. Using the 11 blade scalpel supplied with a thoracentesis kit a small nohelia was made over the seventh intercostal space. Then the thoracentesis needle along with the overlying catheter was placed on top of the sixth rib at the posterior axillary line. The catheter was then advanced into the chest cavity. We then aspirated approximately 1200 cc of straw-colored fluid. This fluid was sent to cytology. we then slowly removed the catheter after the full amount of fluid could be aspirated. Then attention was then turned to the bilateral axillary biopsies and left breast mass. The patient was then placed in a supine position on the operating table and given IV sedation. The left breast and bilateral axilla were prepped and draped in usual sterile fashion. We approached the right axilla first after anesthetizing the axilla with 1% lidocaine with epinephrine a transverse incision was made in the right axilla and dissection was carried down through subcutaneous tissue with Bovie cautery we gained access to the axilla after dividing the clavipectoral fascia with the Bovie cautery once this was identified we then gained access to the axilla identified the chest wall and the long thoracic nerve. We also identified the thoracodorsal vein. At this point I was able to palpate a fairly large lymph node 2 to 3 cm in diameter which was gently dissected from the surrounding subcutaneous fat and the small tributaries were hemoclipped and then the node was removed. It was sent to pathology fresh. The clavipectoral fascia was then closed with interrupted 3-0 Vicryl sutures and the skin was closed with intracuticular 4-0 Biosyn. Attention was then turned to the left side. The mass in the left breast of the lateral aspect of it at the 9 o'clock position was to be biopsied. We anesthetized the lateral aspect of the area [place] skin margin with 1% lidocaine plain and incision was made in that margin with a 15 blade we carried our dissection down through subcutaneous tissue with Bovie cautery. The mass was identified and incisional biopsy was then performed with a 15 blade. Upon incising the mass there was a pasty greenish fluid that exuded from the mass itself however the entire cystic mass was removed. It was sent to pathology. After obtaining hemostasis with Bovie cautery the subcutaneous tissue was reapproximated with interrupted 3-0 Vicryl and skin was then reapproximated with intracuticular 4-0 Biosyn. We then turned attention to the left axilla. Similarly on the right side we anesthetized the axilla with 1% lidocaine plain made a transverse incision in the left axilla carried our dissection down through subcutaneous tissue with Bovie cautery to identify the clavipectoral fascia which was opened with Bovie cautery to gain access to the axillary space identified the long thoracic nerve and then identified the subclavian vein. The mass reilly tissue that could be palpated was excised with Bovie cautery after clipping the tributaries with a Hemoclip.'s number of nodes were removed approximately 2-3 that was sent to pathology the nodes on the left side were not as large as the nodes on the right side. The subcutaneous tissue was then reapproximated with interrupted 3-0 Vicryl and the skin was reapproximated intracuticular 4-0 Biosyn's and Steri-Strips completed the procedure. Estimated blood loss for the entire procedure was approximately 20 cc. Sponge and needle counts were correct x2 sterile dressings were applied the patient was transferred recovery in stable condition no complications
[2019-06-12] MEDS ORDERED: OXYCODONE-ACETAMINOPHEN 5-325 MG TABLET PO PRN (13:15)
[2019-06-12] MEDS: FENTANYL CITRATE INJ/PF 100 MCG/2 ML AMPUL ONE ×2 (13:23→13:35)
--- NOTE | 2019-06-12 14:06 | RADIOLOGY REPORT (SQ) ---
EXAM DESCRIPTION: CHEST SINGLE VIEW COMPLETED DATE/TIME: 06/12/2019 1:29 pm REASON FOR STUDY: s/p left thoracentesis COMPARISON: Previous day. EXAM PARAMETERS: NUMBER OF VIEWS: One view. TECHNIQUE: Single frontal radiographic view of the chest acquired. RADIATION DOSE: NA LIMITATIONS: None. FINDINGS: LUNGS AND PLEURA: Decrease in left pleural effusion with residual small effusion. No pneu mothorax. Right lung is clear. MEDIASTINUM AND HILAR STRUCTURES: No masses. Contour normal. HEART AND VASCULAR STRUCTURES: Heart normal in size. Normal vasculature. BONES: No acute findings. HARDWARE: None in the chest. OTHER: Left axillary clips. IMPRESSION: No pneumothorax status post left thoracentesis. TECHNICAL DOCUMENTATION: JOB ID: [id number] 2010 [employer]- All Rights Reserved Reading location - IP/workstation name: [email or web address]
[2019-06-12] MEDS: CYANOCOBALAMIN (VITAMIN B-12) 1,000 MCG TABLET PO SCH (14:57)
[2019-06-12] MEDS: ASPIRIN 81 MG TABLET, ENT COATED PO SCH (14:57)
[2019-06-12] MEDS: OXCARBAZEPINE 150 MG TABLET PO SCH ×2 (14:58→21:48)
[2019-06-12] MEDS: DOCUSATE SODIUM 100 MG CAPSULE PO SCH (15:23)
--- NOTE | 2019-06-12 17:05 | RADIOLOGY REPORT (SQ) ---
EXAM DESCRIPTION: CHEST SINGLE VIEW COMPLETED DATE/TIME: 06/12/2019 4:37 pm REASON FOR STUDY: post thoracentesis COMPARISON: 06/12/2019 EXAM PARAMETERS: NUMBER OF VIEWS: One view. TECHNIQUE: Single frontal radiographic view of the chest acquired. RADIATION DOSE: NA LIMITATIONS: None. FINDINGS: LUNGS AND PLEURA: Left pleural effusions slightly increased from the prior examination an d left lower lung mild parenchymal density. The right lung remains clear. No evidence of pneumothor ax. Small calcified granuloma in the right lung. Question of a left lung nodule versus nipple shado w. MEDIASTINUM AND HILAR STRUCTURES: No masses. Contour normal. HEART AND VASCULAR STRUCTURES: Heart normal in size. Normal vasculature. BONES: No acute findings. HARDWARE: None in the chest. OTHER: Subcutaneous emphysematous changes along the lateral chest wall bilaterally, slightly more so on the right. Surgical metallic clips in the axilla bilaterally. These findings are unchanged. IMPRESSION: 1. No evidence of pneumothorax post left thoracentesis. 2. Small left pleural effusion persists with slight increase from the prior study. Left lower lung mild parenchymal density has also increased. 3. Question of left nipple shadow versus lung nodule. Correlation with nipple markers on the follow -up examination. TECHNICAL DOCUMENTATION: JOB ID: [id number] 2010 [employer]- All Rights Reserved Reading location - IP/workstation name: [email or web address]
[2019-06-12 17:17] LABS: FOLATE 7.48 ng/mL (>2.76)
--- NOTE | 2019-06-12 17:29 | PDOC DISCHARGE SUMMARY ---
Impression - Admit/DC Date/PCP Admission Date/Primary Care Provider: 06/11/19 09:22 Discharge Date: 06/12/19 - Discharge Diagnosis (1) Anemia Is this a current diagnosis for this admission?: Yes (2) Cold agglutinin disease Is this a current diagnosis for this admission?: Yes (3) Emphysema lung Is this a current diagnosis for this admission?: Yes (4) Pleural effusion, left Is this a current diagnosis for this admission?: Yes (5) Shortness of breath Is this a current diagnosis for this admission?: Yes (6) Tobacco abuse Is this a current diagnosis for this admission?: Yes (7) Abnormal CT scan, chest Is this a current diagnosis for this admission?: Yes (8) COPD (chronic obstructive pulmonary disease) Is this a current diagnosis for this admission?: Yes (9) Diffuse lymphadenopathy Is this a current diagnosis for this admission?: Yes (10) Pleural effusion Is this a current diagnosis for this admission?: Yes (11) Pulmonary nodule Is this a current diagnosis for this admission?: Yes - Assessment Summary: Patient will be admitted to the hospital and will consult general surgery concerning her left pleural effusion, and possibly biopsy of the adenopathy, this was being contemplated just 48 hours ago by general surgery. We will also notify oncology of her admission, for their input. Will treat patient with pulmonary toiletry concerning her underlying COPD, although her primary pathology for her shortness of breath is her pleural effusion. Patient's son is in the room and he understands the treatment plan 06/12/2019 Patient was seen by oncology as well as general surgery shortly after admission. Patient underwent a left-sided thoracentesis draining 1200 cc of serous pleural fluid, bilateral axillary node biopsy, left breast biopsy. Patient tolerated the procedure well with estimated blood loss of 20 cc and sent to the recovery room in good condition. Immediate postop chest x-ray showed no evidence of pneumothorax, repeat portable chest x-ray prior to discharge 3 hours later confirm patient had no evidence of pneumothorax. Patient was discharged able to eat and drink without difficulty. I called in a prescription for Percocet 07/26/2024 #12, 3 days worth of prednisone 60, 40 and 20 mg. I also called in Xopenex 1.25 mg nebulizer solution. She was told not to take the Steri-Strips off to let them come off on their own. Son was in the room during all of the discussions. Patient has an appointment set up for June 19 with the oncologist to discuss biopsy results. Patient was told to return to the emergency room for any acute shortness of breath. Prior to discharge patient's lungs were auscultated with good breath sounds in all lung gorman. - Additional Information Resuscitation Status: Full Code Discharge Diet: As Tolerated Discharge Activity: Activity As Tolerated Prescriptions: Prednisone [Deltasone 20 mg Tablet] 20 mg PO DAILY 3 Days #6 tablet Oxycodone HCl/Acetaminophen [Percocet 5-325 mg Tablet] 1 tab PO Q6HP PRN 3 Days #12 tablet PRN Reason: Levalbuterol HCl [Xopenex Neb 1.25 mg/3 ml Ampul] 1.25 mg NEB RTQ4 14 Days #60 vial.neb Home Medications: Aspirin [Ecotrin 81 mg EC Tablet] 81 mg PO DAILY 05/16/19 Bupropion HCl [Bupropion Xl] 150 mg PO DAILY 05/16/19 Cholecalciferol (Vitamin D3) [Vitamin D3] 50,000 unit PO MCKAY 05/16/19 Cyanocobalamin (Vitamin B-12) [Vitamin B-12 1000 mcg Tablet] 1 tab PO DAILY 05/16/19 Fexofenadine HCl [Jael Allergy] 60 mg PO Q12 05/16/19 Oxcarbazepine 150 mg PO Q12 05/16/19 Acetaminophen [Tylenol 325 mg Tablet] 650 mg PO Q4HP PRN tablet 06/12/19 Docusate Sodium [Colace 100 mg Capsule] 100 mg PO DAILY capsule 06/12/19 Levalbuterol HCl [Xopenex Neb 1.25 mg/3 ml Ampul] 1.25 mg NEB RTQ4 14 Days #60 vial.neb 06/12/19 Oxycodone HCl/Acetaminophen [Percocet 5-325 mg Tablet] 1 tab PO Q6HP PRN 3 Days #12 tablet 06/12/19 Prednisone [Deltasone 20 mg Tablet] 20 mg PO DAILY 3 Days #6 tablet 06/12/19 History of Present Illiness History of Present Illness: LUPILLO DE LA ROSA is a 64 year old female who unfortunately probably has a history of lung cancer although this is not been definitively diagnosed at the present time. Patient comes in with an acute onset of shortness of breath last night and subsequently today has been found to have a large left pleural effusion. Patient had this actually tapped last time she was here in the hospital within the last week, at which time the thoracentesis yielded 1 L of fluid. Pathology is unknown at this time. Patient also reportedly has retroperitoneal adenopathy and possible adenopathy in the axilla and breast. Patient is currently being worked up by general surgery as well as oncology. Resenting complaint today is shortness of breath secondary to the large left pleural effusion. Patient does have underlying COPD however. Patient is to be admitted to the hospital for general surgery consultation concerning the best way to drain her pleural effusion as well as possible staging of her probable malignancy. Patient is only in mild respiratory distress at this time, however reportedly her oxygen saturation was 84% at home on room air according to EMS. Patient recently moved here from [place] to be with her family. Physical Exam Vital Signs: Temp Pulse Resp BP Pulse Ox 98.2 F 75 12 139/57 H 94 06/12/19 14:05 06/12/19 14:05 06/12/19 14:05 06/12/19 14:05 06/12/19 14:05 Intake & Output 06/11/19 06/12/19 06/13/19 06:59 06:59 06:59 Intake Total 830 1100 Output Total 20 Balance 830 1080 Weight 64.5 kg 62.3 kg Results Laboratory Results: WBC 5.9 10^3/uL (4.0-10.5) 06/12/19 05:33 RBC 2.36 10^6/uL (3.72-5.28) L 06/12/19 05:33 Hgb 7.3 g/dL (12.0-15.5) L 06/12/19 05:33 Hct 21.8 % (36.0-47.0) L 06/12/19 05:33 MCV 92 fl (80-97) 06/12/19 05:33 MCH 30.9 pg (27.0-33.4) 06/12/19 05:33 MCHC 33.5 g/dL (32.0-36.0) 06/12/19 05:33 RDW 18.9 % (11.5-14.0) H 06/12/19 05:33 Plt Count 381 10^3/uL (150-450) 06/12/19 05:33 Lymph % (Auto) 8.8 % (13-45) L 06/12/19 05:33 [place] % (Auto) 9.4 % (3-13) 06/12/19 05:33 Eos % (Auto) 0.0 % (0-6) 06/12/19 05:33 Baso % (Auto) 0.0 % (0-2) 06/12/19 05:33 Absolute Neuts (auto) 4.8 10^3/uL (1.7-8.2) 06/12/19 05:33 Absolute Lymphs (auto) 0.5 10^3/uL (0.5-4.7) 06/12/19 05:33 Absolute Monos (auto) 0.6 10^3/uL (0.1-1.4) 06/12/19 05:33 Absolute Eos (auto) 0.0 10^3/uL (0.0-0.6) 06/12/19 05:33 Absolute Basos (auto) 0.0 10^3/uL (0.0-0.2) 06/12/19 05:33 Total Counted 100 06/11/19 07:25 Seg Neutrophils % 81.8 % (42-78) H 06/12/19 05:33 Seg Neuts % (Manual) 84 % (42-78) H 06/11/19 07:25 Band Neutrophils % 1 % (3-5) L 06/11/19 07:25 Lymphocytes % (Manual) 8 % (13-45) L 06/11/19 07:25 Monocytes % (Manual) 6 % (3-13) 06/11/19 07:25 Eosinophils % (Manual) 1 % (0-6) 06/11/19 07:25 Basophils % (Manual) 0 % (0-2) 06/11/19 07:25 Abs Neuts (Manual) 3.1 10^3/uL (1.7-8.2) 06/11/19 07:25 Abs Lymphs (Manual) 0.3 10^3/uL (0.5-4.7) L 06/11/19 07:25 Abs Monocytes (Manual) 0.2 10^3/uL (0.1-1.4) 06/11/19 07:25 Absolute Eos (Manual) 0.0 10^3/uL (0.0-0.6) 06/11/19 07:25 Abs Basophils (Manual) 0.0 10^3/uL (0.0-0.2) 06/11/19 07:25 Platelet Estimate Cancelled 06/11/19 06:10 Clumped Platelets PRESENT 06/11/19 07:25 Platelet Comment ADEQUATE 06/11/19 07:25 Polychromasia SLIGHT 06/11/19 07:25 Hypochromasia 1+ 06/11/19 07:25 Poikilocytosis SLIGHT 06/11/19 07:25 Anisocytosis 1+ 06/11/19 07:25 Ovalocytes SLIGHT 06/11/19 07:25 PT 13.8 SEC (11.4-15.4) 06/11/19 07:25 INR 1.06 06/11/19 07:25 APTT 26.4 SEC (23.5-35.8) 06/12/19 05:33 Sodium 140.3 mmol/L (137-145) 06/12/19 05:33 Potassium 4.9 mmol/L (3.6-5.0) D 06/12/19 05:33 Chloride 107 mmol/L (98-107) 06/12/19 05:33 Carbon Dioxide 25 mmol/L (22-30) 06/12/19 05:33 Anion Gap 8 (5-19) 06/12/19 05:33 BUN 11 mg/dL (7-20) 06/12/19 05:33 Creatinine 0.50 mg/dL (0.52-1.25) L 06/12/19 05:33 Est GFR ( Amer) > 60 (>60) 06/12/19 05:33 Est GFR (Non-Af Amer) Cancelled 06/11/19 06:10 Est GFR (MDRD) Non-Af > 60 (>60) 06/12/19 05:33 Glucose 160 mg/dL (75-110) H 06/12/19 05:33 Calcium 9.0 mg/dL (8.4-10.2) 06/12/19 05:33 Magnesium 2.5 mg/dL (1.6-2.3) H 06/12/19 05:33 Total Bilirubin 1.3 mg/dL (0.2-1.3) 06/11/19 07:25 Direct Bilirubin 0.0 mg/dL (0.0-0.4) 06/11/19 07:25 Neonat Total Bilirubin Not Reportable 06/11/19 07:25 Neonat Direct Bilirubin Not Reportable 06/11/19 07:25 Neonat Indirect Bili Not Reportable 06/11/19 07:25 AST 27 U/L (14-36) 06/11/19 07:25 ALT 12 U/L (<35) 06/11/19 07:25 Alkaline Phosphatase 89 U/L (38-126) 06/11/19 07:25 Creatine Kinase < 20 U/L (30-135) L 06/11/19 07:25 CK-MB (CK-2) < 0.22 ng/mL (<4.55) 06/11/19 07:25 Troponin I < 0.012 ng/mL 06/11/19 07:25 NT-Pro-B Natriuret Pep 182 pg/mL (<125) H 06/11/19 07:25 Total Protein 5.8 g/dL (6.3-8.2) L 06/11/19 07:25 Albumin 3.3 g/dL (3.5-5.0) L 06/11/19 07:25 EGFR Cancelled 06/11/19 06:10 Vitamin B12 890.0 pg/mL (239-931) 06/12/19 05:33 Folate 7.48 ng/mL (>2.76) 06/12/19 05:33 Urine Color YELLOW 06/11/19 11:19 Urine Appearance CLEAR 06/11/19 11:19 Urine pH 5.0 (5.0-9.0) 06/11/19 11:19 Ur Specific [place] 1.010 06/11/19 11:19 Urine Protein NEGATIVE mg/dL (NEGATIVE) 06/11/19 11:19 Urine Glucose (UA) NEGATIVE mg/dL (NEGATIVE) 06/11/19 11:19 Urine Ketones TRACE mg/dL (NEGATIVE) H 06/11/19 11:19 Urine Blood NEGATIVE (NEGATIVE) 06/11/19 11:19 Urine Nitrite NEGATIVE (NEGATIVE) 06/11/19 11:19 Urine Bilirubin NEGATIVE (NEGATIVE) 06/11/19 11:19 Urine Urobilinogen NEGATIVE mg/dL (<2.0) 06/11/19 11:19 Ur Leukocyte Esterase NEGATIVE (NEGATIVE) 06/11/19 11:19 Urine WBC (Auto) 1 /HPF 06/11/19 11:19 Urine RBC (Auto) 1 /HPF 06/11/19 11:19 Urine Bacteria (Auto) TRACE /HPF 06/11/19 11:19 Squamous Epi Cells Auto <1 /HPF 06/11/19 11:19 Urine Mucus (Auto) FEW /LPF 06/11/19 11:19 Urine Ascorbic Acid NEGATIVE (NEGATIVE) 06/11/19 11:19 Slides for Path Review Cancelled 06/11/19 06:10 Blood Type O NEGATIVE 06/11/19 08:30 Antibody Screen NEGATIVE 06/11/19 08:30 06/11/19 06/11/19 06:10 07:25 CK-MB (CK-2) Cancelled < 0.22 Troponin I Cancelled < 0.012 NT-Pro-B Natriuret Pep Cancelled 182 H Impressions: Chest X-Ray 06/11/19 06:35 IMPRESSION: 1. Moderate left pleural effusion with likely underlying consolidation or atelectasis. Chest X-Ray 06/12/19 00:00 IMPRESSION: No pneumothorax status post left thoracentesis. Chest X-Ray 06/12/19 00:00 IMPRESSION: 1. No evidence of pneumothorax post left thoracentesis. 2. Small left pleural effusion persists with slight increase from the prior study. Left lower lung mild parenchymal density has also increased. 3. Question of left nipple shadow versus lung nodule. Correlation with nipple markers on the follow-up examination. Stroke Is this a Stroke Patient?: No Acute Heart Failure - Is this a Heart Failure Patient?: No
[2019-06-13] MEDS: PANTOPRAZOLE SODIUM 20 MG TABLET.DR PO SCH (05:13)
[2019-06-13] MEDS: METHYLPREDNISOLONE INJ 40 MG/1 ML SDV IV SCH ×2 (05:13→13:52)
[2019-06-13] MEDS: IPRATROPIUM/ALBUTEROL 0.5-2.5 MG/3 ML AMPUL NEB PRN ×3 (05:26→13:40)
--- NOTE | 2019-06-13 10:03 | Progress Note ---
Provider Note Provider Note: Patient was actually discharged yesterday afternoon late following surgery. Surgeon stated the patient could be discharged home. I put the discharge plan and called in the prescriptions, and dictated the discharge summary. However when the nurse got the patient up to ambulate in the hallway and to get her ready for discharge her oxygen saturations dropped down into the 70s. Even resting in the bed on room air her ox oxygen saturations were in the low 80s. She is feeling much better this morning she was eating breakfast without her supplemental oxygen. Patient will need home oxygen at the time of discharge 2 L nasal cannula PRN. I have given an order to discharge the patient once the home health oxygen has been set up
[2019-06-13] MEDS: ASPIRIN 81 MG TABLET, ENT COATED PO SCH (10:41)
[2019-06-13] MEDS: CYANOCOBALAMIN (VITAMIN B-12) 1,000 MCG TABLET PO SCH (10:41)
[2019-06-13] MEDS: OXCARBAZEPINE 150 MG TABLET PO SCH (10:41)
[2019-06-13] MEDS: DOCUSATE SODIUM 100 MG CAPSULE PO SCH (10:43)
[2019-06-13 13:01] VITALS: BP 108/47
[2019-06-15] MEDS ORDERED: ERGOCALCIFEROL (VITAMIN D2) 50000 UNIT (1.25 MG) CAPSULE PO SCH (10:00)
[2019-06-15] MEDS ORDERED: (PENDING PHARMACY ID) (Cholecalciferol (Vitamin D3) [Vitamin D3] 50,000 UNIT) PO SCH ×2 (18:17→19:19)
== END 2019-06-13 15:28 | disposition home or self-care (01) | DRG 988 ==
LOC: ER 06:02 → EH 09:22 → 3N 11:40
PROVIDERS: ADMIT Hospitalist; ATTEND Physician Assistant
PROC: 07B50ZX Excision of Right Axillary Lymphatic, Open Approach, Diagnostic (ICD-10-PCS; 2019-06-12)
PROC: 0HBU0ZZ Excision of Left Breast, Open Approach (ICD-10-PCS; 2019-06-12)
PROC: 07B50ZX Excision of Right Axillary Lymphatic, Open Approach, Diagnostic (ICD-10-PCS; 2019-06-12)
PROC: 0W9B3ZX Drainage of Left Pleural Cavity, Percutaneous Approach, Diagnostic (ICD-10-PCS; principal; 2019-06-12 11:15)
DX: J90 Pleural effusion, not elsewhere classified (principal); D59.1 Other autoimmune hemolytic anemias; J43.9 Emphysema, unspecified; J44.9 Chronic obstructive pulmonary disease, unspecified; R59.1 Generalized enlarged lymph nodes; R91.1 Solitary pulmonary nodule; N63.0 Unspecified lump in unspecified breast; F43.21 Adjustment disorder with depressed mood; F17.200 Nicotine dependence, unspecified, uncomplicated; Z79.82 Long term (current) use of aspirin; Z79.899 Other long term (current) drug therapy; I25.2 Old myocardial infarction; Z88.6 Allergy status to analgesic agent; Z91.013 Allergy to seafood
CPT/HCPCS: 36415; 71045; 80048; 80053; 81001; 82550; 82553; 82607; 82746; 83735; 83880; 84484; 85025; 85610; 85730; 86850; 86900; 86901; 87040; 88184; 88185; 88233; 88262; 88305; 88342; 93005; 93010; 94640; 96365; 96375; 99285; J1100; J2250; J2405; J2704; J2920; J2930; J3010; J3475; J3490; J7620

== ENCOUNTER 2019-06-26 07:44 | Outpatient (CLI) | payer MEDICAID ==
[~2019-06-26 07:44] MED LIST: ACETAMINOPHEN 325 MG TABLET PO PRN; FOSAPREPITANT 150 MG in NS 150 ML IV PRN
[2019-06-26] MEDS ORDERED: VINCRISTINE SULFATE 2 MG in SYRINGE, DISPOSABLE, 1 EACH IV PRN (08:00)
[2019-06-26] MEDS ORDERED: NORMAL SALINE IV PRN ×4 (08:00)
[2019-06-26] MEDS ORDERED: PALONOSETRON 0.25 MG/5 ML VIAL IV PRN (08:00)
[2019-06-26] MEDS ORDERED: DIPHENHYDRAMINE 50 MG in NS 50 ML IV PRN (08:00)
[2019-06-26] MEDS ORDERED: DEXAMETHASONE 10 MG in NS 50 ML IV PRN (08:00)
[2019-06-26] MEDS ORDERED: CYCLOPHOSPHAMIDE IV PRN ×3 (08:00)
[2019-06-26] MEDS ORDERED: NORMAL SALINE 500 ML @ KVO IV PRN (08:00)
[2019-06-26] MEDS ORDERED: RITUXIMAB IV PRN (08:00)
[2019-06-26] MEDS ORDERED: ACETAMINOPHEN 325 MG TABLET ONE (08:51)
[2019-06-26 08:54] VITALS: BP 101/47
== END 2019-06-26 14:40 | disposition home or self-care (01) ==
LOC: II 07:44 → 5TH 07:47 → II 14:40
PROVIDERS: ATTEND Internal Medicine
DX: Z51.11 Encounter for antineoplastic chemotherapy (principal); C82.08 Follicular lymphoma grade I, lymph nodes of multiple sites
CPT/HCPCS: 96411; 96413; 96415; 96367; 96375; 96417; J9070; J1200; J7050 ×2; J7040; J3490; J9312 ×2; J1100; J1453; J2469; J9370

== ENCOUNTER 2019-06-28 12:10 | Inpatient (IN) | payer MEDICAID ==
--- NOTE | 2019-06-28 13:50 | RADIOLOGY REPORT (SQ) ---
EXAM DESCRIPTION: CHEST 2 VIEWS IMAGES COMPLETED DATE/TIME: 06/28/2019 12:29 pm REASON FOR STUDY: shortness of breath/lymphoma COMPARISON: 06/12/2019 EXAM PARAMETERS: NUMBER OF VIEWS: two views TECHNIQUE: Digital Frontal and Lateral radiographic views of the chest acquired. RADIATION DOSE: NA LIMITATIONS: none FINDINGS: LUNGS AND PLEURA: Increased now moderate left effusion with compressive atelectasis/ conso lidation at the left lung base. The lungs are hyperinflated. No pneumothorax. Right lung is clear. No right effusion. A new 1 cm nodular density in the peripheral left lung may represent loculated fluid or possible nodule or focal atelectasis. MEDIASTINUM AND HILAR STRUCTURES: No masses or contour abnormalities. HEART AND VASCULAR STRUCTURES: Heart normal size. No evidence for failure. BONES: No acute findings. HARDWARE: None in the chest. OTHER: No other significant finding. IMPRESSION: Increased moderate left effusion with compressive atelectasis/consolidation at the left lung base. Possible nodule in the peripheral left lung versus focal loculated effusion. TECHNICAL DOCUMENTATION: JOB ID: [id number] [employer]- All Rights Reserved Reading location - IP/workstation name: [email or web address]
[2019-06-28 13:56] LABS: VENOUS BLOOD BASE EXCESS 2.4 mmol/L; VENOUS BLOOD PCO2 56.3 mmHg (35-63); VENOUS BLOOD PH 7.33 (7.30-7.42)
[2019-06-28 14:03] LABS: HEMATOCRIT 23.9 % (36.0-47.0); HEMOGLOBIN 8.1 g/dL (12.0-15.5); INTERNATIONAL RATION (INR) 1.18; MEAN CORPUSCULAR HEMOGLOBIN 32.5 pg (27.0-33.4); MEAN CORPUSCULAR HGB CONC 33.7 g/dL (32.0-36.0); PLATELET COUNT 416 10^3/uL (150-450); PROTHROMBIN TIME 15.1 SEC (11.4-15.4); RED BLOOD COUNT 2.48 10^6/uL (3.72-5.28); RED CELL DISTRIBUTION WIDTH 20.9 % (11.5-14.0); WHITE BLOOD COUNT 6.2 10^3/uL (4.0-10.5)
[2019-06-28 14:04] LABS: PARTIAL THROMBOPLASTIN TIME 27.2 SEC (23.5-35.8)
[2019-06-28 14:12] LABS: ALBUMIN 3.2 g/dL (3.5-5.0); ALKALINE PHOSPHATASE 91 U/L (38-126); ASPARTATE AMINO TRANSFERASE 21 U/L (14-36); BILIRUBIN,DIRECT 0.1 mg/dL (0.0-0.4); BILIRUBIN,TOTAL 1.5 mg/dL (0.2-1.3); BLOOD UREA NITROGEN 12 mg/dL (7-20); CALCIUM 8.7 mg/dL (8.4-10.2); CHLORIDE 103 mmol/L (98-107); GLUCOSE 84 mg/dL (75-110); POTASSIUM 4.8 mmol/L (3.6-5.0); TOTAL PROTEIN 5.8 g/dL (6.3-8.2)
[2019-06-28 14:18] LABS: CARBON DIOXIDE 31 mmol/L (22-30)
[2019-06-28 14:19] LABS: ANION GAP 3 (5-19)
[2019-06-28 14:24] LABS: NT PRO BNP 448 pg/mL (<125); TROPONIN I < 0.012 ng/mL
[2019-06-28 14:32] LABS: ABSOLUTE LYMPHOCYTES# (MANUAL) 0.4 10^3/uL (0.5-4.7); BASOPHILS % (MANUAL) 0 % (0-2); EOSINOPHILS % (MANUAL) 2 % (0-6); LYMPHOCYTES % (MANUAL) 6 % (13-45); MONOCYTES % (MANUAL) 0 % (3-13); SEGMENTED NEUTROPHILS % (MAN) 92 % (42-78); TOTAL CELLS COUNTED 100
[2019-06-28 14:34] LABS: ANISOCYTOSIS 2+; OVALOCYTES SLIGHT; PLATELET COMMENT ADEQUATE
[2019-06-28 14:36] LABS: MEAN CORPUSCULAR VOLUME 96 fl (80-97)
--- NOTE | 2019-06-28 15:21 | RADIOLOGY REPORT (SQ) ---
EXAM DESCRIPTION: CT CHEST WITHOUT IMAGES COMPLETED DATE/TIME: 06/28/2019 1:49 pm REASON FOR STUDY: sobr/lymphoma/left pleural effusion. COMPARISON: CT chest, 06/02/2019. Chest radiograph same date. Chest radiograph, 06/12/2019. TECHNIQUE: CT scan performed of the chest without intravenous contrast. Images reviewed with lung, soft tissue and bone windows. Reconstructed coronal and sagittal MPR images reviewed. All images st ored on PACS. All CT scanners at this facility use dose modulation, iterative reconstruction, and/or weight based d osing when appropriate to reduce radiation dose to as low as reasonably achievable (ALARA). [facility]: Dose Right [facility]: CareDose [facility]: Dose Right [facility]: Teradose 4D [facility]: [employer] RADIATION DOSE: CT Rad equipment meets quality standard of care and radiation dose reduction techniq ues were employed. CTDIvol: 6.3 mGy. DLP: 241 mGy-cm. mGy. LIMITATIONS: No technical limitations. FINDINGS: LUNGS AND PLEURA: There is a moderate left pleural effusion with compressive atelectasis/ consolidation at the left lung base. New 1.3 cm solid nodule in the left lower lobe along the fissur e (image 35). Calcified granuloma the right middle lobe. Trace right pleural effusion. No focal co nsolidation. No pneumothorax. Background moderate pulmonary emphysema. HILAR AND MEDIASTINAL STRUCTURES: No identified masses or abnormal nodes. No obvious aneurysm. HEART AND VASCULAR STRUCTURES: No aneurysm. No pericardial effusion. UPPER ABDOMEN: No significant findings. Limited exam. THYROID AND OTHER SOFT TISSUES: Interval resection of bilateral lymph nodes in the axilla with new bi lateral axillary surgical clips. Small postoperative seroma in the right axilla. BONES: No significant finding. HARDWARE: None in the chest. OTHER: No other significant findings. IMPRESSION: 1. Moderate left pleural effusion with compressive atelectasis/consolidation in the left lung base. Trace right effusion. 2. New left lower lobe pulmonary nodule. This may be infectious/ inflammatory or may be related to p atient's lymphoma. 3. Interval resection bilateral axillary lymph nodes. TECHNICAL DOCUMENTATION: JOB ID: [id number] Quality ID # [id number]: Final reports with documentation of one or more dose reduction techniques (e.g., Au tomated exposure control, adjustment of the mA and/or kV according to patient size, use of iterative reconstruction technique) 2010 [employer]- All Rights Reserved Reading location - IP/workstation name: [email or web address]
[2019-06-28 16:27] LABS: APPEARANCE,URINE CLEAR; BILIRUBIN,URINE NEGATIVE (NEGATIVE); COLOR,URINE YELLOW; GLUCOSE, URINE NEGATIVE (NEGATIVE); KETONES,URINE NEGATIVE (NEGATIVE); LEUKOCYTE ESTERASE,URINE NEGATIVE (NEGATIVE); NITRITE,URINE NEGATIVE (NEGATIVE); PROTEIN,URINE NEGATIVE (NEGATIVE); URINE SPECIFIC GRAVITY 1.013
--- NOTE | 2019-06-28 16:43 | ER Document Report ---
Entered by ALEJANDRO BURNHAM SCRIBE 06/28/19 1256 Acting as scribe for:MIGUEL DIXON MD ED General - General Chief Complaint: Shortness Of Breath Stated Complaint: DIFFICUTLY BREATHING Time Seen by Provider: 06/28/19 12:27 Primary Care Provider: RAY SALDANA MD [Primary Care Provider] - Follow up as needed Information source: Patient Notes: This 64-year-old female with lymphoma and hemolytic anemia presents to the emergency department with difficulty breathing that began last night. Patient explains that she has been to the doctors twice in the last month for a thoracentesis with the last time being 2 weeks ago. Patient stated that she was recently diagnosed with lymphoma and started chemotherapy two days ago. Patient denies sick contact. Patient reports brown thick phlegm, leg swelling and chest pressure. Patient denies fever, nausea, vomiting, diarrhea and chest pain. Patient said that she does have oxygen at home but only uses her oxygen when she has a difficult time breathing. TRAVEL OUTSIDE OF THE [place] IN LAST 30 DAYS: No - Related Data Allergies/Adverse Reactions: morphine Allergy (Verified 06/28/19 12:19) shellfish derived Allergy (Verified 06/28/19 12:19) Past Medical History - General Information source: Patient - Social History Smoking Status: Former Smoker - Quit Apr 2019 Cigarette use (# per day): No Chew tobacco use (# tins/day): No Drug Abuse: None Lives with: Family Family History: Reviewed & Not Pertinent, Arthritis, Hypertension, Thyroid Disfunction Patient has suicidal ideation: No Patient has homicidal ideation: No - Past Medical History Cardiac Medical History: Reports: Hx Coronary Artery Disease, Hx Heart Attack Pulmonary Medical History: Reports: Hx COPD Past Surgical History: Reports: Hx Orthopedic Surgery - L5-S1 discectomy, Other - Breast biopsies, multiple always negative for malignant disease. Review of Systems - Review of Systems Constitutional: See HPI. denies: Fever EENT: No symptoms reported Cardiovascular: See HPI. denies: Chest pain Respiratory: See HPI, Cough, Short of breath, Sputum Gastrointestinal: See HPI. denies: Diarrhea, Nausea, Vomiting Genitourinary: No symptoms reported Female Genitourinary: No symptoms reported Musculoskeletal: See HPI, Leg swelling Skin: No symptoms reported Hematologic/Lymphatic: No symptoms reported Neurological/Psychological: No symptoms reported -: Yes All other systems reviewed and negative Physical Exam - Vital signs Vitals: Temp Pulse Resp BP Pulse Ox 98.6 F 102 H 24 H 117/92 H 97 06/28/19 12:14 06/28/19 12:14 06/28/19 12:14 06/28/19 12:14 06/28/19 12:14 - Notes Notes: Physical Exam: General: Alert, appears well. HEENT: Normocephalic. Atraumatic. PERRL. Extraocular movements intact. Oropharynx clear. Mild scleral icterus. Neck: Supple. Non-tender. Respiratory: Mild respiratory distress when talking. 97% SaO2 on 2L of oxygen. Clear breath sounds bilaterally. Diminished breath sounds at the basis; left gre ater than the right. Cardiovascular: Regular rate and rhythm. Abdominal: Normal Inspection. Non-tender. No distension. Normal Bowel Sounds. Back: No gross abnormalities. Extremities: Moves all four extremities. Upper extremities: Normal inspection. Normal ROM. Lower extremities: Normal inspection. No edema. Normal ROM. Neurological: Normal cognition. AAOx4. Normal speech. Psychological: Normal affect. Normal Mood. Skin: Warm. Dry. Mild yellow in color. Course - Re-evaluation Re-evalutation: 06/28/19 16:37 Patient has increased work of breathing on nasal cannula 2 L with a sat of 99 to 100%. Attempted to discontinue nasal oxygen and once that was done patient pulse ox diminished to 90 to 93%. Patient noticed this change in oxygen and nasal cannula O2 was reapplied. - Vital Signs Vital signs: Temp Pulse Resp BP Pulse Ox 98.6 F 102 H 24 H 152/64 H 98 06/28/19 12:14 06/28/19 12:14 06/28/19 16:01 06/28/19 16:00 06/28/19 16:01 - Laboratory Result Diagrams: 06/28/19 13:30 06/28/19 13:30 Laboratory results interpreted by me: 06/28/19 06/28/19 06/28/19 13:30 13:30 13:30 RBC 2.48 L Hgb 8.1 L Hct 23.9 L RDW 20.9 H Seg Neuts % (Manual) 92 H Lymphocytes % (Manual) 6 L Monocytes % (Manual) 0 L Abs Lymphs (Manual) 0.4 L Abs Monocytes (Manual) 0.0 L Sodium 136.6 L Carbon Dioxide 31 H Anion Gap 3 L Total Bilirubin 1.5 H NT-Pro-B Natriuret Pep 448 H Total Protein 5.8 L Albumin 3.2 L Urine Urobilinogen 06/28/19 15:55 RBC Hgb Hct RDW Seg Neuts % (Manual) Lymphocytes % (Manual) Monocytes % (Manual) Abs Lymphs (Manual) Abs Monocytes (Manual) Sodium Carbon Dioxide Anion Gap Total Bilirubin NT-Pro-B Natriuret Pep Total Protein Albumin Urine Urobilinogen 2.0 H Laboratories show a hemoglobin of 8.1 - Diagnostic Test Radiology reviewed: Image reviewed, Reports reviewed Radiology results interpreted by me: 06/28/19 16:39 Chest x-ray showed some cardiomegaly with a large left pleural effusion with atelectasis or increased density in the left base questionable new nodule noted 06/28/19 16:40 CT scan of chest noncontrast disclose again a large left pleural effusion atelectasis versus infiltrate in the left base and a new nodule noted in the lef t lung. - EKG Interpretation by Me Additional EKG results interpreted by me: 06/28/19 17:00 12 EKG done today at 1648 shows sinus tachycardia rate of 103 no acute changes otherwise negative Discharge - Discharge Clinical Impression: Pulmonary nodule, Malignant pleural effusion, Shortness of breath Condition: Good Disposition: ADMITTED OBSERVATION Admitting Provider: Rafa (Hospitalist) Unit Admitted: Medical Floor Referrals: RAY SALDANA MD [Primary Care Provider] - Follow up as needed I personally performed the services described in the documentation, reviewed and edited the documentation which was dictated to the scribe in my presence, and it accurately records my words and actions.
[2019-06-28] MEDS ORDERED: PROMETHAZINE HCL INJ 25 MG/1 ML VIAL IV PRN (20:29)
[2019-06-28] MEDS ORDERED: MAG HYDROX/AL HYDROX/SIMETH SUSP 30 ML UDCUP PO PRN (20:29)
[2019-06-28] MEDS: HEPARIN SOD (PORCINE) 5,000 UNIT/ML 1 ML VIAL SUBCUT SCH (21:10)
[2019-06-28] MEDS: FAMOTIDINE 20 MG TABLET PO SCH (21:10)
[2019-06-28] MEDS: ACETAMINOPHEN 325 MG TABLET PO PRN (21:14)
[2019-06-28] MEDS: LEVALBUTEROL HCL NEB 0.63 MG/3 ML AMPUL NEB PRN (21:36)
[2019-06-28 22:00] LABS: BLOOD UREA NITROGEN 13 mg/dL (7-20); CALCIUM 8.7 mg/dL (8.4-10.2); CARBON DIOXIDE 28 mmol/L (22-30); CHLORIDE 100 mmol/L (98-107); GLUCOSE 105 mg/dL (75-110); POTASSIUM 4.6 mmol/L (3.6-5.0)
[2019-06-28 22:10] LABS: ANION GAP 5 (5-19)
[2019-06-29] MEDS: IPRATROPIUM BROMIDE 0.02% NEB 0.5 MG/2.5 ML AMPUL NEB SCH ×2 (00:35→08:10)
[2019-06-29] MEDS: LEVALBUTEROL HCL NEB 1.25 MG/3 ML AMPUL NEB SCH ×2 (00:35→08:10)
[2019-06-29] MEDS: HYDROMORPHONE HCL INJ/PF 2 MG/ML AMPULE IV PRN ×2 (04:20→11:14)
[2019-06-29] MEDS: LEVALBUTEROL HCL NEB 0.63 MG/3 ML AMPUL NEB PRN ×2 (04:40→22:04)
[2019-06-29] MEDS: HEPARIN SOD (PORCINE) 5,000 UNIT/ML 1 ML VIAL SUBCUT SCH ×3 (06:01→21:41)
[2019-06-29 06:54] LABS: HEMATOCRIT 21.3 % (36.0-47.0); MEAN CORPUSCULAR HEMOGLOBIN 30.8 pg (27.0-33.4); MEAN CORPUSCULAR HGB CONC 33.5 g/dL (32.0-36.0); PLATELET COUNT 352 10^3/uL (150-450); RED BLOOD COUNT 2.31 10^6/uL (3.72-5.28); WHITE BLOOD COUNT 5.1 10^3/uL (4.0-10.5)
[2019-06-29 07:04] LABS: MEAN CORPUSCULAR VOLUME 92 fl (80-97)
[2019-06-29 07:07] LABS: HEMOGLOBIN 7.1 g/dL (12.0-15.5)
[2019-06-29] MEDS: DOCUSATE SODIUM 100 MG/10 ML UDC PO SCH ×2 (10:43→17:33)
[2019-06-29] MEDS: FAMOTIDINE 20 MG TABLET PO SCH ×2 (10:43→21:40)
--- NOTE | 2019-06-29 10:51 | EKG REPORT ---
SEVERITY:- OTHERWISE NORMAL ECG - SINUS TACHYCARDIA : Confirmed by: Parth Argueta 29-Jun-2019 10:49:23
[2019-06-29] MEDS ORDERED: ONDANSETRON HCL 8 MG TABLET PO PRN (11:52)
[2019-06-29] MEDS: IPRATROPIUM/ALBUTEROL 0.5-2.5 MG/3 ML AMPUL NEB SCH ×3 (11:52→19:40)
[2019-06-29] MEDS ORDERED: DOCUSATE SODIUM 100 MG CAPSULE PO PRN (11:52)
[2019-06-29] MEDS ORDERED: PROMETHAZINE HCL INJ 25 MG/1 ML VIAL IV PRN (12:00)
[2019-06-29] MEDS ORDERED: (PENDING PHARMACY ID) (Cholecalciferol (Vitamin D3) [Vitamin D3] 50,000 UNIT) PO SCH (12:00)
[2019-06-29] MEDS ORDERED: OXCARBAZEPINE 150 MG PO SCH (12:00)
[2019-06-29] MEDS ORDERED: ERGOCALCIFEROL (VITAMIN D2) 50000 UNIT (1.25 MG) CAPSULE PO SCH (13:00)
[2019-06-29] MEDS: CYANOCOBALAMIN (VITAMIN B-12) 1,000 MCG TABLET PO SCH (13:20)
[2019-06-29] MEDS: ASPIRIN 81 MG TABLET, ENT COATED PO SCH (13:21)
[2019-06-29] MEDS: GUAIFENESIN 600 MG TABLET.SA PO SCH ×2 (13:21→21:40)
[2019-06-29] MEDS: ALLOPURINOL 300 MG TABLET PO SCH (13:21)
[2019-06-29] MEDS: ACETAMINOPHEN 325 MG TABLET PO PRN (15:33)
--- NOTE | 2019-06-29 16:38 | PDOC PROGRESS REPORT ---
Subjective Progress Note for:: 06/29/19 Subjective:: No adverse events overnight. No fevers. Her breathing had settled down substantially today. She says she is been coughing up some sputum. She had a specimen in a cup at the bedside. She is not tried to get up and walk around. Reason For Visit: PULMONARY NODULE,MALIGNANT PLEURAL EFFUSION Physical Exam Vital Signs: Temp Pulse Resp BP Pulse Ox 98.4 F 88 18 138/75 H 95 06/29/19 11:29 06/29/19 11:52 06/29/19 11:52 06/29/19 11:29 06/29/19 11:52 Intake & Output 06/28/19 06/29/19 06/30/19 06:59 06:59 06:59 Intake Total 240 Balance 240 Weight 50.2 kg General appearance: PRESENT: no acute distress, cooperative, disheveled, thin Respiratory exam: PRESENT: decreased breath sounds - Diminished throughout, especially in left base, symmetrical, unlabored. ABSENT: accessory muscle use, chest wall tenderness, prolonged expiratory phas, rales, rhonchi, tachypnea, wheezes Cardiovascular exam: PRESENT: RRR, +S1, +S2 Pulses: PRESENT: normal carotid pulses Vascular exam: PRESENT: normal capillary refill GI/Abdominal exam: PRESENT: normal bowel sounds, soft. ABSENT: distended, guarding, rebound, tenderness Extremities exam: ABSENT: clubbing, pedal edema Musculoskeletal exam: PRESENT: normal inspection. ABSENT: deformity Neurological exam: PRESENT: alert, awake, oriented to person, oriented to place, oriented to situation Psychiatric exam: PRESENT: flat affect Skin exam: PRESENT: dry, warm Results Laboratory Results: 06/29/19 06:34 06/28/19 21:25 06/28/19 06/28/19 06/29/19 15:55 21:25 04:16 WBC Cancelled RBC Cancelled Hgb Cancelled Hct Cancelled MCV Cancelled MCH Cancelled MCHC Cancelled RDW Cancelled Plt Count Cancelled Sodium 132.5 L Potassium 4.6 Chloride 100 Carbon Dioxide 28 Anion Gap 5 BUN 13 Creatinine 0.49 L Est GFR ( Amer) > 60 Glucose 105 Calcium 8.7 Magnesium Urine Color YELLOW Urine Appearance CLEAR Urine pH 6.0 Ur Specific [place] 1.013 Urine Protein NEGATIVE Urine Glucose (UA) NEGATIVE Urine Ketones NEGATIVE Urine Blood NEGATIVE Urine Nitrite NEGATIVE Ur Leukocyte Esterase NEGATIVE Urine WBC (Auto) 1 Urine RBC (Auto) 0 06/29/19 06/29/19 06/29/19 04:16 06:34 06:34 WBC 5.1 RBC 2.31 L Hgb 7.1 L Hct 21.3 L MCV 92 D MCH 30.8 MCHC 33.5 RDW 20.0 H Plt Count 352 Sodium Potassium Chloride Carbon Dioxide Anion Gap BUN Creatinine Est GFR ( Amer) Glucose Calcium Magnesium Cancelled 2.5 H Urine Color Urine Appearance Urine pH Ur Specific [place] Urine Protein Urine Glucose (UA) Urine Ketones Urine Blood Urine Nitrite Ur Leukocyte Esterase Urine WBC (Auto) Urine RBC (Auto) 06/28/19 13:30 Troponin I < 0.012 NT-Pro-B Natriuret Pep 448 H Impressions: Chest X-Ray 06/28/19 12:59 IMPRESSION: Increased moderate left effusion with compressive atelectasis/consolidation at the left lung base. Possible nodule in the peripheral left lung versus focal loculated effusion. Chest CT 06/28/19 14:34 IMPRESSION: 1. Moderate left pleural effusion with compressive atelectasis/consolidation in the left lung base. Trace right effusion. 2. New left lower lobe pulmonary nodule. This may be infectious/ inflammatory or may be related to patient's lymphoma. 3. Interval resection bilateral axillary lymph nodes. Assessment and Plan - Diagnosis (1) Malignant pleural effusion Is this a current diagnosis for this admission?: Yes Plan: She will follow-up on this with her oncologist as an outpatient (2) Shortness of breath Is this a current diagnosis for this admission?: Yes Plan: Her breathing seems to have settled down. She is not try to get up and ambulate. We will try to move around and see how she does. Chest exam remains unchanged. She did cough up some sputum so we will send that to the lab and see if it turns positive. - Time Time Spent with patient: 15-24 minutes
[2019-06-29] MEDS: BUPROPION HCL 75 MG TABLET PO SCH (21:40)
[2019-06-29] MEDS: OXYCODONE HCL IR 5 MG TABLET PO PRN (21:41)
[2019-06-29] MEDS: OXCARBAZEPINE 150 MG TABLET PO SCH (21:41)
[2019-06-30] MEDS: IPRATROPIUM/ALBUTEROL 0.5-2.5 MG/3 ML AMPUL NEB SCH ×7 (01:00→23:51)
[2019-06-30] MEDS: OXYCODONE HCL IR 5 MG TABLET PO PRN ×2 (04:15→18:14)
[2019-06-30] MEDS: HEPARIN SOD (PORCINE) 5,000 UNIT/ML 1 ML VIAL SUBCUT SCH ×3 (06:58→22:33)
[2019-06-30] MEDS: MAGNESIUM HYDROXIDE SUSP 30 ML UDCUP PO PRN (09:01)
[2019-06-30] MEDS: OXCARBAZEPINE 150 MG TABLET PO SCH ×2 (09:08→22:33)
[2019-06-30] MEDS: GUAIFENESIN 600 MG TABLET.SA PO SCH ×2 (09:09→22:33)
[2019-06-30] MEDS: BUPROPION HCL 75 MG TABLET PO SCH ×2 (09:09→22:33)
[2019-06-30] MEDS: ASPIRIN 81 MG TABLET, ENT COATED PO SCH (09:09)
[2019-06-30] MEDS: CYANOCOBALAMIN (VITAMIN B-12) 1,000 MCG TABLET PO SCH (09:09)
[2019-06-30] MEDS: DOCUSATE SODIUM 100 MG/10 ML UDC PO SCH (09:09)
[2019-06-30] MEDS: FAMOTIDINE 20 MG TABLET PO SCH ×2 (09:09→22:33)
[2019-06-30] MEDS: ALLOPURINOL 300 MG TABLET PO SCH (09:09)
[2019-06-30] MEDS: LORATADINE 10 MG TABLET PO SCH (09:12)
[2019-06-30] MEDS ORDERED: (PENDING PHARMACY ID) (Fexofenadine Hcl [Allegra Allergy] 180 MG) PO SCH (10:00)
[2019-06-30] MEDS ORDERED: (PENDING PHARMACY ID) (Bupropion Hcl [Bupropion Xl] 150 MG) PO SCH (10:00)
[2019-06-30] MEDS: LEVALBUTEROL HCL NEB 0.63 MG/3 ML AMPUL NEB PRN (10:44)
[2019-06-30] MEDS ORDERED: PROMETHAZINE HCL INJ 25 MG/1 ML VIAL IV PRN (11:00)
[2019-06-30] MEDS: ACETAMINOPHEN 325 MG TABLET PO PRN ×2 (11:17→18:06)
[2019-06-30] MEDS: AMOXICILLIN TR/POT CLAVULANATE 875-125 MG TAB PO SCH ×2 (11:20→22:33)
--- NOTE | 2019-06-30 15:32 | PDOC PROGRESS REPORT ---
Subjective Progress Note for:: 06/30/19 Subjective:: No adverse events overnight. Breathing has been fairly comfortable, but she had some variable low-grade temperatures overnight. T-max overnight was 100.1 Fahrenheit, and she got a couple of others that were in the mid 99's. Gram stain of her sputum was appearing positive, so we went ahead and started her on some Augmentin. After the medication was ordered, she had a temperature of 101.9 Fahrenheit. She still producing some sputum. Reason For Visit: PULMONARY NODULE,MALIGNANT PLEURAL EFFUSION Physical Exam Vital Signs: Temp Pulse Resp BP Pulse Ox 101.9 F H 117 H 18 133/71 H 96 06/30/19 14:44 06/30/19 12:29 06/30/19 12:29 06/30/19 10:35 06/30/19 12:29 Intake & Output 06/29/19 06/30/19 07/01/19 06:59 06:59 06:59 Intake Total 780 336 Balance 780 336 Weight 50.2 kg 57.9 kg General appearance: PRESENT: no acute distress, cooperative, disheveled, thin Respiratory exam: PRESENT: decreased breath sounds - Diminished throughout, especially in left base, symmetrical, unlabored. ABSENT: accessory muscle use, chest wall tenderness, prolonged expiratory phas, rales, rhonchi, tachypnea, wheezes Cardiovascular exam: PRESENT: RRR, +S1, +S2 Pulses: PRESENT: normal carotid pulses Vascular exam: PRESENT: normal capillary refill GI/Abdominal exam: PRESENT: normal bowel sounds, soft. ABSENT: distended, guarding, rebound, tenderness Extremities exam: ABSENT: clubbing, pedal edema Musculoskeletal exam: PRESENT: normal inspection. ABSENT: deformity Neurological exam: PRESENT: alert, awake, oriented to person, oriented to place, oriented to situation Psychiatric exam: PRESENT: flat affect Skin exam: PRESENT: dry, warm Results Laboratory Results: 06/30/19 05:13 06/28/19 21:25 06/30/19 05:13 WBC 5.8 RBC 1.92 L Hgb 7.0 L Hct 19.4 L MCV 101 H D MCH 36.4 H MCHC 35.9 RDW 20.0 H Plt Count 322 06/28/19 13:30 Troponin I < 0.012 NT-Pro-B Natriuret Pep 448 H Impressions: Chest X-Ray 06/28/19 12:59 IMPRESSION: Increased moderate left effusion with compressive atelectasis/consolidation at the left lung base. Possible nodule in the peripheral left lung versus focal loculated effusion. Chest CT 06/28/19 14:34 IMPRESSION: 1. Moderate left pleural effusion with compressive atelectasis/consolidation in the left lung base. Trace right effusion. 2. New left lower lobe pulmonary nodule. This may be infectious/ inflammatory or may be related to patient's lymphoma. 3. Interval resection bilateral axillary lymph nodes. Assessment and Plan - Diagnosis (1) Malignant pleural effusion Is this a current diagnosis for this admission?: Yes Plan: She will follow-up on this with her oncologist as an outpatient (2) Shortness of breath Is this a current diagnosis for this admission?: Yes Plan: Her breathing seems to have settled down. She is not try to get up and ambulate. We will try to move around and see how she does. Chest exam remains unchanged. (3) Community acquired pneumonia due to Haemophilus influenzae Is this a current diagnosis for this admission?: Yes Plan: The microbiology lab confirmed that the sputum had Haemophilus. As previously noted, she is already been started on Augmentin. - Time Time Spent with patient: 25-34 minutes
[2019-06-30] MEDS: DOCUSATE SODIUM 100 MG CAPSULE PO SCH (18:05)
[2019-06-30] MEDS: NYSTATIN/DEXAMETH/DIPHEN SUSP 120 ML PO SCH ×2 (18:05→22:34)
[2019-07-01] MEDS: OXYCODONE HCL IR 5 MG TABLET PO PRN ×3 (00:27→19:00)
[2019-07-01] MEDS: IPRATROPIUM/ALBUTEROL 0.5-2.5 MG/3 ML AMPUL NEB SCH ×5 (04:14→20:18)
[2019-07-01 06:00] LABS: HEMATOCRIT 17.1 % (36.0-47.0); MEAN CORPUSCULAR HEMOGLOBIN 31.8 pg (27.0-33.4); MEAN CORPUSCULAR HGB CONC 34.3 g/dL (32.0-36.0); PLATELET COUNT 327 10^3/uL (150-450); RED BLOOD COUNT 1.84 10^6/uL (3.72-5.28); RED CELL DISTRIBUTION WIDTH 19.7 % (11.5-14.0); WHITE BLOOD COUNT 4.9 10^3/uL (4.0-10.5)
[2019-07-01 06:01] LABS: MEAN CORPUSCULAR VOLUME 93 fl (80-97)
[2019-07-01 06:02] LABS: HEMOGLOBIN 5.9 g/dL (12.0-15.5)
[2019-07-01] MEDS: HEPARIN SOD (PORCINE) 5,000 UNIT/ML 1 ML VIAL SUBCUT SCH ×3 (07:47→21:24)
[2019-07-01] MEDS: ACETAMINOPHEN 325 MG TABLET PO PRN (07:48)
[2019-07-01] MEDS ORDERED: ACETAMINOPHEN 325 MG TABLET PO PRN (08:26)
[2019-07-01] MEDS ORDERED: DIPHENHYDRAMINE HCL 50 MG CAPSULE PO PRN (08:27)
[2019-07-01] MEDS ORDERED: DEXAMETHASONE SOD PHOS INJ 10 MG/1 ML VIAL IV PRN (08:28)
[2019-07-01] MEDS ORDERED: NORMAL SALINE 250 ML IV PRN ×2 (09:21)
[2019-07-01] MEDS: NYSTATIN/DEXAMETH/DIPHEN SUSP 120 ML PO SCH ×4 (09:27→21:23)
[2019-07-01] MEDS: AMOXICILLIN TR/POT CLAVULANATE 875-125 MG TAB PO SCH ×2 (09:30→21:24)
[2019-07-01] MEDS: DOCUSATE SODIUM 100 MG CAPSULE PO SCH ×2 (09:30→17:42)
[2019-07-01] MEDS: CYANOCOBALAMIN (VITAMIN B-12) 1,000 MCG TABLET PO SCH (09:31)
[2019-07-01] MEDS: ASPIRIN 81 MG TABLET, ENT COATED PO SCH (09:31)
[2019-07-01] MEDS: GUAIFENESIN 600 MG TABLET.SA PO SCH ×2 (09:31→21:23)
[2019-07-01] MEDS: OXCARBAZEPINE 150 MG TABLET PO SCH ×2 (09:31→21:24)
[2019-07-01] MEDS: BUPROPION HCL 75 MG TABLET PO SCH ×2 (09:31→21:25)
[2019-07-01] MEDS: ALLOPURINOL 300 MG TABLET PO SCH (09:31)
[2019-07-01] MEDS: LORATADINE 10 MG TABLET PO SCH (09:31)
[2019-07-01] MEDS: FAMOTIDINE 20 MG TABLET PO SCH ×2 (09:31→21:23)
--- NOTE | 2019-07-01 11:44 | PDOC PROGRESS REPORT ---
Subjective Progress Note for:: 07/01/19 Subjective:: 64-year-old female with lymphoma and hemolytic anemia presents to the emergency department with difficulty breathing that began last night. Patient explains that she has been to the doctors twice in the last month for a thoracentesis with the last time being 2 weeks ago. Patient stated that she was recently diagnosed with lymphoma and started chemotherapy two days ago. Patient denies sick contact. Patient reports brown thick phlegm, leg swelling and chest pressu re. Patient denies fever, nausea, vomiting, diarrhea and chest pain. Patient said that she does have oxygen at home but only uses her oxygen when she has a difficult time breathing. 06/29/2019 No adverse events overnight. No fevers. Her breathing had settled down substantially today. She says she is been coughing up some sputum. She had a specimen in a cup at the bedside. She is not tried to get up and walk around. 06/30/2019 No adverse events overnight. Breathing has been fairly comfortable, but she had some variable low-grade temperatures overnight. T-max overnight was 100.1 Fahrenheit, and she got a couple of others that were in the mid 99's. Gram stain of her sputum was appearing positive, so we went ahead and started her on some Augmentin. After the medication was ordered, she had a temperature of 101.9 Fahrenheit. She still producing some sputum. Reason For Visit: PULMONARY NODULE,MALIGNANT PLEURAL EFFUSION Physical Exam Vital Signs: Temp Pulse Resp BP Pulse Ox 100.1 F 116 H 18 130/52 H 91 L 07/01/19 07:20 07/01/19 08:00 07/01/19 08:00 07/01/19 07:20 07/01/19 08:00 Intake & Output 06/30/19 07/01/19 07/02/19 06:59 06:59 06:59 Intake Total 780 586 Balance 780 586 Weight 57.9 kg 55.5 kg General appearance: PRESENT: mild distress, thin Head exam: PRESENT: atraumatic Eye exam: PRESENT: PERRLA Mouth exam: PRESENT: dry mucosa Teeth exam: PRESENT: poor dentation Neck exam: ABSENT: carotid bruit, JVD, lymphadenopathy, thyromegaly Respiratory exam: PRESENT: crackles Cardiovascular exam: PRESENT: RRR. ABSENT: diastolic murmur, rubs, systolic murmur Vascular exam: PRESENT: normal capillary refill GI/Abdominal exam: PRESENT: normal bowel sounds, soft. ABSENT: distended, guarding, mass, organolmegaly, rebound, tenderness Rectal exam: PRESENT: deferred Neurological exam: PRESENT: alert, awake, oriented to person, oriented to place, oriented to time, oriented to situation, CN II-XII grossly intact. ABSENT: motor sensory deficit Psychiatric exam: PRESENT: appropriate affect, normal mood. ABSENT: homicidal ideation, suicidal ideation Results Laboratory Results: 07/01/19 05:48 06/28/19 21:25 06/28/19 07/01/19 07/01/19 13:30 04:15 05:48 WBC Cancelled 4.9 RBC Cancelled 1.84 L Hgb Cancelled 5.9 L Hct Cancelled 17.1 L MCV Cancelled 93 D MCH Cancelled 31.8 MCHC Cancelled 34.3 RDW Cancelled 19.7 H Plt Count Cancelled 327 Blood Type O NEGATIVE Antibody Screen NEGATIVE 06/29/19 09:00 Sputum Gram Stain - Final 06/29/19 09:00 Sputum Sputum Culture - Final Haemophilus Influenzae Normal Jenifer 06/28/19 13:30 Troponin I < 0.012 NT-Pro-B Natriuret Pep 448 H Impressions: Chest X-Ray 06/28/19 12:59 IMPRESSION: Increased moderate left effusion with compressive atelec tasis/consolidation at the left lung base. Possible nodule in the peripheral left lung versus focal loculated effusion. Chest CT 06/28/19 14:34 IMPRESSION: 1. Moderate left pleural effusion with compressive atelectasis/consolidation in the left lung base. Trace right effusion. 2. New left lower lobe pulmonary nodule. This may be infectious/ inflammatory or may be related to patient's lymphoma. 3. Interval resection bilateral axillary lymph nodes. Assessment and Plan - Diagnosis (1) Malignant pleural effusion Is this a current diagnosis for this admission?: Yes Plan: She will follow-up on this with her oncologist as an outpatient 07/01/2019-patient has history of malignant left pleural effusion last time thoracentesis was done on June 11. On admission CT scan shows moderate amount of left pleural effusion plan is to repeat the chest x-ray today if the fluid is building up I may request radiology for pleural tap. Patient is complaining of mild shortness of breath pulse ox is 91% on 3.4 L of oxygen. (2) Shortness of breath Is this a current diagnosis for this admission?: Yes Plan: Her breathing seems to have settled down. She is not try to get up and ambulate. We will try to move around and see how she does. Chest exam remains unchanged. 07/01/2019-patient is persistently hypoxic pulse ox is 91% on 3.4 L of oxygen and has a left pleural effusion plan is to do the follow-up chest x-ray. (3) Community acquired pneumonia due to Haemophilus influenzae Is this a current diagnosis for this admission?: Yes Plan: The microbiology lab confirmed that the sputum had Haemophilus. As previously noted, she is already been started on Augmentin. 07/01/2019-sputum culture is positive for haemophilus on Augmentin. Afebrile. Plan is to continue antibiotic therapy at this time. 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 Significant drop from 7.0 yesterday. Type and crossmatch was done to transfuse 1 unit of PRBC today. To repeat the labs tomorrow. pt has a history of lymphoma and hemolytic anemia.
[2019-07-01 18:21] LABS: HEMATOCRIT 22.2 % (36.0-47.0); MEAN CORPUSCULAR HEMOGLOBIN 32.8 pg (27.0-33.4); MEAN CORPUSCULAR HGB CONC 35.8 g/dL (32.0-36.0); MEAN CORPUSCULAR VOLUME 92 fl (80-97); PLATELET COUNT 348 10^3/uL (150-450); RED BLOOD COUNT 2.42 10^6/uL (3.72-5.28); RED CELL DISTRIBUTION WIDTH 17.8 % (11.5-14.0); WHITE BLOOD COUNT 5.9 10^3/uL (4.0-10.5)
[2019-07-01 18:48] LABS: ABSOLUTE LYMPHOCYTES# (MANUAL) 0.1 10^3/uL (0.5-4.7); BASOPHILS % (MANUAL) 0 % (0-2); EOSINOPHILS % (MANUAL) 0 % (0-6); LYMPHOCYTES % (MANUAL) 1 % (13-45); MONOCYTES % (MANUAL) 0 % (3-13); SEGMENTED NEUTROPHILS % (MAN) 99 % (42-78); TOTAL CELLS COUNTED 100
[2019-07-01 18:49] LABS: ANISOCYTOSIS 1+; OVALOCYTES SLIGHT; POIKILOCYTOSIS SLIGHT
[2019-07-01 18:50] LABS: PLATELET COMMENT ADEQUATE; TEAR DROP CELLS SLIGHT
[2019-07-01] MEDS: MAGNESIUM HYDROXIDE SUSP 30 ML UDCUP PO PRN (19:00)
--- NOTE | 2019-07-01 19:04 | RADIOLOGY REPORT (SQ) ---
EXAM DESCRIPTION: CHEST 2 VIEWS IMAGES COMPLETED DATE/TIME: 07/01/2019 6:46 pm REASON FOR STUDY: lt plural effusion COMPARISON: 06/28/2019 EXAM PARAMETERS: NUMBER OF VIEWS: two views TECHNIQUE: Digital Frontal and Lateral radiographic views of the chest acquired. RADIATION DOSE: NA LIMITATIONS: none FINDINGS: LUNGS AND PLEURA: Persistent decreasing left pleural effusion and consolidation/compressi ve atelectasis left lung base. Persistent 1.0 cm nodule in the periphery of the right mid-lower lobe lung zone junction and in the right upper lung. . Very minimal right pleural effusion. Stable sma ll nodule in the right lower lung. Chronic mild interstitial changes in the lungs. No opacities, ma sses or pneumothorax. No pleural effusion. MEDIASTINUM AND HILAR STRUCTURES: No masses or contour abnormalities. HEART AND VASCULAR STRUCTURES: Heart normal size. No evidence for failure. BONES: The osseous structures are stable in appearance. HARDWARE: Multiple surgical metallic clips in the right axilla. OTHER: No other significant finding. IMPRESSION: 1. Since the prior examination dated 06/28/2019, decrease in the left pleural effusion an d left lung base atelectasis/consolidation. 2. Stable appearing lung nodules. TECHNICAL DOCUMENTATION: JOB ID: [id number] 2010 [employer]- All Rights Reserved Reading location - IP/workstation name: [email or web address]
[2019-07-02] MEDS: IPRATROPIUM/ALBUTEROL 0.5-2.5 MG/3 ML AMPUL NEB SCH ×6 (00:09→20:12)
[2019-07-02] MEDS: OXYCODONE HCL IR 5 MG TABLET PO PRN ×3 (01:10→22:18)
[2019-07-02 05:09] LABS: ABSOLUTE LYMPHOCYTES (AUTO) 0.3 10^3/uL (0.5-4.7); ABSOLUTE MONOCYTES (AUTO) 0.1 10^3/uL (0.1-1.4); ABSOLUTE NEUT (AUTO) 5.6 10^3/uL (1.7-8.2); BASOPHILS % (AUTO) 0.2 % (0-2); HEMATOCRIT 20.9 % (36.0-47.0); LYMPHOCYTES % (AUTO) 5.1 % (13-45); MEAN CORPUSCULAR HEMOGLOBIN 31.9 pg (27.0-33.4); MEAN CORPUSCULAR HGB CONC 35.4 g/dL (32.0-36.0); MEAN CORPUSCULAR VOLUME 90 fl (80-97); PLATELET COUNT 340 10^3/uL (150-450); RED BLOOD COUNT 2.32 10^6/uL (3.72-5.28); RED CELL DISTRIBUTION WIDTH 18.2 % (11.5-14.0); SEGMENTED NEUTROPHILS % (AUTO) 92.7 % (42-78); TOTAL CELLS COUNTED % (AUTO) 100 %; WHITE BLOOD COUNT 6.1 10^3/uL (4.0-10.5)
[2019-07-02 05:17] LABS: HEMOGLOBIN 7.4 g/dL (12.0-15.5)
[2019-07-02] MEDS: MAGNESIUM HYDROXIDE SUSP 30 ML UDCUP PO PRN (05:45)
[2019-07-02 05:47] LABS: ALKALINE PHOSPHATASE 99 U/L (38-126); ASPARTATE AMINO TRANSFERASE 17 U/L (14-36); BLOOD UREA NITROGEN 7 mg/dL (7-20); CALCIUM 8.7 mg/dL (8.4-10.2); CHLORIDE 99 mmol/L (98-107); GLUCOSE 126 mg/dL (75-110); POTASSIUM 4.1 mmol/L (3.6-5.0); TOTAL PROTEIN 5.3 g/dL (6.3-8.2)
[2019-07-02] MEDS: HEPARIN SOD (PORCINE) 5,000 UNIT/ML 1 ML VIAL SUBCUT SCH ×3 (05:48→21:14)
[2019-07-02 05:52] LABS: ANION GAP 5 (5-19); CARBON DIOXIDE 29 mmol/L (22-30)
[2019-07-02 07:58] LABS: WHITE BLOOD COUNT 7.2 10^3/uL (4.0-10.5)
[2019-07-02 07:59] LABS: HEMATOCRIT 21.3 % (36.0-47.0); RED BLOOD COUNT 2.22 10^6/uL (3.72-5.28)
[2019-07-02 08:01] LABS: MEAN CORPUSCULAR HEMOGLOBIN 31.5 pg (27.0-33.4); MEAN CORPUSCULAR VOLUME 96 fl (80-97)
[2019-07-02 08:02] LABS: MEAN CORPUSCULAR HGB CONC 32.8 g/dL (32.0-36.0); PLATELET COUNT 335 10^3/uL (150-450); RED CELL DISTRIBUTION WIDTH 20.9 % (11.5-14.0)
[2019-07-02] MEDS: ASPIRIN 81 MG TABLET, ENT COATED PO SCH (09:35)
[2019-07-02] MEDS: FAMOTIDINE 20 MG TABLET PO SCH ×2 (09:36→21:11)
[2019-07-02] MEDS: BUPROPION HCL 75 MG TABLET PO SCH ×2 (09:36→21:11)
[2019-07-02] MEDS: GUAIFENESIN 600 MG TABLET.SA PO SCH ×2 (09:38→21:11)
[2019-07-02] MEDS: OXCARBAZEPINE 150 MG TABLET PO SCH ×2 (09:38→21:11)
[2019-07-02] MEDS: DOCUSATE SODIUM 100 MG CAPSULE PO SCH ×2 (09:40→18:00)
[2019-07-02] MEDS: AMOXICILLIN TR/POT CLAVULANATE 875-125 MG TAB PO SCH ×2 (09:41→21:11)
[2019-07-02] MEDS: CYANOCOBALAMIN (VITAMIN B-12) 1,000 MCG TABLET PO SCH (09:41)
[2019-07-02] MEDS: ALLOPURINOL 300 MG TABLET PO SCH (09:42)
[2019-07-02] MEDS: NYSTATIN/DEXAMETH/DIPHEN SUSP 120 ML PO SCH ×4 (09:44→21:11)
[2019-07-02] MEDS: LORATADINE 10 MG TABLET PO SCH (09:46)
[2019-07-02] MEDS ORDERED: NORMAL SALINE 250 ML IV PRN ×2 (10:24)
--- NOTE | 2019-07-02 10:29 | PDOC PROGRESS REPORT ---
Subjective Progress Note for:: 07/02/19 Subjective:: 64-year-old female with lymphoma and hemolytic anemia presents to the emergency department with difficulty breathing that began last night. Patient explains that she has been to the doctors twice in the last month for a thoracentesis with the last time being 2 weeks ago. Patient stated that she was recently diagnosed with lymphoma and started chemotherapy two days ago. Patient denies sick contact. Patient reports brown thick phlegm, leg swelling and chest pressu re. Patient denies fever, nausea, vomiting, diarrhea and chest pain. Patient said that she does have oxygen at home but only uses her oxygen when she has a difficult time breathing. 06/29/2019 No adverse events overnight. No fevers. Her breathing had settled down substantially today. She says she is been coughing up some sputum. She had a specimen in a cup at the bedside. She is not tried to get up and walk around. 06/30/2019 No adverse events overnight. Breathing has been fairly comfortable, but she had some variable low-grade temperatures overnight. T-max overnight was 100.1 Fahrenheit, and she got a couple of others that were in the mid 99's. Gram stain of her sputum was appearing positive, so we went ahead and started her on some Augmentin. After the medication was ordered, she had a temperature of 101.9 Fahrenheit. She still producing some sputum. 07/02/2019-patient is doing much better today. Requirements are improving. Pulse ox is 95% on 3 L. Hemoglobin came up to 7.4 from 5.9 plan is to give 1 more unit of PRBC. X-ray was done yesterday indicating of improving left pleural effusion. Reason For Visit: PULMONARY NODULE,MALIGNANT PLEURAL EFFUSION Physical Exam Vital Signs: Temp Pulse Resp BP Pulse Ox 98.5 F 100 20 132/55 H 90 L 07/02/19 07:17 07/02/19 08:00 07/02/19 08:00 07/02/19 07:17 07/02/19 08:00 Intake & Output 07/01/19 07/02/19 07/03/19 06:59 06:59 06:59 Intake Total 586 4496 Balance 586 4496 Weight 55.5 kg 55.5 kg General appearance: PRESENT: no acute distress, thin Head exam: PRESENT: atraumatic Eye exam: PRESENT: conjunctiva pale, PERRLA Mouth exam: PRESENT: moist, tongue midline Teeth exam: PRESENT: poor dentation Neck exam: ABSENT: carotid bruit, JVD, lymphadenopathy, thyromegaly Respiratory exam: PRESENT: crackles, decreased breath sounds Cardiovascular exam: PRESENT: RRR. ABSENT: diastolic murmur, rubs, systolic murmur GI/Abdominal exam: PRESENT: normal bowel sounds, soft. ABSENT: distended, guarding, mass, organolmegaly, rebound, tenderness Rectal exam: PRESENT: deferred Extremities exam: PRESENT: full ROM. ABSENT: calf tenderness, clubbing, pedal edema Neurological exam: PRESENT: alert, awake, oriented to person, oriented to place, oriented to time, oriented to situation, CN II-XII grossly intact. ABSENT: motor sensory deficit Results Laboratory Results: 07/02/19 05:00 07/02/19 05:00 06/28/19 06/30/19 07/01/19 13:30 05:13 05:48 WBC 7.2 4.9 RBC 2.22 L 1.84 L Hgb 5.9 L Hct 21.3 L 17.1 L MCV 96 D 93 MCH 31.5 31.8 MCHC 32.8 34.3 RDW 20.9 H 19.7 H Plt Count 335 327 Seg Neutrophils % Sodium Potassium Chloride Carbon Dioxide Anion Gap BUN Creatinine Est GFR ( Amer) Glucose Calcium Magnesium Total Bilirubin AST Alkaline Phosphatase Total Protein Albumin Blood Type O NEGATIVE Antibody Screen NEGATIVE 07/01/19 07/02/19 07/02/19 18:13 05:00 05:00 WBC 5.9 6.1 RBC 2.42 L 2.32 L Hgb 8.0 L D 7.4 L Hct 22.2 L 20.9 L MCV 92 90 MCH 32.8 31.9 MCHC 35.8 35.4 RDW 17.8 H 18.2 H Plt Count 348 340 Seg Neutrophils % Not Reportable 92.7 H Sodium 132.6 L Potassium 4.1 Chloride 99 Carbon Dioxide 29 Anion Gap 5 BUN 7 Creatinine 0.55 Est GFR ( Amer) > 60 Glucose 126 H Calcium 8.7 Magnesium 2.4 H Total Bilirubin 1.0 AST 17 Alkaline Phosphatase 99 Total Protein 5.3 L Albumin 3.0 L Blood Type Antibody Screen 06/29/19 09:00 Sputum Gram Stain - Final 06/29/19 09:00 Sputum Sputum Culture - Final Haemophilus Influenzae Normal Jenifer 06/28/19 13:30 Troponin I < 0.012 NT-Pro-B Natriuret Pep 448 H Impressions: Chest CT 06/28/19 14:34 IMPRESSION: 1. Moderate left pleural effusion with compressive atelectasis/consolidation in the left lung base. Trace right effusion. 2. New left lower lobe pulmonary nodule. This may be infectious/ inflammatory or may be related to patient's lymphoma. 3. Interval resection bilateral axillary lymph nodes. Chest X-Ray 07/01/19 00:00 IMPRESSION: 1. Since the prior examination dated 06/28/2019, decrease in the left pleural effusion and left lung base atelectasis/consolidation. 2. Stable appearing lung nodules. Assessment and Plan - Diagnosis (1) Malignant pleural effusion Is this a current diagnosis for this admission?: Yes Plan: She will follow-up on this with her oncologist as an outpatient 07/01/2019-patient has history of malignant left pleural effusion last time thoracentesis was done on June 11. On admission CT scan shows moderate amount of left pleural effusion plan is to repeat the chest x-ray today if the fluid is building up I may request radiology for pleural tap. Patient is complaining of mild shortness of breath pulse ox is 91% on 3.4 L of oxygen. 07/02/2019-patient admitted with left pleural effusion follow-up chest x-ray indicates improving left pleural effusion. Pulse ox is 95% on 3 L showing impro vement. (2) Shortness of breath Is this a current diagnosis for this admission?: Yes Plan: Her breathing seems to have settled down. She is not try to get up and ambulate. We will try to move around and see how she does. Chest exam remains unchanged. 07/01/2019-patient is persistently hypoxic pulse ox is 91% on 3.4 L of oxygen and has a left pleural effusion plan is to do the follow-up chest x-ray. 07/02/2019-shortness of breath is improving left pleural effusion decreasing in size. Pulse ox is 95% on 3 L today. (3) Community acquired pneumonia due to Haemophilus influenzae Is this a current diagnosis for this admission?: Yes Plan: The microbiology lab confirmed that the sputum had Haemophilus. As previously noted, she is already been started on Augmentin. 07/01/2019-sputum culture is positive for haemophilus on Augmentin. Afebrile. Plan is to continue antibiotic therapy at this time. 07/02/19-sputum culture is positive for haemophilus influenza on Augmentin. Afebrile. Plan is to continue the present management at this time. 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 Significant drop from 7.0 yesterday. Type and crossmatch was done to transfuse 1 unit of PRBC today. To repeat the labs tomorrow. pt has a history of lymphoma and hemolytic anemia. 07/02/2019-patient has anemia of chronic disease hemoglobin dropped to 5.9 yesterday 1 unit of PRBC was given hemoglobin came up to 7.4. Plan is to give another unit of PRBC. (5) Hyponatremia Is this a current diagnosis for this admission?: Yes Plan: 07/02/2019-serum sodium is 132.6
[2019-07-02] MEDS: LEVALBUTEROL HCL NEB 0.63 MG/3 ML AMPUL NEB PRN (14:23)
[2019-07-02] MEDS ORDERED: ACETAMINOPHEN 325 MG TABLET PO PRN (14:40)
[2019-07-02] MEDS ORDERED: DIPHENHYDRAMINE HCL 50 MG CAPSULE PO PRN (14:41)
[2019-07-02] MEDS ORDERED: DEXAMETHASONE SOD PHOS INJ 10 MG/1 ML VIAL IV PRN (14:41)
[2019-07-02 21:45] LABS: HEMATOCRIT 25.9 % (36.0-47.0); HEMOGLOBIN 9.1 g/dL (12.0-15.5); MEAN CORPUSCULAR HEMOGLOBIN 32.5 pg (27.0-33.4); MEAN CORPUSCULAR HGB CONC 35.2 g/dL (32.0-36.0); MEAN CORPUSCULAR VOLUME 92 fl (80-97); PLATELET COUNT 378 10^3/uL (150-450); RED BLOOD COUNT 2.82 10^6/uL (3.72-5.28); RED CELL DISTRIBUTION WIDTH 17.2 % (11.5-14.0); WHITE BLOOD COUNT 6.9 10^3/uL (4.0-10.5)
[2019-07-02 22:06] LABS: BASOPHILS % (MANUAL) 0 % (0-2); EOSINOPHILS % (MANUAL) 0 % (0-6); LYMPHOCYTES % (MANUAL) 0 % (13-45); MONOCYTES % (MANUAL) 0 % (3-13); SEGMENTED NEUTROPHILS % (MAN) 100 % (42-78); TOTAL CELLS COUNTED 100
[2019-07-02 22:08] LABS: ANISOCYTOSIS 1+; PLATELET COMMENT ADEQUATE; PLATELET LARGE PRESENT
[2019-07-03] MEDS: IPRATROPIUM/ALBUTEROL 0.5-2.5 MG/3 ML AMPUL NEB SCH ×3 (00:37→08:02)
[2019-07-03] MEDS: HEPARIN SOD (PORCINE) 5,000 UNIT/ML 1 ML VIAL SUBCUT SCH (05:12)
[2019-07-03 06:25] LABS: ABSOLUTE LYMPHOCYTES (AUTO) 0.4 10^3/uL (0.5-4.7); ABSOLUTE MONOCYTES (AUTO) 0.2 10^3/uL (0.1-1.4); ABSOLUTE NEUT (AUTO) 4.6 10^3/uL (1.7-8.2); BASOPHILS % (AUTO) 0.2 % (0-2); HEMATOCRIT 26.4 % (36.0-47.0); LYMPHOCYTES % (AUTO) 6.9 % (13-45); MEAN CORPUSCULAR HEMOGLOBIN 32.3 pg (27.0-33.4); MEAN CORPUSCULAR HGB CONC 34.2 g/dL (32.0-36.0); MEAN CORPUSCULAR VOLUME 95 fl (80-97); PLATELET COUNT 357 10^3/uL (150-450); RED BLOOD COUNT 2.79 10^6/uL (3.72-5.28); RED CELL DISTRIBUTION WIDTH 17.3 % (11.5-14.0); SEGMENTED NEUTROPHILS % (AUTO) 88.9 % (42-78); TOTAL CELLS COUNTED % (AUTO) 100 %; WHITE BLOOD COUNT 5.2 10^3/uL (4.0-10.5)
[2019-07-03 06:46] LABS: ALBUMIN 3.1 g/dL (3.5-5.0); ALKALINE PHOSPHATASE 93 U/L (38-126); ASPARTATE AMINO TRANSFERASE 26 U/L (14-36); BILIRUBIN,TOTAL 0.7 mg/dL (0.2-1.3); BLOOD UREA NITROGEN 6 mg/dL (7-20); CALCIUM 8.8 mg/dL (8.4-10.2); CHLORIDE 104 mmol/L (98-107); GLUCOSE 96 mg/dL (75-110); POTASSIUM 4.5 mmol/L (3.6-5.0); TOTAL PROTEIN 5.5 g/dL (6.3-8.2)
[2019-07-03 06:51] LABS: ANION GAP 2 (5-19); CARBON DIOXIDE 29 mmol/L (22-30)
--- NOTE | 2019-07-03 09:28 | PDOC DISCHARGE SUMMARY ---
Impression - Admit/DC Date/PCP Admission Date/Primary Care Provider: 06/28/19 20:29 RAY SALDANA MD Discharge Date: 07/03/19 - Discharge Diagnosis (1) Malignant pleural effusion Is this a current diagnosis for this admission?: Yes (2) Shortness of breath Is this a current diagnosis for this admission?: Yes (3) Community acquired pneumonia due to Haemophilus influenzae Is this a current diagnosis for this admission?: Yes (4) Anemia Is this a current diagnosis for this admission?: Yes (5) Hyponatremia Is this a current diagnosis for this admission?: Yes - Assessment Summary: 64-year-old female with history of lymphoma and a hemolytic anemia admitted with complaints of difficulty in breathing initial radiological investigations suggestive of left pleural effusion. Follow-up x-rays were done left pleural effusion size is decreasing. Sputum cultures positive for H. influenzae started on Augmentin. No acute events during the hospital stay afebrile. Today pulse ox is 100% on 2 L. Patient is going home on Augmentin. She received 2 units of PRBC hemoglobin 9.0. As per the patient is actually about the baseline. Patient is advised to be compliant with medications and continue to use oxygen supplementations if the symptoms recur she was strongly advised to come to the ER [place]. She was also advised to follow-up with Dr. Saldana in 3 to 5 days. - Additional Information Resuscitation Status: Full Code Discharge Diet: Cardiac Discharge Activity: Activity As Tolerated Referrals: RAY SALDANA MD [Primary Care Provider] - Follow up as needed Prescriptions: Amoxicillin/Potassium Clav [Augmentin 875-125 Tablet] 1 tab PO Q12 #10 tablet Ipratropium/Albuterol Sulfate [Duoneb 3 ml Ampul] 3 ml NEB RTQ4 #90 vial.neb Home Medications: Aspirin [Ecotrin 81 mg EC Tablet] 81 mg PO DAILY 05/16/19 Cyanocobalamin (Vitamin B-12) [Vitamin B-12 1000 mcg Tablet] 1 tab PO DAILY 05/16/19 Oxcarbazepine 150 mg PO Q12 05/16/19 Bupropion HCl [Bupropion Xl] 150 mg PO DAILY 30 Days #30 06/13/19 Albuterol Sulfate [Ventolin 0.042% Neb 1.25 mg/3 mL Ampul] 1 vial NEB Q4HP PRN 06/29/19 Allopurinol [Zyloprim 300 mg Tablet] 300 mg PO DAILY 06/29/19 Docusate Sodium [Colace 100 mg Capsule] 100 mg PO DAILYP PRN 06/29/19 Ergocalciferol (Vitamin D2) [Vitamin D2] 50 mcg PO MCKAY@1000 06/29/19 Fexofenadine HCl [Jael Allergy] 180 mg PO DAILY 06/29/19 Naproxen Sodium [Aleve] 220 mg PO DAILYP PRN 06/29/19 Ondansetron HCl [Zofran 8 mg Tablet] 8 mg PO Q8HP PRN 06/29/19 Oxycodone HCl [Oxy-Ir 5 mg Tablet] 10 mg PO Q6HP PRN 06/29/19 Promethazine HCl [Phenergan 25 mg Tablet] 25 mg PO Q6HP PRN 06/29/19 Amoxicillin/Potassium Clav [Augmentin 875-125 Tablet] 1 tab PO Q12 #10 tablet 07/03/19 Ipratropium/Albuterol Sulfate [Duoneb 3 ml Ampul] 3 ml NEB RTQ4 #90 vial.neb 07/03/19 History of Present Illiness History of Present Illness: LUPILLO DE LA ROSA is a 64 year old female 64-year-old female with lymphoma and hemolytic anemia presents to the emergency department with difficulty breathing that began last night. Patient explains that she has been to the doctors twice in the last month for a thoracentesis with the last time being 2 weeks ago. Patient stated that she was recently diagnosed with lymphoma and started chemotherapy two days ago. Patient denies sick contact. Patient reports brown thick phlegm, leg swelling and chest pressure. Patient denies fever, nausea, vomiting, diarrhea and chest pain. Patient said that she does have oxygen at home but only uses her oxygen when she has a difficult time breathing. Hospital Course Hospital Course: 64-year-old female with lymphoma and hemolytic anemia presents to the emergency department with difficulty breathing that began last night. Patient explains that she has been to the doctors twice in the last month for a thoracentesis with the last time being 2 weeks ago. Patient stated that she was recently diagnosed with lymphoma and started chemotherapy two days ago. Patient denies sick contact. Patient reports brown thick phlegm, leg swelling and chest pressure. Patient denies fever, nausea, vomiting, diarrhea and chest pain. Patient said that she does have oxygen at home but only uses her oxygen when she has a difficult time breathing. 06/29/2019 No adverse events overnight. No fevers. Her breathing had settled down substantially today. She says she is been coughing up some sputum. She had a specimen in a cup at the bedside. She is not tried to get up and walk around. 06/30/2019 No adverse events overnight. Breathing has been fairly comfortable, but she had some variable low-grade temperatures overnight. T-max overnight was 100.1 Fahrenheit, and she got a couple of others that were in the mid s. Gram stain of her sputum was appearing positive, so we went ahead and started her on some Augmentin. After the medication was ordered, she had a temperature of 101.9 Fahrenheit. She still producing some sputum. 07/02/2019-patient is doing much better today. Requirements are improving. Pulse ox is 95% on 3 L. Hemoglobin came up to 7.4 from 5.9 plan is to give 1 more unit of PRBC. X-ray was done yesterday indicating of improving left pleural effusion. 07/03/19-patient doing much better. Hemoglobin came up to 9.0. Pulse ox requirements are decreased pulse ox is 100% on 2 L. Patient is on 2 L of oxygen at home. Advised her to continue home oxygen and she was advised to follow-up with Dr. Saldana in 3 to 5 days. Physical Exam Vital Signs: Temp Pulse Resp BP Pulse Ox 99.3 F 86 16 106/58 L 94 07/02/19 18:10 07/03/19 08:05 07/03/19 08:05 07/02/19 18:10 07/03/19 08:05 Intake & Output 07/02/19 07/03/19 07/04/19 06:59 06:59 06:59 Intake Total 4496 1140 Balance 4496 1140 Weight 55.5 kg 55.5 kg General appearance: PRESENT: no acute distress Head exam: PRESENT: atraumatic Eye exam: PRESENT: PERRLA Mouth exam: PRESENT: moist, tongue midline Teeth exam: PRESENT: poor dentation Respiratory exam: PRESENT: clear to auscultation clare. ABSENT: rales, rhonchi, wheezes Cardiovascular exam: PRESENT: RRR. ABSENT: diastolic murmur, rubs, systolic murmur GI/Abdominal exam: PRESENT: normal bowel sounds, soft. ABSENT: distended, guarding, mass, organolmegaly, rebound, tenderness Rectal exam: PRESENT: deferred Extremities exam: PRESENT: full ROM. ABSENT: calf tenderness, clubbing, pedal edema Neurological exam: PRESENT: alert, awake, oriented to person, oriented to place, oriented to time, oriented to situation, CN II-XII grossly intact. ABSENT: motor sensory deficit Skin exam: PRESENT: dry, intact, warm. ABSENT: cyanosis, rash Results Laboratory Results: WBC 5.2 10^3/uL (4.0-10.5) 07/03/19 06:10 RBC 2.79 10^6/uL (3.72-5.28) L 07/03/19 06:10 Hgb 9.0 g/dL (12.0-15.5) L 07/03/19 06:10 Hct 26.4 % (36.0-47.0) L 07/03/19 06:10 MCV 95 fl (80-97) 07/03/19 06:10 MCH 32.3 pg (27.0-33.4) 07/03/19 06:10 MCHC 34.2 g/dL (32.0-36.0) 07/03/19 06:10 RDW 17.3 % (11.5-14.0) H 07/03/19 06:10 Plt Count 357 10^3/uL (150-450) 07/03/19 06:10 Lymph % (Auto) 6.9 % (13-45) L 07/03/19 06:10 Dewitt % (Auto) 4.0 % (3-13) 07/03/19 06:10 Eos % (Auto) 0.0 % (0-6) 07/03/19 06:10 Baso % (Auto) 0.2 % (0-2) 07/03/19 06:10 Absolute Neuts (auto) 4.6 10^3/uL (1.7-8.2) 07/03/19 06:10 Absolute Lymphs (auto) 0.4 10^3/uL (0.5-4.7) L 07/03/19 06:10 Absolute Monos (auto) 0.2 10^3/uL (0.1-1.4) 07/03/19 06:10 Absolute Eos (auto) 0.0 10^3/uL (0.0-0.6) 07/03/19 06:10 Absolute Basos (auto) 0.0 10^3/uL (0.0-0.2) 07/03/19 06:10 Total Counted 100 07/02/19 21:35 Seg Neutrophils % 88.9 % (42-78) H 07/03/19 06:10 Seg Neuts % (Manual) 100 % (42-78) H 07/02/19 21:35 Lymphocytes % (Manual) 0 % (13-45) L 07/02/19 21:35 Monocytes % (Manual) 0 % (3-13) L 07/02/19 21:35 Eosinophils % (Manual) 0 % (0-6) 07/02/19 21:35 Basophils % (Manual) 0 % (0-2) 07/02/19 21:35 Abs Neuts (Manual) 6.9 10^3/uL (1.7-8.2) 07/02/19 21:35 Abs Lymphs (Manual) 0.0 10^3/uL (0.5-4.7) L 07/02/19 21:35 Abs Monocytes (Manual) 0.0 10^3/uL (0.1-1.4) L 07/02/19 21:35 Absolute Eos (Manual) 0.0 10^3/uL (0.0-0.6) 07/02/19 21:35 Abs Basophils (Manual) 0.0 10^3/uL (0.0-0.2) 07/02/19 21:35 Platelet Estimate Cancelled 07/01/19 04:15 Large Platelets PRESENT 07/02/19 21:35 Platelet Comment ADEQUATE 07/02/19 21:35 Poikilocytosis SLIGHT 07/01/19 18:13 Anisocytosis 1+ 07/02/19 21:35 Tear Drop Cells SLIGHT 07/01/19 18:13 Ovalocytes SLIGHT 07/01/19 18:13 PT 15.1 SEC (11.4-15.4) 06/28/19 13:30 INR 1.18 06/28/19 13:30 APTT 27.2 SEC (23.5-35.8) 06/28/19 13:30 VBG pH 7.33 (7.30-7.42) 06/28/19 13:30 VBG pCO2 56.3 mmHg (35-63) 06/28/19 13:30 VBG HCO3 29.0 mmol/L (20-32) 06/28/19 13:30 VBG Base Excess 2.4 mmol/L 06/28/19 13:30 Sodium 135.1 mmol/L (137-145) L 07/03/19 06:16 Potassium 4.5 mmol/L (3.6-5.0) 07/03/19 06:16 Chloride 104 mmol/L (98-107) 07/03/19 06:16 Carbon Dioxide 29 mmol/L (22-30) 07/03/19 06:16 Anion Gap 2 (5-19) L 07/03/19 06:16 BUN 6 mg/dL (7-20) L 07/03/19 06:16 Creatinine 0.45 mg/dL (0.52-1.25) L 07/03/19 06:16 Est GFR ( Amer) > 60 (>60) 07/03/19 06:16 Est GFR (MDRD) Non-Af > 60 (>60) 07/03/19 06:16 Glucose 96 mg/dL (75-110) 07/03/19 06:16 Lactic Acid 1.0 mmol/L (0.7-2.1) 06/28/19 13:30 Calcium 8.8 mg/dL (8.4-10.2) 07/03/19 06:16 Magnesium 2.4 mg/dL (1.6-2.3) H 07/03/19 06:16 Total Bilirubin 0.7 mg/dL (0.2-1.3) 07/03/19 06:16 Direct Bilirubin 0.0 mg/dL (0.0-0.4) 07/03/19 06:16 Neonat Total Bilirubin Not Reportable 07/03/19 06:16 Neonat Direct Bilirubin Not Reportable 07/03/19 06:16 Neonat Indirect Bili Not Reportable 07/03/19 06:16 AST 26 U/L (14-36) 07/03/19 06:16 ALT 22 U/L (<35) 07/03/19 06:16 Alkaline Phosphatase 93 U/L (38-126) 07/03/19 06:16 Troponin I < 0.012 ng/mL 06/28/19 13:30 NT-Pro-B Natriuret Pep 448 pg/mL (<125) H 06/28/19 13:30 Total Protein 5.5 g/dL (6.3-8.2) L 07/03/19 06:16 Albumin 3.1 g/dL (3.5-5.0) L 07/03/19 06:16 Urine Color YELLOW 06/28/19 15:55 Urine Appearance CLEAR 06/28/19 15:55 Urine pH 6.0 (5.0-9.0) 06/28/19 15:55 Ur Specific [place] 1.013 06/28/19 15:55 Urine Protein NEGATIVE mg/dL (NEGATIVE) 06/28/19 15:55 Urine Glucose (UA) NEGATIVE mg/dL (NEGATIVE) 06/28/19 15:55 Urine Ketones NEGATIVE mg/dL (NEGATIVE) 06/28/19 15:55 Urine Blood NEGATIVE (NEGATIVE) 06/28/19 15:55 Urine Nitrite NEGATIVE (NEGATIVE) 06/28/19 15:55 Urine Bilirubin NEGATIVE (NEGATIVE) 06/28/19 15:55 Urine Urobilinogen 2.0 mg/dL (<2.0) H 06/28/19 15:55 Ur Leukocyte Esterase NEGATIVE (NEGATIVE) 06/28/19 15:55 Urine WBC (Auto) 1 /HPF 06/28/19 15:55 Urine RBC (Auto) 0 /HPF 06/28/19 15:55 Squamous Epi Cells Auto 1 /HPF 06/28/19 15:55 Urine Mucus (Auto) RARE /LPF 06/28/19 15:55 Urine Ascorbic Acid NEGATIVE (NEGATIVE) 06/28/19 15:55 Slides for Path Review Cancelled 07/01/19 04:15 Blood Type O NEGATIVE 07/02/19 10:47 Blood Type Confirm O NEGATIVE 06/28/19 13:30 Antibody Screen NEGATIVE 07/02/19 10:47 Crossmatch See Detail 07/02/19 10:47 06/28/19 13:30 Troponin I < 0.012 NT-Pro-B Natriuret Pep 448 H Impressions: Chest X-Ray 06/28/19 12:59 IMPRESSION: Increased moderate left effusion with compressive atelectasis/consolidation at the left lung base. Possible nodule in the peripheral left lung versus focal loculated effusion. Chest CT 06/28/19 14:34 IMPRESSION: 1. Moderate left pleural effusion with compressive atelectasis/consolidation in the left lung base. Trace right effusion. 2. New left lower lobe pulmonary nodule. This may be infectious/ inflammatory or may be related to patient's lymphoma. 3. Interval resection bilateral axillary lymph nodes. Chest X-Ray 07/01/19 00:00 IMPRESSION: 1. Since the prior examination dated 06/28/2019, decrease in the l eft pleural effusion and left lung base atelectasis/consolidation. 2. Stable appearing lung nodules. Plan Plan of Treatment: Patient is advised to continue use oxygen supplementation at home and prescription for Augmentin was given for 5 days. Patient is also advised to follow-up with Dr. Saldana in 3 to 5 days. Patient agreed and verbalized respon se. Time Spent: Greater than 30 Minutes Stroke Is this a Stroke Patient?: No Acute Heart Failure - Is this a Heart Failure Patient?: No
[2019-07-03] MEDS: AMOXICILLIN TR/POT CLAVULANATE 875-125 MG TAB PO SCH (10:00)
[2019-07-03 10:19] VITALS: BP 138/66
[2019-07-03] MEDS: LORATADINE 10 MG TABLET PO SCH (10:53)
[2019-07-03] MEDS: NYSTATIN/DEXAMETH/DIPHEN SUSP 120 ML PO SCH (10:53)
[2019-07-03] MEDS: ASPIRIN 81 MG TABLET, ENT COATED PO SCH (10:53)
[2019-07-03] MEDS: DOCUSATE SODIUM 100 MG CAPSULE PO SCH (10:53)
[2019-07-03] MEDS: GUAIFENESIN 600 MG TABLET.SA PO SCH (10:54)
[2019-07-03] MEDS: FAMOTIDINE 20 MG TABLET PO SCH (10:54)
[2019-07-03] MEDS: BUPROPION HCL 75 MG TABLET PO SCH (10:55)
[2019-07-03] MEDS: OXCARBAZEPINE 150 MG TABLET PO SCH (10:55)
[2019-07-03] MEDS: CYANOCOBALAMIN (VITAMIN B-12) 1,000 MCG TABLET PO SCH (10:55)
[2019-07-03] MEDS: ALLOPURINOL 300 MG TABLET PO SCH (10:56)
== END 2019-07-03 10:58 | disposition home or self-care (01) | DRG 840 ==
LOC: ER 12:10 → EH 18:05 → 4N 20:05 → OBSVTOIN 20:29
PROVIDERS: ADMIT Family Medicine; ATTEND Internal Medicine
PROC: 30233N1 Transfusion of Nonautologous Red Blood Cells into Peripheral Vein, Percutaneous Approach (ICD-10-PCS; principal; 2019-07-01)
DX: C85.90 Non-Hodgkin lymphoma, unspecified, unspecified site (principal); J14 Pneumonia due to Hemophilus influenzae; E87.1 Hypo-osmolality and hyponatremia; J91.0 Malignant pleural effusion; D59.4 Other nonautoimmune hemolytic anemias; I25.10 Atherosclerotic heart disease of native coronary artery without angina pectoris; I25.2 Old myocardial infarction; Z79.82 Long term (current) use of aspirin; Z79.899 Other long term (current) drug therapy; Z99.81 Dependence on supplemental oxygen; Z88.6 Allergy status to analgesic agent; Z91.013 Allergy to seafood; Z87.891 Personal history of nicotine dependence
CPT/HCPCS: 36415; 36430; 71046; 71250; 80053; 81001; 82803; 83605; 83735; 83880; 84484; 85025; 85027; 85610; 85730; 86850; 86900; 86901; 86920; 87040; 87070; 87077; 87205; 93005; 93010; 94640; 99285; J1100; J1170; J1644; J3490; J7614; J7620; P9016

== ENCOUNTER 2019-07-17 08:04 | Outpatient (CLI) | payer MEDICAID ==
[~2019-07-17 08:04] MED LIST changes: +CYCLOPHOSPHAMIDE IV PRN; +DEXAMETHASONE 10 MG in NS 50 ML IV PRN; +DIPHENHYDRAMINE 50 MG in NS 50 ML IV PRN; +NORMAL SALINE 500 ML @ KVO IV PRN; +NORMAL SALINE IV PRN; +PALONOSETRON 0.25 MG/5 ML VIAL IV PRN; +RITUXIMAB IV PRN; +VINCRISTINE SULFATE 2 MG in SYRINGE, DISPOSABLE, 1 EACH IV PRN
[2019-07-17 08:35] VITALS: BP 127/63
== END 2019-07-17 15:28 | disposition home or self-care (01) ==
LOC: II 08:04 → 5TH 08:09 → II 15:28
PROVIDERS: ATTEND Internal Medicine
DX: Z51.11 Encounter for antineoplastic chemotherapy (principal); C82.08 Follicular lymphoma grade I, lymph nodes of multiple sites
CPT/HCPCS: 96411; 96413; 96415; 96367; 96375; 96361; 96417; J9070; J1200; J7050 ×2; J7040; J3490; J9312 ×2; J1100; J1453; J2469; J9370

== ENCOUNTER → 2019-07-21 | Outpatient (CLI) | payer MEDICAID ==
--- NOTE | 2019-07-21 14:33 | RADIOLOGY REPORT (SQ) ---
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 TECHNIQUE: Dynamic and static whitaker scale and color images acquired of the right arm venous system. S elected spectral images acquired with additional compression and augmentation maneuvers. The contrala teral subclavian vein and internal jugular vein were also imaged. Images stored on PACS. LIMITATIONS: None. FINDINGS: INTERNAL JUGULAR VEIN: Normal phasicity, compression, augmentation. No visualized echogeni c material on whitaker scale. No defects on color images. SUBCLAVIAN VEIN: Normal compression, augmentation. No visualized echogenic material on whitaker scale. No defects on color images. AXILLARY VEIN: Normal compression, augmentation. No visualized echogenic material on whitaker scale. No d efects on color images. BRACHIAL VEIN: Normal compression, augmentation. No visualized echogenic material on whitaker scale. No d efects on color images. BASILIC VEIN: Normal compression, augmentation. No visualized echogenic material on whitaker scale. No de fects on color images. CEPHALIC VEIN: The cephalic vein is noncompressible and demonstrates no phasicity or augmentation. O n grayscale the vessel lumen is filled with echogenic material. OTHER: No other finding. CONTRALATERAL SUBCLAVIAN VEIN AND INTERNAL JUGULAR VEIN: Normal phasicity, compression and augmentation. No visualized echogenic material on whitaker scale. No de fects on color images. IMPRESSION: 1. NO EVIDENCE DVT IN THE RIGHT ARM. 2. ACUTE SVT OF THE CEPHALIC VEIN. TECHNICAL DOCUMENTATION: JOB ID: [id number] 2010 [employer]- All Rights Reserved Reading location - IP/workstation name: [email or web address]
== END ==
LOC: SP 12:30
PROVIDERS: ATTEND Physician Assistant Medical
DX: C82.08 Follicular lymphoma grade I, lymph nodes of multiple sites (principal)
CPT/HCPCS: 93971

== ENCOUNTER 2019-08-07 08:05 | Outpatient (CLI) | payer MEDICAID ==
[2019-08-07 08:37] VITALS: BP 120/65
== END 2019-08-07 14:42 | disposition home or self-care (01) ==
LOC: II 08:05 → 5TH 08:10 → II 14:42
PROVIDERS: ATTEND Internal Medicine
DX: Z51.11 Encounter for antineoplastic chemotherapy (principal); C82.08 Follicular lymphoma grade I, lymph nodes of multiple sites
CPT/HCPCS: 96411; 96413; 96415; 96367; 96375; 96417; J9070; J1200; J7050 ×2; J7040; J3490; J9312 ×2; J1100; J1453; J2469; J9370

== ENCOUNTER → 2019-08-25 | Outpatient (CLI) | payer SELFPAY ==
--- NOTE | 2019-08-25 09:52 | RADIOLOGY REPORT (SQ) ---
EXAM DESCRIPTION: CT ABD/PELVIS WITH IV ONLY IMAGES COMPLETED DATE/TIME: 08/25/2019 8:26 am REASON FOR STUDY: LYMPHOMA (C82.08) C82.08 FOLLICULAR LYMPHOMA GRADE I, LYMPH NODES OF MULTIPLE COMPARISON: PET from 05/27/[address] of the abdomen pelvis with contrast from 01/15/2020. TECHNIQUE: CT scan of the abdomen and pelvis performed using helical scanning technique with dynamic intravenous contrast injection. No oral contrast. Images reviewed with lung, soft tissue, and bone windows. Reconstructed coronal and sagittal MPR images reviewed. Delayed images for evaluation of the urinary system also acquired. All images stored on PACS. All CT scanners at this facility use dose modulation, iterative reconstruction, and/or weight based d osing when appropriate to reduce radiation dose to as low as reasonably achievable (ALARA). [facility]: Dose Right [facility]: CareDose [facility]: Dose Right [facility]: Teradose 4D [facility]: [employer] CONTRAST TYPE AND DOSE: Contrast/concentration: Isovue 350.00 mg/ml; Total Contrast Delivered: 65.0 ml; Total Saline Delivered: 65.0 ml RENAL FUNCTION: Creatinine 0.61 milligrams/deciliter. LIMITATIONS: None. FINDINGS: LOWER CHEST: Refer to the separate report of the CT of the chest. LIVER: The morphology of the liver is noncirrhotic. The portal veins are patent. There is no hepati c mass. SPLEEN: No splenomegaly or splenic mass. PANCREAS: No acute abnormality of the pancreas. GALLBLADDER: Unchanged irregular calcification of the gallbladder wall and asymmetric gallbladder wal l thickening. ADRENAL GLANDS: Stable 13 x 9 mm left adrenal nodule. RIGHT KIDNEY AND URETER: The moderate to severe hydronephrosis described on the CT from 05/17/2019 has resolved. There is no solid mass, nephrolithiasis, hydroureter or ureterolithiasis LEFT KIDNEY AND URETER: There is no solid mass, hydronephrosis, nephrolithiasis, hydroureter or urete rolithiasis. AORTA AND VESSELS: No aneurysm or dissection of the abdominal aorta. RETROPERITONEUM: The confluent retroperitoneal adenopathy described on the CT from 05/17/2021 has decr eased in size ; for reference, the confluent lymph nodes posterior and lateral to the abdominal aorta (Image 32 of series 3) measure up to 9 mm in AP diameter compared to 19 mm on the prior CT. The josue or common iliac, external iliac, obturator, deep inguinal and superficial inguinal adenopathy has res olved or decreased in size ; for reference the right-sided deep inguinal lymph node on image 64 of se niurka 3 measures 7 mm in short axis diameter compared to 16 mm on the prior CT, the right-sided obtura tor lymph node on image 56 of series 3 measures 7 mm in short axis diameter compared to 60 mm on the prior CT, and the 8 mm left external iliac lymph node on image 65 of series 3 measured 20 mm on the p rior CT. BOWEL AND PERITONEAL CAVITY: The portal caval lymph node on image 22 of series 3 has decreased in siz e and it measures 6 mm in short axis diameter compared to 12 mm on the prior CT. There is no bowel o bstruction, bowel wall thickening or pericolonic/ perienteric inflammation. There is no mesenteric a denopathy, free intraperitoneal fluid or mesenteric/ omental inflammation APPENDIX: Unable to identify the appendix. PELVIS: The urinary bladder is distended and normal in appearance. There is no abnormality of the ut erus or adnexa that is apparent on CT. ABDOMINAL WALL: No mass or hernia. BONES: Unchanged appearance of the right ilium and grade 1 retrolisthesis of L5 relative to S1. OTHER: No other finding. IMPRESSION: 1. The confluent retroperitoneal adenopathy described on the CT from 05/17/2021 has decre ased in size ; for reference, the confluent lymph nodes posterior and lateral to the abdominal aorta (Image 32 of series 3) measure up to 9 mm in AP diameter compared to 19 mm on the prior CT. The prio r common iliac, external iliac, obturator, deep inguinal and superficial inguinal adenopathy has reso lved or decreased in size ; for reference the right-sided deep inguinal lymph node on image 64 of ser ies 3 measures 7 mm in short axis diameter compared to 16 mm on the prior CT, the right-sided obturat or lymph node on image 56 of series 3 measures 7 mm in short axis diameter compared to 60 mm on the p rior CT, and the 8 mm left external iliac lymph node on image 65 of series 3 measured 20 mm on the pr ior CT. 2. The moderate to severe hydronephrosis described on the CT from 05/17/2019 has resolved. 3. Stable 13 x 9 mm left adrenal nodule. 4. Unchanged irregular calcification of the gallbladder wall and asymmetric gallbladder wall thicken ing suggestive underlying porcelain gallbladder. TECHNICAL DOCUMENTATION: JOB ID: [id number] Quality ID # [id number]: Final reports with documentation of one or more dose reduction techniques (e.g., Au tomated exposure control, adjustment of the mA and/or kV according to patient size, use of iterative reconstruction technique) 2010 [employer]- All Rights Reserved Reading location - IP/workstation name: [email or web address]
--- NOTE | 2019-08-25 11:05 | RADIOLOGY REPORT (SQ) ---
EXAM DESCRIPTION: CT CHEST WITH IMAGES COMPLETED DATE/TIME: 08/25/2019 8:26 am REASON FOR STUDY: LYMPHOMA (C82.08) C82.08 FOLLICULAR LYMPHOMA GRADE I, LYMPH NODES OF MULTIPLE COMPARISON: None. TECHNIQUE: CT scan of the chest performed using helical scanning technique with dynamic intravenous contrast injection. Images reviewed with lung, soft tissue and bone windows. Reconstructed coronal and sagittal MPR and MIP images reviewed. All images stored on PACS. All CT scanners at this facility use dose modulation, iterative reconstruction, and/or weight based d osing when appropriate to reduce radiation dose to as low as reasonably achievable (ALARA). [facility]: Dose Right [facility]: CareDose [facility]: Dose Right [facility]: Teradose 4D [facility]: [employer] CONTRAST TYPE AND DOSE: 65 mL Omnipaque 350- low osmolar. RENAL FUNCTION: GFR > 60. RADIATION DOSE: CT Rad equipment meets quality standard of care and radiation dose reduction techniq ues were employed. CTDIvol: 4.4 - 4.8 mGy. DLP: 619 mGy-cm. LIMITATIONS: None. FINDINGS: LUNGS AND PLEURA: Unchanged moderate to severe upper lobe predominant centrilobular and pa raseptal emphysema. The spiculated nodule in the left lower lobe (image 65 of series 6) has increase d in size and it measures 16 x 12 mm compared to 10 x 9 mm on the prior CT. There are calcified paty fissural nodules along the horizontal fissure (images 66 and 72 of series 6) are unchanged. The olivier d 3 mm nodule in the apical segment of the right upper lobe (image 23 of series 6) and the peripheral peribronchial nodular opacities in the posterolateral aspect of the right upper lobe (image 49 of se niurka 6) are new. There is no consolidation, ground-glass opacification or pleural effusion. HILAR AND MEDIASTINAL STRUCTURES: No adenopathy or mass. HEART AND VASCULAR STRUCTURES: No cardiomegaly or pericardial effusion. No thoracic aortic dissectio n. HARDWARE: As above. UPPER ABDOMEN: Refer to the separate report of the CT of the abdomen. THYROID AND OTHER SOFT TISSUES: Surgical clips in the axilla. There is no mass or adenopathy. BONES: No fracture or osseous lesion. OTHER: No other finding. IMPRESSION: 1. Enlarging spiculated nodule in the left lower lobe (image 65 of series 6). The nodul e demonstrated mild FDG uptake on the correlative PET from 06/23/2019. 2. New peripheral peribronchial nodular opacities in the posterolateral aspect of the right upper lo be (image 49 of series 6). The finding is nonspecific and could represent part of an infectious or i nflammatory process. Attention on follow-up CTs is recommended. 3. Other secondary findings as detailed above. TECHNICAL DOCUMENTATION: JOB ID: [id number] Quality ID # 436: Final reports with documentation of one or more dose reduction techniques (e.g., Au tomated exposure control, adjustment of the mA and/or kV according to patient size, use of iterative reconstruction technique) 2010 [employer]- All Rights Reserved Reading location - IP/workstation name: [email or web address]
== END ==
LOC: RAD 07:57
PROVIDERS: ATTEND Physician Assistant Medical
DX: C82.08 Follicular lymphoma grade I, lymph nodes of multiple sites (principal); N13.30 Unspecified hydronephrosis; E27.8 Other specified disorders of adrenal gland
CPT/HCPCS: 71260; 74177

== ENCOUNTER 2019-08-28 07:53 | Outpatient (CLI) | payer SELFPAY ==
[2019-08-28 08:53] VITALS: BP 116/50
== END 2019-08-28 14:30 | disposition home or self-care (01) ==
LOC: II 07:53 → 5TH 07:58 → II 14:30
PROVIDERS: ATTEND Internal Medicine
DX: Z51.11 Encounter for antineoplastic chemotherapy (principal); C82.08 Follicular lymphoma grade I, lymph nodes of multiple sites
CPT/HCPCS: 96411; 96413; 96415; 96367; 96375; 96417; J9070; J1200; J7050 ×2; J7040; J3490; J9312 ×2; J1100; J1453; J2469; J9370

== ENCOUNTER → 2019-09-04 | Outpatient (CLI) | payer SELFPAY ==
--- NOTE | 2019-09-04 15:18 | RADIOLOGY REPORT (SQ) ---
EXAM DESCRIPTION: VENOUS UNILATERAL UPPER IMAGES COMPLETED DATE/TIME: 09/04/2019 2:51 pm REASON FOR STUDY: FOLLICULAR LYMPHOMA I47.1 SUPRAVENTRICULAR TACHYCARDIA C82.08 FOLLICULAR LYMPHOM A GRADE I, LYMPH NODES OF MULTIPLE COMPARISON: None. TECHNIQUE: Dynamic and static whitaker scale and color images acquired of the right arm venous system. S elected spectral images acquired with additional compression and augmentation maneuvers. The contrala teral subclavian vein and internal jugular vein was not imaged. Images stored on PACS. LIMITATIONS: None. FINDINGS: INTERNAL JUGULAR VEIN: Normal phasicity, compression, augmentation. No visualized echogeni c material on whitaker scale. No defects on color images. Comparison opposite side normal. SUBCLAVIAN VEIN: Normal compression, augmentation. No visualized echogenic material on whitaker scale. No defects on color images. AXILLARY VEIN: Normal compression, augmentation. No visualized echogenic material on whitaker scale. No d efects on color images. BRACHIAL VEIN: Normal compression, augmentation. No visualized echogenic material on whitaker scale. No d efects on color images. BASILIC VEIN: Normal compression, augmentation. No visualized echogenic material on whitaker scale. No de fects on color images. CEPHALIC VEIN: Normal compression, augmentation. No visualized echogenic material on whitaker scale. No d efects on color images. OTHER: No other significant finding. CONTRALATERAL SUBCLAVIAN VEIN AND INTERNAL JUGULAR VEIN: Not imaged. IMPRESSION: NO EVIDENCE DVT OR SVT IN THE RIGHT ARM. TECHNICAL DOCUMENTATION: JOB ID: [id number] 2010 [employer]- All Rights Reserved Reading location - IP/workstation name: [email or web address]
== END ==
LOC: RAD 14:12
PROVIDERS: ATTEND Physician Assistant Medical
DX: I47.1 Supraventricular tachycardia (principal)
CPT/HCPCS: 93971

== ENCOUNTER 2019-09-26 07:59 | Outpatient (CLI) | payer SELFPAY ==
[~2019-09-26 07:59] MED LIST changes: -CYCLOPHOSPHAMIDE IV PRN; -NORMAL SALINE IV PRN; -RITUXIMAB IV PRN; -VINCRISTINE SULFATE 2 MG in SYRINGE, DISPOSABLE, 1 EACH IV PRN
[2019-09-26] MEDS ORDERED: RITUXIMAB IV PRN (08:00)
[2019-09-26] MEDS ORDERED: CYCLOPHOSPHAMIDE IV PRN (08:00)
[2019-09-26] MEDS ORDERED: NORMAL SALINE IV PRN ×2 (08:00)
[2019-09-26] MEDS ORDERED: VINCRISTINE SULFATE 2 MG in SYRINGE, DISPOSABLE, 1 EACH IV PRN (08:00)
[2019-09-26 08:29] VITALS: BP 99/81
== END 2019-09-26 13:30 | disposition home or self-care (01) ==
LOC: 5TH 07:59 → II 07:59
PROVIDERS: ATTEND Internal Medicine Hematology & Oncology
DX: Z51.11 Encounter for antineoplastic chemotherapy (principal); C82.08 Follicular lymphoma grade I, lymph nodes of multiple sites
CPT/HCPCS: 96411; 96413; 96415; 96367; 96375; 96417; J9070; J1200; J7050 ×2; J7040; J3490; J9312 ×2; J1100; J1453; J2469; J9370

== ENCOUNTER 2019-10-17 08:13 | Outpatient (CLI) | payer SELFPAY ==
[~2019-10-17 08:13] MED LIST changes: +CYCLOPHOSPHAMIDE IV PRN; +NORMAL SALINE IV PRN; +RITUXIMAB IV PRN; +VINCRISTINE SULFATE 2 MG in SYRINGE, DISPOSABLE, 1 EACH IV PRN
[2019-10-17 08:44] VITALS: BP 123/67
== END 2019-10-17 14:15 | disposition home or self-care (01) ==
LOC: II 08:13 → 5TH 08:16 → II 14:15
PROVIDERS: ATTEND Internal Medicine Hematology & Oncology
DX: Z51.11 Encounter for antineoplastic chemotherapy (principal); C82.08 Follicular lymphoma grade I, lymph nodes of multiple sites
CPT/HCPCS: 96411; 96413; 96415; 96367; 96375; 96417; J9070; J1200; J7050 ×2; J7040; J3490; J9312 ×2; J1100; J1453; J2469; J9370

== ENCOUNTER → 2019-11-18 | Outpatient (CLI) | payer SELFPAY ==
--- NOTE | 2019-11-19 09:31 | RADIOLOGY REPORT (SQ) ---
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 TECHNIQUE: Blood glucose level was verified. Above dose of FDG was injected intravenously. 2-D seg mented attenuation correction images were obtained from the base of the skull to the midthighs. Nonc ontrast CT images were obtained for attenuation correction and fusion with emission images. CT image s were performed without oral or intravenous contrast and are not sensitive for parenchymal lesions. A series of overlapping emission PET images were obtained. Images reviewed and manipulated at [facility] work station by the radiologist. Images stored on PACS. LIMITATIONS: None. FINDINGS: HEAD AND NECK: No areas of abnormal metabolic activity in the soft tissues of the head and neck. CHEST: There is abnormal uptake in the left lower lobe mass. This soft tissue nodule measures 1.75 c m in size. SUV is 3.4 consistent with neoplasm. No other areas of abnormal uptake ABDOMEN AND PELVIS: No areas of abnormal metabolic activity in the abdomen or pelvis. Expected physi ologic activity is present in the genitourinary system and bowel. PROXIMAL LOWER EXTREMITIES: No areas of abnormal metabolic activity in the soft tissues of the lower extremities. BONES: Mild persistent marrow activity ADDITIONAL CT FINDINGS: Stable calcified gallbladder wall and gallstones. Bilateral emphysematous ch anges. Presumed scarring in the right apex. OTHER: Mild increased uptake in the left paraspinous muscles but activity is just slightly above base line. IMPRESSION: Abnormal PET-CT with increased uptake in the left lower lobe mass. SUV is 3.4 consisten t with neoplasm. Other findings as described. TECHNICAL DOCUMENTATION: JOB ID: [id number] [employer]- All Rights Reserved Reading location - IP/workstation name: [email or web address]
== END ==
LOC: RAD 09:10
PROVIDERS: ATTEND Internal Medicine
DX: C82.08 Follicular lymphoma grade I, lymph nodes of multiple sites (principal); J43.8 Other emphysema; K80.80 Other cholelithiasis without obstruction
CPT/HCPCS: 78815; A9552

== ENCOUNTER → 2019-11-26 | Outpatient (CLI) | payer SELFPAY ==
--- NOTE | 2019-11-27 10:37 | RADIOLOGY REPORT (SQ) ---
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 TECHNIQUE: Multiplanar imaging includes noncontrasted T1, T2, FLAIR, diffusion with ADC map and post gadolinium contrast T1 sequences. Images stored on PACS. CONTRAST TYPE AND DOSE: 10 mL Prohance. RENAL FUNCTION: Not indicated. ACR Type II contrast agent associated with few, if any, unconfounded cases of NSF LIMITATIONS: None. FINDINGS: ANATOMY: No anomalies. Normal vascular flow voids. Pituitary fossa normal. CSF SPACES: Normal in size and contour. No hemorrhage. CEREBRUM: Sulci and gyri normal in size and contour. Normal white matter signal on FLAIR imaging. No evidence of hemorrhage, mass, or extraaxial fluid collection. No abnormal enhancement post contrast. POSTERIOR FOSSA: No signal alteration. No hemorrhage. No edema, masses, or mass effect. Internal aleyda tory canals, cerebellopontine angles, mastoids normal. No enhancing lesions. No abnormal enhancement post contrast. DIFFUSION IMAGING: Negative for acute or subacute infarction. ORBITS: No masses. Globes normal. PARANASAL SINUSES: No fluid levels. Mucosa normal. OTHER: No other significant finding. IMPRESSION: No evidence of metastatic disease. EVIDENCE OF ACUTE STROKE: NO. TECHNICAL DOCUMENTATION: JOB ID: [id number] 2010 [employer]- All Rights Reserved Reading location - IP/workstation name: [email or web address]
== END ==
LOC: RAD 08:40
PROVIDERS: ATTEND Internal Medicine
DX: C82.08 Follicular lymphoma grade I, lymph nodes of multiple sites (principal)
CPT/HCPCS: 70553; A9576

== ENCOUNTER → 2019-12-26 | Outpatient (CLI) | payer MEDICAID ==
--- NOTE | 2019-12-26 12:25 | RADIOLOGY REPORT (SQ) ---
EXAM DESCRIPTION: KNEE LEFT 4 VIEWS IMAGES COMPLETED DATE/TIME: 12/26/2019 11:38 am REASON FOR STUDY: LT KNEE PAIN E16.2 HYPOGLYCEMIA, UNSPECIFIED E55.9 VITAMIN D DEFICIENCY, UNSPECI FIED E78.5 HYPERLIPIDEMIA, UNSPECIFIED COMPARISON: None. NUMBER OF VIEWS: Four views. TECHNIQUE: AP, lateral, and both oblique radiographic images acquired of the left knee. LIMITATIONS: None. FINDINGS: MINERALIZATION: Normal. BONES: No acute fracture or dislocation. No worrisome bone lesions. JOINT: No effusion. SOFT TISSUES: No soft tissue swelling. No radio-opaque foreign body. OTHER: No other significant finding. IMPRESSION: NEGATIVE STUDY OF THE LEFT KNEE. NO RADIOGRAPHIC EVIDENCE OF ACUTE INJURY. TECHNICAL DOCUMENTATION: JOB ID: [id number] 2010 [employer]- All Rights Reserved Reading location - IP/workstation name: [email or web address]
[2019-12-26 12:47] LABS: ANION GAP 10 (5-19); BLOOD UREA NITROGEN 10 mg/dL (7-20); CALCIUM 9.7 mg/dL (8.4-10.2); CARBON DIOXIDE 25 mmol/L (22-30); CHLORIDE 98 mmol/L (98-107); CHOLESTEROL 201.87 mg/dL (0-200); GLUCOSE 82 mg/dL (75-110); POTASSIUM 4.7 mmol/L (3.6-5.0); TRIGLYCERIDES 68 mg/dL (<150); URIC ACID 1.8 mg/dL (2.5-7.5)
[2019-12-26 12:57] LABS: DIRECT LDL 121 mg/dL (<100)
== END ==
LOC: OD 10:49
PROVIDERS: ATTEND Family Medicine Geriatric Medicine
DX: E16.2 Hypoglycemia, unspecified (principal); E55.9 Vitamin D deficiency, unspecified; E78.5 Hyperlipidemia, unspecified; E87.1 Hypo-osmolality and hyponatremia; M25.562 Pain in left knee; Z79.899 Other long term (current) drug therapy
CPT/HCPCS: 36415; 80048; 80061; 84460; 84550

== ENCOUNTER → 2020-02-09 | Outpatient (CLI) | payer MEDICAID ==
--- NOTE | 2020-02-09 16:13 | RADIOLOGY REPORT (SQ) ---
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 Images reviewed with lung, soft tissue and bone windows. Reconstructed coronal and sagittal MPR and MIP images reviewed. All images stored on PACS. All CT scanners at this facility use dose modulation, iterative reconstruction, and/or weight based d osing when appropriate to reduce radiation dose to as low as reasonably achievable (ALARA). [facility]: Dose Right [facility]: CareDose [facility]: Dose Right [facility]: Teradose 4D [facility]: [employer] CONTRAST TYPE AND DOSE: contrast/concentration: Isovue 350.00 mmol/ml; Total Contrast Delivered: 80. 0 ml; Total Saline Delivered: 51.0 ml RENAL FUNCTION: Creatinine 0.5 RADIATION DOSE: CT Rad equipment meets quality standard of care and radiation dose reduction techniq ues were employed. CTDIvol: 3.5 mGy. DLP: 157 mGy-cm. . LIMITATIONS: None. FINDINGS: LUNGS AND PLEURA: Extensive centrilobular emphysema. Left lower lobe pulmonary nodule is larger and now measures 20.3 x 16.3 mm. Centrally calcified perifissural nodule in the right upper l obe is stable. There is a 15 mm area of ground-glass opacification in the right middle lobe. Small nodule on the right on image 71 is stable. HILAR AND MEDIASTINAL STRUCTURES: No identified masses or abnormal nodes. HEART AND VASCULAR STRUCTURES: No aneurysm or dissection. No central pulmonary emboli. No pericardi al effusion. HARDWARE: None in the chest. UPPER ABDOMEN: Calcified gallbladder wall. THYROID AND OTHER SOFT TISSUES: No masses. No adenopathy. BONES: No significant finding. OTHER: No other significant finding. IMPRESSION: 1. The left lobe lower lobe pulmonary nodule is larger than on the study from August. 2. A couple small nodules on the right are stable. 3. There is a 15 mm area of ground-glass opacification in the right middle lobe that is new. This i s nonspecific. Could be infectious/ inflammatory. 4. Porcelain gallbladder. TECHNICAL DOCUMENTATION: JOB ID: [id number] Quality ID # [id number]: Final reports with documentation of one or more dose reduction techniques (e.g., Au tomated exposure control, adjustment of the mA and/or kV according to patient size, use of iterative reconstruction technique) 2010 [employer]- All Rights Reserved Reading location - IP/workstation name: [email or web address]
== END ==
LOC: RAD 14:25
PROVIDERS: ATTEND Physician Assistant Medical
DX: R07.9 Chest pain, unspecified (principal); C34.32 Malignant neoplasm of lower lobe, left bronchus or lung
CPT/HCPCS: 71260; 82565

== ENCOUNTER 2020-02-25 12:29 | Inpatient (IN) | payer MEDICAID ==
--- NOTE | 2020-02-25 12:58 | ER Document Report ---
ED Medical Screen (RME) - General Chief Complaint: Knee Pain Stated Complaint: LEFT KNEE PAIN Time Seen by Provider: 02/25/20 12:42 Primary Care Provider: RICARDO TORRES MD [Primary Care Provider] - Follow up as needed TRAVEL OUTSIDE OF THE [place] IN LAST 30 DAYS: No - HPI Notes: Patient is a 64-year-old female with a history of lymphoma who presents for left knee pain that began 2-1/2 months ago. Patient states her pain began in the hospital after she had a lung biopsy done. She states her knee pain has been worsening and endorses swelling to the knee. She is currently seeing Dr. Figueroa, orthopedist, who ordered an MRI which she had done yesterday. Patient states she called him today concerning the pain and he told her to come to the ED. She states she took a 10 mg oxycodone this morning which is prescribed by her oncologist, but continues to have severe pain. - Related Data Allergies/Adverse Reactions: morphine Allergy (Verified 02/25/20 12:54) shellfish derived Allergy (Verified 02/25/20 12:54) Home Medications: oxycodone Past Medical History - Social History Chew tobacco use (# tins/day): No Frequency of alcohol use: None Drug Abuse: None - Past Medical History Cardiac Medical History: Reports: Hx Coronary Artery Disease, Hx Heart Attack Pulmonary Medical History: Reports: Hx COPD Past Surgical History: Reports: Hx Orthopedic Surgery - L5-S1 discectomy, Other - Breast biopsies, multiple always negative for malignant disease. Physical Exam - Vital signs Vitals: Temp Pulse Resp BP Pulse Ox 99.1 F 107 H 18 103/72 95 02/25/20 12:37 02/25/20 12:37 02/25/20 12:37 02/25/20 12:37 02/25/20 12:37 - Cardiovascular Pulses: Normal: Posterior tibial, Dorsalis pedis - Extremities Knee: Tender, Other - edema Course - Re-evaluation Re-evalutation: I have greeted and performed a rapid initial assessment of this patient. A comprehensive ED assessment and evaluation of the patient, analysis of test results and completion of medical decision making process will be conducted by an additional ED providers. - Vital Signs Vital signs: Temp Pulse Resp BP Pulse Ox 99.1 F 107 H 18 103/72 95 02/25/20 12:37 02/25/20 12:37 02/25/20 12:37 02/25/20 12:37 02/25/20 12:37 Doctor's Discharge - Discharge Referrals: RICARDO TORRES MD [Primary Care Provider] - Follow up as needed
--- NOTE | 2020-02-25 13:43 | RADIOLOGY REPORT (SQ) ---
EXAM DESCRIPTION: KNEE LEFT 2 VIEWS IMAGES COMPLETED DATE/TIME: 02/25/2020 1:19 pm REASON FOR STUDY: knee pain COMPARISON: AP, oblique and lateral views of the left knee from 12/26/2019 NUMBER OF VIEWS: Two views. TECHNIQUE: AP and lateral radiographic images acquired of the left knee. LIMITATIONS: None. FINDINGS: MINERALIZATION: Decreased. BONES: No fracture or dislocation. JOINT: There is a joint effusion. SOFT TISSUES: No prepatellar soft tissue swellings. OTHER: No other findings. IMPRESSION: Joint effusion without an associated acute osseous abnormality. If there is concern for internal derangement consider correlation with a MRI. TECHNICAL DOCUMENTATION: JOB ID: [id number] 2010 [employer]- All Rights Reserved Reading location - IP/workstation name: [email or web address]
[2020-02-25] MEDS ORDERED: HYDROMORPHONE HCL INJ/PF 2 MG/ML AMPULE IV ONE ×2 (14:09→18:00)
[2020-02-25] MEDS ORDERED: ONDANSETRON HCL INJ/PF 4 MG/2 ML SDV IV ONE (14:11)
[2020-02-25] MEDS ORDERED: OXYCODONE HCL IR 5 MG TABLET PO ONE (14:24)
--- NOTE | 2020-02-25 14:30 | ER Document Report ---
ED General - General Chief Complaint: Knee Pain Stated Complaint: LEFT KNEE PAIN Time Seen by Provider: 02/25/20 12:42 Primary Care Provider: RICARDO TORRES MD [Primary Care Provider] - Follow up as needed TRAVEL OUTSIDE OF THE [place] 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 Evidently this is been ongoing since November. She had an MRI performed yesterday, was told to return to the ED today for possi ble admission. The patient has been trying her oxycodone at home, she states she is sure its helping some, but the pain is still unbearable. No fevers or chills. She is also had some chest pain that has been ongoing for the last several months, her primary care provider as well as oncologist are familiar with this complaint. - Related Data Allergies/Adverse Reactions: morphine Allergy (Verified 02/25/20 12:54) shellfish derived Allergy (Verified 02/25/20 12:54) Home Medications: oxycodone, aspirin, tizanidine, Neurontin, bupropion, oxcarbazepine Past Medical History - General Information source: Patient - Social History Smoking Status: Former Smoker Chew tobacco use (# tins/day): No Frequency of alcohol use: None Drug Abuse: None Family History: Reviewed & Not Pertinent, Arthritis, Hypertension, Thyroid Dis function - Past Medical History Cardiac Medical History: Reports: Hx Coronary Artery Disease, Hx Heart Attack, Hx Hypertension Pulmonary Medical History: Reports: Hx COPD Malignancy Medical History: Reports: Hx Lung Cancer - Squamous cell, Hx Lymphoma - Follicular Past Surgical History: Reports: Hx Orthopedic Surgery - L5-S1 discectomy, Other - Breast biopsies, multiple always negative for malignant disease. Review of Systems - Review of Systems Constitutional: No symptoms reported EENT: No symptoms reported Cardiovascular: See HPI Respiratory: No symptoms reported Gastrointestinal: No symptoms reported Genitourinary: No symptoms reported Musculoskeletal: See HPI Skin: No symptoms reported Neurological/Psychological: No symptoms reported Physical Exam - Vital signs Vitals: Temp Pulse Resp BP Pulse Ox 99.1 F 107 H 18 103/72 95 02/25/20 12:37 02/25/20 12:37 02/25/20 12:37 02/25/20 12:37 12/02/20 12:37 - Notes Notes: This is a 64-year-old female who appears her stated age in a moderate amount of distress. She is visibly uncomfortable, holds her left leg in an extended pos ition, intermittently winces in pain without any sort of interference with the extremity. Vital signs reviewed, please refer to chart. Head is normocephalic, atraumatic. Pupils equal round, reactive to light. Neck is supple without meningismus. Heart is regular rate and rhythm. Lungs reveal mildly diminished breath sounds but no wheezes, rales, rhonchi. Abdomen is soft, nontender, normoactive bowel sounds throughout. Extremities without cyanosis, clubbing. Posterior calves are nontender. Peripheral pulses are equal. Skin is warm and dry. Examination of the left knee yields a significant amount of edema and swelling, there does appear to be an effusion, but also firm and significant tenderness noted over the anterior joint. Mild calor, no rubor associated. Neurovascularly intact distally. Course - Re-evaluation Re-evalutation: 02/25/20 14:32 Patient presents to the emergency department for evaluation. My colleague had been notified by Dr. Hillman of this patient and her condition. Patient had an MRI performed, the report reads "infiltrating mass centered along the medial distal femoral metaphysis measures 6.3 x 6.1 x 7.3 cm. There is cortical destruction. Cortical offset along the medial metaphysis likely relates to cortical destruction/pathologic fracturing." Patient had basic blood work ordered. She was notified of these findings. I ordered Dilaudid to help with acute pain, my hope is that her regular oxycodone when administered will help more long-term. As per Dr. Hillman's request, CT of the chest, abdomen, pelvis ordered. Patient is currently stable. We will continue to monitor. 02/25/20 16:48 Patient's laboratory investigation showed a mild hyponatremia and anemia, but nothing remarkable compared to prior labs. Patient's pain is improved. I spoke with Dr. Hillman, who will speak with orthopedics in regards to management. I spoke with Dr. Perrin and Radha Alicea, [place], and the patient will be admitted for further care. - Vital Signs Vital signs: Temp Pulse Resp BP Pulse Ox 99.1 F 107 H 16 107/63 93 12/02/20 12:37 02/25/20 12:37 02/25/20 16:01 02/25/20 16:01 02/25/20 16:01 - Laboratory Result Diagrams: 02/25/20 14:20 02/25/20 14:20 Laboratory results interpreted by me: 02/25/20 02/25/20 14:20 14:20 RBC 2.88 L Hgb 9.5 L Hct 27.2 L RDW 16.0 H Seg Neuts % (Manual) 82 H Lymphocytes % (Manual) 4 L Metamyelocytes % 2 H Abs Lymphs (Manual) 0.3 L Sodium 130.8 L Chloride 93 L Total Bilirubin 2.0 H - Diagnostic Test Radiology reviewed: Reports reviewed Discharge - Discharge Clinical Impression: Metastatic cancer to bone, Hyponatremia, Anemia Condition: Stable Disposition: ADMITTED INPATIENT Admitting Provider: Aydin (Hospitalist) - Walter Alicea NP Unit Admitted: Medical Floor Referrals: RICARDO TORRES MD [Primary Care Provider] - Follow up as needed
[2020-02-25 14:37] LABS: HEMATOCRIT 27.2 % (36.0-47.0); HEMOGLOBIN 9.5 g/dL (12.0-15.5); MEAN CORPUSCULAR HEMOGLOBIN 32.9 pg (27.0-33.4); MEAN CORPUSCULAR HGB CONC 34.9 g/dL (32.0-36.0); MEAN CORPUSCULAR VOLUME 94 fl (80-97); PLATELET COUNT 411 10^3/uL (150-450); RED BLOOD COUNT 2.88 10^6/uL (3.72-5.28); WHITE BLOOD COUNT 7.1 10^3/uL (4.0-10.5)
[2020-02-25 14:54] LABS: ALBUMIN 3.8 g/dL (3.5-5.0); ALKALINE PHOSPHATASE 114 U/L (38-126); ANION GAP 9 (5-19); ASPARTATE AMINO TRANSFERASE 29 U/L (14-36); BILIRUBIN,DIRECT 0.2 mg/dL (0.0-0.4); BLOOD UREA NITROGEN 9 mg/dL (7-20); CALCIUM 9.7 mg/dL (8.4-10.2); CARBON DIOXIDE 29 mmol/L (22-30); CHLORIDE 93 mmol/L (98-107); GLUCOSE 92 mg/dL (75-110); POTASSIUM 3.6 mmol/L (3.6-5.0); TOTAL PROTEIN 6.3 g/dL (6.3-8.2)
[2020-02-25 14:57] LABS: ABSOLUTE LYMPHOCYTES# (MANUAL) 0.3 10^3/uL (0.5-4.7); ABSOLUTE MONOCYTES # (MANUAL) 0.8 10^3/uL (0.1-1.4); BASOPHILS % (MANUAL) 0 % (0-2); EOSINOPHILS % (MANUAL) 1 % (0-6); LYMPHOCYTES % (MANUAL) 4 % (13-45); METAMYELOCYTES % (MANUAL) 2 % (0-1); MONOCYTES % (MANUAL) 11 % (3-13); SEGMENTED NEUTROPHILS % (MAN) 82 % (42-78); TOTAL CELLS COUNTED 100
[2020-02-25 14:58] LABS: ANISOCYTOSIS 1+; OVALOCYTES 1+; PLATELET CLUMPS PRESENT; PLATELET COMMENT ADEQUATE; POIKILOCYTOSIS 1+; POLYCHROMASIA 1+
[2020-02-25] MEDS ORDERED: NORMAL SALINE 500 ML IV ONE (15:13)
--- NOTE | 2020-02-25 16:02 | RADIOLOGY REPORT (SQ) ---
EXAM DESCRIPTION: CT CHEST WITH IMAGES COMPLETED DATE/TIME: 02/25/2020 3:36 pm REASON FOR STUDY: cancer COMPARISON: CT of the chest from 02/09/2020 TECHNIQUE: CT scan of the chest performed using helical scanning technique with dynamic intravenous contrast injection. Images reviewed with lung, soft tissue and bone windows. Reconstructed coronal and sagittal MPR and MIP images reviewed. All images stored on PACS. All CT scanners at this facility use dose modulation, iterative reconstruction, and/or weight based d osing when appropriate to reduce radiation dose to as low as reasonably achievable (ALARA). [facility]: Dose Right [facility]: CareDose [facility]: Dose Right [facility]: Teradose 4D [facility]: [employer] CONTRAST TYPE AND DOSE: Contrast/concentration: Isovue 350.00 mmol/ml; Total Contrast Delivered: 80. 0 ml; Total Saline Delivered: 37.8 ml RENAL FUNCTION: GFR > 60. RADIATION DOSE: CT Rad equipment meets quality standard of care and radiation dose reduction techniq ues were employed. CTDIvol: 5.1 - 8.0 mGy. DLP: 844 mGy-cm. LIMITATIONS: None. FINDINGS: LUNGS AND PLEURA: Unchanged moderate to severe upper lobe predominant centrilobular emphys maribell and biapical pleural and parenchymal thickening. There is a solid nodule in the superior segment of the left lower lobe surrounded by a fiducial markers that measures 17 x 13 mm (image 29 of series 4) ; the nodule has decreased in size compared to the CT from 02/09/2020. The sub solid nodule in t he right middle lobe (image 36 of series 4) has in turn increased in size and it measures 2.5 x 1.8 c m compared to 1.5 x 1 cm. The calcified nodule in the right upper lobe that abuts the horizontal fis sure (image 28 of series 4) is unchanged. There are several new bilateral pulmonary nodules and nodu lar opacities; for reference these include the pulmonary nodules in the right middle lobe on image 42 of series 4, the nodular opacities in the right upper lobe (image 12 of series 4), and the nodular o pacities in the left upper lobe (image 25 of series 4). There is no pleural effusion or pneumothorax . HILAR AND MEDIASTINAL STRUCTURES: Calcified nonenlarged right hilar lymph nodes. There is no mediast inal adenopathy or mass. HEART AND VASCULAR STRUCTURES: No aneurysm or dissection of the thoracic aorta. No cardiomegaly or p ericardial effusion. HARDWARE: Surgical clips in the axillae consistent with prior lymphadenectomy. UPPER ABDOMEN: Refer to the separate report of the CT of the abdomen. THYROID AND OTHER SOFT TISSUES: No mass or adenopathy. BONES: No fracture or osseous lesion. OTHER: No other findings. IMPRESSION: Since the CT from 02/09/2020, the solid nodule in the superior segment of the left lower lobe that is surrounded by fiducial markers has decreased in size, the sub solid nodule in the right middle lobe (image 36 of series 4) has increased in size and the patient has developed several new b ilateral pulmonary nodule and nodular opacities. These findings are concerning for progression of di sease. TECHNICAL DOCUMENTATION: JOB ID: [id number] Quality ID # [id number]: Final reports with documentation of one or more dose reduction techniques (e.g., Au tomated exposure control, adjustment of the mA and/or kV according to patient size, use of iterative reconstruction technique) 2010 [employer]- All Rights Reserved Reading location - IP/workstation name: [email or web address]
--- NOTE | 2020-02-25 16:12 | RADIOLOGY REPORT (SQ) ---
EXAM DESCRIPTION: CT ABD/PELVIS WITH IV ONLY IMAGES COMPLETED DATE/TIME: 02/25/2020 3:36 pm REASON FOR STUDY: cancer COMPARISON: PET from 11/18/[address] of the abdomen from 08/25/2019. TECHNIQUE: CT scan of the abdomen and pelvis performed using helical scanning technique with dynamic intravenous contrast injection. No oral contrast. Images reviewed with lung, soft tissue, and bone windows. Reconstructed coronal and sagittal MPR images reviewed. Delayed images for evaluation of the urinary system also acquired. All images stored on PACS. All CT scanners at this facility use dose modulation, iterative reconstruction, and/or weight based d osing when appropriate to reduce radiation dose to as low as reasonably achievable (ALARA). [facility]: Dose Right [facility]: CareDose [facility]: Dose Right [facility]: Teradose 4D [facility]: [employer] CONTRAST TYPE AND DOSE: 80 mL Omnipaque 350- low osmolar. RENAL FUNCTION: GFR > 60. LIMITATIONS: None. FINDINGS: LOWER CHEST: Refer to the separate report of the CT of the chest. LIVER: The morphology of the liver is noncirrhotic. The portal veins are patent. There is no hepati c mass. SPLEEN: No splenomegaly or splenic mass. PANCREAS: No acute gross abnormality of the pancreas. GALLBLADDER: Unchanged appearance of the gallbladder. ADRENAL GLANDS: The 13 x 10 mm nodule in the left adrenal gland has an internal attenuation of less t breen 10 Hounsfield units (based on the PET from 11/18/2019) and likely represents a lipid rich adenoma. RIGHT KIDNEY AND URETER: No solid mass, hydronephrosis, nephrolithiasis, hydroureter or ureterolithia sis. LEFT KIDNEY AND URETER: No solid mass, hydronephrosis, nephrolithiasis, hydroureter or ureterolithias is. AORTA AND VESSELS: Atherosclerotic calcification of the abdominal aorta. RETROPERITONEUM: No retroperitoneal adenopathy, hemorrhage or mass. BOWEL AND PERITONEAL CAVITY: Since the prior PET the patient has developed diffuse nodular stranding of the mesenteric fat and omental, and thickening of the peritoneal reflections, and a trace amount o f fluid in the pelvis. There is no bowel obstruction, bowel wall thickening or pericolonic/perienter ic inflammation. There is no free intraperitoneal gas. APPENDIX: Unable to identify the appendix. PELVIS: Calcified uterine fibroid. The urinary bladder is partially distended. ABDOMINAL WALL: No abdominal wall mass or hernia. BONES: The sclerosis in the kenan is unchanged (refer to image 107 of series 3). OTHER: No other significant finding. IMPRESSION: New nodular stranding of the mesenteric fat and omentum concerning for carcinomatosis. TECHNICAL DOCUMENTATION: JOB ID: [id number] Quality ID # [id number]: Final reports with documentation of one or more dose reduction techniques (e.g., Au tomated exposure control, adjustment of the mA and/or kV according to patient size, use of iterative reconstruction technique) 2010 [employer]- All Rights Reserved Reading location - IP/workstation name: [email or web address]-
[2020-02-25] MEDS ORDERED: HYDROMORPHONE HCL INJ/PF 2 MG/ML AMPULE IV PRN (17:38)
[2020-02-25] MEDS ORDERED: ALBUTEROL SULFATE 0.083% NEB 2.5 MG/3 ML AMPUL NEB PRN (17:39)
[2020-02-25] MEDS ORDERED: PROMETHAZINE HCL INJ 25 MG/1 ML VIAL IV PRN (17:39)
[2020-02-25] MEDS ORDERED: ACETAMINOPHEN 325 MG TABLET PO PRN (17:39)
[2020-02-25] MEDS ORDERED: MAG HYDROX/AL HYDROX/SIMETH SUSP 30 ML UDCUP PO PRN (17:39)
[2020-02-25] MEDS ORDERED: OXYCODONE HCL IR 5 MG TABLET PO SCH (18:00)
--- NOTE | 2020-02-25 18:06 | PDOC H&P ---
History of Present Illness Admission Date/PCP: 02/25/20 17:24 RICARDO TORRES MD Patient complains of: left knee pain History of Present Illness: LUPILLO DE LA ROSA is a 64 year old female with a past medical history significant for follicular lymphoma and squamous cell carcinoma of the lung status post chemotherapy treatment and followed by Dr. Hillman, [place], [place], hypertension, COPD, chronic back pain, and opiate dependence who presented to the emergency department at the recommendation of her orthopedic provider following results of MRI imaging showing likely metastatic infiltration of the distal femoral metaphysis. Laboratory evaluation revealed fever 99.1, tachycardia (HR 107), and otherwise stable vital signs. Laboratory evaluation shows baseline anemia with hemoglobin 9.5 and mild hyponatremia of 130.8. ED provider spoke with the patient's oncologist, Dr. Hillman, who recommended admission and orthopedic evaluation. She is referred to the hospital service for further evaluation management of the above-stated complaints findings. Past Medical History Cardiac Medical History: Reports: Coronary Artery Disease, Myocardial Infarction, Hypertension Denies: Congestive Heart Failure Pulmonary Medical History: Reports: Chronic Obstructive Pulmonary Disease (COPD) EENT Medical History: Reports: None Neurological Medical History: Reports: None Endocrine Medical History: Reports: None Renal/ Medical History: Reports: None Malignancy Medical History: Reports: Lung Cancer - Squamous cell, Lymphoma - Follicular GI Medical History: Reports: None Musculoskeltal Medical History: Reports: Arthritis Skin Medical History: Reports: None Psychiatric Medical History: Reports: Depression Traumatic Medical History: Reports: None Hematology: Reports: Anemia Infectious Medical History: Reports: None Past Surgical History Past Surgical History: Reports: Orthopedic Surgery - L5-S1 discectomy, Other - Breast biopsies, multiple always negative for malignant disease. Social History Information Source: Patient, [facility] Records Lives with: Family Smoking Status: Former Smoker Electronic Cigarette use?: No Frequency of Alcohol Use: None Hx Recreational Drug Use: No Drugs: None Hx Prescription Drug Abuse: No - Advance Directive Resuscitation Status: Full Code Family History Family History: Reviewed & Not Pertinent, Arthritis, Hypertension, Thyroid Disfunction Parental Family History Reviewed: Yes Children Family History Reviewed: Yes Sibling(s) Family History Reviewed.: Yes Medication/Allergy Home Medications: Aspirin [Ecotrin 81 mg EC Tablet] 81 mg PO DAILY 05/16/19 Cyanocobalamin (Vitamin B-12) [Vitamin B-12 1000 mcg Tablet] 1 tab PO DAILY 05/16/19 Oxcarbazepine 150 mg PO Q12 05/16/19 Bupropion HCl [Bupropion Xl] 150 mg PO DAILY 30 Days #30 06/13/19 Allopurinol [Zyloprim 300 mg Tablet] 300 mg PO DAILY 06/29/19 Docusate Sodium [Colace 100 mg Capsule] 100 mg PO DAILYP PRN 06/29/19 Ergocalciferol (Vitamin D2) [Vitamin D2] 50 mcg PO MCKAY@1000 06/29/19 Fexofenadine HCl [Jael Allergy] 180 mg PO DAILY 06/29/19 Naproxen Sodium [Aleve] 220 mg PO DAILYP PRN 06/29/19 Ondansetron HCl [Zofran 8 mg Tablet] 8 mg PO Q8HP PRN 06/29/19 Oxycodone HCl [Oxy-Ir 5 mg Tablet] 10 mg PO Q6HP PRN 06/29/19 Promethazine HCl [Phenergan 25 mg Tablet] 25 mg PO Q6HP PRN 06/29/19 Albuterol Sulfate [Ventolin 0.042% Neb 1.25 mg/3 mL Ampul] 1 vial NEB Q4HP PRN #120 07/03/19 Amoxicillin/Potassium Clav [Augmentin 875-125 Tablet] 1 tab PO Q12 #10 tablet 07/03/19 Allergies/Adverse Reactions: morphine Allergy (Verified 02/25/20 12:54) shellfish derived Allergy (Verified 02/25/20 12:54) Review of Systems Constitutional: ABSENT: chills, fever(s), headache(s), weight gain, weight loss Eyes: ABSENT: visual disturbances Ears: ABSENT: hearing changes Cardiovascular: ABSENT: chest pain, dyspnea on exertion, edema, orthropnea, palpitations Respiratory: ABSENT: cough, hemoptysis Gastrointestinal: ABSENT: abdominal pain, constipation, diarrhea, hematemesis, hematochezia, nausea, vomiting Genitourinary: ABSENT: dysuria, hematuria Musculoskeletal: PRESENT: as per HPI, joint swelling Integumentary: ABSENT: rash, wounds Neurological: ABSENT: abnormal gait, abnormal speech, confusion, dizziness, focal weakness, syncope Psychiatric: ABSENT: anxiety, depression, homidical ideation, suicidal ideation Endocrine: ABSENT: cold intolerance, heat intolerance, polydipsia, polyuria Hematologic/Lymphatic: ABSENT: easy bleeding, easy bruising Physical Exam Vital Signs: Temp Pulse Resp BP Pulse Ox 99.1 F 107 H 16 107/63 93 02/25/20 12:37 02/25/20 12:37 02/25/20 16:01 02/25/20 16:01 02/25/20 16:01 Intake & Output 02/24/20 02/25/20 02/26/20 06:59 06:59 06:59 Weight 59.9 kg General appearance: PRESENT: no acute distress, cooperative, well-developed, well-nourished Head exam: PRESENT: atraumatic, normocephalic Eye exam: PRESENT: conjunctiva pink, EOMI, PERRLA. ABSENT: scleral icterus Mouth exam: PRESENT: moist, tongue midline Neck exam: ABSENT: carotid bruit, JVD, lymphadenopathy, thyromegaly Respiratory exam: PRESENT: clear to auscultation clare, symmetrical, unlabored, other - room air. ABSENT: rales, rhonchi, wheezes Cardiovascular exam: PRESENT: RRR, +S1, +S2. ABSENT: diastolic murmur, rubs, systolic murmur Pulses: PRESENT: normal dorsalis pedis pul Vascular exam: PRESENT: normal capillary refill GI/Abdominal exam: PRESENT: normal bowel sounds, soft. ABSENT: distended, guarding, mass, organolmegaly, rebound, tenderness Rectal exam: PRESENT: deferred Extremities exam: PRESENT: joint swelling - Left knee, tenderness - left knee. ABSENT: calf tenderness, clubbing, full ROM, pedal edema Neurological exam: PRESENT: alert, awake, oriented to person, oriented to place, oriented to time, oriented to situation, CN II-XII grossly intact. ABSENT: motor sensory deficit Psychiatric exam: PRESENT: agitated, appropriate affect, normal mood. ABSENT: homicidal ideation, suicidal ideation Skin exam: PRESENT: dry, intact, warm. ABSENT: cyanosis, rash Results Laboratory Results: 02/25/20 14:20 02/25/20 14:20 02/25/20 02/25/20 14:20 14:20 WBC 7.1 RBC 2.88 L Hgb 9.5 L Hct 27.2 L MCV 94 MCH 32.9 MCHC 34.9 RDW 16.0 H Plt Count 411 Seg Neutrophils % Not Reportable Sodium 130.8 L Potassium 3.6 Chloride 93 L Carbon Dioxide 29 Anion Gap 9 BUN 9 Creatinine 0.56 Est GFR ( Amer) > 60 Glucose 92 Calcium 9.7 Total Bilirubin 2.0 H AST 29 Alkaline Phosphatase 114 Total Protein 6.3 Albumin 3.8 Impressions: Knee X-Ray 02/25/20 12:54 IMPRESSION: Joint effusion without an associated acute osseous abnormality. If there is concern for internal derangement consider correlation with a MRI. Abdomen/Pelvis CT 02/25/20 13:57 IMPRESSION: New nodular stranding of the mesenteric fat and omentum concerning for carcinomatosis. Chest CT 02/25/20 13:57 IMPRESSION: Since the CT from 02/09/2020, the solid nodule in the superior segment of the left lower lobe that is surrounded by fiducial markers has decreased in size, the sub solid nodule in the right middle lobe (image 36 of series 4) has increased in size and the patient has developed several new bilateral pulmonary nodule and nodular opacities. These findings are concerning for progression of disease. Assessment and Plan - Diagnosis (1) Metastatic cancer to bone Is this a current diagnosis for this admission?: Yes Plan: Outpatient MRI showed likely invasion of metastatic disease to the distal femoral metaphysis. Patient presents in intractable pain. She is established with Dr. Hillman. She is admitted to the medical floor. We will continue her home dose oxycodone and provide as needed Dilaudid for breakthrough pain. Oncology is consulted. Possible orthopedic consult. Nonweightbearing to left extremity at this time. Fall precautions. (2) Intractable pain Is this a current diagnosis for this admission?: Yes Plan: Secondary to #1 Management as above. (3) Anemia Qualifiers: Is this a current diagnosis for this admission?: Yes Plan: Likely anemia of chronic disease. Hemoglobin at baseline. We will check anemia panel with a.m. lab work. Hematology/oncology consulted. Follow-up CBC. (4) Hyponatremia Is this a current diagnosis for this admission?: Yes Plan: Mild hyponatremia; 130.8. Looks like the patient has chronic mild hyponatremia with an average of 132. We will liberalize dietary sodium. Restrict free water. Follow-up chemistry. - Time Time Spent with patient: 35 or more minutes Medications reviewed and adjusted accordingly: Yes Anticipated Discharge Disposition: Home with Home Health Anticipated Discharge Timeframe: within 48 hours
[2020-02-25] MEDS ORDERED: OXYCODONE HCL IR 5 MG TABLET PO PRN (18:21)
[2020-02-25] MEDS: ENOXAPARIN SODIUM INJ 40 MG/0.4 ML DISP.SYRIN SUBCUT SCH (18:52)
[2020-02-25] MEDS ORDERED: FENTANYL 25 MCG/HR PATCH.TD72 TD ONE ×2 (19:00→22:15)
[2020-02-26] MEDS: HYDROMORPHONE HCL INJ/PF 2 MG/ML AMPULE IV PRN ×6 (03:35→20:23)
[2020-02-26 06:08] LABS: ALBUMIN 3.4 g/dL (3.5-5.0); ALKALINE PHOSPHATASE 94 U/L (38-126); ANION GAP 8 (5-19); ASPARTATE AMINO TRANSFERASE 24 U/L (14-36); BILIRUBIN,DIRECT 0.1 mg/dL (0.0-0.4); BILIRUBIN,TOTAL 1.3 mg/dL (0.2-1.3); BLOOD UREA NITROGEN 8 mg/dL (7-20); CALCIUM 9.5 mg/dL (8.4-10.2); CARBON DIOXIDE 28 mmol/L (22-30); CHLORIDE 97 mmol/L (98-107); GLUCOSE 88 mg/dL (75-110); IRON(TIBC) 29.2 ug/dL (37-170); PHOSPHORUS 5.2 mg/dL (2.5-4.5); POTASSIUM 4.1 mmol/L (3.6-5.0); TOTAL PROTEIN 5.7 g/dL (6.3-8.2)
[2020-02-26 06:48] LABS: ABSOLUTE RETICS # 0.097 10^6/uL (0.028-0.122); RETICULOCYTE COUNT (AUTO) 3.17 % (0.66-2.85)
[2020-02-26 07:08] LABS: HEMOGLOBIN 9.3 g/dL (12.0-15.5); MEAN CORPUSCULAR HEMOGLOBIN 34.4 pg (27.0-33.4); MEAN CORPUSCULAR HGB CONC 35.6 g/dL (32.0-36.0); PLATELET COUNT 372 10^3/uL (150-450); RED BLOOD COUNT 2.69 10^6/uL (3.72-5.28); RED CELL DISTRIBUTION WIDTH 16.2 % (11.5-14.0); WHITE BLOOD COUNT 5.5 10^3/uL (4.0-10.5)
[2020-02-26 07:09] LABS: MEAN CORPUSCULAR VOLUME 97 fl (80-97)
[2020-02-26 07:14] LABS: FOLATE 6.23 ng/mL (>2.76)
--- NOTE | 2020-02-26 07:29 | PDOC CONSULTATION ---
Consultation Consult Date: 02/26/20 Provider Consulted: CALVIN OCAMPO Consult reason:: Left distal femoral marrow replacement process, presumed metastasis History of Present Illness Admission Date/PCP: 02/25/20 17:24 RICARDO TORRES MD History of Present Illness: LUPILLO DE LA ROSA is a 64 year old female The patient is a 64-year-old white female with a past medical history significant for concurrent lymphoma and squamous cell carcinoma of the lung. She presented with left lower extremity pain and difficulty weightbearing beginning in November and progressive until currently. Evaluation included radiographs and MRI scan. The MRI scan demonstrated a marrow replacement process in the medial femoral condyle and x-ray suggested a cortical disruption consistent with a nondisplaced fracture. The patient was admitted and orthopedics is consulted for management of the left lower extremity mechanical problem as well as obtaining tissue to identify the underlying neoplastic process. Past Medical History Cardiac Medical History: Reports: Coronary Artery Disease, Myocardial Infarction, Hypertension Denies: Congestive Heart Failure Pulmonary Medical History: Reports: Chronic Obstructive Pulmonary Disease (COPD), Pneumonia EENT Medical History: Reports: None Neurological Medical History: Reports: None Endocrine Medical History: Reports: None Renal/ Medical History: Reports: None Malignancy Medical History: Reports: Lung Cancer - Squamous cell, Lymphoma - Follicular GI Medical History: Reports: None Musculoskeltal Medical History: Reports: Arthritis Skin Medical History: Reports: None Psychiatric Medical History: Reports: Depression Traumatic Medical History: Reports: None Hematology: Reports: Anemia Infectious Medical History: Reports: None Past Surgical History Past Surgical History: Reports: Orthopedic Surgery - L5-S1 discectomy, Other - Breast biopsies, multiple always negative for malignant disease. Social History Information Source: Patient, [facility] Records Lives with: Family Smoking Status: Former Smoker Electronic Cigarette use?: No Frequency of Alcohol Use: None Hx Recreational Drug Use: No Drugs: None Hx Prescription Drug Abuse: No - Advance Directive Resuscitation Status: Full Code Family History Family History: Reviewed & Not Pertinent, Arthritis, Hypertension, Thyroid Disfunction Parental Family History Reviewed: No Children Family History Reviewed: No Sibling(s) Family History Reviewed.: No - Related Medication/Allergy Home Medications: Aspirin [Ecotrin 81 mg EC Tablet] 81 mg PO DAILY 05/16/19 Cyanocobalamin (Vitamin B-12) [Vitamin B-12 1000 mcg Tablet] 1 tab PO DAILY 05/16/19 Oxcarbazepine 300 mg PO Q12 05/16/19 Ergocalciferol (Vitamin D2) [Vitamin D2] 50 mcg PO MCKAY@1000 06/29/19 Oxycodone HCl [Oxy-Ir 5 mg Tablet] 10 mg PO Q6HP PRN 06/29/19 Albuterol Sulfate [Ventolin 0.042% Neb 1.25 mg/3 mL Ampul] 1 vial NEB Q4HP PRN #120 07/03/19 Bupropion HCl [Bupropion Xl] 300 mg PO DAILY 02/25/20 Gabapentin [Neurontin 300 mg Capsule] 300 mg PO Q8 02/25/20 Tizanidine HCl [Zanaflex] 2 mg PO TID 02/25/20 Allergies/Adverse Reactions: morphine Allergy (Verified 02/25/20 12:54) shellfish derived Allergy (Verified 02/25/20 12:54) Physical Exam Vital Signs: Temp Pulse Resp BP Pulse Ox 36.7 C 95 18 113/68 91 L 02/26/20 00:37 02/26/20 00:37 02/26/20 00:37 02/26/20 00:37 02/26/20 00:37 Intake & Output 02/25/20 02/26/20 02/27/20 06:59 06:59 06:59 Intake Total 910 Balance 910 Weight 59.2 kg Physical Exam: Middle-aged white female lying in a hospital bed. Her [id number] participates in the conversation via cell phone. Patient is alert, oriented, and appropriate. She is moderately uncomfortable and has just received Dilaudid for pain control. General appearance: PRESENT: mild distress Head exam: PRESENT: normocephalic Respiratory exam: PRESENT: unlabored Cardiovascular exam: PRESENT: RRR Vascular exam: PRESENT: normal capillary refill GI/Abdominal exam: PRESENT: soft Rectal exam: PRESENT: deferred Extremities exam: PRESENT: other - Left lower extremity flexed and propped on a pillow. There is considerable swelling and edema about the supracondylar region and tenderness to palpation. Range of motion is not assessed. Distal neurovascular examination is intact. Neurological exam: PRESENT: alert, awake, oriented to person, oriented to place, oriented to time, oriented to situation. ABSENT: motor sensory deficit Psychiatric exam: PRESENT: appropriate affect, normal mood. ABSENT: homicidal ideation, suicidal ideation Skin exam: PRESENT: dry, intact, warm. ABSENT: cyanosis, rash Results Laboratory Results: 02/26/20 06:31 02/26/20 04:55 02/25/20 02/25/20 02/26/20 14:20 14:20 04:55 WBC 7.1 Cancelled RBC 2.88 L Cancelled Hgb 9.5 L Cancelled Hct 27.2 L Cancelled MCV 94 Cancelled MCH 32.9 Cancelled MCHC 34.9 Cancelled RDW 16.0 H Cancelled Plt Count 411 Cancelled Seg Neutrophils % Not Reportable Retic Count (auto) Cancelled Absolute Retic Cancelled Sodium 130.8 L Potassium 3.6 Chloride 93 L Carbon Dioxide 29 Anion Gap 9 BUN 9 Creatinine 0.56 Est GFR ( Amer) > 60 Glucose 92 Calcium 9.7 Phosphorus Magnesium Iron TIBC % Saturation Ferritin Total Bilirubin 2.0 H AST 29 Alkaline Phosphatase 114 Total Protein 6.3 Albumin 3.8 02/26/20 02/26/20 04:55 06:31 WBC 5.5 RBC 2.69 L Hgb 9.3 L Hct 26.0 L MCV 97 MCH 34.4 H MCHC 35.6 RDW 16.2 H Plt Count 372 Seg Neutrophils % Retic Count (auto) 3.17 H Absolute Retic Sodium 132.9 L Potassium 4.1 Chloride 97 L Carbon Dioxide 28 Anion Gap 8 BUN 8 Creatinine 0.63 Est GFR ( Amer) > 60 Glucose 88 Calcium 9.5 Phosphorus 5.2 H Magnesium 1.8 Iron 29.2 L TIBC 219 L % Saturation 13 Ferritin 728.00 H Total Bilirubin 1.3 AST 24 Alkaline Phosphatase 94 Total Protein 5.7 L Albumin 3.4 L Impressions: Knee X-Ray 02/25/20 12:54 IMPRESSION: Joint effusion without an associated acute osseous abnormality. If there is concern for internal derangement consider correlation with a MRI. Abdomen/Pelvis CT 02/25/20 13:57 IMPRESSION: New nodular stranding of the mesenteric fat and omentum concerning for carcinomatosis. Chest CT 02/25/20 13:57 IMPRESSION: Since the CT from 02/09/2020, the solid nodule in the superior segment of the left lower lobe that is surrounded by fiducial markers has decreased in size, the sub solid nodule in the right middle lobe (image 36 of series 4) has increased in size and the patient has developed several new bilateral pulmonary nodule and nodular opacities. These findings are concerning for progression of disease. Status: Imported from PACS Assessment & Plan - Diagnosis (1) Metastatic cancer to bone Is this a current diagnosis for this admission?: Yes Plan: 64-year-old female with concurrent lymphoma and squamous cell lung carcinoma now with a marrow replacement process and presumed nondisplaced fracture of the left distal femur. The underlying neoplasm per elastic process is in question. The question arises whether there are other skeletal lesions and a whole-body bone scan has been ordered. The options for this patient are threefold. The first is for biopsy and external beam radiation therapy. This has the advantage of minimizing surgical intervention but if the radiation therapy is not effective in reversing the neoplastic process and allowing bone healing any surgical intervention thereafter be much more difficult. The second option is for biopsy with an open reduction internal fixation. This would need to be followed by radiation therapy. The advantage of this is that it is an intermediate surgical procedure but it will be limited by the integrity of the underlying bone and there is not adequate bone stock the internal fixation will fail. Lastly the patient can have a distal femoral resection and endoprosthetic reconstruction. This would have the advantage of immediate weightbearing and sooner functional recovery than the other options however involves a significant larger surgical procedure. In discussing this with the patient and her [id number] there is a consensus that we proceed with the latter procedure, namely the distal femoral resection and endoprosthetic reconstruction. This will be performed in conjunction with Dr. Fragoso. Because of time constraints the tentative plan will be to attempt to do this tomorrow evening. - Time Time Spent: 50 to 70 Minutes Anticipated discharge: Other Anticipated DC Timeframe: Other
[2020-02-26] MEDS ORDERED: INFLUENZA QUAD (6MOS+) 2020-21 VAC 0.5 ML SYR IM ONE (08:00)
--- NOTE | 2020-02-26 08:42 | PDOC CONSULTATION ---
Consultation Consult Date: 02/26/20 Attending physician:: JODY JEAN Provider Consulted: RAY SALDANA Consult reason:: Patient well-known to oncology service with both history of follicular lymphoma as well as lung cancer here with left distal femoral lesion, severe pain History of Present Illness Admission Date/PCP: 02/25/20 17:24 RICARDO TORRES MD Patient complains of: Pain both in the left scapular, left chest region, as well as left lower extremity History of Present Illness: LUPILLO DE LA ROSA is a 64 year old female with history of both follicular lymphoma as well as lung cancer. She was originally diagnosed earlier this year when she presented with multiple findings on imaging, as well as B symptoms, she was found to have diffuse adenopathy in the axilla, chest, breast lesion, left lower lobe lung lesion, pleural effusion, abdominal adenopathy, but no disease specific to the bone, at that time. She underwent multiple procedures including a lymph node biopsy of the axilla, breast biopsy, pleural fluid analysis, and all of those studies were consistent with intermediate grade follicular lymphoma. Because of the diffuse findings it was staged at stage IV. She was initiated on chemotherapy with RCVP, and she underwent 6 cycles of that. She had an excellent response with regression of most of those areas of disease ex cept the area in the left lung. That lung lesion actually grew from 1 to 2 cm. Therefore we did biopsy of that area and this indicated cells concerning for squamous cell carcinoma, fiducial was placed in [place], and patient underwent CyberKnife radiation completed about 2 months ago now. She had full restaging imaging in November that indicated complete response except this lung lesion, she also had MRI of the brain at that time which did not indicate any disease in the brain. After the CyberKnife radiation which was a series of 5 radiation treatments, completed in December, she began having severe left scapular and left upper chest pain. Recently therefore we did CT of the chest l ooking for reasons for this and there was no new lung findings although the lung lesion that was radiated looked a little bit bigger, but we felt this was probably radiation-induced changes, and this would improve over time. We placed her on oxycodone as well as gabapentin, as we felt this pain in the chest was probably neuropathic in origin. She had a chest tube at that same site when she had the left pleural effusion related to the lymphoma, and the chest tube was very painful and probably cause nerve damage. It did improve over time but she began having increasing left knee pain, she saw Dr. Figueroa of the sports medicine program with [facility] for surgery, and was planned for a knee injection but she was having swelling in the knee so MRI of the knee was obtained, this unfortunately indicated an infiltrative soft tissue mass at the left distal femoral diaphysis, concerning for a metastatic deposit. She was admitted because of the severe pain, and currently is on Dilaudid as well as fentanyl patch that we initiated. She was seen by Dr. Bang and is being planned for resection and stabilization of this area in the left knee. CT imaging does indicate some new minor lung findings that was hard to delineate, but the primary lung lesion that was treated looks smaller. The CT of the abdomen pelvis does indicate some thickness of the omentum but this also is hard to delineate and she does not have any abdominal symptoms at all. She is having bowel movements. She is passing gas. Past Medical History Cardiac Medical History: Reports: Coronary Artery Disease, Myocardial Infarction, Hypertension Denies: Congestive Heart Failure Pulmonary Medical History: Reports: Chronic Obstructive Pulmonary Disease (COPD), Pneumonia EENT Medical History: Reports: None Neurological Medical History: Reports: None Endocrine Medical History: Reports: None Renal/ Medical History: Reports: None Malignancy Medical History: Reports: Lung Cancer - Squamous cell, Lymphoma - Follicular GI Medical History: Reports: None Musculoskeltal Medical History: Reports: Arthritis Skin Medical History: Reports: None Psychiatric Medical History: Reports: Depression Traumatic Medical History: Reports: None Hematology: Reports: Anemia Infectious Medical History: Reports: None Past Surgical History Past Surgical History: Reports: Orthopedic Surgery - L5-S1 discectomy, Other - Breast biopsies, multiple always negative for malignant disease. Social History Lives with: Family Smoking Status: Former Smoker Electronic Cigarette use?: No Frequency of Alcohol Use: None Hx Recreational Drug Use: No Drugs: None Hx Prescription Drug Abuse: No - Advance Directive Resuscitation Status: Full Code Family History Family History: Reviewed & Not Pertinent, Arthritis, Hypertension, Thyroid Disfunction Parental Family History Reviewed: Yes Children Family History Reviewed: Yes Sibling(s) Family History Reviewed.: Yes Medication/Allergy Home Medications: Aspirin [Ecotrin 81 mg EC Tablet] 81 mg PO DAILY 05/16/19 Cyanocobalamin (Vitamin B-12) [Vitamin B-12 1000 mcg Tablet] 1 tab PO DAILY 05/16/19 Oxcarbazepine 300 mg PO Q12 05/16/19 Ergocalciferol (Vitamin D2) [Vitamin D2] 50 mcg PO MCKAY@1000 06/29/19 Oxycodone HCl [Oxy-Ir 5 mg Tablet] 10 mg PO Q6HP PRN 06/29/19 Albuterol Sulfate [Ventolin 0.042% Neb 1.25 mg/3 mL Ampul] 1 vial NEB Q4HP PRN #120 07/03/19 Bupropion HCl [Bupropion Xl] 300 mg PO DAILY 02/25/20 Gabapentin [Neurontin 300 mg Capsule] 300 mg PO Q8 02/25/20 Tizanidine HCl [Zanaflex] 2 mg PO TID 02/25/20 Allergies/Adverse Reactions: morphine Allergy (Verified 02/25/20 12:54) shellfish derived Allergy (Verified 02/25/20 12:54) Review of Systems Constitutional: ABSENT: chills, fever(s), headache(s), weight gain, weight loss Eyes: ABSENT: visual disturbances Ears: ABSENT: hearing changes Cardiovascular: ABSENT: chest pain, dyspnea on exertion, edema, orthropnea, palpitations Respiratory: ABSENT: cough, hemoptysis Gastrointestinal: ABSENT: abdominal pain, constipation, diarrhea, hematemesis, hematochezia, nausea, vomiting Genitourinary: ABSENT: dysuria, hematuria Musculoskeletal: ABSENT: joint swelling Integumentary: ABSENT: rash, wounds Neurological: ABSENT: abnormal gait, abnormal speech, confusion, dizziness, focal weakness, syncope Psychiatric: ABSENT: anxiety, depression, homidical ideation, suicidal ideation Endocrine: ABSENT: cold intolerance, heat intolerance, polydipsia, polyuria Hematologic/Lymphatic: ABSENT: easy bleeding, easy bruising Physical Exam Vital Signs: Temp Pulse Resp BP Pulse Ox 98.3 F 106 H 16 112/62 91 L 02/26/20 07:40 02/26/20 07:40 02/26/20 07:40 02/26/20 07:40 02/26/20 07:40 Intake & Output 02/25/20 02/26/20 02/27/20 06:59 06:59 06:59 Intake Total 910 Balance 910 Weight 59.2 kg General appearance: PRESENT: no acute distress, well-developed, well-nourished Head exam: PRESENT: atraumatic, normocephalic Eye exam: PRESENT: conjunctiva pink, EOMI, PERRLA. ABSENT: scleral icterus Ear exam: PRESENT: normal external ear exam Mouth exam: PRESENT: moist, tongue midline Neck exam: ABSENT: carotid bruit, JVD, lymphadenopathy, thyromegaly Respiratory exam: PRESENT: clear to auscultation clare. ABSENT: rales, rhonchi, wheezes Cardiovascular exam: PRESENT: RRR. ABSENT: diastolic murmur, rubs, systolic murmur Pulses: PRESENT: normal dorsalis pedis pul Vascular exam: PRESENT: normal capillary refill GI/Abdominal exam: PRESENT: normal bowel sounds, soft. ABSENT: distended, guarding, mass, organolmegaly, rebound, tenderness Rectal exam: PRESENT: deferred Extremities exam: PRESENT: full ROM. ABSENT: calf tenderness, clubbing, pedal edema Neurological exam: PRESENT: alert, awake, oriented to person, oriented to place, oriented to time, oriented to situation, CN II-XII grossly intact. ABSENT: motor sensory deficit Psychiatric exam: PRESENT: appropriate affect, normal mood. ABSENT: homicidal ideation, suicidal ideation Skin exam: PRESENT: dry, intact, warm. ABSENT: cyanosis, rash Results Laboratory Results: 02/26/20 06:31 02/26/20 04:55 02/25/20 02/25/20 02/26/20 14:20 14:20 04:55 WBC 7.1 Cancelled RBC 2.88 L Cancelled Hgb 9.5 L Cancelled Hct 27.2 L Cancelled MCV 94 Cancelled MCH 32.9 Cancelled MCHC 34.9 Cancelled RDW 16.0 H Cancelled Plt Count 411 Cancelled Seg Neutrophils % Not Reportable Retic Count (auto) Cancelled Absolute Retic Cancelled Sodium 130.8 L Potassium 3.6 Chloride 93 L Carbon Dioxide 29 Anion Gap 9 BUN 9 Creatinine 0.56 Est GFR ( Amer) > 60 Glucose 92 Calcium 9.7 Phosphorus Magnesium Iron TIBC % Saturation Ferritin Total Bilirubin 2.0 H AST 29 Alkaline Phosphatase 114 Total Protein 6.3 Albumin 3.8 Vitamin B12 Folate 02/26/20 02/26/20 04:55 06:31 WBC 5.5 RBC 2.69 L Hgb 9.3 L Hct 26.0 L MCV 97 MCH 34.4 H MCHC 35.6 RDW 16.2 H Plt Count 372 Seg Neutrophils % Retic Count (auto) 3.17 H Absolute Retic Sodium 132.9 L Potassium 4.1 Chloride 97 L Carbon Dioxide 28 Anion Gap 8 BUN 8 Creatinine 0.63 Est GFR ( Amer) > 60 Glucose 88 Calcium 9.5 Phosphorus 5.2 H Magnesium 1.8 Iron 29.2 L TIBC 219 L % Saturation 13 Ferritin 728.00 H Total Bilirubin 1.3 AST 24 Alkaline Phosphatase 94 Total Protein 5.7 L Albumin 3.4 L Vitamin B12 988.0 H Folate 6.23 Impressions: Knee X-Ray 02/25/20 12:54 IMPRESSION: Joint effusion without an associated acute osseous abnormality. If there is concern for internal derangement consider correlation with a MRI. Abdomen/Pelvis CT 02/25/20 13:57 IMPRESSION: New nodular stranding of the mesenteric fat and omentum concerning for carcinomatosis. Chest CT 02/25/20 13:57 IMPRESSION: Since the CT from 02/09/2020, the solid nodule in the superior segment of the left lower lobe that is surrounded by fiducial markers has decreased in size, the sub solid nodule in the right middle lobe (image 36 of series 4) has increased in size and the patient has developed several new bilateral pulmonary nodule and nodular opacities. These findings are concerning for progression of disease. Status: Image reviewed by me Assessment & Plan - Diagnosis (1) Intractable pain Is this a current diagnosis for this admission?: Yes Plan: Multifactorial, related in part to the lesion seen on MRI of the left lower extremity, but also probably due to in part to neuropathic pain because I do not think anything on the CT of the chest explains the lung findings from a metastatic standpoint. I will increase Dilaudid today, fentanyl patch was placed yesterday so should reach full dose by this evening. And hopefully she will be more comfortable. (2) Metastatic cancer to bone Is this a current diagnosis for this admission?: Yes Plan: Agree with plan to proceed with left knee replacement, that will give us both tissue as well as stabilization of that area and improvement of pain. She will be able to weight-bear on that area thereafter. Being planned for tomorrow evening. (3) Cancer of left lung Qualifiers: Lung location: lower lobe of lung Qualified Code(s): C34.32 - Malignant neoplasm of lower lobe, left bronchus or lung Is this a current diagnosis for this admission?: Yes Plan: Unfortunately this is much more likely to be the source of the metastatic dise ase in the bone. There seems to be some new lung findings, but they are very minor so at this point it would be hard to delineate whether this is truly new disease, also the omental disease is hard to delineate as patient is asymptomatic of it. Ultimately, she was planned for a PET/CT in about 4 weeks time to reevaluate the radiation on the left lung lesion, bone scan is pending now which is useful to see if any of the areas of bone involvement are positive, will follow. Ultimately, if she can be stabilized appropriately and performance status can improve with good pain control, she would require some sort of systemic chemotherapy for this. And probable radiation to the bone. (4) Follicular lymphoma Qualifiers: Follicular lymphoma grade: grade II Lymphoma site: multiple regions Qualified Code(s): C82.18 - Follicular lymphoma grade II, lymph nodes of multiple sites Is this a current diagnosis for this admission?: Yes Plan: Follicular lymphoma, it is less likely that any of the findings that were seeing so far on imaging are related to this follicular lymphoma. I believe this is probably in remission but we will need to see with the bone specimen what that shows. - Time Time Spent: Greater than 70 Minutes
[2020-02-26] MEDS: DOCUSATE SODIUM 100 MG CAPSULE PO SCH (09:33)
[2020-02-26] MEDS: ENOXAPARIN SODIUM INJ 40 MG/0.4 ML DISP.SYRIN SUBCUT SCH (09:33)
--- NOTE | 2020-02-26 12:58 | RADIOLOGY REPORT (SQ) ---
EXAM DESCRIPTION: NM WHOLE BODY BONE SCAN IMAGES COMPLETED DATE/TIME: 02/26/2020 11:53 am REASON FOR STUDY: evaluate extent of mets COMPARISON: 02/25/2020 and 11/18/2019 RADIONUCLIDE AND DOSE: 20 millicuries Tc99m MDP. The route of agent administration: Intravenous. ADDITIONAL DRUGS AND DOSES: None. TECHNIQUE: Routine delayed images post radionuclide injection acquired of the bony skeleton includin g anterior and posterior imaging of the head, thorax, and abdomen as well as anterior imaging of the knees. LIMITATIONS: Patient unable to tolerate positioning. Limited evaluation of the knees. The feet or not imaged. FINDINGS: BONES: Focal activity seen of the left ischial tuberosity in the region of the long head o f the biceps femoris origin ; comparison CT imaging reveals an enthesophyte suggesting tug reaction. No suspicious lytic or blastic osseous lesion. Focal activity is likewise seen of the left patella. Comparison radiographs demonstrates diminished mineralization in the setting of a joint effusion; s eptic arthritis may appear similarly. Additional areas radiotracer activity correlate to typical deg enerative sites such as the acromioclavicular joints. No findings to suggest osseous metastases. KIDNEYS: No evidence of obstruction. Asymmetric excretion favoring the right kidney. OTHER: No other significant finding. IMPRESSION: No evidence of osseous metastases. Increased activity seen in the region of the left kn ee is concerning for septic joint/ patellar osteomyelitis. Activity seen in the region of the left i schial tuberosity correlates to a biceps femoris enthesophyte. RECOMMENDATION: Consider further evaluation of the knee with joint aspiration and/or magnetic resona nce imaging. COMMENT: Quality measure 147: Current bone scan is compared with any available plain radiographs, p rior bone scans, and CT/MRI. TECHNICAL DOCUMENTATION: JOB ID: [id number] 2010 [employer]- All Rights Reserved Reading location - IP/workstation name: [email or web address]
--- NOTE | 2020-02-26 15:49 | RADIOLOGY REPORT (SQ) ---
EXAM DESCRIPTION: MRI HEAD COMBO IMAGES COMPLETED DATE/TIME: 02/26/2020 2:38 pm REASON FOR STUDY: metastatic cancer COMPARISON: None. TECHNIQUE: Multiplanar imaging includes noncontrasted T1, T2, FLAIR, diffusion with ADC map and post gadolinium contrast T1 sequences. Images stored on PACS. CONTRAST TYPE AND DOSE: 10 mL Prohance. RENAL FUNCTION: Not indicated. ACR Type II contrast agent associated with few, if any, unconfounded cases of NSF LIMITATIONS: None. FINDINGS: ANATOMY: No anomalies. Normal vascular flow voids. Pituitary fossa normal. CSF SPACES: Normal in size and contour. No hemorrhage. CEREBRUM: Sulci and gyri normal in size and contour. Normal white matter signal on FLAIR imaging. No evidence of hemorrhage, mass, or extraaxial fluid collection. No abnormal enhancement post contrast. POSTERIOR FOSSA: No signal alteration. No hemorrhage. No edema, masses, or mass effect. Internal aleyda tory canals, cerebellopontine angles, mastoids normal. No enhancing lesions. No abnormal enhancement post contrast. DIFFUSION IMAGING: Negative for acute or subacute infarction. ORBITS: No masses. Globes normal. PARANASAL SINUSES: No fluid levels. Mucosa normal. OTHER: Incidental note is made of a mildly prominent left occipital lymph node. IMPRESSION: No evidence of metastatic disease. Normal MR appearance of the brain. EVIDENCE OF ACUTE STROKE: NO. TECHNICAL DOCUMENTATION: JOB ID: [id number] 2010 [employer]- All Rights Reserved Reading location - IP/workstation name: [email or web address]
--- NOTE | 2020-02-26 17:22 | PDOC PROGRESS REPORT ---
Subjective Date:: 02/26/20 Subjective:: LUPILLO DE LA ROSA is a 64 year old female with a past medical history significant for follicular lymphoma and squamous cell carcinoma of the lung status post chemotherapy treatment and followed by Dr. Hillman, CAD, OR, hypertension, COPD, chronic back pain, and opiate dependence who was admitted 05/18/19 w/ intractable pain to the left knee and MRI imagining concerning for metastasis. Patient was seen on afternoon rounds. She is found resting in bed, comfortably, on room air. She states that her pain is currently well controlled, although, did have some difficulty earlier today due to movement for MRI and bone scans. She states that she is looking forward to orthopedic intervention tomorrow. She has no questions about the planned procedure. She denies fever, chills, chest pain, palpitations, dyspnea, abdominal pain, nausea vomiting and diarrhea. She has no other questions or concerns at this time. No concerns per nursing. Reason For Visit: INTRACTABLE PAIN Physical Exam Vital Signs: Temp Pulse Resp BP Pulse Ox 97.6 F 105 H 16 111/69 93 02/26/20 12:04 02/26/20 12:04 02/26/20 12:04 02/26/20 12:04 02/26/20 12:04 Intake & Output 02/25/20 02/26/20 02/27/20 06:59 06:59 06:59 Intake Total 910 120 Balance 910 120 Weight 59.2 kg General appearance: PRESENT: no acute distress, cooperative, well-developed, we ll-nourished Head exam: PRESENT: atraumatic, normocephalic Eye exam: PRESENT: conjunctiva pink, EOMI, PERRLA. ABSENT: scleral icterus Mouth exam: PRESENT: moist, tongue midline Respiratory exam: PRESENT: clear to auscultation clare, symmetrical, unlabored, other - room air. ABSENT: rales, rhonchi, wheezes Cardiovascular exam: PRESENT: RRR, +S1, +S2. ABSENT: diastolic murmur, rubs, systolic murmur Pulses: PRESENT: normal dorsalis pedis pul Vascular exam: PRESENT: normal capillary refill Extremities exam: PRESENT: joint swelling - left knee, tenderness - Left knee. ABSENT: calf tenderness, clubbing, full ROM, pedal edema Neurological exam: PRESENT: alert, awake, oriented to person, oriented to place, oriented to time, oriented to situation, CN II-XII grossly intact. ABSENT: motor sensory deficit Psychiatric exam: PRESENT: appropriate affect, normal mood. ABSENT: homicidal ideation, suicidal ideation Skin exam: PRESENT: dry, intact, warm. ABSENT: cyanosis, rash Results Laboratory Results: 02/26/20 06:31 02/26/20 04:55 02/26/20 02/26/20 02/26/20 04:55 04:55 06:31 WBC Cancelled 5.5 RBC Cancelled 2.69 L Hgb Cancelled 9.3 L Hct Cancelled 26.0 L MCV Cancelled 97 MCH Cancelled 34.4 H MCHC Cancelled 35.6 RDW Cancelled 16.2 H Plt Count Cancelled 372 Retic Count (auto) Cancelled 3.17 H Absolute Retic Cancelled Sodium 132.9 L Potassium 4.1 Chloride 97 L Carbon Dioxide 28 Anion Gap 8 BUN 8 Creatinine 0.63 Est GFR ( Amer) > 60 Glucose 88 Calcium 9.5 Phosphorus 5.2 H Magnesium 1.8 Iron 29.2 L TIBC 219 L % Saturation 13 Ferritin 728.00 H Total Bilirubin 1.3 AST 24 Alkaline Phosphatase 94 Total Protein 5.7 L Albumin 3.4 L Vitamin B12 988.0 H Folate 6.23 Impressions: Body Scan Nuclear Medicine 02/25/20 00:00 IMPRESSION: No evidence of osseous metastases. Increased activity seen in the region of the left knee is concerning for septic joint/ patellar osteomyelitis. Activity seen in the region of the left ischial tuberosity correlates to a biceps femoris enthesophyte. Knee X-Ray 02/25/20 12:54 IMPRESSION: Joint effusion without an associated acute osseous abnormality. If there is concern for internal derangement consider correlation with a MRI. Abdomen/Pelvis CT 02/25/20 13:57 IMPRESSION: New nodular stranding of the mesenteric fat and omentum concerning for carcinomatosis. Chest CT 02/25/20 13:57 IMPRESSION: Since the CT from 02/09/2020, the solid nodule in the superior segment of the left lower lobe that is surrounded by fiducial markers has decreased in size, the sub solid nodule in the right middle lobe (image 36 of series 4) has increased in size and the patient has developed several new bilateral pulmonary nodule and nodular opacities. These findings are concerning for progression of disease. Head MRI 02/26/20 00:00 IMPRESSION: No evidence of metastatic disease. Normal MR appearance of the brain. EVIDENCE OF ACUTE STROKE: NO. Assessment and Plan - Diagnosis (1) Knee pain Qualifiers: Chronicity: acute Laterality: left Qualified Code(s): M25.562 - Pain in left knee Is this a current diagnosis for this admission?: Yes Plan: Outpatient MRI and CT imagining was concerning for invasion of metastatic disease to the distal femoral metaphysis. Nuclear bone scan was negative for osseous metastases. Possibly septic joint/patellar osteomyelitis. Patient presented in intractable pain. Dr. Bang consulted. Possible operative intervention tomorrow (initially planned for TKA; may need joint aspiration). Plan per Dr. Bang. Dr. Hillman consulted. analgesics per Dr. Hillman. Will check blood cultures. (2) Metastatic cancer to bone Is this a current diagnosis for this admission?: Yes Plan: Outpatient MRI showed likely invasion of metastatic disease to the distal femoral metaphysis. Patient presents in intractable pain. She is established with Dr. Hillman. She is admitted to the medical floor. We will continue her home dose oxycodone and provide as needed Dilaudid for breakthrough pain. Oncology is consulted. Possible orthopedic consult. Nonweightbearing to left extremity at this time. Fall precautions. (3) Intractable pain Is this a current diagnosis for this admission?: Yes Plan: Secondary to #[address] Hillman. Remaining evaluation and management as above. (4) Anemia Qualifiers: Is this a current diagnosis for this admission?: Yes Plan: Likely anemia of chronic disease. Hemoglobin at baseline. Anemia panel shows mild iron deficiency. Hematology/oncology consulted. Follow-up CBC. (5) Hyponatremia Is this a current diagnosis for this admission?: Yes Plan: Improved; mild hyponatremia. Na 130.8-> 132.9 Looks like the patient has chronic mild hyponatremia with an average of 132. We will liberalize dietary sodium. Restrict free water. Follow-up chemistry. - Time Time Spent with patient: 15-24 minutes Medications reviewed and adjusted accordingly: Yes Anticipated Discharge Disposition: Home with Home Health Anticipated Discharge Timeframe: TBD
[2020-02-26] MEDS ORDERED: TIZANIDINE HCL 2 MG PO SCH (18:00)
[2020-02-26] MEDS ORDERED: DEXTROSE 40% GEL 15 GM TUBE PO PRN ×2 (18:22)
[2020-02-26] MEDS ORDERED: GLUCAGON,HUMAN RECOMB 1 MG INJ SUBCUT PRN (18:22)
[2020-02-26] MEDS ORDERED: DEXTROSE 50%-WATER 25 GM/50 ML DISP.SYRIN IV PRN ×2 (18:22)
[2020-02-26] MEDS ORDERED: OXCARBAZEPINE 300 MG PO SCH (22:00)
[2020-02-27] MEDS: BUPROPION HCL 75 MG TABLET PO SCH ×3 (03:15→21:11)
[2020-02-27] MEDS: GABAPENTIN 300 MG CAPSULE PO SCH ×4 (03:15→21:10)
[2020-02-27] MEDS: TIZANIDINE HCL 4 MG TABLET PO SCH ×4 (03:15→21:13)
[2020-02-27] MEDS: OXCARBAZEPINE 150 MG TABLET PO SCH ×3 (03:15→21:10)
[2020-02-27] MEDS: HYDROMORPHONE HCL INJ/PF 2 MG/ML AMPULE IV PRN ×7 (03:37→21:16)
[2020-02-27] MEDS ORDERED: TRANEXAMIC ACID INJ/PF 1,000 MG/10 ML SDV IV PRN (05:00)
[2020-02-27] MEDS ORDERED: VANCOMYCIN HCL 1,000 MG in DEXTROSE 5%-WATER 250 ML IV PRN (05:00)
[2020-02-27 07:01] LABS: HEMATOCRIT 26.3 % (36.0-47.0); HEMOGLOBIN 9.2 g/dL (12.0-15.5); MEAN CORPUSCULAR HEMOGLOBIN 32.8 pg (27.0-33.4); MEAN CORPUSCULAR HGB CONC 35.1 g/dL (32.0-36.0); MEAN CORPUSCULAR VOLUME 94 fl (80-97); PLATELET COUNT 430 10^3/uL (150-450); RED BLOOD COUNT 2.81 10^6/uL (3.72-5.28); RED CELL DISTRIBUTION WIDTH 16.5 % (11.5-14.0); WHITE BLOOD COUNT 10.3 10^3/uL (4.0-10.5)
[2020-02-27 07:13] LABS: ANION GAP 12 (5-19); BLOOD UREA NITROGEN 16 mg/dL (7-20); CALCIUM 9.9 mg/dL (8.4-10.2); CARBON DIOXIDE 24 mmol/L (22-30); CHLORIDE 93 mmol/L (98-107); GLUCOSE 117 mg/dL (75-110); POTASSIUM 4.6 mmol/L (3.6-5.0)
[2020-02-27] MEDS ORDERED: NORMAL SALINE 1000 ML 1,000 ML IV PRN (08:03)
--- NOTE | 2020-02-27 08:18 | PDOC PROGRESS REPORT ---
Subjective Date:: 02/27/20 Subjective:: Pain better controlled, nausea noted this am. Had long discussion w/ pt and son who was on phone about next steps of care. Spent 36 min in discussion. Reason For Visit: INTRACTABLE PAIN Physical Exam Vital Signs: Temp Pulse Resp BP Pulse Ox 97.6 F 93 17 109/67 94 02/26/20 23:53 02/26/20 23:53 02/26/20 23:53 02/26/20 23:53 02/26/20 23:53 Intake & Output 02/26/20 02/27/20 02/28/20 06:59 06:59 06:59 Intake Total 910 360 Balance 910 360 Weight 59.2 kg 60.9 kg General appearance: PRESENT: no acute distress, well-developed, well-nourished Head exam: PRESENT: atraumatic, normocephalic Eye exam: PRESENT: conjunctiva pink, EOMI, PERRLA. ABSENT: scleral icterus Ear exam: PRESENT: normal external ear exam Mouth exam: PRESENT: moist, tongue midline Neck exam: ABSENT: carotid bruit, JVD, lymphadenopathy, thyromegaly Respiratory exam: PRESENT: clear to auscultation clare. ABSENT: rales, rhonchi, wheezes Cardiovascular exam: PRESENT: RRR. ABSENT: diastolic murmur, rubs, systolic murmur Pulses: PRESENT: normal dorsalis pedis pul Vascular exam: PRESENT: normal capillary refill GI/Abdominal exam: PRESENT: normal bowel sounds, soft. ABSENT: distended, guarding, mass, organolmegaly, rebound, tenderness Rectal exam: PRESENT: deferred Extremities exam: PRESENT: full ROM. ABSENT: calf tenderness, clubbing, pedal edema Neurological exam: PRESENT: alert, awake, oriented to person, oriented to place, oriented to time, oriented to situation, CN II-XII grossly intact. ABSENT: motor sensory deficit Psychiatric exam: PRESENT: appropriate affect, normal mood. ABSENT: homicidal ideation, suicidal ideation Skin exam: PRESENT: dry, intact, warm. ABSENT: cyanosis, rash Results Laboratory Results: 02/27/20 06:19 02/27/20 06:19 02/27/20 02/27/20 06:19 06:19 WBC 10.3 RBC 2.81 L Hgb 9.2 L Hct 26.3 L MCV 94 MCH 32.8 MCHC 35.1 RDW 16.5 H Plt Count 430 Sodium 129.3 L Potassium 4.6 Chloride 93 L Carbon Dioxide 24 Anion Gap 12 BUN 16 Creatinine 0.63 Est GFR ( Amer) > 60 Glucose 117 H Calcium 9.9 Impressions: Body Scan Nuclear Medicine 02/25/20 00:00 IMPRESSION: No evidence of osseous metastases. Increased activity seen in the region of the left knee is concerning for septic joint/ patellar osteomyelitis. Activity seen in the region of the left ischial tuberosity correlates to a biceps femoris enthesophyte. Knee X-Ray 02/25/20 12:54 IMPRESSION: Joint effusion without an associated acute osseous abnormality. If there is concern for internal derangement consider correlation with a MRI. Abdomen/Pelvis CT 02/25/20 13:57 IMPRESSION: New nodular stranding of the mesenteric fat and omentum concerning for carcinomatosis. Chest CT 02/25/20 13:57 IMPRESSION: Since the CT from 02/09/2020, the solid nodule in the superior segment of the left lower lobe that is surrounded by fiducial markers has decreased in size, the sub solid nodule in the right middle lobe (image 36 of series 4) has increased in size and the patient has developed several new bilateral pulmonary nodule and nodular opacities. These findings are concerning for progression of disease. Head MRI 02/26/20 00:00 IMPRESSION: No evidence of metastatic disease. Normal MR appearance of the brain. EVIDENCE OF ACUTE STROKE: NO. Assessment & Plan - Diagnosis (1) Intractable pain Is this a current diagnosis for this admission?: Yes Plan: Improved on current regimen. Cont for now. Will start transtioning to oral once surgery complete probably by sunday. (2) Metastatic cancer to bone Is this a current diagnosis for this admission?: Yes Plan: So far only likely in left distal femur, bone scan neg for other areas (3) Cancer of left lung Qualifiers: Lung location: lower lobe of lung Qualified Code(s): C34.32 - Malignant neoplasm of lower lobe, left bronchus or lung Is this a current diagnosis for this admission?: Yes Plan: Probable cause of bone met in femur but won't know for sure until surgery done and we have tissue. Knee had severe OA and she had difficulty walking on it for several years and was going to be planned at some point for replacement before multiple cancer dx came about. (4) Follicular lymphoma Qualifiers: Follicular lymphoma grade: grade II Lymphoma site: multiple regions Qualified Code(s): C82.18 - Follicular lymphoma grade II, lymph nodes of multiple sites Is this a current diagnosis for this admission?: Yes Plan: Seems in remission but we will see what path shows - Time Time Spent with patient: 35 or more minutes
[2020-02-27] MEDS ORDERED: (PENDING PHARMACY ID) (Bupropion Hcl [Bupropion Xl] 150 MG Tab.Er.24h) PO SCH (10:00)
[2020-02-27] MEDS: CYANOCOBALAMIN (VITAMIN B-12) 1,000 MCG TABLET PO SCH (10:06)
[2020-02-27] MEDS: DOCUSATE SODIUM 100 MG CAPSULE PO SCH (10:06)
[2020-02-27] MEDS: ENOXAPARIN SODIUM INJ 40 MG/0.4 ML DISP.SYRIN SUBCUT SCH (10:06)
--- NOTE | 2020-02-27 15:33 | PDOC PROGRESS REPORT ---
Subjective Date:: 02/27/20 Subjective:: LUPILLO DE LA ROSA is a 64 year old female with a past medical history significant for follicular lymphoma and squamous cell carcinoma of the lung status post chemotherapy treatment and followed by Dr. Hillman, CAD, [place], hypertension, COPD, chronic back pain, and opiate dependence who was admitted 05/18/19 w/ intractable pain to the left knee and MRI imagining concerning for metastasis. Patient was seen on morning rounds. She is found resting in bed, comfortably, on room air. She states that her pain is currently well controlled. Looking forward to her orthopedic procedure today; has no questions. She denies fever, chills, chest pain, palpitations, dyspnea, abdominal pain, vo miting and diarrhea. Some nausea overnight that has since resolved. She has no other questions or concerns at this time. No concerns per nursing. Reason For Visit: INTRACTABLE PAIN Physical Exam Vital Signs: Temp Pulse Resp BP Pulse Ox 99.3 F 104 H 16 116/62 96 02/27/20 14:07 02/27/20 14:07 02/27/20 14:07 02/27/20 14:07 02/27/20 14:07 Intake & Output 02/26/20 02/27/20 02/28/20 06:59 06:59 06:59 Intake Total 910 360 Balance 910 360 Weight 59.2 kg 60.9 kg General appearance: PRESENT: no acute distress, well-developed, well-nourished Head exam: PRESENT: atraumatic, normocephalic Eye exam: PRESENT: conjunctiva pink, EOMI, PERRLA. ABSENT: scleral icterus Mouth exam: PRESENT: moist, tongue midline Respiratory exam: PRESENT: clear to auscultation clare, symmetrical, unlabored, other - room air. ABSENT: rales, rhonchi, wheezes Cardiovascular exam: PRESENT: RRR. ABSENT: diastolic murmur, rubs, systolic murmur Pulses: PRESENT: normal dorsalis pedis pul Vascular exam: PRESENT: normal capillary refill Extremities exam: PRESENT: joint swelling - lft knee, tenderness - left knee. ABSENT: calf tenderness, clubbing, full ROM, pedal edema Neurological exam: PRESENT: alert, awake, oriented to person, oriented to place, oriented to time, oriented to situation, CN II-XII grossly intact. ABSENT: motor sensory deficit Psychiatric exam: PRESENT: appropriate affect, normal mood. ABSENT: homicidal ideation, suicidal ideation Skin exam: PRESENT: dry, intact, warm. ABSENT: cyanosis, rash Results Laboratory Results: 02/27/20 06:19 02/27/20 06:19 02/27/20 02/27/20 06:19 06:19 WBC 10.3 RBC 2.81 L Hgb 9.2 L Hct 26.3 L MCV 94 MCH 32.8 MCHC 35.1 RDW 16.5 H Plt Count 430 Sodium 129.3 L Potassium 4.6 Chloride 93 L Carbon Dioxide 24 Anion Gap 12 BUN 16 Creatinine 0.63 Est GFR ( Amer) > 60 Glucose 117 H Calcium 9.9 Impressions: Body Scan Nuclear Medicine 02/25/20 00:00 IMPRESSION: No evidence of osseous metastases. Increased activity seen in the region of the left knee is concerning for septic joint/ patellar osteomyelitis. Activity seen in the region of the left ischial tuberosity correlates to a biceps femoris enthesophyte. Knee X-Ray 02/25/20 12:54 IMPRESSION: Joint effusion without an associated acute osseous abnormality. If there is concern for internal derangement consider correlation with a MRI. Abdomen/Pelvis CT 02/25/20 13:57 IMPRESSION: New nodular stranding of the mesenteric fat and omentum concerning for carcinomatosis. Chest CT 02/25/20 13:57 IMPRESSION: Since the CT from 02/09/2020, the solid nodule in the superior segment of the left lower lobe that is surrounded by fiducial markers has decreased in size, the sub solid nodule in the right middle lobe (image 36 of series 4) has increased in size and the patient has developed several new bilateral pulmonary nodule and nodular opacities. These findings are concerning for progression of disease. Head MRI 02/26/20 00:00 IMPRESSION: No evidence of metastatic disease. Normal MR appearance of the brain. EVIDENCE OF ACUTE STROKE: NO. Assessment and Plan - Diagnosis (1) Knee pain Qualifiers: Chronicity: acute Laterality: left Qualified Code(s): M25.562 - Pain in left knee Is this a current diagnosis for this admission?: Yes Plan: Outpatient MRI and CT imagining was concerning for invasion of metastatic disease to the distal femoral metaphysis. Nuclear bone scan was negative for osseous metastases. Possibly septic joint/patellar osteomyelitis. Patient presented in intractable pain. Blood cultures negative. Dr. Bang consulted. Operative intervention this afternoon (planned distal femoral resection and endoprosthetic reconstruction). Dr. Hillman consulted. Analgesics per Dr. Hillman. (2) Metastatic cancer to bone Is this a current diagnosis for this admission?: Yes Plan: Outpatient MRI showed likely invasion of metastatic disease to the distal femoral metaphysis. Patient presents in intractable pain. She is established with Dr. Hillman. She is admitted to the medical floor. We will continue her home dose oxycodone and provide as needed Dilaudid for breakthrough pain. Oncology is consulted. Orthopedic consult; planned surgical intervention this afternoon. Nonweightbearing to left extremity at this time. Fall precautions. (3) Intractable pain Is this a current diagnosis for this admission?: Yes Plan: Improved. Secondary to #[address] Hillman. Remaining evaluation and management as above. (4) Anemia Qualifiers: Is this a current diagnosis for this admission?: Yes Plan: Likely anemia of chronic disease. Hemoglobin at baseline. Anemia panel shows mild iron deficiency. Hematology/oncology consulted. Follow-up CBC. (5) Hyponatremia Is this a current diagnosis for this admission?: Yes Plan: Improved; mild hyponatremia. Na 130.8-> 132.9-> 129.3 Looks like the patient has chronic mild hyponatremia with an average of 132. We will liberalize dietary sodium. Restrict free water. Gentle IVF w/ NS while NPO Follow-up chemistry. - Time Time Spent with patient: 15-24 minutes Medications reviewed and adjusted accordingly: Yes Anticipated Discharge Disposition: Home with Home Health Anticipated Discharge Timeframe: within 72 hours
[2020-02-27] MEDS ORDERED: FENTANYL CITRATE INJ/PF 100 MCG/2 ML AMPUL ONE (15:52)
[2020-02-27] MEDS ORDERED: KETAMINE HCL INJ 500 MG/10 ML VIAL ONE (15:52)
[2020-02-27] MEDS ORDERED: EPHEDRINE SULFATE INJ 50 MG/1 ML AMPULE ONE (15:52)
[2020-02-27] MEDS ORDERED: MIDAZOLAM 2 MG/2 ML INJ ONE (15:52)
[2020-02-27] MEDS ORDERED: PROPOFOL INJ 200 MG/20 ML VIAL IV ONE (15:53)
[2020-02-27] MEDS ORDERED: TRANEXAMIC ACID INJ/PF 1,000 MG/10 ML SDV ONE (16:23)
[2020-02-27] MEDS ORDERED: BUPIVACAINE HCL 0.25% /EPINEPHRINE INJ/PF 30 ML SDV ONE (16:29)
[2020-02-27] MEDS ORDERED: VANCOMYCIN HCL INJ 1000 MG VIAL ONE ×2 (17:00→17:46)
[2020-02-27] MEDS ORDERED: DIPHENHYDRAMINE HCL 50 MG/ML VIAL IV PRN (17:35)
[2020-02-27] MEDS ORDERED: MEPERIDINE HCL/PF INJ 25 MG/1 ML DISP.SYRIN IV PRN (17:35)
[2020-02-27] MEDS ORDERED: PROMETHAZINE HCL INJ 25 MG/1 ML VIAL IV PRN ×2 (17:35)
[2020-02-27] MEDS ORDERED: FENTANYL CITRATE INJ/PF 100 MCG/2 ML AMPUL IV PRN ×3 (17:35)
[2020-02-27] MEDS ORDERED: OXYCODONE-ACETAMINOPHEN 5-325 MG TABLET PO PRN ×2 (17:35)
[2020-02-27] MEDS ORDERED: ONDANSETRON HCL INJ/PF 4 MG/2 ML SDV IV PRN ×2 (17:35→18:19)
[2020-02-27] MEDS ORDERED: ALBUTEROL SULFATE 0.042% NEB (1.25 MG/3 ML) AMPUL NEB PRN ×2 (18:18→18:30)
[2020-02-27] MEDS ORDERED: OXYCODONE HCL IR 5 MG TABLET PO PRN (18:18)
[2020-02-27] MEDS ORDERED: ACETAMINOPHEN 325 MG TABLET PO PRN (18:19)
[2020-02-27] MEDS ORDERED: ZOLPIDEM TARTRATE 5 MG TABLET PO PRN (18:19)
[2020-02-27] MEDS ORDERED: MAG HYDROX/AL HYDROX/SIMETH SUSP 30 ML UDCUP PO PRN (18:19)
--- NOTE | 2020-02-27 18:28 | Operative Report ---
Operative Report DATE OF SURGERY: 02/27/20 PREOPERATIVE DIAGNOSIS: Left distal femoral neoplastic process with pathologic fracture OPERATION: Left distal femoral radical resection and endoprosthetic reconstruction SURGEON: CALVIN OLMEDO TEST RACK OPERATOR: COCO FITCH JR ANESTHESIA: GA TISSUE REMOVED OR ALTERED: Distal femur to pathology ESTIMATED BLOOD LOSS: 75 PROCEDURE: Implants used [place] distal femoral replacement with rotating-hinge system. S1 tibial plate with an 11 x 100 mm stem Small 65 mm distal femoral replacement with 13 x 100 mm stem 10 mm tibial spacer Procedure: With the patient supine operating table the left lower extremities prepped and draped sterile fashion. Limb is elevated for exsanguination tourniquet inflated to 280 torr. A standard midline median parapatellar approach the knee is taken. Preoperative planning was for 65 mm resection and endoprosthetic reconstruction. Upon entering the knee joint the ACL is transected and the soft tissues mobilized off the anterior aspect of the knee. Next the soft tissues are elevated off the distal femoral metadiaphysis and 65 mm as measured from the joint line to the intended resection line. The distal femur is scribed longitudinally for rotational purposes and then transected using an oscillating saw at 65 mm. The distal femur is then mobilized and circumferentially circumferentially cleared of its soft tissue attachments and delivered from the field. Using extra medullary guide 16 mm of proximal tibia is resected. The tibia is then prepared for an S1 tibia with an 11 mm stem. The distal femur is prepared using an appropriate boss reamer to accept a 13 mm stem. A trial reduction was performed with the above implants. It leads to full extension and central patellofemoral tracking. Trial implants were removed. The wound was jo ann here with pulse lavage using normal saline containing Betadine. Polymethylmethacrylate with tobramycin and with vancomycin was mixed and used to cement the above implants in place. The tourniquet is deflated. Hemostasis obtained with electrocautery. Following the adequate curing cement trial spacer was removed and the bushings yolk and axial followed by the locking clip is inserted. The wound is then closed in layers with interrupted Vicryl followed by chris. A sterile compressive dressing is applied and the patient is returned to the PACU in satisfactory condition.
[2020-02-27] MEDS ORDERED: ROPIVACAINE HCL 0.5% INJ/PF (5 MG/1 ML) 30 ML SDV ONE (18:43)
[2020-02-27] MEDS ORDERED: HYDROMORPHONE HCL INJ/PF 2 MG/ML AMPULE ONE (19:00)
[2020-02-27] MEDS ORDERED: OXYCODONE-ACETAMINOPHEN 5-325 MG TABLET PO ONE (19:19)
[2020-02-27] MEDS ORDERED: OXYCODONE-ACETAMINOPHEN 5-325 MG TABLET ONE (19:31)
[2020-02-27] MEDS ORDERED: PROMETHAZINE HCL INJ 25 MG/1 ML VIAL ONE (19:47)
--- NOTE | 2020-02-27 20:00 | RADIOLOGY REPORT (SQ) ---
EXAM DESCRIPTION: KNEE LEFT 2 VIEWS IMAGES COMPLETED DATE/TIME: 02/27/2020 7:18 pm REASON FOR STUDY: Post OP -Long Cassette in PACU COMPARISON: None. NUMBER OF VIEWS: Two views. TECHNIQUE: AP and lateral radiographic images acquired of the left knee. LIMITATIONS: None. FINDINGS: Postoperative images show a total knee replacement in good position. IMPRESSION: Total knee replacement. Refer to operative note for further information. TECHNICAL DOCUMENTATION: JOB ID: [id number] 2010 [employer]- All Rights Reserved Reading location - IP/workstation name: [email or web address]
[2020-02-27] MEDS: RINGERS SOLUTION,LACTATED 1,000 ML IV PRN (21:19)
[2020-02-28] MEDS: HYDROMORPHONE HCL INJ/PF 2 MG/ML AMPULE IV PRN ×3 (03:42→10:43)
[2020-02-28] MEDS: TIZANIDINE HCL 4 MG TABLET PO SCH ×3 (05:06→22:35)
[2020-02-28] MEDS ORDERED: VANCOMYCIN HCL INJ 1000 MG VIAL ONE (05:25)
[2020-02-28 05:39] LABS: ANION GAP 9 (5-19); BLOOD UREA NITROGEN 10 mg/dL (7-20); CALCIUM 8.1 mg/dL (8.4-10.2); CARBON DIOXIDE 24 mmol/L (22-30); CHLORIDE 97 mmol/L (98-107); GLUCOSE 84 mg/dL (75-110); POTASSIUM 3.8 mmol/L (3.6-5.0)
[2020-02-28] MEDS: RINGERS SOLUTION,LACTATED 1,000 ML IV PRN ×2 (06:05→22:30)
[2020-02-28] MEDS: GABAPENTIN 300 MG CAPSULE PO SCH ×3 (06:06→22:34)
[2020-02-28] MEDS ORDERED: VANCOMYCIN HCL 1,000 MG in DEXTROSE 5%-WATER 250 ML IV ONE (06:19)
[2020-02-28 08:38] LABS: MEAN CORPUSCULAR HEMOGLOBIN 37.9 pg (27.0-33.4); MEAN CORPUSCULAR HGB CONC 36.6 g/dL (32.0-36.0); PLATELET COUNT 303 10^3/uL (150-450); RED BLOOD COUNT 1.83 10^6/uL (3.72-5.28); RED CELL DISTRIBUTION WIDTH 16.1 % (11.5-14.0); WHITE BLOOD COUNT 7.4 10^3/uL (4.0-10.5)
[2020-02-28 08:42] LABS: MEAN CORPUSCULAR VOLUME 104 fl (80-97)
[2020-02-28 08:43] LABS: HEMOGLOBIN 6.9 g/dL (12.0-15.5)
[2020-02-28] MEDS ORDERED: NORMAL SALINE 250 ML IV PRN ×2 (08:57)
[2020-02-28] MEDS: CYANOCOBALAMIN (VITAMIN B-12) 1,000 MCG TABLET PO SCH (09:39)
[2020-02-28] MEDS: SENNOSIDES/DOCUSATE 8.6-50 MG 1 EACH TABLET PO SCH ×2 (09:39→17:02)
[2020-02-28] MEDS: OXCARBAZEPINE 150 MG TABLET PO SCH ×2 (09:39→22:34)
[2020-02-28] MEDS: ASPIRIN 81 MG TABLET, ENT COATED PO SCH (09:39)
[2020-02-28] MEDS: PRENATAL VITAMIN W DHA CAPSULE PO SCH (09:39)
[2020-02-28] MEDS: ENOXAPARIN SODIUM INJ 40 MG/0.4 ML DISP.SYRIN SUBCUT SCH (09:39)
[2020-02-28] MEDS: BUPROPION HCL 75 MG TABLET PO SCH ×2 (09:39→22:34)
[2020-02-28] MEDS: DOCUSATE SODIUM 100 MG CAPSULE PO SCH (09:39)
[2020-02-28] MEDS ORDERED: FUROSEMIDE INJ/PF 20 MG/2 ML SDV IV PRN (10:43)
[2020-02-28] MEDS ORDERED: HYDROMORPHONE HCL INJ/PF 2 MG/ML AMPULE IV PRN ×3 (10:45→14:31)
[2020-02-28] MEDS ORDERED: ACETAMINOPHEN 325 MG TABLET PO ONE (11:00)
[2020-02-28] MEDS ORDERED: DIPHENHYDRAMINE HCL 50 MG CAPSULE PO ONE (11:00)
--- NOTE | 2020-02-28 11:38 | PDOC PROGRESS REPORT ---
Subjective Date:: 02/28/20 Subjective:: Patient had pain this morning, hemoglobin dropped into the 7 range. Reason For Visit: LEFT DISTAL FEMORAL PATHOLOGICAL FRACTURE Physical Exam Vital Signs: Temp Pulse Resp BP Pulse Ox 99.0 F 124 H 20 110/41 L 98 02/28/20 09:30 02/28/20 09:30 02/28/20 09:30 02/28/20 09:30 02/28/20 09:30 Intake & Output 02/27/20 02/28/20 02/29/20 06:59 06:59 06:59 Intake Total 360 4350 250 Output Total 475 Balance 360 3875 250 Weight 60.9 kg 60.5 kg General appearance: PRESENT: no acute distress, well-developed, well-nourished Head exam: PRESENT: atraumatic, normocephalic Eye exam: PRESENT: conjunctiva pink, EOMI, PERRLA. ABSENT: scleral icterus Ear exam: PRESENT: normal external ear exam Mouth exam: PRESENT: moist, tongue midline Neck exam: ABSENT: carotid bruit, JVD, lymphadenopathy, thyromegaly Respiratory exam: PRESENT: clear to auscultation clare. ABSENT: rales, rhonchi, wheezes Cardiovascular exam: PRESENT: RRR. ABSENT: diastolic murmur, rubs, systolic murmur Pulses: PRESENT: normal dorsalis pedis pul Vascular exam: PRESENT: normal capillary refill GI/Abdominal exam: PRESENT: normal bowel sounds, soft. ABSENT: distended, guarding, mass, organolmegaly, rebound, tenderness Rectal exam: PRESENT: deferred Extremities exam: PRESENT: full ROM. ABSENT: calf tenderness, clubbing, pedal edema Neurological exam: PRESENT: alert, awake, oriented to person, oriented to place, oriented to time, oriented to situation, CN II-XII grossly intact. ABSENT: motor sensory deficit Psychiatric exam: PRESENT: appropriate affect, normal mood. ABSENT: homicidal ideation, suicidal ideation Skin exam: PRESENT: dry, intact, warm. ABSENT: cyanosis, rash Results Laboratory Results: 02/28/20 08:00 02/28/20 04:44 02/28/20 02/28/20 02/28/20 04:44 04:44 08:00 WBC Cancelled 7.4 RBC Cancelled 1.83 L Hgb Cancelled 6.9 L D Hct Cancelled 19.0 L MCV Cancelled 104 H D MCH Cancelled 37.9 H MCHC Cancelled 36.6 H RDW Cancelled 16.1 H Plt Count Cancelled 303 Sodium 130.4 L Potassium 3.8 Chloride 97 L Carbon Dioxide 24 Anion Gap 9 BUN 10 Creatinine 0.45 L Est GFR ( Amer) > 60 Glucose 84 Calcium 8.1 L Blood Type Antibody Screen 02/28/20 08:00 WBC RBC Hgb Hct MCV MCH MCHC RDW Plt Count Sodium Potassium Chloride Carbon Dioxide Anion Gap BUN Creatinine Est GFR ( Amer) Glucose Calcium Blood Type O NEGATIVE Antibody Screen NEGATIVE Impressions: Body Scan Nuclear Medicine 02/25/20 00:00 IMPRESSION: No evidence of osseous metastases. Increased activity seen in the region of the left knee is concerning for septic joint/ patellar osteomyelitis. Activity seen in the region of the left ischial tuberosity correlates to a biceps femoris enthesophyte. Abdomen/Pelvis CT 02/25/20 13:57 IMPRESSION: New nodular stranding of the mesenteric fat and omentum concerning for carcinomatosis. Chest CT 02/25/20 13:57 IMPRESSION: Since the CT from 02/09/2020, the solid nodule in the superior segment of the left lower lobe that is surrounded by fiducial markers has decreased in size, the sub solid nodule in the right middle lobe (image 36 of series 4) has increased in size and the patient has developed several new b ilateral pulmonary nodule and nodular opacities. These findings are concerning for progression of disease. Head MRI 02/26/20 00:00 IMPRESSION: No evidence of metastatic disease. Normal MR appearance of the brain. EVIDENCE OF ACUTE STROKE: NO. Knee X-Ray 02/27/20 18:21 IMPRESSION: Total knee replacement. Refer to operative note for further information. Assessment & Plan - Diagnosis (1) Intractable pain Is this a current diagnosis for this admission?: Yes Plan: Fentanyl patch fell off yesterday morning when she was showering before surgery. Never was replaced, so we replaced it today, changed her Dilaudid dosing today as well. (2) Metastatic cancer to bone Is this a current diagnosis for this admission?: Yes Plan: Status post left knee surgery, continue to monitor. Pathology should be out by Sunday (3) Cancer of left lung Qualifiers: Lung location: lower lobe of lung Qualified Code(s): C34.32 - Malignant neoplasm of lower lobe, left bronchus or lung Is this a current diagnosis for this admission?: Yes Plan: Plan as above. (4) Follicular lymphoma Qualifiers: Follicular lymphoma grade: grade II Lymphoma site: multiple regions Qualified Code(s): C82.18 - Follicular lymphoma grade II, lymph nodes of multiple sites Is this a current diagnosis for this admission?: Yes Plan: Seems to be in remission but we will see with pathology. (5) Anemia Qualifiers: Anemia type: other cause Other causes of anemia: acute posthemorrhagic Qualified Code(s): D62 - Acute posthemorrhagic anemia Is this a current diagnosis for this admission?: Yes Plan: Probable blood loss from surgery, plan to transfuse 2 units of packed red blood cell, will give Benadryl and Tylenol and Lasix. - Time Time Spent with patient: 35 or more minutes
[2020-02-28] MEDS: FENTANYL 25 MCG/HR PATCH.TD72 TD SCH (12:00)
--- NOTE | 2020-02-28 13:04 | PDOC PROGRESS REPORT ---
Subjective Date:: 02/28/20 Subjective:: Patient lying in bed comfortably. States pain has improved with Dilaudid. Sudarshan es chest pain or shortness of breath. No issues overnight. Reason For Visit: LEFT DISTAL FEMORAL PATHOLOGICAL FRACTURE Physical Exam Vital Signs: Temp Pulse Resp BP Pulse Ox 99.0 F 124 H 20 110/41 L 98 02/28/20 09:30 02/28/20 09:30 02/28/20 09:30 02/28/20 09:30 02/28/20 09:30 Intake & Output 02/27/20 02/28/20 02/29/20 06:59 06:59 06:59 Intake Total 360 4350 250 Output Total 475 Balance 360 3875 250 Weight 60.9 kg 60.5 kg Musculoskeletal exam: PRESENT: other - Left lower extremity: Dressing clean/dry/intact no erythema or drainage. Moderate thigh swelling without change, intact plantarflexion/dorsiflexion. No sensory deficits. No calf tenderness. Results Laboratory Results: 02/28/20 08:00 02/28/20 04:44 02/28/20 02/28/20 02/28/20 04:44 04:44 08:00 WBC Cancelled 7.4 RBC Cancelled 1.83 L Hgb Cancelled 6.9 L D Hct Cancelled 19.0 L MCV Cancelled 104 H D MCH Cancelled 37.9 H MCHC Cancelled 36.6 H RDW Cancelled 16.1 H Plt Count Cancelled 303 Sodium 130.4 L Potassium 3.8 Chloride 97 L Carbon Dioxide 24 Anion Gap 9 BUN 10 Creatinine 0.45 L Est GFR ( Amer) > 60 Glucose 84 Calcium 8.1 L Blood Type Antibody Screen 02/28/20 08:00 WBC RBC Hgb Hct MCV MCH MCHC RDW Plt Count Sodium Potassium Chloride Carbon Dioxide Anion Gap BUN Creatinine Est GFR ( Amer) Glucose Calcium Blood Type O NEGATIVE Antibody Screen NEGATIVE Impressions: Body Scan Nuclear Medicine 02/25/20 00:00 IMPRESSION: No evidence of osseous metastases. Increased activity seen in the region of the left knee is concerning for septic joint/ patellar osteomyelitis. Activity seen in the region of the left ischial tuberosity correlates to a biceps femoris enthesophyte. Abdomen/Pelvis CT 02/25/20 13:57 IMPRESSION: New nodular stranding of the mesenteric fat and omentum concerning for carcinomatosis. Chest CT 02/25/20 13:57 IMPRESSION: Since the CT from 02/09/2020, the solid nodule in the superior segment of the left lower lobe that is surrounded by fiducial markers has decreased in size, the sub solid nodule in the right middle lobe (image 36 of series 4) has increased in size and the patient has developed several new bilateral pulmonary nodule and nodular opacities. These findings are concerning for progression of disease. Head MRI 02/26/20 00:00 IMPRESSION: No evidence of metastatic disease. Normal MR appearance of the brain. EVIDENCE OF ACUTE STROKE: NO. Knee X-Ray 02/27/20 18:21 IMPRESSION: Total knee replacement. Refer to operative note for further information. Assessment & Plan - Diagnosis (1) Metastatic cancer to bone Is this a current diagnosis for this admission?: Yes Plan: Status post left distal femoral arthroplasty 1. Pain control 2. DVT prophylaxis: Lovenox 3. Acute on chronic blood loss anemia current H&H 6.12/12. Patient will receive 2 units of packed red blood cells. 4. Physical therapy weightbearing as tolerated 5. Awaiting intraoperative pathology likely available in the upcoming week. 6. Discharge planning patient will require retirement facility. - Time Time Spent with patient: Less than 15 minutes
--- NOTE | 2020-02-28 13:22 | PDOC PROGRESS REPORT ---
Subjective Date:: 02/28/20 Subjective:: LUPILLO DE LA ROSA is a 64 year old female with a past medical history significant for follicular lymphoma and squamous cell carcinoma of the lung status post chemotherapy treatment and followed by Dr. Hillman, CAD, [place], hypertension, COPD, chronic back pain, and opiate dependence who was admitted 05/18/19 w/ intractable pain to the left knee and MRI imagining concerning for metastasis. Patient was seen on morning rounds with family at bedside. She is found resting in bed, comfortably, on supplemental oxygen. Per nurse, has done well weaning so far. She states that her pain is currently well controlled; did just receive dilaudid and so is somewhat drowsy. She denies fever, chills, chest pain, palpitations, dyspnea, abdominal pain, vomiting and diarrhea. The have no questions or concerns at this time. No concerns per nursing. Reason For Visit: LEFT DISTAL FEMORAL PATHOLOGICAL FRACTURE Physical Exam Vital Signs: Temp Pulse Resp BP Pulse Ox 99.0 F 124 H 20 110/41 L 98 02/28/20 09:30 02/28/20 09:30 02/28/20 09:30 02/28/20 09:30 02/28/20 09:30 Intake & Output 02/27/20 02/28/20 02/29/20 06:59 06:59 06:59 Intake Total 360 4350 250 Output Total 475 Balance 360 3875 250 Weight 60.9 kg 60.5 kg General appearance: PRESENT: no acute distress, well-developed, well-nourished Head exam: PRESENT: atraumatic, normocephalic Eye exam: PRESENT: conjunctiva pink, EOMI, PERRLA. ABSENT: scleral icterus Mouth exam: PRESENT: moist, tongue midline Respiratory exam: PRESENT: clear to auscultation clare, symmetrical, unlabored, other - supplemental O2. ABSENT: rales, rhonchi, wheezes Cardiovascular exam: PRESENT: RRR. ABSENT: diastolic murmur, rubs, systolic murmur Pulses: PRESENT: normal dorsalis pedis pul Vascular exam: PRESENT: normal capillary refill Extremities exam: PRESENT: tenderness - LLE. ABSENT: calf tenderness, clubbing, full ROM, pedal edema Neurological exam: PRESENT: alert, awake, oriented to person, oriented to place, oriented to time, oriented to situation, CN II-XII grossly intact. ABSENT: motor sensory deficit Psychiatric exam: PRESENT: appropriate affect, normal mood. ABSENT: homicidal ideation, suicidal ideation Skin exam: PRESENT: dry, warm, other - Surgical site not visulaized; post op dressing/dariel wrap in place to LLE. ABSENT: cyanosis, intact, rash Results Laboratory Results: 02/28/20 08:00 02/28/20 04:44 02/28/20 02/28/20 02/28/20 04:44 04:44 08:00 WBC Cancelled 7.4 RBC Cancelled 1.83 L Hgb Cancelled 6.9 L D Hct Cancelled 19.0 L MCV Cancelled 104 H D MCH Cancelled 37.9 H MCHC Cancelled 36.6 H RDW Cancelled 16.1 H Plt Count Cancelled 303 Sodium 130.4 L Potassium 3.8 Chloride 97 L Carbon Dioxide 24 Anion Gap 9 BUN 10 Creatinine 0.45 L Est GFR ( Amer) > 60 Glucose 84 Calcium 8.1 L Blood Type Antibody Screen 02/28/20 08:00 WBC RBC Hgb Hct MCV MCH MCHC RDW Plt Count Sodium Potassium Chloride Carbon Dioxide Anion Gap BUN Creatinine Est GFR ( Amer) Glucose Calcium Blood Type O NEGATIVE Antibody Screen NEGATIVE Impressions: Body Scan Nuclear Medicine 02/25/20 00:00 IMPRESSION: No evidence of osseous metastases. Increased activity seen in the region of the left knee is concerning for septic joint/ patellar osteomyelitis. Activity seen in the region of the left ischial tuberosity correlates to a bi ceps femoris enthesophyte. Abdomen/Pelvis CT 02/25/20 13:57 IMPRESSION: New nodular stranding of the mesenteric fat and omentum concerning for carcinomatosis. Chest CT 02/25/20 13:57 IMPRESSION: Since the CT from 02/09/2020, the solid nodule in the superior segment of the left lower lobe that is surrounded by fiducial markers has decrea sed in size, the sub solid nodule in the right middle lobe (image 36 of series 4) has increased in size and the patient has developed several new bilateral pulmonary nodule and nodular opacities. These findings are concerning for progression of disease. Head MRI 02/26/20 00:00 IMPRESSION: No evidence of metastatic disease. Normal MR appearance of the brain. EVIDENCE OF ACUTE STROKE: NO. Knee X-Ray 02/27/20 18:21 IMPRESSION: Total knee replacement. Refer to operative note for further information. Assessment and Plan - Diagnosis (1) Knee pain Qualifiers: Chronicity: acute Laterality: left Qualified Code(s): M25.562 - Pain in left knee Is this a current diagnosis for this admission?: Yes Plan: Now POD #1 Left femoral resection and endoprosthestic reconstruction Outpatient MRI and CT imagining was concerning for invasion of metastatic disease to the distal femoral metaphysis. Nuclear bone scan was negative for osseous metastases. Possibly septic joint/patellar osteomyelitis. During orthopedic repair, found to have evidence of neoplastic process and pathologic fracture Blood cultures negative. Pathology pending. Orthopedics consulted. Continue Lovenox for DVT prophylaxis per Dr. Herbert. Dr. Hillman consulted. Analgesics per Dr. Hillman. Weightbearing as tolerated. Physical therapy consulted. Discharge planning consulted. (2) Metastatic cancer to bone Is this a current diagnosis for this admission?: Yes Plan: Outpatient MRI showed likely invasion of metastatic disease to the distal femoral metaphysis. Patient presents in intractable pain. She is established with Dr. Hillman. Now s/p orthopedic resection/repair Pathology pending She is admitted to the medical floor. Oncology is consulted; analgesics per Dr. Hillman. Orthopedics consulted. Fall precautions. (3) Intractable pain Is this a current diagnosis for this admission?: Yes Plan: Improved. Secondary to #[address] Hillman. Remaining evaluation and management as above. (4) Anemia Qualifiers: Anemia type: other cause Other causes of anemia: acute posthemorrhagic Qualified Code(s): D62 - Acute posthemorrhagic anemia Is this a current diagnosis for this admission?: Yes Plan: Acute blood loss anemia; Hgb 9.5-> 6.9 Underlying anemia of chronic disease. Anemia panel shows mild iron deficiency. To receive 2 units PRBC today. Hematology/oncology consulted. Follow-up CBC. (5) Hyponatremia Is this a current diagnosis for this admission?: Yes Plan: Mild hyponatremia. Na 130.8-> 132.9-> 129.3-> 132 Looks like the patient has chronic mild hyponatremia with an average of 132; lik daniel secondary to malignancy. We will liberalize dietary sodium. Restrict free water. Follow-up chemistry. - Time Time Spent with patient: 15-24 minutes Medications reviewed and adjusted accordingly: Yes Anticipated Discharge Disposition: [facility] Anticipated Discharge Timeframe: within 48 hours
[2020-02-28] MEDS ORDERED: NALOXONE HCL INJ/PF 0.4 MG/1 ML SDV IV PRN (14:31)
[2020-02-28 23:29] LABS: HEMATOCRIT 28.7 % (36.0-47.0); MEAN CORPUSCULAR HEMOGLOBIN 32.4 pg (27.0-33.4); MEAN CORPUSCULAR HGB CONC 35.5 g/dL (32.0-36.0); PLATELET COUNT 236 10^3/uL (150-450); RED BLOOD COUNT 3.14 10^6/uL (3.72-5.28); RED CELL DISTRIBUTION WIDTH 16.2 % (11.5-14.0); WHITE BLOOD COUNT 9.4 10^3/uL (4.0-10.5)
[2020-02-28 23:53] LABS: HEMOGLOBIN 10.2 g/dL (12.0-15.5); MEAN CORPUSCULAR VOLUME 92 fl (80-97)
[2020-02-28 23:54] LABS: ABSOLUTE LYMPHOCYTES# (MANUAL) 0.5 10^3/uL (0.5-4.7); ABSOLUTE MONOCYTES # (MANUAL) 0.9 10^3/uL (0.1-1.4); BAND NEUTROPHILS % (MANUAL) 2 % (3-5); BASOPHILS % (MANUAL) 0 % (0-2); EOSINOPHILS % (MANUAL) 0 % (0-6); LYMPHOCYTES % (MANUAL) 5 % (13-45); MONOCYTES % (MANUAL) 10 % (3-13); SEGMENTED NEUTROPHILS % (MAN) 83 % (42-78); TOTAL CELLS COUNTED 100
[2020-02-28 23:55] LABS: ANISOCYTOSIS 2+; PLATELET COMMENT ADEQUATE; POLYCHROMASIA 1+
[2020-02-29] MEDS: HYDROMORPHONE HCL INJ/PF 2 MG/ML AMPULE IV PRN ×2 (05:03→07:35)
[2020-02-29] MEDS: GABAPENTIN 300 MG CAPSULE PO SCH ×3 (05:04→22:03)
[2020-02-29] MEDS: TIZANIDINE HCL 4 MG TABLET PO SCH ×3 (05:04→22:03)
[2020-02-29 05:34] LABS: HEMATOCRIT 24.5 % (36.0-47.0); HEMOGLOBIN 8.9 g/dL (12.0-15.5); MEAN CORPUSCULAR HEMOGLOBIN 33.9 pg (27.0-33.4); MEAN CORPUSCULAR HGB CONC 36.1 g/dL (32.0-36.0); MEAN CORPUSCULAR VOLUME 94 fl (80-97); PLATELET COUNT 250 10^3/uL (150-450); RED BLOOD COUNT 2.61 10^6/uL (3.72-5.28); RED CELL DISTRIBUTION WIDTH 15.9 % (11.5-14.0); WHITE BLOOD COUNT 7.4 10^3/uL (4.0-10.5)
[2020-02-29 05:56] LABS: ANION GAP 5 (5-19); BLOOD UREA NITROGEN 8 mg/dL (7-20); CALCIUM 8.4 mg/dL (8.4-10.2); CARBON DIOXIDE 30 mmol/L (22-30); CHLORIDE 92 mmol/L (98-107); GLUCOSE 99 mg/dL (75-110); POTASSIUM 3.5 mmol/L (3.6-5.0)
[2020-02-29] MEDS: PRENATAL VITAMIN W DHA CAPSULE PO SCH (09:10)
[2020-02-29] MEDS: DOCUSATE SODIUM 100 MG CAPSULE PO SCH (09:10)
[2020-02-29] MEDS: SENNOSIDES/DOCUSATE 8.6-50 MG 1 EACH TABLET PO SCH ×2 (09:10→17:21)
[2020-02-29] MEDS: ASPIRIN 81 MG TABLET, ENT COATED PO SCH (09:10)
[2020-02-29] MEDS: ENOXAPARIN SODIUM INJ 40 MG/0.4 ML DISP.SYRIN SUBCUT SCH (09:10)
[2020-02-29] MEDS: OXCARBAZEPINE 150 MG TABLET PO SCH ×2 (09:10→21:57)
[2020-02-29] MEDS: BUPROPION HCL 75 MG TABLET PO SCH ×2 (09:11→21:57)
[2020-02-29] MEDS: CYANOCOBALAMIN (VITAMIN B-12) 1,000 MCG TABLET PO SCH (09:11)
[2020-02-29] MEDS ORDERED: ERGOCALCIFEROL 50 MCG PO SCH (10:00)
[2020-02-29] MEDS ORDERED: ERGOCALCIFEROL (VITAMIN D2) 50000 UNIT (1.25 MG) CAPSULE PO SCH (10:00)
[2020-02-29] MEDS: OXYCODONE HCL IR 5 MG TABLET PO PRN ×3 (11:50→21:57)
--- NOTE | 2020-02-29 12:33 | PDOC PROGRESS REPORT ---
Subjective Date:: 02/29/20 Subjective:: LUPILLO DE LA ROSA is a 64 year old female with a past medical history significant for follicular lymphoma and squamous cell carcinoma of the lung status post chemotherapy treatment and followed by Dr. Hillman, CAD, [place], hypertension, COPD, chronic back pain, and opiate dependence who was admitted 05/18/19 w/ intractable pain to the left knee and MRI imagining concerning for metastasis. Patient was seen on morning rounds. She is found resting in bed, comfortably, on supplemental oxygen at 2lpm. She is not on home oxygen. Patient states she has severe LLE pain is unable to move extremity at all. She states her pain is uncontrolled; drifts to sleep twice during our conversation. Discussed her current pain medication regiment; patint states fentanyl patch is ineffective and reports nurses are not offering her oxycodone, only dilaudid. Otherwise, she has no other questions or concerns at this time. She denies fever, chills, chest pain, palpitations, dyspnea, abdominal pain, vomiting and diarrhea. Nursing again raises concerns that patient may be over medicated. They report that she has been refusing offer of oxycodone despite attempts to educate effectiveness of using oral options w/ dilaudid for breakthrough pain. They report continued sedation and hypoxia requiring supplemental oxygen. Reason For Visit: LEFT DISTAL FEMORAL PATHOLOGICAL FRACTURE Physical Exam Vital Signs: Temp Pulse Resp BP Pulse Ox 97.8 F 114 H 14 118/62 97 02/29/20 11:52 02/29/20 11:52 02/29/20 11:52 02/29/20 11:52 02/29/20 11:52 Intake & Output 02/28/20 02/29/20 03/01/20 06:59 06:59 06:59 Intake Total 4350 2515 1000 Output Total 475 500 Balance 3875 2014 999 Weight 60.5 kg 61.1 kg General appearance: PRESENT: no acute distress, well-developed, well-nourished Head exam: PRESENT: atraumatic, normocephalic Eye exam: PRESENT: conjunctiva pink, EOMI, PERRLA. ABSENT: scleral icterus Mouth exam: PRESENT: moist, tongue midline Respiratory exam: PRESENT: clear to auscultation clare, symmetrical, unlabored, other - supplemental oxygen via NC. ABSENT: rales, rhonchi, wheezes Cardiovascular exam: PRESENT: RRR, tachycardia - HR 90-114. ABSENT: diastolic murmur, rubs, systolic murmur Pulses: PRESENT: normal dorsalis pedis pul Vascular exam: PRESENT: normal capillary refill Extremities exam: PRESENT: tenderness - LLE. ABSENT: calf tenderness, clubbing, full ROM, pedal edema Neurological exam: PRESENT: alert, awake, oriented to person, oriented to place, oriented to time, oriented to situation, CN II-XII grossly intact, other - Somnolent. ABSENT: motor sensory deficit Psychiatric exam: PRESENT: appropriate affect, normal mood. ABSENT: homicidal ideation, suicidal ideation Skin exam: PRESENT: dry, warm, other - Clean dry and intact. Surgical incision to left. ABSENT: cyanosis, rash Results Laboratory Results: 02/29/20 04:44 02/29/20 04:44 02/28/20 02/28/20 02/29/20 08:00 23:06 04:44 WBC 9.4 7.4 RBC 3.14 L 2.61 L Hgb 10.2 L D 8.9 L Hct 28.7 L 24.5 L MCV 92 D 94 MCH 32.4 33.9 H MCHC 35.5 36.1 H RDW 16.2 H 15.9 H Plt Count 236 250 Seg Neutrophils % Not Reportable Sodium Potassium Chloride Carbon Dioxide Anion Gap BUN Creatinine Est GFR ( Amer) Glucose Calcium Blood Type O NEGATIVE Antibody Screen NEGATIVE 02/29/20 04:44 WBC RBC Hgb Hct MCV MCH MCHC RDW Plt Count Seg Neutrophils % Sodium 126.6 L Potassium 3.5 L Chloride 92 L Carbon Dioxide 30 Anion Gap 5 BUN 8 Creatinine 0.39 L Est GFR ( Amer) > 60 Glucose 99 Calcium 8.4 Blood Type Antibody Screen Impressions: Body Scan Nuclear Medicine 02/25/20 00:00 IMPRESSION: No evidence of osseous metastases. Increased activity seen in the region of the left knee is concerning for septic joint/ patellar osteomyelitis. Activity seen in the region of the left ischial tuberosity correlates to a biceps femoris enthesophyte. Abdomen/Pelvis CT 02/25/20 13:57 IMPRESSION: New nodular stranding of the mesenteric fat and omentum concerning for carcinomatosis. Chest CT 02/25/20 13:57 IMPRESSION: Since the CT from 02/09/2020, the solid nodule in the superior segment of the left lower lobe that is surrounded by fiducial markers has decreased in size, the sub solid nodule in the right middle lobe (image 36 of series 4) has increased in size and the patient has developed several new bilateral pulmonary nodule and nodular opacities. These findings are concerning for progression of disease. Head MRI 02/26/20 00:00 IMPRESSION: No evidence of metastatic disease. Normal MR appearance of the brain. EVIDENCE OF ACUTE STROKE: NO. Knee X-Ray 02/27/20 18:21 IMPRESSION: Total knee replacement. Refer to operative note for further information. Assessment and Plan - Diagnosis (1) Knee pain Qualifiers: Chronicity: acute Laterality: left Qualified Code(s): M25.562 - Pain in left knee Is this a current diagnosis for this admission?: Yes Plan: Now POD #2 Left femoral resection and endoprosthestic reconstruction Outpatient MRI and CT imagining was concerning for invasion of metastatic disease to the distal femoral metaphysis. Nuclear bone scan was negative for osseous metastases. Possibly septic joint/patellar osteomyelitis. During orthopedic repair, found to have evidence of neoplastic process and pathologic fracture Blood cultures negative. Pathology pending. Orthopedics consulted. Continue Lovenox for DVT prophylaxis per Dr. Herbert. Dr. Hillman consulted. Analgesics per Dr. Hillman. Weightbearing as tolerated. Physical therapy consulted. Discharge planning consulted. (2) Metastatic cancer to bone Is this a current diagnosis for this admission?: Yes Plan: Outpatient MRI showed likely invasion of metastatic disease to the distal femoral metaphysis. Patient presents in intractable pain. She is established with Dr. Hillman. Now s/p orthopedic resection/repair Pathology pending She is admitted to the medical floor. Oncology is consulted; plan per Dr. Hillman. Orthopedics consulted. Fall precautions. (3) Intractable pain Is this a current diagnosis for this admission?: Yes Plan: Improved. However, continued concerns per nursing that the patient is overmedicated. Secondary to #1 Long discussion had with patient today regarding utilizing fentanyl patch and oral oxycodone with Dilaudid for breakthrough. I have decreased Dilaudid from sliding scale to 1 mg every 4 hours as needed breakthrough pain. Communication order to nursing as well as instructions to patient that she should utilize oral options and it Dilaudid is only available for breakthrough. Continue fentanyl patch 25 mcg and oxycodone 10 mg every 4 hours as needed. Narcan prn. Remaining evaluation and management as above. (4) Anemia Qualifiers: Anemia type: other cause Other causes of anemia: acute posthemorrhagic Qualified Code(s): D62 - Acute posthemorrhagic anemia Is this a current diagnosis for this admission?: Yes Plan: Acute blood loss anemia; Hgb 9.5-> 6.9-> 10.2 (s/p PRBC)-> 8.9 Underlying anemia of chronic disease. Anemia panel shows mild iron deficiency. s/p 2 units PRBC Hematology/oncology consulted. Follow-up CBC. (5) Hyponatremia Is this a current diagnosis for this admission?: Yes Plan: Mild hyponatremia. Na 130.8-> 132.9-> 129.3-> 132-> 126 Looks like the patient has chronic mild hyponatremia with an average of 132; likely secondary to malignancy. We will liberalize dietary sodium. Restrict free water. d/c Lactated Ringer's. Follow-up chemistry. - Time Time Spent with patient: 25-34 minutes Medications reviewed and adjusted accordingly: Yes Anticipated Discharge Disposition: Home with Home Health - pt declines SNF Anticipated Discharge Timeframe: within 48 hours
--- NOTE | 2020-02-29 17:28 | PDOC PROGRESS REPORT ---
Subjective Subjective:: Patient lying in bed comfortably. States pain has improved with Dilaudid. Patient states she is much more alert today after receiving blood. Denies chest pain or shortness of breath. No issues overnight. Reason For Visit: LEFT DISTAL FEMORAL PATHOLOGICAL FRACTURE Physical Exam Vital Signs: Temp Pulse Resp BP Pulse Ox 100.2 F 108 H 16 101/56 L 96 02/29/20 16:35 02/29/20 16:35 02/29/20 16:35 02/29/20 16:35 02/29/20 16:35 Intake & Output 02/28/20 02/29/20 03/01/20 06:59 06:59 06:59 Intake Total 4350 2515 1000 Output Total 475 500 Balance 3875 2014 1000 Weight 60.5 kg 61.1 kg Musculoskeletal exam: PRESENT: other - Left lower extremity: Dressing change today dressing clean/dry/intact no erythema or drainage. Moderate thigh swelling without change, intact plantarflexion/dorsiflexion. No sensory deficits. No calf tenderness. Results Laboratory Results: 02/29/20 04:44 02/29/20 04:44 02/28/20 02/28/20 02/29/20 08:00 23:06 04:44 WBC 9.4 7.4 RBC 3.14 L 2.61 L Hgb 10.2 L D 8.9 L Hct 28.7 L 24.5 L MCV 92 D 94 MCH 32.4 33.9 H MCHC 35.5 36.1 H RDW 16.2 H 15.9 H Plt Count 236 250 Seg Neutrophils % Not Reportable Sodium Potassium Chloride Carbon Dioxide Anion Gap BUN Creatinine Est GFR ( Amer) Glucose Calcium Blood Type O NEGATIVE Antibody Screen NEGATIVE 02/29/20 04:44 WBC RBC Hgb Hct MCV MCH MCHC RDW Plt Count Seg Neutrophils % Sodium 126.6 L Potassium 3.5 L Chloride 92 L Carbon Dioxide 30 Anion Gap 5 BUN 8 Creatinine 0.39 L Est GFR ( Amer) > 60 Glucose 99 Calcium 8.4 Blood Type Antibody Screen Impressions: Body Scan Nuclear Medicine 02/25/20 00:00 IMPRESSION: No evidence of osseous metastases. Increased activity seen in the region of the left knee is concerning for septic joint/ patellar osteomyelitis. Activity seen in the region of the left ischial tuberosity correlates to a biceps femoris enthesophyte. Abdomen/Pelvis CT 02/25/20 13:57 IMPRESSION: New nodular stranding of the mesenteric fat and omentum concerning for carcinomatosis. Chest CT 02/25/20 13:57 IMPRESSION: Since the CT from 02/09/2020, the solid nodule in the superior segment of the left lower lobe that is surrounded by fiducial markers has decreased in size, the sub solid nodule in the right middle lobe (image 36 of series 4) has increased in size and the patient has developed several new bilateral pulmonary nodule and nodular opacities. These findings are concerning for progression of disease. Head MRI 02/26/20 00:00 IMPRESSION: No evidence of metastatic disease. Normal MR appearance of the brain. EVIDENCE OF ACUTE STROKE: NO. Knee X-Ray 02/27/20 18:21 IMPRESSION: Total knee replacement. Refer to operative note for further in formation. Assessment & Plan - Diagnosis (1) Metastatic cancer to bone Is this a current diagnosis for this admission?: Yes Plan: Status post left distal femoral arthroplasty 1. Continue physical therapy 2. Dressing change today no signs or symptoms of infection. 3. Continue aspirin for DVT prophylaxis. 4. Awaiting pathology results. 5. Acute on chronic blood loss anemia improved after transpedicular blood cells with hematocrit 24.5 6. Discharge planning patient will likely require group home facility when bed available - Time Time Spent with patient: Less than 15 minutes
[2020-03-01] MEDS: OXYCODONE HCL IR 5 MG TABLET PO PRN ×5 (04:44→22:39)
[2020-03-01] MEDS: GABAPENTIN 300 MG CAPSULE PO SCH ×3 (05:00→22:38)
[2020-03-01] MEDS: TIZANIDINE HCL 4 MG TABLET PO SCH ×3 (05:00→22:38)
[2020-03-01 05:39] LABS: HEMATOCRIT 25.2 % (36.0-47.0); HEMOGLOBIN 8.7 g/dL (12.0-15.5); MEAN CORPUSCULAR HEMOGLOBIN 31.7 pg (27.0-33.4); MEAN CORPUSCULAR HGB CONC 34.7 g/dL (32.0-36.0); MEAN CORPUSCULAR VOLUME 91 fl (80-97); PLATELET COUNT 237 10^3/uL (150-450); RED BLOOD COUNT 2.75 10^6/uL (3.72-5.28); RED CELL DISTRIBUTION WIDTH 16.1 % (11.5-14.0); WHITE BLOOD COUNT 6.2 10^3/uL (4.0-10.5)
[2020-03-01 06:02] LABS: ANION GAP 7 (5-19); BLOOD UREA NITROGEN 7 mg/dL (7-20); CALCIUM 8.4 mg/dL (8.4-10.2); CARBON DIOXIDE 34 mmol/L (22-30); CHLORIDE 89 mmol/L (98-107); GLUCOSE 85 mg/dL (75-110); POTASSIUM 3.5 mmol/L (3.6-5.0)
--- NOTE | 2020-03-01 08:00 | PDOC PROGRESS REPORT ---
Subjective Date:: 03/01/20 Subjective:: Doing much better, tolerating PO pain meds, and getting up w/ walker and 1 person assist. Reason For Visit: LEFT DISTAL FEMORAL PATHOLOGICAL FRACTURE Physical Exam Vital Signs: Temp Pulse Resp BP Pulse Ox 98.3 F 98 16 100/60 99 02/29/20 23:55 02/29/20 23:55 02/29/20 23:55 02/29/20 23:55 02/29/20 23:55 Intake & Output 02/29/20 03/01/20 03/02/20 06:59 06:59 06:59 Intake Total 2515 1100 Output Total 500 600 Balance 2014 500 Weight 61.1 kg 61.1 kg General appearance: PRESENT: no acute distress, well-developed, well-nourished Head exam: PRESENT: atraumatic, normocephalic Eye exam: PRESENT: conjunctiva pink, EOMI, PERRLA. ABSENT: scleral icterus Ear exam: PRESENT: normal external ear exam Mouth exam: PRESENT: moist, tongue midline Neck exam: ABSENT: carotid bruit, JVD, lymphadenopathy, thyromegaly Respiratory exam: PRESENT: clear to auscultation clare. ABSENT: rales, rhonchi, wheezes Cardiovascular exam: PRESENT: RRR. ABSENT: diastolic murmur, rubs, systolic murmur Pulses: PRESENT: normal dorsalis pedis pul Vascular exam: PRESENT: normal capillary refill GI/Abdominal exam: PRESENT: normal bowel sounds, soft. ABSENT: distended, guarding, mass, organolmegaly, rebound, tenderness Rectal exam: PRESENT: deferred Extremities exam: PRESENT: full ROM. ABSENT: calf tenderness, clubbing, pedal edema Neurological exam: PRESENT: alert, awake, oriented to person, oriented to place, oriented to time, oriented to situation, CN II-XII grossly intact. ABSENT: motor sensory deficit Psychiatric exam: PRESENT: appropriate affect, normal mood. ABSENT: homicidal ideation, suicidal ideation Skin exam: PRESENT: dry, intact, warm. ABSENT: cyanosis, rash Results Laboratory Results: 03/01/20 04:51 03/01/20 04:51 03/01/20 03/01/20 04:51 04:51 WBC 6.2 RBC 2.75 L Hgb 8.7 L Hct 25.2 L MCV 91 MCH 31.7 MCHC 34.7 RDW 16.1 H Plt Count 237 Sodium 129.5 L Potassium 3.5 L Chloride 89 L Carbon Dioxide 34 H Anion Gap 7 BUN 7 Creatinine 0.40 L Est GFR ( Amer) > 60 Glucose 85 Calcium 8.4 Impressions: Body Scan Nuclear Medicine 02/25/20 00:00 IMPRESSION: No evidence of osseous metastases. Increased activity seen in the region of the left knee is concerning for septic joint/ patellar osteomyelitis. Activity seen in the region of the left ischial tuberosity correlates to a biceps femoris enthesophyte. Abdomen/Pelvis CT 02/25/20 13:57 IMPRESSION: New nodular stranding of the mesenteric fat and omentum concerning for carcinomatosis. Chest CT 02/25/20 13:57 IMPRESSION: Since the CT from 02/09/2020, the solid nodule in the superior segment of the left lower lobe that is surrounded by fiducial markers has decreased in size, the sub solid nodule in the right middle lobe (image 36 of series 4) has increased in size and the patient has developed several new bilateral pulmonary nodule and nodular opacities. These findings are concerning for progression of disease. Head MRI 02/26/20 00:00 IMPRESSION: No evidence of metastatic disease. Normal MR appearance of the brain. EVIDENCE OF ACUTE STROKE: NO. Knee X-Ray 02/27/20 18:21 IMPRESSION: Total knee replacement. Refer to operative note for further information. Assessment & Plan - Diagnosis (1) Intractable pain Is this a current diagnosis for this admission?: Yes Plan: Improving post surgery, cont oxy and fentanyl not using much dilaudid at present (2) Metastatic cancer to bone Is this a current diagnosis for this admission?: Yes Plan: awaiting path (3) Cancer of left lung Qualifiers: Lung location: lower lobe of lung Qualified Code(s): C34.32 - Malignant neoplasm of lower lobe, left bronchus or lung Is this a current diagnosis for this admission?: Yes Plan: awaiting path (4) Follicular lymphoma Qualifiers: Follicular lymphoma grade: grade II Lymphoma site: multiple regions Qualified Code(s): C82.18 - Follicular lymphoma grade II, lymph nodes of multiple sites Is this a current diagnosis for this admission?: Yes Plan: awaiting path (5) Anemia Qualifiers: Anemia type: other cause Other causes of anemia: acute posthemorrhagic Qualified Code(s): D62 - Acute posthemorrhagic anemia Is this a current diagnosis for this admission?: Yes Plan: Hb improved post transfusion - Time Time Spent with patient: 35 or more minutes
[2020-03-01] MEDS: SENNOSIDES/DOCUSATE 8.6-50 MG 1 EACH TABLET PO SCH ×2 (09:14→17:21)
[2020-03-01] MEDS: BUPROPION HCL 75 MG TABLET PO SCH ×2 (09:14→22:38)
[2020-03-01] MEDS: PRENATAL VITAMIN W DHA CAPSULE PO SCH (09:14)
[2020-03-01] MEDS: DOCUSATE SODIUM 100 MG CAPSULE PO SCH (09:14)
[2020-03-01] MEDS: ASPIRIN 81 MG TABLET, ENT COATED PO SCH (09:14)
[2020-03-01] MEDS: OXCARBAZEPINE 150 MG TABLET PO SCH ×2 (09:14→22:38)
[2020-03-01] MEDS: CYANOCOBALAMIN (VITAMIN B-12) 1,000 MCG TABLET PO SCH (09:15)
[2020-03-01] MEDS: ENOXAPARIN SODIUM INJ 40 MG/0.4 ML DISP.SYRIN SUBCUT SCH (09:15)
--- NOTE | 2020-03-01 12:48 | PDOC PROGRESS REPORT ---
Subjective Date:: 03/01/20 Subjective:: Patient lying in bed comfortably. Patient states she feels better today with mu ch more energy. Denies chest pain or shortness of breath. Reason For Visit: LEFT DISTAL FEMORAL PATHOLOGICAL FRACTURE Physical Exam Vital Signs: Temp Pulse Resp BP Pulse Ox 97.7 F 101 H 17 101/61 98 03/01/20 11:09 03/01/20 11:09 03/01/20 11:09 03/01/20 11:09 03/01/20 11:09 Intake & Output 02/29/20 03/01/20 03/02/20 06:59 06:59 06:59 Intake Total 2515 1100 225 Output Total 500 600 Balance 2014 500 225 Weight 61.1 kg 61.1 kg Musculoskeletal exam: PRESENT: other - Left lower extremity: Dressing clean/dry/intact no erythema or drainage. Moderate thigh swelling without change, no calf tenderness. Intact plantarflexion weakness with dorsiflexion and EHL. Hypoesthesias on the dorsal aspect of the foot medially Results Laboratory Results: 03/01/20 04:51 03/01/20 04:51 03/01/20 03/01/20 04:51 04:51 WBC 6.2 RBC 2.75 L Hgb 8.7 L Hct 25.2 L MCV 91 MCH 31.7 MCHC 34.7 RDW 16.1 H Plt Count 237 Sodium 129.5 L Potassium 3.5 L Chloride 89 L Carbon Dioxide 34 H Anion Gap 7 BUN 7 Creatinine 0.40 L Est GFR ( Amer) > 60 Glucose 85 Calcium 8.4 Impressions: Body Scan Nuclear Medicine 02/25/20 00:00 IMPRESSION: No evidence of osseous metastases. Increased activity seen in the region of the left knee is concerning for septic joint/ patellar osteomyelitis. Activity seen in the region of the left ischial tuberosity correlates to a biceps femoris enthesophyte. Abdomen/Pelvis CT 02/25/20 13:57 IMPRESSION: New nodular stranding of the mesenteric fat and omentum concerning for carcinomatosis. Chest CT 02/25/20 13:57 IMPRESSION: Since the CT from 02/09/2020, the solid nodule in the superior s egment of the left lower lobe that is surrounded by fiducial markers has decreased in size, the sub solid nodule in the right middle lobe (image 36 of series 4) has increased in size and the patient has developed several new bilateral pulmonary nodule and nodular opacities. These findings are concerning for progression of disease. Head MRI 02/26/20 00:00 IMPRESSION: No evidence of metastatic disease. Normal MR appearance of the brain. EVIDENCE OF ACUTE STROKE: NO. Knee X-Ray 02/27/20 18:21 IMPRESSION: Total knee replacement. Refer to operative note for further information. Assessment & Plan - Diagnosis (1) Metastatic cancer to bone Is this a current diagnosis for this admission?: Yes Plan: Status post left distal femoral placement 1. Continue physical therapy 2. Awaiting pathology results 3. Pain control 4. Acute on chronic blood loss anemia stabilized after treatments packed red blood cells 5. Patient has notable foot drop on examination today which may be secondary to being much more alert and awake that was not noted on examination yesterday we will continue to monitor patient may require AFO in the future 6. Discharge plan to [facility] when cleared by medical service. - Time Time Spent with patient: Less than 15 minutes
--- NOTE | 2020-03-01 16:03 | PDOC PROGRESS REPORT ---
Subjective Date:: 03/01/20 Subjective:: No adverse events overnight. Pain is been well controlled. She has been able t o rest comfortably. She complains about the food. She is resistant to the idea of going to rehab but says she would be willing to try [facility] in [place]. Reason For Visit: LEFT DISTAL FEMORAL PATHOLOGICAL FRACTURE Physical Exam Vital Signs: Temp Pulse Resp BP Pulse Ox 97.7 F 101 H 17 101/61 98 03/01/20 11:09 03/01/20 11:09 03/01/20 11:09 03/01/20 11:09 03/01/20 11:09 Intake & Output 02/29/20 03/01/20 03/02/20 06:59 06:59 06:59 Intake Total 2515 1100 225 Output Total 500 600 Balance 2014 500 225 Weight 61.1 kg 61.1 kg General appearance: PRESENT: no acute distress, well-developed, well-nourished Respiratory exam: PRESENT: clear to auscultation clare, symmetrical, unlabored, other - supplemental oxygen via NC. ABSENT: rales, rhonchi, wheezes Cardiovascular exam: PRESENT: RRR. ABSENT: diastolic murmur, rubs, systolic murmur Pulses: PRESENT: normal dorsalis pedis pul Vascular exam: PRESENT: normal capillary refill Extremities exam: PRESENT: tenderness - LLE. ABSENT: calf tenderness, clubbing, full ROM, pedal edema Neurological exam: PRESENT: alert, awake, oriented to person, oriented to place, oriented to time, oriented to situation, CN II-XII grossly intact, other - Somnolent. ABSENT: motor sensory deficit Psychiatric exam: PRESENT: appropriate affect, normal mood. Skin exam: PRESENT: dry, warm, other - Clean dry and intact. Surgical incision to left. Results Laboratory Results: 03/01/20 04:51 03/01/20 04:51 03/01/20 03/01/20 04:51 04:51 WBC 6.2 RBC 2.75 L Hgb 8.7 L Hct 25.2 L MCV 91 MCH 31.7 MCHC 34.7 RDW 16.1 H Plt Count 237 Sodium 129.5 L Potassium 3.5 L Chloride 89 L Carbon Dioxide 34 H Anion Gap 7 BUN 7 Creatinine 0.40 L Est GFR ( Amer) > 60 Glucose 85 Calcium 8.4 Impressions: Body Scan Nuclear Medicine 02/25/20 00:00 IMPRESSION: No evidence of osseous metastases. Increased activity seen in the region of the left knee is concerning for septic joint/ patellar osteomyelitis. Activity seen in the region of the left ischial tuberosity correlates to a biceps femoris enthesophyte. Abdomen/Pelvis CT 02/25/20 13:57 IMPRESSION: New nodular stranding of the mesenteric fat and omentum concerning for carcinomatosis. Chest CT 02/25/20 13:57 IMPRESSION: Since the CT from 02/09/2020, the solid nodule in the superior segment of the left lower lobe that is surrounded by fiducial markers has decreased in size, the sub solid nodule in the right middle lobe (image 36 of series 4) has increased in size and the patient has developed several new bilateral pulmonary nodule and nodular opacities. These findings are concerning for progression of disease. Head MRI 02/26/20 00:00 IMPRESSION: No evidence of metastatic disease. Normal MR appearance of the brain. EVIDENCE OF ACUTE STROKE: NO. Knee X-Ray 02/27/20 18:21 IMPRESSION: Total knee replacement. Refer to operative note for further inform ation. Assessment and Plan - Diagnosis (1) Pathological fracture in neoplastic disease, left femur, initial encounter for fracture Is this a current diagnosis for this admission?: Yes (2) Anemia Qualifiers: Anemia type: other cause Other causes of anemia: acute posthemorrhagic Qualified Code(s): D62 - Acute posthemorrhagic anemia Is this a current diagnosis for this admission?: Yes (3) Cancer of left lung Qualifiers: Lung location: lower lobe of lung Qualified Code(s): C34.32 - Malignant neoplasm of lower lobe, left bronchus or lung Is this a current diagnosis for this admission?: Yes (4) Follicular lymphoma Qualifiers: Follicular lymphoma grade: grade II Lymphoma site: multiple regions Parish lified Code(s): C82.18 - Follicular lymphoma grade II, lymph nodes of multiple sites Is this a current diagnosis for this admission?: Yes (5) Hyponatremia Is this a current diagnosis for this admission?: Yes (6) Metastatic cancer to bone Is this a current diagnosis for this admission?: Yes (7) COPD (chronic obstructive pulmonary disease) Qualifiers: COPD type: unspecified COPD Qualified Code(s): J44.9 - Chronic obstructive pulmonary disease, unspecified Is this a current diagnosis for this admission?: Yes - Plan Summary Summary: She was able to get up for physical therapy but seemed very unsteady, even with a walker. If she was a little more steady on her feet she might be okay for home health, but at this point it would seem that a short stay in a rehab center would be of benefit to her. She agreed to go to [facility]. Case management was consulted. Her pain is well controlled. The incision on her left leg does not appear infected. We will continue to have therapy evaluate her on a daily basis until she either improves to where she can go home with home health or she gets a bed at [facility]. - Time Time Spent with patient: 15-24 minutes Anticipated Discharge Disposition: [facility] Anticipated Discharge Timeframe: within 72 hours
[2020-03-01] MEDS: HYDROMORPHONE HCL INJ/PF 2 MG/ML AMPULE IV PRN (19:30)
[2020-03-02] MEDS: OXYCODONE HCL IR 5 MG TABLET PO PRN ×5 (04:56→23:20)
[2020-03-02] MEDS: GABAPENTIN 300 MG CAPSULE PO SCH ×3 (05:02→23:20)
[2020-03-02] MEDS: TIZANIDINE HCL 4 MG TABLET PO SCH ×3 (05:03→23:19)
--- NOTE | 2020-03-02 07:57 | PDOC PROGRESS REPORT ---
Subjective Date:: 03/02/20 Subjective:: Patient having a little bit more back pain this morning, has not had a bowel movement in about 5 days. Discussed home situation with patient, and patient will be able to live with her daughter for some time, who is at home and could provide care for her. She really wants to go home with home health. Reason For Visit: LEFT DISTAL FEMORAL PATHOLOGICAL FRACTURE Physical Exam Vital Signs: Temp Pulse Resp BP Pulse Ox 97.9 F 100 17 105/54 L 99 03/02/20 07:42 03/02/20 04:45 03/02/20 04:45 03/02/20 04:45 03/02/20 04:45 Intake & Output 03/01/20 03/02/20 03/03/20 06:59 06:59 06:59 Intake Total 1100 645 Output Total 600 Balance 500 645 Weight 61.1 kg 61.1 kg General appearance: PRESENT: no acute distress, well-developed, well-nourished Head exam: PRESENT: atraumatic, normocephalic Eye exam: PRESENT: conjunctiva pink, EOMI, PERRLA. ABSENT: scleral icterus Ear exam: PRESENT: normal external ear exam Mouth exam: PRESENT: moist, tongue midline Neck exam: ABSENT: carotid bruit, JVD, lymphadenopathy, thyromegaly Respiratory exam: PRESENT: clear to auscultation clare. ABSENT: rales, rhonchi, wheezes Cardiovascular exam: PRESENT: RRR. ABSENT: diastolic murmur, rubs, systolic murmur Pulses: PRESENT: normal dorsalis pedis pul Vascular exam: PRESENT: normal capillary refill GI/Abdominal exam: PRESENT: normal bowel sounds, soft. ABSENT: distended, guarding, mass, organolmegaly, rebound, tenderness Rectal exam: PRESENT: deferred Extremities exam: PRESENT: full ROM. ABSENT: calf tenderness, clubbing, pedal edema Neurological exam: PRESENT: alert, awake, oriented to person, oriented to place, oriented to time, oriented to situation, CN II-XII grossly intact. ABSENT: motor sensory deficit Psychiatric exam: PRESENT: appropriate affect, normal mood. ABSENT: homicidal ideation, suicidal ideation Skin exam: PRESENT: dry, intact, warm. ABSENT: cyanosis, rash Results Laboratory Results: 03/01/20 04:51 03/01/20 04:51 Impressions: Body Scan Nuclear Medicine 02/25/20 00:00 IMPRESSION: No evidence of osseous metastases. Increased activity seen in the region of the left knee is concerning for septic joint/ patellar osteomyelitis. Activity seen in the region of the left ischial tuberosity correlates to a biceps femoris enthesophyte. Abdomen/Pelvis CT 02/25/20 13:57 IMPRESSION: New nodular stranding of the mesenteric fat and omentum concerning for carcinomatosis. Chest CT 02/25/20 13:57 IMPRESSION: Since the CT from 02/09/2020, the solid nodule in the superior segment of the left lower lobe that is surrounded by fiducial markers has decreased in size, the sub solid nodule in the right middle lobe (image 36 of series 4) has increased in size and the patient has developed several new bilateral pulmonary nodule and nodular opacities. These findings are concerning for progression of disease. Head MRI 02/26/20 00:00 IMPRESSION: No evidence of metastatic disease. Normal MR appearance of the brain. EVIDENCE OF ACUTE STROKE: NO. Knee X-Ray 02/27/20 18:21 IMPRESSION: Total knee replacement. Refer to operative note for further inform ation. Assessment & Plan - Diagnosis (1) Intractable pain Is this a current diagnosis for this admission?: Yes Plan: Continue with current pain regimen. She will need this on discharge. (2) Metastatic cancer to bone Is this a current diagnosis for this admission?: Yes Plan: Continue with current pain regimen, awaiting final pathology. We should have it back in the next few days. We will see patient back next week for results. (3) Cancer of left lung Qualifiers: Lung location: lower lobe of lung Qualified Code(s): C34.32 - Malignant neoplasm of lower lobe, left bronchus or lung Is this a current diagnosis for this admission?: Yes Plan: As above, follow-up plan (4) Follicular lymphoma Qualifiers: Follicular lymphoma grade: grade II Lymphoma site: multiple regions Qualified Code(s): C82.18 - Follicular lymphoma grade II, lymph nodes of multiple sites Is this a current diagnosis for this admission?: Yes Plan: As above, follow-up plan (5) Anemia Qualifiers: Anemia type: other cause Other causes of anemia: acute posthemorrhagic Qualified Code(s): D62 - Acute posthemorrhagic anemia Is this a current diagnosis for this admission?: Yes Plan: Hemoglobin was stable last few days but may need transfusion in the next 1 to 2 weeks. - Time Time Spent with patient: 35 or more minutes
[2020-03-02] MEDS: CYANOCOBALAMIN (VITAMIN B-12) 1,000 MCG TABLET PO SCH (09:09)
[2020-03-02] MEDS: FENTANYL 25 MCG/HR PATCH.TD72 TD SCH (09:11)
[2020-03-02] MEDS: PRENATAL VITAMIN W DHA CAPSULE PO SCH (09:11)
[2020-03-02] MEDS: SENNOSIDES/DOCUSATE 8.6-50 MG 1 EACH TABLET PO SCH ×2 (09:11→17:08)
[2020-03-02] MEDS: ASPIRIN 81 MG TABLET, ENT COATED PO SCH (09:11)
[2020-03-02] MEDS: DOCUSATE SODIUM 100 MG CAPSULE PO SCH (09:11)
[2020-03-02] MEDS: OXCARBAZEPINE 150 MG TABLET PO SCH ×2 (09:12→23:20)
[2020-03-02] MEDS: BUPROPION HCL 75 MG TABLET PO SCH ×2 (09:12→23:20)
[2020-03-02] MEDS: ENOXAPARIN SODIUM INJ 40 MG/0.4 ML DISP.SYRIN SUBCUT SCH (09:12)
--- NOTE | 2020-03-02 11:50 | PDOC PROGRESS REPORT ---
Subjective Subjective:: Patient lying in bed comfortably. Continues to have pain along her mid back which has limited some of her physical therapy although she notes the pain in her knee is improving. Reason For Visit: LEFT DISTAL FEMORAL PATHOLOGICAL FRACTURE Physical Exam Vital Signs: Temp Pulse Resp BP Pulse Ox 97.9 F 90 18 91/54 L 95 03/02/20 07:42 03/02/20 07:19 03/02/20 07:19 03/02/20 07:19 03/02/20 07:19 Intake & Output 03/01/20 03/02/20 03/03/20 06:59 06:59 06:59 Intake Total 1100 645 Output Total 600 Balance 500 645 Weight 61.1 kg 61.1 kg Musculoskeletal exam: PRESENT: other - Left lower extremity: Dressing clean/dry/intact no erythema or drainage. Moderate thigh swelling without change, intact plantarflexion, weakness with dorsiflexion, hypoesthesias on the dorsum of the foot. No calf tenderness. Results Laboratory Results: 03/01/20 04:51 03/01/20 04:51 Impressions: Body Scan Nuclear Medicine 02/25/20 00:00 IMPRESSION: No evidence of osseous metastases. Increased activity seen in the region of the left knee is concerning for septic joint/ patellar osteomyelitis. Activity seen in the region of the left ischial tuberosity correlates to a biceps femoris enthesophyte. Abdomen/Pelvis CT 02/25/20 13:57 IMPRESSION: New nodular stranding of the mesenteric fat and omentum concerning for carcinomatosis. Chest CT 02/25/20 13:57 IMPRESSION: Since the CT from 02/09/2020, the solid nodule in the superior segment of the left lower lobe that is surrounded by fiducial markers has decreased in size, the sub solid nodule in the right middle lobe (image 36 of series 4) has increased in size and the patient has developed several new bilateral pulmonary nodule and nodular opacities. These findings are concerning for progression of disease. Head MRI 02/26/20 00:00 IMPRESSION: No evidence of metastatic disease. Normal MR appearance of the brain. EVIDENCE OF ACUTE STROKE: NO. Knee X-Ray 02/27/20 18:21 IMPRESSION: Total knee replacement. Refer to operative note for further information. Assessment & Plan - Diagnosis (1) Metastatic cancer to bone Is this a current diagnosis for this admission?: Yes Plan: Status post left distal femoral arthroplasty 1. Physical therapy weightbearing as tolerated 2. Awaiting pathology results 3. Acute on chronic blood loss anemia currently stable after 2 units of packed red blood cells 4. Postoperative foot drop we will continue to monitor 5. Discharge planning patient stable for discharge from orthopedic standpoint. Will follow up with Dr. Bang/[place] in 10-14 days. Orthopedics will sign off at this time feel free to contact us with any further issues. - Time Time Spent with patient: Less than 15 minutes
--- NOTE | 2020-03-02 17:18 | PDOC PROGRESS REPORT ---
Subjective Date:: 03/02/20 Subjective:: No adverse events overnight. Pain is been well controlled. She has been able t o rest comfortably. She has decided she really wants to just go home with home health and do physical therapy at home. Reason For Visit: LEFT DISTAL FEMORAL PATHOLOGICAL FRACTURE Physical Exam Vital Signs: Temp Pulse Resp BP Pulse Ox 98.0 F 118 H 18 112/47 L 93 03/02/20 11:30 03/02/20 11:30 03/02/20 11:30 03/02/20 11:30 03/02/20 11:30 Intake & Output 03/01/20 03/02/20 03/03/20 06:59 06:59 06:59 Intake Total 1100 645 236 Output Total 600 700 Balance 500 645 -464 Weight 61.1 kg 61.1 kg General appearance: PRESENT: no acute distress, well-developed, well-nourished Respiratory exam: PRESENT: clear to auscultation clare, symmetrical, unlabored, other - supplemental oxygen via NC. ABSENT: rales, rhonchi, wheezes Cardiovascular exam: PRESENT: RRR. ABSENT: diastolic murmur, rubs, systolic murmur Pulses: PRESENT: normal dorsalis pedis pul Vascular exam: PRESENT: normal capillary refill Extremities exam: PRESENT: tenderness - LLE. ABSENT: calf tenderness, clubbing, full ROM, pedal edema Neurological exam: PRESENT: alert, awake, oriented to person, oriented to place, oriented to time, oriented to situation, CN II-XII grossly intact, other - Somnolent. ABSENT: motor sensory deficit Psychiatric exam: PRESENT: appropriate affect, normal mood. Skin exam: PRESENT: dry, warm, other - Clean dry and intact. Surgical incision to left. Results Laboratory Results: 03/01/20 04:51 03/01/20 04:51 Impressions: Body Scan Nuclear Medicine 02/25/20 00:00 IMPRESSION: No evidence of osseous metastases. Increased activity seen in the region of the left knee is concerning for septic joint/ patellar osteomyelitis. Activity seen in the region of the left ischial tuberosity correlates to a biceps femoris enthesophyte. Abdomen/Pelvis CT 02/25/20 13:57 IMPRESSION: New nodular stranding of the mesenteric fat and omentum concerning for carcinomatosis. Chest CT 02/25/20 13:57 IMPRESSION: Since the CT from 02/09/2020, the solid nodule in the superior segment of the left lower lobe that is surrounded by fiducial markers has decreased in size, the sub solid nodule in the right middle lobe (image 36 of series 4) has increased in size and the patient has developed several new bilateral pulmonary nodule and nodular opacities. These findings are concerning for progression of disease. Head MRI 02/26/20 00:00 IMPRESSION: No evidence of metastatic disease. Normal MR appearance of the brain. EVIDENCE OF ACUTE STROKE: NO. Knee X-Ray 02/27/20 18:21 IMPRESSION: Total knee replacement. Refer to operative note for further information. Assessment and Plan - Diagnosis (1) Pathological fracture in neoplastic disease, left femur, initial encounter for fracture Is this a current diagnosis for this admission?: Yes (2) Anemia Qualifiers: Anemia type: other cause Other causes of anemia: acute posthemorrhagic Qualified Code(s): D62 - Acute posthemorrhagic anemia Is this a current diagnosis for this admission?: Yes (3) Cancer of left lung Qualifiers: Lung location: lower lobe of lung Qualified Code(s): C34.32 - Malignant neoplasm of lower lobe, left bronchus or lung Is this a current diagnosis for this admission?: Yes (4) Follicular lymphoma Qualifiers: Follicular lymphoma grade: grade II Lymphoma site: multiple regions Qualified Code(s): C82.18 - Follicular lymphoma grade II, lymph nodes of multiple sites Is this a current diagnosis for this admission?: Yes (5) Hyponatremia Is this a current diagnosis for this admission?: Yes (6) Metastatic cancer to bone Is this a current diagnosis for this admission?: Yes (7) COPD (chronic obstructive pulmonary disease) Qualifiers: COPD type: unspecified COPD Qualified Code(s): J44.9 - Chronic obstructive pulmonary disease, unspecified Is this a current diagnosis for this admission?: Yes - Plan Summary Summary: Anticipate discharge home tomorrow with home health PT. We will make sure she has a walker if she does not have one at home. We will probably do DVT prophylaxis with an oral anticoagulant and she will follow-up with orthopedics in 10 to 14 days. - Time Time Spent with patient: 15-24 minutes Anticipated Discharge Disposition: Home with Home Health Anticipated Discharge Timeframe: within 24 hours
[2020-03-02] MEDS: NA PHOS,M-B/NA PHOS,DI-BA (ADULT) 133 ML ENEMA PR PRN (18:35)
[2020-03-02] MEDS: HYDROMORPHONE HCL INJ/PF 2 MG/ML AMPULE IV PRN (19:45)
[2020-03-02] MEDS: ONDANSETRON 4 MG TAB.RAPDIS PO PRN (19:47)
[2020-03-03] MEDS: HYDROMORPHONE HCL INJ/PF 2 MG/ML AMPULE IV PRN ×3 (00:45→13:02)
[2020-03-03] MEDS: ONDANSETRON 4 MG TAB.RAPDIS PO PRN ×2 (01:59→17:51)
[2020-03-03] MEDS: NA PHOS,M-B/NA PHOS,DI-BA (ADULT) 133 ML ENEMA PR PRN (02:22)
[2020-03-03] MEDS: OXYCODONE HCL IR 5 MG TABLET PO PRN ×2 (03:25→18:06)
[2020-03-03] MEDS: TIZANIDINE HCL 4 MG TABLET PO SCH ×2 (06:50→14:58)
[2020-03-03] MEDS: GABAPENTIN 300 MG CAPSULE PO SCH ×2 (06:50→15:00)
--- NOTE | 2020-03-03 08:38 | PDOC PROGRESS REPORT ---
Subjective Date:: 03/03/20 Subjective:: Having some nausea this morning did have a small bowel movement yesterday. I told patient that I would send in her [facility] Reason For Visit: LEFT DISTAL FEMORAL PATHOLOGICAL FRACTURE Physical Exam Vital Signs: Temp Pulse Resp BP Pulse Ox 98.2 F 106 H 18 123/65 92 03/03/20 07:58 03/03/20 07:58 03/03/20 07:58 03/03/20 07:58 03/03/20 07:58 Intake & Output 03/02/20 03/03/20 03/04/20 06:59 06:59 06:59 Intake Total 645 454 Output Total 1500 Balance 645 -1046 Weight 61.1 kg 61.1 kg General appearance: PRESENT: no acute distress, well-developed, well-nourished Head exam: PRESENT: atraumatic, normocephalic Eye exam: PRESENT: conjunctiva pink, EOMI, PERRLA. ABSENT: scleral icterus Ear exam: PRESENT: normal external ear exam Mouth exam: PRESENT: moist, tongue midline Neck exam: ABSENT: carotid bruit, JVD, lymphadenopathy, thyromegaly Respiratory exam: PRESENT: clear to auscultation clare. ABSENT: rales, rhonchi, wheezes Cardiovascular exam: PRESENT: RRR. ABSENT: diastolic murmur, rubs, systolic murmur Pulses: PRESENT: normal dorsalis pedis pul Vascular exam: PRESENT: normal capillary refill GI/Abdominal exam: PRESENT: normal bowel sounds, soft. ABSENT: distended, guarding, mass, organolmegaly, rebound, tenderness Rectal exam: PRESENT: deferred Extremities exam: PRESENT: full ROM. ABSENT: calf tenderness, clubbing, pedal edema Neurological exam: PRESENT: alert, awake, oriented to person, oriented to place, oriented to time, oriented to situation, CN II-XII grossly intact. ABSENT: motor sensory deficit Psychiatric exam: PRESENT: appropriate affect, normal mood. ABSENT: homicidal ideation, suicidal ideation Skin exam: PRESENT: dry, intact, warm. ABSENT: cyanosis, rash Results Laboratory Results: 03/01/20 04:51 03/01/20 04:51 02/27/20 07:00 Blood Blood Culture - Final NO GROWTH IN 5 DAYS 02/27/20 06:19 Blood Blood Culture - Final NO GROWTH IN 5 DAYS Impressions: Body Scan Nuclear Medicine 02/25/20 00:00 IMPRESSION: No evidence of osseous metastases. Increased activity seen in the region of the left knee is concerning for septic joint/ patellar osteomyelitis. Activity seen in the region of the left ischial tuberosity correlates to a biceps femoris enthesophyte. Abdomen/Pelvis CT 02/25/20 13:57 IMPRESSION: New nodular stranding of the mesenteric fat and omentum concerning for carcinomatosis. Chest CT 02/25/20 13:57 IMPRESSION: Since the CT from 02/09/2020, the solid nodule in the superior segment of the left lower lobe that is surrounded by fiducial markers has decreased in size, the sub solid nodule in the right middle lobe (image 36 of series 4) has increased in size and the patient has developed several new bilateral pulmonary nodule and nodular opacities. These findings are concerning for progression of disease. Head MRI 02/26/20 00:00 IMPRESSION: No evidence of metastatic disease. Normal MR appearance of the brain. EVIDENCE OF ACUTE STROKE: NO. Knee X-Ray 02/27/20 18:21 IMPRESSION: Total knee replacement. Refer to operative note for further information. Assessment & Plan - Diagnosis (1) Intractable pain Is this a current diagnosis for this admission?: Yes Plan: Improved, the pain in the knee is gone for the most part now it is pain in the back and shoulder that is really related to neuropathic pain from the previous chest tube placement. This seems unrelated to cancer pain. I will send in her oxycodone and fentanyl. (2) Metastatic cancer to bone Is this a current diagnosis for this admission?: Yes Plan: Awaiting path (3) Cancer of left lung Qualifiers: Lung location: lower lobe of lung Qualified Code(s): C34.32 - Malignant neoplasm of lower lobe, left bronchus or lung Is this a current diagnosis for this admission?: Yes Plan: Awaiting path, follow-up next week with us (4) Follicular lymphoma Qualifiers: Follicular lymphoma grade: grade II Lymphoma site: multiple regions Qualified Code(s): C82.18 - Follicular lymphoma grade II, lymph nodes of mult iple sites Is this a current diagnosis for this admission?: Yes Plan: Awaiting path (5) Anemia Qualifiers: Anemia type: other cause Other causes of anemia: acute posthemorrhagic Qualified Code(s): D62 - Acute posthemorrhagic anemia Is this a current diagnosis for this admission?: Yes Plan: Hemoglobin stable posttransfusion we will recheck as outpatient - Time Time Spent with patient: 25-34 minutes
[2020-03-03] MEDS ORDERED: ONDANSETRON HCL INJ/PF 4 MG/2 ML SDV IV ONE (11:15)
[2020-03-03] MEDS: SENNOSIDES/DOCUSATE 8.6-50 MG 1 EACH TABLET PO SCH (11:30)
[2020-03-03] MEDS: PRENATAL VITAMIN W DHA CAPSULE PO SCH (11:30)
[2020-03-03] MEDS: BUPROPION HCL 75 MG TABLET PO SCH (11:31)
[2020-03-03] MEDS: ASPIRIN 81 MG TABLET, ENT COATED PO SCH (11:32)
[2020-03-03] MEDS: OXCARBAZEPINE 150 MG TABLET PO SCH (11:32)
[2020-03-03] MEDS: DOCUSATE SODIUM 100 MG CAPSULE PO SCH (11:32)
[2020-03-03] MEDS: CYANOCOBALAMIN (VITAMIN B-12) 1,000 MCG TABLET PO SCH (11:32)
[2020-03-03] MEDS: ENOXAPARIN SODIUM INJ 40 MG/0.4 ML DISP.SYRIN SUBCUT SCH (11:34)
--- NOTE | 2020-03-03 17:20 | PDOC DISCHARGE SUMMARY ---
Impression - Admit/DC Date/PCP Admission Date/Primary Care Provider: 02/26/20 13:20 RICARDO TORRES MD Discharge Date: 03/03/20 - Discharge Diagnosis (1) Pathological fracture in neoplastic disease, left femur, initial encounter for fracture Is this a current diagnosis for this admission?: Yes (2) Anemia Is this a current diagnosis for this admission?: Yes (3) Cancer of left lung Is this a current diagnosis for this admission?: Yes (4) Follicular lymphoma Is this a current diagnosis for this admission?: Yes (5) Hyponatremia Is this a current diagnosis for this admission?: Yes (6) Metastatic cancer to bone Is this a current diagnosis for this admission?: Yes (7) COPD (chronic obstructive pulmonary disease) Is this a current diagnosis for this admission?: Yes - Assessment Summary: Anticipate discharge home tomorrow with home health PT. We will make sure she has a walker if she does not have one at home. We will probably do DVT prophylaxis with an oral anticoagulant and she will follow-up with orthopedics in 10 to 14 days. - Additional Information Resuscitation Status: Full Code Discharge Diet: Regular Discharge Activity: Balance Activity w/Rest, Supervised Activity Referrals: RICARDO TORRES MD [Primary Care Provider] - 03/15/20 10:45 am RAY HILLMAN MD [ACTIVE STAFF] - 03/10/20 1:45 pm Home Medications: Aspirin [Ecotrin 81 mg EC Tablet] 81 mg PO DAILY 05/16/19 Cyanocobalamin (Vitamin B-12) [Vitamin B-12 1000 mcg Tablet] 1 tab PO DAILY 05/16/19 Oxcarbazepine 300 mg PO Q12 05/16/19 Ergocalciferol (Vitamin D2) [Vitamin D2] 50 mcg PO MCKAY@1000 06/29/19 Oxycodone HCl [Oxy-Ir 5 mg Tablet] 10 mg PO Q6HP PRN 06/29/19 Albuterol Sulfate [Ventolin 0.042% Neb 1.25 mg/3 mL Ampul] 1 vial NEB Q4HP PRN #120 07/03/19 Bupropion HCl [Bupropion Xl] 300 mg PO DAILY 02/25/20 Gabapentin [Neurontin 300 mg Capsule] 300 mg PO Q8 02/25/20 Tizanidine HCl [Zanaflex] 2 mg PO TID 02/25/20 Fentanyl [Duragesic 25 mcg/hr Transdermal Patch] 1 each TD Q3DAYS patch.[id number] 03/03/20 History of Present Illiness History of Present Illness: LUPILLO DE LA ROSA is a 64 year old female with a past medical history significant for follicular lymphoma and squamous cell carcinoma of the lung status post chemotherapy treatment and followed by Dr. Hillman, CAD, HI, hypertension, COPD, chronic back pain, and opiate dependence who presented to the emergency department at the recommendation of her orthopedic provider following results of MRI imaging showing likely metastatic infiltration of the distal femoral metaphysis. Laboratory evaluation revealed fever 99.1, tachycardia (HR 107), and otherwise stable vital signs. Laboratory evaluation shows baseline anemia with hemoglobin 9.5 and mild hyponatremia of 130.8. ED provider spoke with the patient's oncologist, Dr. Hillman, who recommended admission and orthopedic evaluation. She is referred to the hospital service for further evaluation management of the above-stated complaints findings. Hospital Course Hospital Course: She was seen in consultation by orthopedics, and because of bony neoplastic invasion, it was decided to resect the distal femur and undergo reconstruction. She wind up needing a blood transfusion afterwards but has been doing well in that regard. She was seen in consultation by Dr. Hillman who handled her pain medications for her. It took her a few days to come around postoperatively but eventually she was able to get up with assistance and was able to walk with the use of a walker. We wanted to get her placed in a jail facility but her insurance would not cover it, so we set up home health. She does have a lots of family support at home. We will prescribe Xarelto for DVT prophylaxis. She will follow-up with orthopedics in 7 to 10 days, and with Dr. Hillman as previously scheduled. Her labs and examination were reassuring and she was discharged in stable condition. Physical Exam Vital Signs: Temp Pulse Resp BP Pulse Ox 98.2 F 109 H 18 123/68 99 03/03/20 08:47 03/03/20 12:00 03/03/20 12:00 03/03/20 12:00 03/03/20 12:00 Intake & Output 03/02/20 03/03/20 03/04/20 06:59 06:59 06:59 Intake Total 645 454 Output Total 1500 Balance 645 -1046 Weight 61.1 kg 61.1 kg General appearance: PRESENT: no acute distress, well-developed, well-nourished Respiratory exam: PRESENT: clear to auscultation clare, symmetrical, unlabored, other - supplemental oxygen via NC. ABSENT: rales, rhonchi, wheezes Cardiovascular exam: PRESENT: RRR. ABSENT: diastolic murmur, rubs, systolic murmur Pulses: PRESENT: normal dorsalis pedis pul Vascular exam: PRESENT: normal capillary refill Extremities exam: PRESENT: tenderness - LLE. ABSENT: calf tenderness, clubbing, full ROM, pedal edema Neurological exam: PRESENT: alert, awake, oriented to person, oriented to place, oriented to time, oriented to situation, CN II-XII grossly intact, other - Somnolent. ABSENT: motor sensory deficit Psychiatric exam: PRESENT: appropriate affect, normal mood. Skin exam: PRESENT: dry, warm, other - Clean dry and intact. Surgical incision to left. Results Laboratory Results: WBC 6.2 10^3/uL (4.0-10.5) 03/01/20 04:51 RBC 2.75 10^6/uL (3.72-5.28) L 03/01/20 04:51 Hgb 8.7 g/dL (12.0-15.5) L 03/01/20 04:51 Hct 25.2 % (36.0-47.0) L 03/01/20 04:51 MCV 91 fl (80-97) 03/01/20 04:51 MCH 31.7 pg (27.0-33.4) 03/01/20 04:51 MCHC 34.7 g/dL (32.0-36.0) 03/01/20 04:51 RDW 16.1 % (11.5-14.0) H 03/01/20 04:51 Plt Count 237 10^3/uL (150-450) 03/01/20 04:51 Lymph % (Auto) Not Reportable 02/28/20 23:06 Rankin % (Auto) Not Reportable 02/28/20 23:06 Eos % (Auto) Not Reportable 02/28/20 23:06 Baso % (Auto) Not Reportable 02/28/20 23:06 Reticulocyte # 0.097 10^6/uL (0.028-0.122) 02/26/20 06:31 Absolute Neuts (auto) Not Reportable 02/28/20 23:06 Absolute Lymphs (auto) Not Reportable 02/28/20 23:06 Absolute Monos (auto) Not Reportable 02/28/20 23:06 Absolute Eos (auto) Not Reportable 02/28/20 23:06 Absolute Basos (auto) Not Reportable 02/28/20 23:06 Total Counted 100 02/28/20 23:06 Seg Neutrophils % Not Reportable 02/28/20 23:06 Seg Neuts % (Manual) 83 % (42-78) H 02/28/20 23:06 Band Neutrophils % 2 % (3-5) L 02/28/20 23:06 Lymphocytes % (Manual) 5 % (13-45) L 02/28/20 23:06 Monocytes % (Manual) 10 % (3-13) 02/28/20 23:06 Eosinophils % (Manual) 0 % (0-6) 02/28/20 23:06 Basophils % (Manual) 0 % (0-2) 02/28/20 23:06 Metamyelocytes % 2 % (0-1) H 02/25/20 14:20 Abs Neuts (Manual) 8.0 10^3/uL (1.7-8.2) 02/28/20 23:06 Abs Lymphs (Manual) 0.5 10^3/uL (0.5-4.7) 02/28/20 23:06 Abs Monocytes (Manual) 0.9 10^3/uL (0.1-1.4) 02/28/20 23:06 Absolute Eos (Manual) 0.0 10^3/uL (0.0-0.6) 02/28/20 23:06 Abs Basophils (Manual) 0.0 10^3/uL (0.0-0.2) 02/28/20 23:06 Reticulocyte # (manual) Cancelled 02/26/20 04:55 Platelet Estimate Cancelled 02/28/20 04:44 Clumped Platelets PRESENT 02/25/20 14:20 Platelet Comment ADEQUATE 02/28/20 23:06 Polychromasia 1+ 02/28/20 23:06 Poikilocytosis 1+ 02/25/20 14:20 Anisocytosis 2+ 02/28/20 23:06 Ovalocytes 1+ 02/25/20 14:20 Retic Count Cancelled 02/26/20 04:55 Retic Count (manual) Cancelled 02/26/20 04:55 Retic Count (auto) 3.17 % (0.66-2.85) H 02/26/20 06:31 Absolute Retic Cancelled 02/26/20 04:55 Sodium 129.5 mmol/L (137-145) L 03/01/20 04:51 Potassium 3.5 mmol/L (3.6-5.0) L 03/01/20 04:51 Chloride 89 mmol/L (98-107) L 03/01/20 04:51 Carbon Dioxide 34 mmol/L (22-30) H 03/01/20 04:51 Anion Gap 7 (5-19) 03/01/20 04:51 BUN 7 mg/dL (7-20) 03/01/20 04:51 Creatinine 0.40 mg/dL (0.52-1.25) L 03/01/20 04:51 Est GFR ( Amer) > 60 (>60) 03/01/20 04:51 Est GFR (MDRD) Non-Af > 60 (>60) 03/01/20 04:51 Glucose 85 mg/dL (75-110) 03/01/20 04:51 Calcium 8.4 mg/dL (8.4-10.2) 03/01/20 04:51 Phosphorus 5.2 mg/dL (2.5-4.5) H 02/26/20 04:55 Magnesium 1.8 mg/dL (1.6-2.3) 02/26/20 04:55 Iron 29.2 ug/dL (37-170) L 02/26/20 04:55 TIBC 219 ug/dL (250-450) L 02/26/20 04:55 % Saturation 13 % 02/26/20 04:55 Ferritin 728.00 ng/mL (11.1-264.0) H 02/26/20 04:55 Total Bilirubin 1.3 mg/dL (0.2-1.3) 02/26/20 04:55 Direct Bilirubin 0.1 mg/dL (0.0-0.4) 02/26/20 04:55 Neonat Total Bilirubin Not Reportable 02/26/20 04:55 Neonat Direct Bilirubin Not Reportable 02/26/20 04:55 Neonat Indirect Bili Not Reportable 02/26/20 04:55 AST 24 U/L (14-36) 02/26/20 04:55 ALT 16 U/L (<35) 02/26/20 04:55 Alkaline Phosphatase 94 U/L (38-126) 02/26/20 04:55 Total Protein 5.7 g/dL (6.3-8.2) L 02/26/20 04:55 Albumin 3.4 g/dL (3.5-5.0) L 02/26/20 04:55 Vitamin B12 988.0 pg/mL (239-931) H 02/26/20 04:55 Folate 6.23 ng/mL (>2.76) 02/26/20 04:55 Influenza A (RT-PCR) NEGATIVE (NEGATIVE) 02/26/20 10:34 Influenza B (RT-PCR) NEGATIVE (NEGATIVE) 02/26/20 10:34 RSV (RT-PCR) NEGATIVE (NEGATIVE) 02/26/20 10:34 SARS-CoV-2 Rap RNA(RT-PCR) NEGATIVE (NEGATIVE) 02/26/20 10:34 Slides for Path Review Cancelled 02/28/20 04:44 Blood Type O NEGATIVE 02/28/20 08:00 Antibody Screen NEGATIVE 02/28/20 08:00 Crossmatch See Detail 02/28/20 08:00 Impressions: Body Scan Nuclear Medicine 02/25/20 00:00 IMPRESSION: No evidence of osseous metastases. Increased activity seen in the region of the left knee is concerning for septic joint/ patellar osteomyelitis. Activity seen in the region of the left ischial tuberosity correlates to a biceps femoris enthesophyte. Knee X-Ray 02/25/20 12:54 IMPRESSION: Joint effusion without an associated acute osseous abnormality. If there is concern for internal derangement consider correlation with a MRI. Abdomen/Pelvis CT 02/25/20 13:57 IMPRESSION: New nodular stranding of the mesenteric fat and omentum concerning for carcinomatosis. Chest CT 02/25/20 13:57 IMPRESSION: Since the CT from 02/09/2020, the solid nodule in the superior segm ent of the left lower lobe that is surrounded by fiducial markers has decreased in size, the sub solid nodule in the right middle lobe (image 36 of series 4) has increased in size and the patient has developed several new bilateral pulmonary nodule and nodular opacities. These findings are concerning for progression of disease. Head MRI 02/26/20 00:00 IMPRESSION: No evidence of metastatic disease. Normal MR appearance of the brain. EVIDENCE OF ACUTE STROKE: NO. Knee X-Ray 02/27/20 18:21 IMPRESSION: Total knee replacement. Refer to operative note for further information. Plan Time Spent: Greater than 30 Minutes Stroke Is this a Stroke Patient?: No Acute Heart Failure Is this a Heart Failure Patient?: No
[2020-03-03 17:37] VITALS: BP 119/62
== END 2020-03-03 16:36 | disposition home health service (06) | DRG 470 ==
LOC: ER 12:29 → INTOOBSV 17:24 → EH 17:24 → 4W 21:28 → OBSVTOIN 02-26 13:20
PROVIDERS: ADMIT Hospitalist; ATTEND Family Medicine
PROC: 0SRD0J9 Replacement of Left Knee Joint with Synthetic Substitute, Cemented, Open Approach (ICD-10-PCS; principal; 2020-02-27 16:30)
PROC: 30233N1 Transfusion of Nonautologous Red Blood Cells into Peripheral Vein, Percutaneous Approach (ICD-10-PCS; 2020-02-28)
DX: M84.552A Pathological fracture in neoplastic disease, left femur, initial encounter for fracture (principal); C79.51 Secondary malignant neoplasm of bone; E87.1 Hypo-osmolality and hyponatremia; C34.32 Malignant neoplasm of lower lobe, left bronchus or lung; C82.18 Follicular lymphoma grade II, lymph nodes of multiple sites; Z20.828 Contact with and (suspected) exposure to other viral communicable diseases; D63.0 Anemia in neoplastic disease; J44.9 Chronic obstructive pulmonary disease, unspecified; I10 Essential (primary) hypertension; I25.10 Atherosclerotic heart disease of native coronary artery without angina pectoris; G89.3 Neoplasm related pain (acute) (chronic); F32.9 Major depressive disorder, single episode, unspecified; M25.562 Pain in left knee; I25.2 Old myocardial infarction; Z23 Encounter for immunization; Z79.82 Long term (current) use of aspirin; Z79.899 Other long term (current) drug therapy; Z87.891 Personal history of nicotine dependence; Z88.6 Allergy status to analgesic agent; Z91.013 Allergy to seafood
CPT/HCPCS: 01360; 36415; 36430; 70553; 71260; 74177; 78306; 80048; 80053; 82607; 82728; 82746; 83540; 83550; 83735; 84100; 85025; 85027; 85045; 86850; 86900; 86901; 86920; 87040; 88304; 88305; 88309; 88311; 88341; 88342; 94799; 96374; 96375; 99285; 0241U; A9503; A9576; C1713; C1776; C9803; G0378; J1170; J1650; J1940; J2250; J2405; J2550; J2704; J2795; J3010; J3370; J3490; J7030; J7040; J7060; J7120; L1830; P9016; Q9969; S0119

== ENCOUNTER 2020-03-08 15:02 | Inpatient (IN) | payer MEDICAID ==
[2020-03-08] MEDS ORDERED: NORMAL SALINE 1000 ML 1,000 ML IV ONE (15:29)
[2020-03-08] MEDS ORDERED: ONDANSETRON HCL INJ/PF 4 MG/2 ML SDV IV ONE (15:29)
--- NOTE | 2020-03-08 15:31 | ER Document Report ---
ED Medical Screen (RME) - General Chief Complaint: Abdominal Pain Stated Complaint: ABDOMINAL PAIN Time Seen by Provider: 03/08/20 15:29 Primary Care Provider: RICARDO TORRES MD [Primary Care Provider] - Follow up as needed Notes: Patient is a 64-year-old female with a history of lung cancer, lymphoma who presents the emergency department with abdominal pain, nausea and vomiting. Patient's daughter reports that the patient has been vomiting feces. Patient has also been lethargic since she left the hospital 5 days ago. Exam: Patient appears lethargic. I have greeted and performed a rapid initial assessment of this patient. A comprehensive ED assessment and evaluation of the patient, analysis of test results and completion of medical decision making process will be conducted by an additional ED providers. TRAVEL OUTSIDE OF THE [place] IN LAST 30 DAYS: No - Related Data Allergies/Adverse Reactions: morphine Allergy (Verified 02/25/20 12:54) shellfish derived Allergy (Verified 02/25/20 12:54) Past Medical History - Past Medical History Cardiac Medical History: Reports: Hx Coronary Artery Disease, Hx Heart Attack, Hx Hypertension Denies: Hx Congestive Heart Failure Pulmonary Medical History: Reports: Hx COPD, Hx Pneumonia Malignancy Medical History: Reports: Hx Lung Cancer - Squamous cell, Hx Lymphoma - Follicular Musculoskeltal Medical History: Reports Hx Arthritis Psychiatric Medical History: Reports: Hx Depression Past Surgical History: Reports: Hx Orthopedic Surgery - L5-S1 discectomy, Other - Breast biopsies, multiple always negative for malignant disease. Doctor's Discharge - Discharge Referrals: RICARDO TORRES MD [Primary Care Provider] - Follow up as needed
[2020-03-08 16:47] LABS: HEMATOCRIT 29.3 % (36.0-47.0); HEMOGLOBIN 9.7 g/dL (12.0-15.5); MEAN CORPUSCULAR HEMOGLOBIN 29.5 pg (27.0-33.4); MEAN CORPUSCULAR VOLUME 90 fl (80-97); RED BLOOD COUNT 3.28 10^6/uL (3.72-5.28); RED CELL DISTRIBUTION WIDTH 16.3 % (11.5-14.0); WHITE BLOOD COUNT 14.4 10^3/uL (4.0-10.5)
[2020-03-08 17:05] LABS: ABSOLUTE LYMPHOCYTES# (MANUAL) 0.3 10^3/uL (0.5-4.7); ABSOLUTE MONOCYTES # (MANUAL) 0.3 10^3/uL (0.1-1.4); BASOPHILS % (MANUAL) 0 % (0-2); EOSINOPHILS % (MANUAL) 0 % (0-6); LYMPHOCYTES % (MANUAL) 2 % (13-45); METAMYELOCYTES % (MANUAL) 1 % (0-1); MONOCYTES % (MANUAL) 2 % (3-13); SEGMENTED NEUTROPHILS % (MAN) 95 % (42-78); TOTAL CELLS COUNTED 100
[2020-03-08 17:06] LABS: ALKALINE PHOSPHATASE 92 U/L (38-126); ANION GAP 11 (5-19); ANISOCYTOSIS 1+; ASPARTATE AMINO TRANSFERASE 52 U/L (14-36); BILIRUBIN,DIRECT 0.7 mg/dL (0.0-0.4); BILIRUBIN,TOTAL 1.9 mg/dL (0.2-1.3); BLOOD UREA NITROGEN 20 mg/dL (7-20); CALCIUM 8.8 mg/dL (8.4-10.2); CARBON DIOXIDE 37 mmol/L (22-30); CHLORIDE 82 mmol/L (98-107); GLUCOSE 95 mg/dL (75-110); PLATELET CLUMPS PRESENT; PLATELET COMMENT INCREASED; PLATELET COUNT 491 10^3/uL (150-450); POTASSIUM 3.3 mmol/L (3.6-5.0); TOTAL PROTEIN 5.2 g/dL (6.3-8.2)
--- NOTE | 2020-03-08 17:10 | ER Document Report ---
ED General - General Chief Complaint: Nausea/Vomiting Stated Complaint: ABDOMINAL PAIN Time Seen by Provider: 03/08/20 15:29 TRAVEL OUTSIDE OF THE [place] IN LAST 30 DAYS: No - HPI Notes: 64-year-old female presents with nausea/vomiting and abdominal pain. Patient recently had a knee replacement done 02/26 and was discharged from the hospital about 5 days ago. She states that since discharge she has had no bowel movement. Also states that for the past 3 weeks prior to surgery she was having some issues with bowel movements as well. Abdominal pain is generalized, abdomen is distended, pain has been constant. She has not been able to eat or drink anything. States that she throws up everything. Vomiting is occurring multiple times a day and described as dark brown hand smelling like feces. Arthur tellez states that she is given patient multiple medications for constipation coming including oral medications, suppositories and enemas, nothing has provided a bowel movement. Patient has had a history of a hernia repair. Also states that she has gallbladder issues, states that her gallbladder is calcified. Patient has metastatic cancer, she is chronically on narcotics, currently has on a fentanyl patch which at 9 AM this morning. - Related Data Allergies/Adverse Reactions: morphine Allergy (Verified 03/08/20 15:35) shellfish derived Allergy (Verified 03/08/20 15:35) Past Medical History - General Information source: Patient, Relative - Social History Smoking Status: Never Smoker Frequency of alcohol use: None Drug Abuse: None Family History: Reviewed & Not Pertinent, Arthritis, Hypertension, Thyroid Disfunction Patient has homicidal ideation: No - Past Medical History Cardiac Medical History: Reports: Hx Coronary Artery Disease, Hx Heart Attack, Hx Hypertension Denies: Hx Congestive Heart Failure Pulmonary Medical History: Reports: Hx COPD, Hx Pneumonia Malignancy Medical History: Reports: Hx Lung Cancer - Squamous cell, Hx Lymphoma - Follicular Musculoskeletal Medical History: Reports Hx Arthritis Psychiatric Medical History: Reports: Hx Depression Past Surgical History: Reports: Hx Orthopedic Surgery - L5-S1 discectomy, left knee replacement, Other - Breast biopsies, multiple always negative for malignant disease. Review of Systems - Review of Systems Constitutional: denies: Fever EENT: No symptoms reported Cardiovascular: denies: Chest pain Respiratory: denies: Short of breath Gastrointestinal: See HPI Genitourinary: denies: Dysuria Female Genitourinary: No symptoms reported Musculoskeletal: No symptoms reported Skin: No symptoms reported Hematologic/Lymphatic: No symptoms reported Neurological/Psychological: Other - Altered per daughter Physical Exam - Vital signs Vitals: Temp Pulse Resp BP Pulse Ox 98.9 F 134 H 16 104/76 92 03/08/20 15:27 03/08/20 15:27 03/08/20 15:27 03/08/20 15:27 03/08/20 15:27 - General General appearance: Alert In distress: Mild - HEENT Head: Normocephalic, Atraumatic Eyes: No: Scleral icterus Extraocular movements intact: Yes Pupils: PERRL Mucous membranes: Dry - Respiratory Breath sounds: Normal - Cardiovascular Rhythm: Regular, Tachycardia Normal capillary refill: Yes - Abdominal Distension: Distended Bowel sounds: Absent Tenderness: Tender - Central. No: Guarding, Rebound - Extremities General lower extremity: No: Edema - Neurological Neuro grossly intact: Yes Cognition: Normal Orientation: AAOx4 - Psychological Associated symptoms: Normal affect - Skin Skin Temperature: Warm Course - Re-evaluation Re-evalutation: 64-year-old female TKA 02/26 done for metastatic bone disease here with abdominal distention, feculent emesis and no bowel movement ongoing essentially for 1 week. On exam she is alert and chronically ill-appearing, she is afebrile but she is tachycardic. Her abdomen is distended with decreased bowel sounds, firm but no rebound or guarding. Discussed with patient and hr daughter that I am c oncerned for an obstructive process, likely has ileus given her postop status, potentially chronic opioid contributing as well, denies any major bowel surgeries other than hernia repair therefore mechanical obstruction less likely. She received Zofran and 1L of normal saline through the triage process which she reports has not changed her symptoms. Will give additional liter of LR and trial Phenergan for pain. Her fentanyl patch at 9 AM this morning, will have nursing removed and provide an IV dose. Have CT ordered to further assess intra-abdominal process. 03/08/20 19:11 Tachycardia is improving 03/08/20 20:00 Went in to check on patient, she is currently in CT 03/08/20 21:01 CT abdomen has resulted, images reviewed. Patient has an SBO new ascites. Discussed with patient, she has a history of lung cancer and follicular lymphoma, nothing in the abdomen that she is aware of. She is not currently on any chemo or radiation. She continues to have vomiting 03/08/20 21:[address] Mittal, he will come evaluate patient. NG tube ordered 03/08/20 21:18 Discussed with hospitalist for admission - Vital Signs Vital signs: Temp Pulse Resp BP Pulse Ox 98.9 F 134 H 24 H 120/74 100 03/08/20 15:27 03/08/20 15:27 03/08/20 20:54 03/08/20 20:54 03/08/20 20:54 - Laboratory Results Result Diagrams: 03/08/20 16:33 03/08/20 16:33 Laboratory Results Interpreted: 03/08/20 03/08/20 03/08/20 16:33 16:33 16:48 WBC 14.4 H RBC 3.28 L Hgb 9.7 L Hct 29.3 L RDW 16.3 H Plt Count 491 H Seg Neuts % (Manual) 95 H Lymphocytes % (Manual) 2 L Monocytes % (Manual) 2 L Abs Neuts (Manual) 13.8 H Abs Lymphs (Manual) 0.3 L Sodium 130.0 L Potassium 3.3 L Chloride 82 L Carbon Dioxide 37 H Creatinine 0.43 L Total Bilirubin 1.9 H Direct Bilirubin 0.7 H AST 52 H Total Protein 5.2 L Albumin 3.0 L Urine Protein 100 H Urine Ketones 80 H Urine Bilirubin MODERATE H Urine Urobilinogen 4.0 H Ur Leukocyte Esterase TRACE H Critical Laboratory Results Reviewed: No Critical Results - Radiology Results Critical Radiology Results Reviewed: Yes Attending or Supervising Physician who Reviewed Radiology: TANNER MARCIAL Discharge - Discharge Clinical Impression: SBO (small bowel obstruction), Hypokalemia Metastatic cancer Qualifiers: Area of secondary neoplastic involvement: unspecified site Qualified Code(s): C79.9 - Secondary malignant neoplasm of unspecified site Disposition: ADMITTED INPATIENT Admitting Provider: [facility] Admitted: Telemetry
[2020-03-08 17:11] LABS: APPEARANCE,URINE CLOUDY; BILIRUBIN,URINE MODERATE (NEGATIVE); COLOR,URINE AMBER; GLUCOSE, URINE NEGATIVE (NEGATIVE); KETONES,URINE 80 mg/dL (NEGATIVE); LEUKOCYTE ESTERASE,URINE TRACE (NEGATIVE); NITRITE,URINE NEGATIVE (NEGATIVE); PROTEIN,URINE 100 mg/dL (NEGATIVE); URINE SPECIFIC GRAVITY 1.031
[2020-03-08] MEDS ORDERED: PROMETHAZINE HCL INJ 25 MG/1 ML VIAL IV ONE (17:19)
[2020-03-08] MEDS ORDERED: RINGERS SOLUTION,LACTATED 1,000 ML IV ONE (17:19)
[2020-03-08] MEDS ORDERED: FENTANYL CITRATE INJ/PF 100 MCG/2 ML AMPUL IV ONE (17:20)
--- NOTE | 2020-03-08 20:52 | RADIOLOGY REPORT (SQ) ---
EXAM DESCRIPTION: CT ABDOMEN PELVIS WITH IV CONTRAST COMPLETED DATE/TME: 03/08/2020 20:17 CLINICAL HISTORY: 64 years, Female, abd distension, no BM, eval obstruction COMPARISON: CT from 02/26/2020 05/17/2019. TECHNIQUE: Axial images through 70 mL of Omnipaque 350. Sagittal coronal reconstruction. Images stored on PACS. All CT scanners at this facility use dose modulation, iterative reconstruction, and/or weight based dosing when appropriate to reduce radiation dose to as low as reasonably achievable (ALARA). FINDINGS: Nonspecific focal groundglass opacities in the right middle lobe and left lower lobe which appear decreased since 02/26/2020. Liver without acute findings. Nonenlarged spleen with incidental calcification. Pancreas not enlarged. Distended gallbladder with chronic wall calcifications. Tiny left adrenal nodule more likely benign. Right adrenal gland is unremarkable. Kidneys without acute findings. Previous right hydronephrosis mostly resolved. There is a 9 mm lateral mid upper pole renal hypodensity which is new since 05/17/2019 and minimally larger since 02/25/2020. Moderate atherosclerotic aorta without dilatation narrowing. Aortic branches are unremarkable. Previous left periarticular soft tissue fullness reduced. . Moderate to prominent distention of the stomach. There is a mild defect in the cardia the stomach. Series 5 image 17 which may represent a pseudolesion related to small hiatal hernia. Moderate small bowel dilatation. No definite colonic dilatation. Evaluation is difficult. There is mild new ascites. There is new peritoneal thickening/mass mainly right paracolic gutter. Series 5 images 40-50. CT of the pelvis demonstrates mild enlargement of the uterus with central hypodensity possibly related to endometrial abnormality. No large adnexal masses although evaluation is limited. There is a cystic lesion with mild wall thickening posterior to the right side of the uterus which may represent an adnexal abnormality or metastasis is not related to the adnexa. Urinary bladder is unremarkable. Free fluid in the pelvis is mostly nondependent. IMPRESSION: 1. Suspected malignancy. Clinical history not available.. 2. New finding of small bowel obstruction. There is no definite colonic dilatation 3. New finding of mild ascites. New finding of peritoneal metastasis more obvious in the right paracolic gutter. Cannot exclude right colonic thickening. 4. previous right hydronephrosis resolved. Very minimal residual right hydronephrosis without obvious obstructive process. New 9 mm right renal hypodensity may represent a small metastasis. 5. Chronic finding of mildly coarse gallbladder wall calcifications. Consistent with porcelain gallbladder and has been associated with increased risk of gallbladder cancer. 6. Uterus demonstrates greater endometrial enlargement. Rule out pathology. There is a small cystic structure with mildly thick wall located posterior to the right ear of the uterus. Question metastasis versus focal adnexal abnormality.
[2020-03-08] MEDS: POTASSI CL 20 MEQ/50 ML RIDER 20 MEQ/50 ML RTUPB IV SCH ×2 (21:47→23:42)
[2020-03-08] MEDS ORDERED: DEXTROSE 50%-WATER 25 GM/50 ML DISP.SYRIN IV PRN ×2 (22:22)
[2020-03-08] MEDS ORDERED: DEXTROSE 40% GEL 15 GM TUBE PO PRN ×2 (22:22)
[2020-03-08] MEDS ORDERED: IPRATROPIUM/ALBUTEROL 0.5-2.5 MG/3 ML AMPUL NEB PRN (22:22)
[2020-03-08] MEDS ORDERED: GLUCAGON,HUMAN RECOMB 1 MG INJ SUBCUT PRN (22:22)
[2020-03-08] MEDS ORDERED: PHARMACY COMMUNICATION ORDER MC NR (22:30)
--- NOTE | 2020-03-08 22:37 | RADIOLOGY REPORT (SQ) ---
EXAM DESCRIPTION: KUB/ABDOMEN (SINGLE VIEW) 03/08/2020 12:00 AM [employer] CLINICAL HISTORY: 64 years Female, NG Tube Placement; ; COMPARISON: Prior study from 02/25/2020 FINDINGS: Single view is obtained. Enteric drainage tube tip projects over the gastric body. Hyperdense material is noted about both renal collecting systems, ureters, and urinary bladder, indicating excretion of previously administered intravenous contrast maternal. There is mild right hydronephrosis is evident. There is diffuse dilatation of bowel loops throughout the abdomen with minimal large bowel gas identified. No definite subdiaphragmatic free air. IMPRESSION: Enteric drainage tube tip projects over the gastric body. Diffuse dilatation of bowel loops throughout the imaged abdomen, suspicious for small bowel obstruction. Hyperdense material within both renal collecting systems, ureters, and bladder, indicating excretion of previously administered intravenous contrast due to low. Additionally, there is suspected mild right hydronephrosis.
--- NOTE | 2020-03-08 22:56 | PDOC H&P ---
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 She underwent chemotherapy. Later on she was diagnosed with a squamous cell lung cancer. She received radiation therapy. She had metastatic disease to the left distal femur. She underwent distal femoral resection and endoprosthetic reconstruction on February 26. Malignant metastasis was related to lymphoma. She did not have any bowel movement spontaneously, she required enemas. She was passing gas. She did not have much of an abdominal discomfort. She was discharged home last week. Since she went home ,she did not have any spontaneous bowel movement. She was passing some gas. For the last couple days she started vomiting. She was vomiting numerous times. She developed some abdominal swelling. Because of the excessive vomiting she came to the emergency department. CT scan of the abdomen was done. It looks like she has peritoneal metastasis. CT scan and clinical picture suggestive of small bowel obstruction. Surgical consultation was requested, she is going to be seen by general surgery soon. Patient is going to be admitted to medical service considering her multiple problems. NG tube is in place. The NG tube is on low wall suction. He received pain medication. When I saw her she did not appear to be in pain. Past Medical History Cardiac Medical History: Reports: Hypertension, Other - Mitral valve prolapse Denies: Atrial Fibrillation, Congestive Heart Failure Pulmonary Medical History: Reports: Chronic Obstructive Pulmonary Disease (COPD), Pneumonia EENT Medical History: Reports: None Neurological Medical History: Reports: None Endocrine Medical History: Reports: None Malignancy Medical History: Reports: Lung Cancer - Squamous cell, Lymphoma - Follicular GI Medical History: Reports: None Musculoskeltal Medical History: Reports: Arthritis Skin Medical History: Reports: None Psychiatric Medical History: Reports: Depression Hematology: Reports: None, Anemia Infectious Medical History: Reports: None Past Surgical History Past Surgical History: Reports: Herniorrhaphy, Orthopedic Surgery - L5-S1 discectomy, left knee replacement, Other - Breast biopsies, multiple always negative for malignant disease. Social History Information Source: Patient Lives with: Family Smoking Status: Never Smoker Frequency of Alcohol Use: None Hx Recreational Drug Use: No Drugs: None Hx Prescription Drug Abuse: No - Advance Directive Resuscitation Status: Full Code Surrogate healthcare decision maker:: Her daughter Family History Family History: Reviewed & Not Pertinent, Arthritis, Hypertension, Thyroid Disfunction Parental Family History Reviewed: Yes Children Family History Reviewed: Yes Sibling(s) Family History Reviewed.: Yes Medication/Allergy Home Medications: Aspirin [Ecotrin 81 mg EC Tablet] 81 mg PO DAILY 05/16/19 Cyanocobalamin (Vitamin B-12) [Vitamin B-12 1000 mcg Tablet] 1 tab PO DAILY 05/16/19 Oxcarbazepine 300 mg PO Q12 05/16/19 Ergocalciferol (Vitamin D2) [Vitamin D2] 50 mcg PO MCKAY@1000 06/29/19 Oxycodone HCl [Oxy-Ir 5 mg Tablet] 10 mg PO Q6HP PRN 06/29/19 Albuterol Sulfate [Ventolin 0.042% Neb 1.25 mg/3 mL Ampul] 1 vial NEB Q4HP PRN #120 07/03/19 Bupropion HCl [Bupropion Xl] 300 mg PO DAILY 02/25/20 Gabapentin [Neurontin 300 mg Capsule] 300 mg PO Q8 02/25/20 Tizanidine HCl [Zanaflex] 2 mg PO TID 02/25/20 Fentanyl [Duragesic 25 mcg/hr Transdermal Patch] 1 each TD Q3DAYS patch.[id number] 03/03/20 Rivaroxaban [Xarelto 10 mg Tablet] 10 mg PO DAILY #21 tablet 03/03/20 Allergies/Adverse Reactions: morphine Allergy (Verified 03/08/20 15:35) shellfish derived Allergy (Verified 03/08/20 15:35) Review of Systems Constitutional: PRESENT: anorexia, weakness Ears: ABSENT: hearing changes Cardiovascular: ABSENT: chest pain, dyspnea on exertion, edema, orthropnea, palpitations Respiratory: PRESENT: other - Chronic oxygen 1.5 L/min with nasal cannula.. ABSENT: cough, hemoptysis Gastrointestinal: PRESENT: abdominal pain, bloating, constipation, nausea, vomiting Genitourinary: ABSENT: dysuria, hematuria Musculoskeletal: PRESENT: other - Improving left lower extremity swelling after surgery. She was progressing well with physical therapy. Integumentary: ABSENT: rash, wounds Neurological: ABSENT: abnormal gait, abnormal speech, confusion, dizziness, focal weakness, syncope Endocrine: ABSENT: cold intolerance, heat intolerance, polydipsia, polyuria Hematologic/Lymphatic: ABSENT: easy bleeding, easy bruising Physical Exam Vital Signs: Temp Pulse Resp BP Pulse Ox 98.9 F 134 H 24 H 120/74 100 03/08/20 15:27 03/08/20 15:27 03/08/20 20:54 03/08/20 20:54 03/08/20 20:54 Intake & Output 03/07/20 03/08/20 03/09/20 06:59 06:59 06:59 Intake Total 1999 Balance 1999 Weight 73 kg General appearance: PRESENT: mild distress Head exam: PRESENT: atraumatic Eye exam: PRESENT: conjunctiva pink, EOMI, PERRLA. ABSENT: scleral icterus Ear exam: PRESENT: normal external ear exam Mouth exam: PRESENT: dry mucosa Throat exam: ABSENT: post pharyngeal erythema Neck exam: ABSENT: carotid bruit, JVD, lymphadenopathy, thyromegaly Respiratory exam: PRESENT: clear to auscultation clare. ABSENT: rales, rhonchi, wheezes Cardiovascular exam: PRESENT: tachycardia. ABSENT: diastolic murmur, gallop, systolic murmur Pulses: PRESENT: normal dorsalis pedis pul Vascular exam: PRESENT: normal capillary refill GI/Abdominal exam: PRESENT: distended, hyperactive bowel sounds, tenderness - Diffuse Rectal exam: PRESENT: deferred Extremities exam: PRESENT: other - Left lower extremity still swollen, consistent with previous surgery. Surgical wound covered with dressing.. ABSENT: calf tenderness Neurological exam: PRESENT: alert, awake, oriented to person, oriented to place, oriented to time, oriented to situation, CN II-XII grossly intact. ABSENT: motor sensory deficit Psychiatric exam: PRESENT: appropriate affect, normal mood. ABSENT: homicidal ideation, suicidal ideation Skin exam: ABSENT: rash Results Laboratory Results: 03/08/20 16:33 03/08/20 16:33 03/08/20 03/08/20 03/08/20 16:33 16:33 16:48 WBC 14.4 H RBC 3.28 L Hgb 9.7 L Hct 29.3 L MCV 90 MCH 29.5 MCHC 33.0 RDW 16.3 H Plt Count 491 H Seg Neutrophils % Not Reportable Sodium 130.0 L Potassium 3.3 L Chloride 82 L Carbon Dioxide 37 H Anion Gap 11 BUN 20 Creatinine 0.43 L Est GFR ( Amer) > 60 Glucose 95 Calcium 8.8 Total Bilirubin 1.9 H AST 52 H Alkaline Phosphatase 92 Total Protein 5.2 L Albumin 3.0 L Urine Color DANE Urine Appearance CLOUDY Urine pH 5.0 Ur Specific Brule 1.031 Urine Protein 100 H Urine Glucose (UA) NEGATIVE Urine Ketones 80 H Urine Blood NEGATIVE Urine Nitrite NEGATIVE Ur Leukocyte Esterase TRACE H Urine WBC (Auto) 5 Urine RBC (Auto) 1 Impressions: Abdomen/Pelvis CT 03/08/20 00:00 IMPRESSION: 1. Suspected malignancy. Clinical history not available.. 2. New finding of small bowel obstruction. There is no definite colonic dilatation 3. New finding of mild ascites. New finding of peritoneal metastasis more obvious in the right paracolic gutter. Cannot exclude right colonic thickening. 4. previous right hydronephrosis resolved. Very minimal residual right hydronephrosis without obvious obstructive process. New 9 mm right renal hypodensity may represent a small metastasis. 5. Chronic finding of mildly coarse gallbladder wall calcifications. Consistent with porcelain gallbladder and has been associated with increased risk of gallbladder cancer. 6. Uterus demonstrates greater endometrial enlargement. Rule out pathology. There is a small cystic structure with mildly thick wall located posterior to the right ear of the uterus. Question metastasis versus focal adnexal abnormality. KUB X-Ray 03/08/20 00:00 IMPRESSION: Enteric drainage tube tip projects over the gastric body. Diffuse dilatation of bowel loops throughout the imaged abdomen, suspicious for small bowel obstruction. Hyperdense material within both renal collecting systems, ureters, and bladder, indicating excretion of previously administered intravenous contrast due to low. Additionally, there is suspected mild right hydronephrosis. Assessment and Plan - Diagnosis (1) SBO (small bowel obstruction) Is this a current diagnosis for this admission?: Yes Plan: NG tube in the place with low wall suction. Surgical consultation was requested. Pain control. Continue intravenous fluids. (2) Dehydration Is this a current diagnosis for this admission?: Yes Plan: Patient received 2 L of fluid bolus in the emergency department. Continue intravenous fluids. (3) Hypokalemia Is this a current diagnosis for this admission?: Yes Plan: She received potassium bolus. Monitor potassium level, additional replacement if needed. (4) Metastatic cancer Qualifiers: Area of secondary neoplastic involvement: peritoneum Qualified Code(s): 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 Is this a current diagnosis for this admission?: Yes Plan: CT scan and clinical picture suspicious for metastatic disease to the peritoneum. This is most likely related to her lymphoma. Oncology consultation is going to be requested in the morning. (5) COPD (chronic obstructive pulmonary disease) Qualifiers: COPD type: unspecified COPD Qualified Code(s): J44.9 - Chronic obstructive pulmonary disease, unspecified Is this a current diagnosis for this admission?: Yes Plan: Respiratory status is stable. Bronchodilators as needed. Oxygen therapy. (6) Chronic respiratory failure with hypoxia Is this a current diagnosis for this admission?: Yes Plan: Secondary to COPD and perhaps lung cancer. No sign of exacerbation. Continue oxygen therapy (7) Follicular lymphoma Qualifiers: Follicular lymphoma type: unspecified follicular type Lymphoma site: unspecified region Qualified Code(s): C82.90 - Follicular lymphoma, unspecified, unspecified site Is this a current diagnosis for this admission?: Yes Plan: It looks like she has metastatic lymphoma. (8) Lung cancer Qualifiers: Laterality: unspecified laterality Lung location: unspecified part of lung Qualified Code(s): C34.90 - Malignant neoplasm of unspecified part of unspecified bronchus or lung Is this a current diagnosis for this admission?: Yes Plan: She received radiation therapy earlier for squamous cell lung cancer. (9) H/O left knee surgery Is this a current diagnosis for this admission?: Yes Plan: Patient had left distal femoral resection and endoprosthetic reconstruction on February 26. She had metastatic malignancy to the distal femur. There is no sign of surgical complication. Dressing is clean. The swelling of the left lower extremity is improving. The patient was progressing well with physical therapy till she became ill. She was on DVT prophylaxis with rivaroxaban. Probable she was not able to keep the medicine down. - Plan Summary Summary: Patient was admitted with small bowel obstruction. Most likely metastatic disease to the peritoneum is causing the bowel obstruction. Surgical consultation was requested. NG tube in place with low wall suction. Patient was somewhat dehydrated, she received fluid bolus, potassium replacement and continue intravenous fluids. Pain control. Overall prognosis is poor. The patient would like to remain full code. Home medications were reviewed. Patient was taking rivaroxaban for DVT prophylaxis. This is going to be on hold because of possible surgery. I am ordering a PT and PTT, if they are normal we do not need to worry about any anticoagulant effect, probable the patient was unable to keep down the medicine. - Time Time Spent with patient: 35 or more minutes Medications reviewed and adjusted accordingly: Yes Anticipated Discharge Disposition: Unknown Anticipated Discharge Timeframe: 1 week - Inpatient Certification Based on my medical assessment, after consideration of the patient's comorbidities, presenting symptoms, or acuity I expect that the services needed warrant INPATIENT care.: Yes I certify that my determination is in accordance with my understanding of [facility]'s requirements for reasonable and necessary INPATIENT services [42 CFR 412.3e].: Yes Medical Necessity: Need For IV Fluids, Need for Surgery, Risk of Complication if Not Cared For in Hospital
[2020-03-08] MEDS: POTASSI CL 20 MEQ/NS 1L 1,000 ML IV PRN (23:42)
[2020-03-08 23:48] LABS: INTERNATIONAL RATION (INR) 1.28; PROTHROMBIN TIME 16.2 SEC (11.4-15.4)
[2020-03-08 23:49] LABS: PARTIAL THROMBOPLASTIN TIME 35.8 SEC (23.5-35.8)
[2020-03-08] MEDS: HYDROMORPHONE HCL INJ/PF 2 MG/ML AMPULE IV PRN (23:51)
--- NOTE | 2020-03-09 00:09 | PDOC CONSULTATION ---
Consultation Consult Date: 03/09/20 Attending physician:: VINCENZO LOYOLA Provider Consulted: YONATAN GRAJEDA History of Present Illness Admission Date/PCP: 03/08/20 21:37 RICARDO TORRES MD History of Present Illness: LUPILLO DE LA ROSA is a 64 year old female presents with nausea/vomiting and abdominal pain. Patient recently had a knee replacement done 02/26 and was discharged from the hospital about 5 days ago. She states that since discharge she has had no bowel movement. Also states that for the past 3 weeks prior to surgery she was having some issues with bowel movements as well. Abdominal pain is generalized, abdomen is distended, pain has been constant. She has not been able to eat or drink anything. States that she throws up everything. Vomiting is occurring multiple times a day and described as dark brown hand smelling like feces. Daughter states that she is given patient multiple medications for constipation coming including oral medications, suppositories and enemas, noth ing has provided a bowel movement. Patient has had a history of a umbilical hernia repair 30 yrs ago without mesh. Also states that she has gallbladder issues, states that her gallbladder is calcified. Patient has metastatic cancer, she is chronically on narcotics, currently has on a fentanyl patch which at [address] scan c/w peritioneal mets with some ascites mild dilation of small bowel air/ large amts of stool throughout colon. Past Medical History Cardiac Medical History: Reports: Coronary Artery Disease, Myocardial Infarction , Hypertension, Other - Mitral valve prolapse Denies: Atrial Fibrillation, Congestive Heart Failure Pulmonary Medical History: Reports: Chronic Obstructive Pulmonary Disease (COPD), Pneumonia EENT Medical History: Reports: None Neurological Medical History: Reports: None Endocrine Medical History: Reports: None Malignancy Medical History: Reports: Lung Cancer - Squamous cell, Lymphoma - Follicular GI Medical History: Reports: None Musculoskeltal Medical History: Reports: Arthritis Skin Medical History: Reports: None Psychiatric Medical History: Reports: Depression Hematology: Reports: None, Anemia Infectious Medical History: Reports: None Past Surgical History Past Surgical History: Reports: Orthopedic Surgery - L5-S1 discectomy, left knee replacement, Other - Breast biopsies, multiple always negative for malignant disease. Social History Lives with: Family Smoking Status: Never Smoker Frequency of Alcohol Use: None Hx Recreational Drug Use: No Drugs: None Hx Prescription Drug Abuse: No - Advance Directive Resuscitation Status: Full Code Family History Family History: Reviewed & Not Pertinent, Arthritis, Hypertension, Thyroid Disfunction Parental Family History Reviewed: No Children Family History Reviewed: NA Sibling(s) Family History Reviewed.: NA Medication/Allergy Home Medications: Aspirin [Ecotrin 81 mg EC Tablet] 81 mg PO DAILY 05/16/19 Cyanocobalamin (Vitamin B-12) [Vitamin B-12 1000 mcg Tablet] 1 tab PO DAILY 05/16/19 Oxcarbazepine 300 mg PO Q12 05/16/19 Ergocalciferol (Vitamin D2) [Vitamin D2] 50 mcg PO MCKAY@1000 06/29/19 Oxycodone HCl [Oxy-Ir 5 mg Tablet] 10 mg PO Q6HP PRN 06/29/19 Albuterol Sulfate [Ventolin 0.042% Neb 1.25 mg/3 mL Ampul] 1 vial NEB Q4HP PRN #120 07/03/19 Bupropion HCl [Bupropion Xl] 300 mg PO DAILY 02/25/20 Gabapentin [Neurontin 300 mg Capsule] 300 mg PO Q8 02/25/20 Tizanidine HCl [Zanaflex] 2 mg PO TID 02/25/20 Fentanyl [Duragesic 25 mcg/hr Transdermal Patch] 1 each TD Q3DAYS patch.[id number] 03/03/20 Rivaroxaban [Xarelto 10 mg Tablet] 10 mg PO DAILY #21 tablet 03/03/20 Allergies/Adverse Reactions: morphine Allergy (Verified 03/08/20 15:35) shellfish derived Allergy (Verified 03/08/20 15:35) Review of Systems Constitutional: PRESENT: anorexia, fatigue, weakness, weight loss Eyes: ABSENT: as per HPI, visual disturbances, other Ears: ABSENT: as per HPI, hearing changes, other Nose, Mouth, and Throat: ABSENT: as per HPI, headache(s), mouth pain, sore throat, vertigo, other Breasts: ABSENT: as per HPI, other Cardiovascular: PRESENT: dyspnea on exertion Respiratory: PRESENT: dyspnea Gastrointestinal: PRESENT: abdominal pain, constipation, heartburn, nausea, vomiting Genitourinary: ABSENT: as per HPI, difficulty urinating, dysuria, hematuria, nocturia, other Musculoskeletal: PRESENT: deformity, joint swelling Integumentary: ABSENT: as per HPI, diaphoresis, erythema, lesions, pruritus, rash, wounds, other Neurological: ABSENT: as per HPI, abnormal gait, abnormal movements, abnormal speech, confusion, convulsions, dizziness, focal weakness, frequent falls, lack of coordination, memory loss, numbness, paresthesias, restless legs, syncope, tingling, tremor(s), vertigo, weakness, other Psychiatric: ABSENT: as per HPI, anxiety, depression, hallucinations, homidical ideation, suicidal ideation, other Endocrine: ABSENT: as per HPI, cold intolerance, flushing, heat intolerance, menstrual abnormalities, polydipsia, polyphagia, polyuria, other Hematologic/Lymphatic: PRESENT: easy bruising Allergic/Immunologic: ABSENT: as per HPI, seasonal rhinorrhea, other Physical Exam Vital Signs: Temp Pulse Resp BP Pulse Ox 99.0 F 110 H 18 124/71 95 03/08/20 23:30 03/08/20 23:30 03/08/20 23:30 03/08/20 23:30 03/08/20 23:30 Intake & Output 03/07/20 03/08/20 03/09/20 06:59 06:59 06:59 Intake Total 2049 Balance 2049 Weight 61.8 kg General appearance: PRESENT: mild distress, other - chronically ill weak frail Head exam: PRESENT: atraumatic Eye exam: PRESENT: PERRLA Ear exam: PRESENT: normal external ear exam Mouth exam: PRESENT: dry mucosa Teeth exam: PRESENT: edentulous Neck exam: PRESENT: full ROM Respiratory exam: PRESENT: clear to auscultation clare Cardiovascular exam: PRESENT: RRR Pulses: PRESENT: normal radial pulses, normal femoral pulses Vascular exam: PRESENT: normal capillary refill Breast: PRESENT: Normal GI/Abdominal exam: PRESENT: other - distended, tympanitic, Rectal exam: PRESENT: deferred Extremities exam: PRESENT: full ROM Musculoskeletal exam: PRESENT: full ROM, other - recent left lower ext orthopediac surgery Neurological exam: PRESENT: alert, awake, oriented to person, oriented to place Psychiatric exam: PRESENT: appropriate affect Skin exam: PRESENT: dry Results Laboratory Results: 03/08/20 16:33 03/08/20 16:33 03/08/20 03/08/20 03/08/20 16:33 16:33 16:48 WBC 14.4 H RBC 3.28 L Hgb 9.7 L Hct 29.3 L MCV 90 MCH 29.5 MCHC 33.0 RDW 16.3 H Plt Count 491 H Seg Neutrophils % Not Reportable Sodium 130.0 L Potassium 3.3 L Chloride 82 L Carbon Dioxide 37 H Anion Gap 11 BUN 20 Creatinine 0.43 L Est GFR ( Amer) > 60 Glucose 95 Calcium 8.8 Total Bilirubin 1.9 H AST 52 H Alkaline Phosphatase 92 Total Protein 5.2 L Albumin 3.0 L Urine Color DANE Urine Appearance CLOUDY Urine pH 5.0 Ur Specific [place] 1.031 Urine Protein 100 H Urine Glucose (UA) NEGATIVE Urine Ketones 80 H Urine Blood NEGATIVE Urine Nitrite NEGATIVE Ur Leukocyte Esterase TRACE H Urine WBC (Auto) 5 Urine RBC (Auto) 1 Impressions: Abdomen/Pelvis CT 03/08/20 00:00 IMPRESSION: 1. Suspected malignancy. Clinical history not available.. 2. New finding of small bowel obstruction. There is no definite colonic dilatation 3. New finding of mild ascites. New finding of peritoneal metastasis more obvious in the right paracolic gutter. Cannot exclude right colonic thickening. 4. previous right hydronephrosis resolved. Very minimal residual right hydronephrosis without obvious obstructive process. New 9 mm right renal hypodensity may represent a small metastasis. 5. Chronic finding of mildly coarse gallbladder wall calcifications. Consistent with porcelain gallbladder and has been associated with increased risk of gallbladder cancer. 6. Uterus demonstrates greater endometrial enlargement. Rule out pathology. There is a small cystic structure with mildly thick wall located posterior to the right ear of the uterus. Question metastasis versus focal adnexal abnormality. KUB X-Ray 03/08/20 00:00 IMPRESSION: Enteric drainage tube tip projects over the gastric body. Diffuse dilatation of bowel loops throughout the imaged abdomen, suspicious for small bowel obstruction. Hyperdense material within both renal collecting systems, ureters, and bladder, indicating excretion of previously administered intravenous contrast due to low. Additionally, there is suspected mild right hydronephrosis. Assessment & Plan - Plan Summary Plan Summary: possible small bowel obstruction due to metastatic lung cancer\ with peritoneal mets, chronic constipation recommend ng suction for now iv hydration surgery will follow.
[2020-03-09 05:51] LABS: ALBUMIN 2.4 g/dL (3.5-5.0); ALKALINE PHOSPHATASE 74 U/L (38-126); ANION GAP 10 (5-19); ASPARTATE AMINO TRANSFERASE 43 U/L (14-36); BILIRUBIN,DIRECT 0.7 mg/dL (0.0-0.4); BILIRUBIN,TOTAL 1.3 mg/dL (0.2-1.3); BLOOD UREA NITROGEN 16 mg/dL (7-20); CARBON DIOXIDE 32 mmol/L (22-30); CHLORIDE 90 mmol/L (98-107); GLUCOSE 79 mg/dL (75-110); POTASSIUM 3.7 mmol/L (3.6-5.0); TOTAL PROTEIN 4.5 g/dL (6.3-8.2)
[2020-03-09] MEDS: POTASSI CL 20 MEQ/NS 1L 1,000 ML IV PRN ×2 (06:46→22:28)
[2020-03-09] MEDS: HYDROMORPHONE HCL INJ/PF 2 MG/ML AMPULE IV PRN ×4 (06:50→22:28)
[2020-03-09 08:17] LABS: HEMATOCRIT 26.2 % (36.0-47.0); HEMOGLOBIN 8.8 g/dL (12.0-15.5); MEAN CORPUSCULAR HEMOGLOBIN 29.5 pg (27.0-33.4); MEAN CORPUSCULAR HGB CONC 33.6 g/dL (32.0-36.0); MEAN CORPUSCULAR VOLUME 88 fl (80-97); PLATELET COUNT 411 10^3/uL (150-450); RED BLOOD COUNT 2.97 10^6/uL (3.72-5.28); RED CELL DISTRIBUTION WIDTH 16.2 % (11.5-14.0); WHITE BLOOD COUNT 10.6 10^3/uL (4.0-10.5)
--- NOTE | 2020-03-09 08:32 | PDOC CONSULTATION ---
Consultation Consult Date: 03/09/20 Attending physician:: VINCENZO LOYOLA Provider Consulted: RAY SALDANA Consult reason:: Patient well-known to our oncology clinic here with small bowel obstruction, persistent nausea and vomiting History of Present Illness Admission Date/PCP: 03/08/20 21:37 RICARDO TORRES MD Patient complains of: Persistent nausea and vomiting History of Present Illness: LUPILLO DE LA ROSA is a 64 year old female with history of multiple malignancies, just was here last week when she was found to have a distal left femur lesion, ultimately she presented and had left total knee arthroplasty, during that admission she had restaging. As noted per previous notes, she has history of both a primary lung cancer as well as follicular lymphoma. She had the lymphoma treated systemically and obtained a complete response as per imaging back in , but the primary lung lesion was increasing and biopsy indicated squamous cell, and patient thereafter had [employer] radiation in December. After that she began having pain issues both in the left upper chest where previous chest tube site seem to be giving her an issue, and also left knee pain. Ultimately an MRI was done which showed a bone lesion and she had th e surgery done by Dr. Bang last week. Towards the end of surgery, she began experiencing a little bit of constipation and nausea we gave her some enemas with small amounts out. She wanted to discharge home and felt that she would do better at home in terms of bowel movements. Unfortunately at home, bowel movements were not improved, we tried several different things including oral laxatives, suppositories and ultimately several days of enemas. But vomiting worsened and ultimately we recommended that she present to the ED. In the ER she had CT of the abdomen pelvis which did indeed indicate what we were concerned about which is small bowel obstruction. Small amount of ascites. There is possible peritoneal changes concerning for disease. Interestingly, we initially felt that the bone lesion was going to be carcinoma consistent with lung primary but it looks like it is actually going to be lymphoma. So the changes ongoing in the body are probably either recurrent follicular lymphoma or Rust's transformation. She has had NG tube placed, surgery is seen her as well and she is on supportive care currently. Past Medical History Cardiac Medical History: Reports: Coronary Artery Disease, Myocardial Infarction, Hypertension, Other - Mitral valve prolapse Denies: Atrial Fibrillation, Congestive Heart Failure Pulmonary Medical History: Reports: Chronic Obstructive Pulmonary Disease (COPD), Pneumonia EENT Medical History: Reports: None Neurological Medical History: Reports: None Endocrine Medical History: Reports: None Malignancy Medical History: Reports: Lung Cancer - Squamous cell, Lymphoma - Follicular GI Medical History: Reports: None Musculoskeltal Medical History: Reports: Arthritis Skin Medical History: Reports: None Psychiatric Medical History: Reports: Depression Hematology: Reports: None, Anemia Infectious Medical History: Reports: None Past Surgical History Past Surgical History: Reports: Herniorrhaphy, Orthopedic Surgery - L5-S1 discectomy, left knee replacement, Other - Breast biopsies, multiple always negative for malignant disease. Social History Lives with: Family Smoking Status: Never Smoker Frequency of Alcohol Use: None Hx Recreational Drug Use: No Drugs: None Hx Prescription Drug Abuse: No - Advance Directive Resuscitation Status: Full Code Family History Family History: Reviewed & Not Pertinent, Arthritis, Hypertension, Thyroid Disfunction Parental Family History Reviewed: Yes Children Family History Reviewed: Yes Sibling(s) Family History Reviewed.: Yes Medication/Allergy Home Medications: Aspirin [Ecotrin 81 mg EC Tablet] 81 mg PO DAILY 05/16/19 Cyanocobalamin (Vitamin B-12) [Vitamin B-12 1000 mcg Tablet] 1 tab PO DAILY 05/16/19 Oxcarbazepine 300 mg PO Q12 05/16/19 Ergocalciferol (Vitamin D2) [Vitamin D2] 50 mcg PO MCKAY@1000 06/29/19 Oxycodone HCl [Oxy-Ir 5 mg Tablet] 10 mg PO Q6HP PRN 06/29/19 Albuterol Sulfate [Ventolin 0.042% Neb 1.25 mg/3 mL Ampul] 1 vial NEB Q4HP PRN #120 07/03/19 Bupropion HCl [Bupropion Xl] 300 mg PO DAILY 02/25/20 Gabapentin [Neurontin 300 mg Capsule] 300 mg PO Q8 02/25/20 Tizanidine HCl [Zanaflex] 2 mg PO TID 02/25/20 Fentanyl [Duragesic 25 mcg/hr Transdermal Patch] 1 each TD Q3DAYS patch.td72 03/03/20 Rivaroxaban [Xarelto 10 mg Tablet] 10 mg PO DAILY #21 tablet 03/03/20 Allergies/Adverse Reactions: morphine Allergy (Verified 03/08/20 15:35) shellfish derived Allergy (Verified 03/08/20 15:35) Review of Systems Constitutional: ABSENT: chills, fever(s), headache(s), weight gain, weight loss Eyes: ABSENT: visual disturbances Ears: ABSENT: hearing changes Cardiovascular: ABSENT: chest pain, dyspnea on exertion, edema, orthropnea, palpitations Respiratory: ABSENT: cough, hemoptysis Gastrointestinal: ABSENT: abdominal pain, constipation, diarrhea, hematemesis, hematochezia, nausea, vomiting Genitourinary: ABSENT: dysuria, hematuria Musculoskeletal: ABSENT: joint swelling Integumentary: ABSENT: rash, wounds Neurological: ABSENT: abnormal gait, abnormal speech, confusion, dizziness, focal weakness, syncope Psychiatric: ABSENT: anxiety, depression, homidical ideation, suicidal ideation Endocrine: ABSENT: cold intolerance, heat intolerance, polydipsia, polyuria Hematologic/Lymphatic: ABSENT: easy bleeding, easy bruising Physical Exam Vital Signs: Temp Pulse Resp BP Pulse Ox 99.0 F 110 H 18 124/71 95 03/08/20 23:30 03/08/20 23:30 03/08/20 23:30 03/08/20 23:30 03/08/20 23:30 Intake & Output 03/08/20 03/09/20 03/10/20 06:59 06:59 06:59 Intake Total 3100 Output Total 700 Balance 2400 Weight 61.8 kg General appearance: PRESENT: no acute distress, well-developed, well-nourished Head exam: PRESENT: atraumatic, normocephalic Eye exam: PRESENT: conjunctiva pink, EOMI, PERRLA. ABSENT: scleral icterus Ear exam: PRESENT: normal external ear exam Mouth exam: PRESENT: moist, tongue midline Neck exam: ABSENT: carotid bruit, JVD, lymphadenopathy, thyromegaly Respiratory exam: PRESENT: clear to auscultation clare. ABSENT: rales, rhonchi, wheezes Cardiovascular exam: PRESENT: RRR. ABSENT: diastolic murmur, rubs, systolic murmur Pulses: PRESENT: normal dorsalis pedis pul Vascular exam: PRESENT: normal capillary refill GI/Abdominal exam: PRESENT: normal bowel sounds, soft. ABSENT: distended, guarding, mass, organolmegaly, rebound, tenderness Rectal exam: PRESENT: deferred Extremities exam: PRESENT: full ROM. ABSENT: calf tenderness, clubbing, pedal edema Neurological exam: PRESENT: alert, awake, oriented to person, oriented to place, oriented to time, oriented to situation, CN II-XII grossly intact. ABSENT: motor sensory deficit Psychiatric exam: PRESENT: appropriate affect, normal mood. ABSENT: homicidal ideation, suicidal ideation Skin exam: PRESENT: dry, intact, warm. ABSENT: cyanosis, rash Results Laboratory Results: 03/09/20 04:17 03/08/20 03/08/20 03/08/20 16:33 16:33 16:48 WBC 14.4 H RBC 3.28 L Hgb 9.7 L Hct 29.3 L MCV 90 MCH 29.5 MCHC 33.0 RDW 16.3 H Plt Count 491 H Seg Neutrophils % Not Reportable Sodium 130.0 L Potassium 3.3 L Chloride 82 L Carbon Dioxide 37 H Anion Gap 11 BUN 20 Creatinine 0.43 L Est GFR ( Amer) > 60 Glucose 95 Calcium 8.8 Magnesium Total Bilirubin 1.9 H AST 52 H Alkaline Phosphatase 92 Total Protein 5.2 L Albumin 3.0 L Urine Color DANE Urine Appearance CLOUDY Urine pH 5.0 Ur Specific [place] 1.031 Urine Protein 100 H Urine Glucose (UA) NEGATIVE Urine Ketones 80 H Urine Blood NEGATIVE Urine Nitrite NEGATIVE Ur Leukocyte Esterase TRACE H Urine WBC (Auto) 5 Urine RBC (Auto) 1 03/09/20 03/09/20 04:17 04:17 WBC Cancelled RBC Cancelled Hgb Cancelled Hct Cancelled MCV Cancelled MCH Cancelled MCHC Cancelled RDW Cancelled Plt Count Cancelled Seg Neutrophils % Cancelled Sodium 131.9 L Potassium 3.7 Chloride 90 L Carbon Dioxide 32 H Anion Gap 10 BUN 16 Creatinine 0.46 L Est GFR ( Amer) > 60 Glucose 79 Calcium 8.0 L Magnesium 1.8 Total Bilirubin 1.3 AST 43 H Alkaline Phosphatase 74 Total Protein 4.5 L Albumin 2.4 L Urine Color Urine Appearance Urine pH Ur Specific [place] Urine Protein Urine Glucose (UA) Urine Ketones Urine Blood Urine Nitrite Ur Leukocyte Esterase Urine WBC (Auto) Urine RBC (Auto) Impressions: Abdomen/Pelvis CT 03/08/20 00:00 IMPRESSION: 1. Suspected malignancy. Clinical history not available.. 2. New finding of small bowel obstruction. There is no definite colonic dilatation 3. New finding of mild ascites. New finding of peritoneal metastasis more obvious in the right paracolic gutter. Cannot exclude right colonic thickening. 4. previous right hydronephrosis resolved. Very minimal residual right hydronephrosis without obvious obstructive process. New 9 mm right renal hypodensity may represent a small metastasis. 5. Chronic finding of mildly coarse gallbladder wall calcifications. Consistent with porcelain gallbladder and has been associated with increased risk of gallbladder cancer. 6. Uterus demonstrates greater endometrial enlargement. Rule out pathology. There is a small cystic structure with mildly thick wall located posterior to the right ear of the uterus. Question metastasis versus focal adnexal abnormality. KUB X-Ray 03/08/20 00:00 IMPRESSION: Enteric drainage tube tip projects over the gastric body. Diffuse dilatation of bowel loops throughout the imaged abdomen, suspicious for small bowel obstruction. Hyperdense material within both renal collecting systems, ureters, and bladder, indicating excretion of previously administered intravenous contrast due to low. Additionally, there is suspected mild right hydronephrosis. Status: Image reviewed by me Assessment & Plan - Diagnosis (1) SBO (small bowel obstruction) Is this a current diagnosis for this admission?: Yes Plan: Continue per surgical and medical team, hopefully will improve. I think it is related in part to previous surgery and may be some sort of ileus ongoing, that ultimately resulted in this but also may be related to some of the omental changes. Supportive care as above. (2) Follicular lymphoma Qualifiers: Follicular lymphoma type: other follicular type Lymphoma site: multiple regions Qualified Code(s): C82.88 - Other types of follicular lymphoma, lymph nodes of multiple sites Is this a current diagnosis for this admission?: Yes Plan: Initially was a grade 1/2 follicular lymphoma of multiple areas, now appears to be either recurrent disease or transformation. Awaiting final pathology from [facility] which should come out this week. This is probably the cause of the other findings on imaging. (3) Lung cancer Qualifiers: Laterality: left Lung location: lower lobe of lung Qualified Code(s): C 34.32 - Malignant neoplasm of lower lobe, left bronchus or lung Is this a current diagnosis for this admission?: Yes Plan: The above changes seem less likely now related to lung cancer but await final pathology. (4) Pain due to neoplasm Is this a current diagnosis for this admission?: Yes Plan: Upon discharge we started patient on oral oxycodone plus fentanyl. We will re start the fentanyl patch. Continue with Dilaudid IV for now. 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 We will need to be watchful of blood transfusions and they will have to be warmed if we have to give it. - Time Time Spent: Greater than 70 Minutes - Inpatient Certification Based on my medical assessment, after consideration of the patient's comorbidities, presenting symptoms, or acuity I expect that the services needed warrant INPATIENT care.: Yes I certify that my determination is in accordance with my understanding of Medic are's requirements for reasonable and necessary INPATIENT services [42 CFR 412.3e].: Yes Medical Necessity: Risk of Complication if Not Cared For in Hospital
[2020-03-09 08:34] LABS: ABSOLUTE LYMPHOCYTES# (MANUAL) 0.1 10^3/uL (0.5-4.7); ABSOLUTE MONOCYTES # (MANUAL) 0.6 10^3/uL (0.1-1.4); BAND NEUTROPHILS % (MANUAL) 2 % (3-5); BASOPHILS % (MANUAL) 0 % (0-2); EOSINOPHILS % (MANUAL) 0 % (0-6); LYMPHOCYTES % (MANUAL) 1 % (13-45); MONOCYTES % (MANUAL) 6 % (3-13); SEGMENTED NEUTROPHILS % (MAN) 91 % (42-78); TOTAL CELLS COUNTED 100
[2020-03-09 08:35] LABS: ANISOCYTOSIS 1+; OVALOCYTES SLIGHT; PLATELET COMMENT ADEQUATE; POIKILOCYTOSIS SLIGHT; POLYCHROMASIA 1+
[2020-03-09] MEDS ORDERED: FENTANYL 25 MCG/HR PATCH.TD72 TD SCH (10:30)
--- NOTE | 2020-03-09 10:54 | PDOC PROGRESS REPORT ---
Subjective Date:: 03/09/20 Subjective:: Patient feels better after her NG tube placement. She is passing flatus. She f eels less distended. She denies abdominal pain but has generalized abdominal discomfort. Reason For Visit: SMALL BOWEL OBSTRUCTION, LYMPHOMA Physical Exam Vital Signs: Temp Pulse Resp BP Pulse Ox 98.9 F 111 H 17 114/7 L 97 03/09/20 08:00 03/09/20 08:00 03/09/20 08:00 03/09/20 08:00 03/09/20 08:00 Intake & Output 03/08/20 03/09/20 03/10/20 06:59 06:59 06:59 Intake Total 3100 Output Total 700 Balance 2400 Weight 61.8 kg General appearance: PRESENT: no acute distress, cooperative Respiratory exam: PRESENT: clear to auscultation clare Cardiovascular exam: PRESENT: tachycardia Vascular exam: PRESENT: normal capillary refill GI/Abdominal exam: PRESENT: other - Soft but distended with very mild diffuse abdominal tenderness without peritoneal signs. Diminished bowel sounds. Neurological exam: PRESENT: alert, awake Psychiatric exam: PRESENT: appropriate affect Skin exam: PRESENT: warm Results Laboratory Results: 03/09/20 08:05 03/09/20 04:17 03/08/20 03/08/20 03/08/20 16:33 16:33 16:48 WBC 14.4 H RBC 3.28 L Hgb 9.7 L Hct 29.3 L MCV 90 MCH 29.5 MCHC 33.0 RDW 16.3 H Plt Count 491 H Seg Neutrophils % Not Reportable Sodium 130.0 L Potassium 3.3 L Chloride 82 L Carbon Dioxide 37 H Anion Gap 11 BUN 20 Creatinine 0.43 L Est GFR ( Amer) > 60 Glucose 95 Calcium 8.8 Magnesium Total Bilirubin 1.9 H AST 52 H Alkaline Phosphatase 92 Total Protein 5.2 L Albumin 3.0 L Urine Color DANE Urine Appearance CLOUDY Urine pH 5.0 Ur Specific [place] 1.031 Urine Protein 100 H Urine Glucose (UA) NEGATIVE Urine Ketones 80 H Urine Blood NEGATIVE Urine Nitrite NEGATIVE Ur Leukocyte Esterase TRACE H Urine WBC (Auto) 5 Urine RBC (Auto) 1 03/09/20 03/09/20 03/09/20 04:17 04:17 08:05 WBC Cancelled 10.6 H RBC Cancelled 2.97 L Hgb Cancelled 8.8 L Hct Cancelled 26.2 L MCV Cancelled 88 MCH Cancelled 29.5 MCHC Cancelled 33.6 RDW Cancelled 16.2 H Plt Count Cancelled 411 Seg Neutrophils % Cancelled Not Reportable Sodium 131.9 L Potassium 3.7 Chloride 90 L Carbon Dioxide 32 H Anion Gap 10 BUN 16 Creatinine 0.46 L Est GFR ( Amer) > 60 Glucose 79 Calcium 8.0 L Magnesium 1.8 Total Bilirubin 1.3 AST 43 H Alkaline Phosphatase 74 Total Protein 4.5 L Albumin 2.4 L Urine Color Urine Appearance Urine pH Ur Specific [place] Urine Protein Urine Glucose (UA) Urine Ketones Urine Blood Urine Nitrite Ur Leukocyte Esterase Urine WBC (Auto) Urine RBC (Auto) Impressions: Abdomen/Pelvis CT 03/08/20 00:00 IMPRESSION: 1. Suspected malignancy. Clinical history not available.. 2. New finding of small bowel obstruction. There is no definite colonic dilatation 3. New finding of mild ascites. New finding of peritoneal metastasis more obvious in the right paracolic gutter. Cannot exclude right colonic thickening. 4. previous right hydronephrosis resolved. Very minimal residual right hydronephrosis without obvious obstructive process. New 9 mm right renal hypodensity may represent a small metastasis. 5. Chronic finding of mildly coarse gallbladder wall calcifications. Consistent with porcelain gallbladder and has been associated with increased risk of gallbladder cancer. 6. Uterus demonstrates greater endometrial enlargement. Rule out pathology. There is a small cystic structure with mildly thick wall located posterior to the right ear of the uterus. Question metastasis versus focal adnexal abnormality. KUB X-Ray 03/08/20 00:00 IMPRESSION: Enteric drainage tube tip projects over the gastric body. Diffuse dilatation of bowel loops throughout the imaged abdomen, suspicious for small bowel obstruction. Hyperdense material within both renal collecting systems, ureters, and bladder, indicating excretion of previously administered intravenous contrast due to low. Additionally, there is suspected mild right hydronephrosis. Assessment & Plan - Diagnosis (1) Ileus Is this a current diagnosis for this admission?: Yes Plan: Constipation as well. Due to poor mobility and narcotics. Cannot entirely exclude small bowel obstruction with possible carcinomatosis. We will try to manage this patient with widely metastatic cancer conservatively. We will try enema and IV hydration. Will consider repeat imaging study with small bowel follow series if she does not have progress. - Time Anticipated Discharge Disposition: Home with Home Health Anticipated Discharge Timeframe: Week
[2020-03-09] MEDS: ENOXAPARIN SODIUM INJ 40 MG/0.4 ML DISP.SYRIN SUBCUT SCH (12:28)
[2020-03-09] MEDS ORDERED: MINERAL OIL 30 ML UDCUP PR PRN (12:43)
[2020-03-09] MEDS ORDERED: NORMAL SALINE 1000 ML 1,000 ML IV ONE (12:45)
[2020-03-09] MEDS ORDERED: GLYCERIN 99.5% (ANHYDROUS) 177 ML PR PRN (12:47)
--- NOTE | 2020-03-09 14:19 | EKG REPORT ---
SEVERITY:- BORDERLINE ECG - SINUS TACHYCARDIA PROBABLE LEFT ATRIAL ABNORMALITY BORDERLINE T ABNORMALITIES, DIFFUSE LEADS : Confirmed by: Marianela Lima MD 09-Mar-2020 14:17:56
--- NOTE | 2020-03-09 17:09 | PDOC PROGRESS REPORT ---
Subjective Date:: 03/09/20 Subjective:: Patient lying in bed comfortably with NG tube. States her knee is doing well bu t has been having constipation and nausea. Denies fever chills or sweats. Reason For Visit: SMALL BOWEL OBSTRUCTION, LYMPHOMA Physical Exam Vital Signs: Temp Pulse Resp BP Pulse Ox 98.2 F 106 H 16 120/80 97 03/09/20 16:46 03/09/20 16:46 03/09/20 16:46 03/09/20 16:46 03/09/20 16:46 Intake & Output 03/08/20 03/09/20 03/10/20 06:59 06:59 06:59 Intake Total 3100 Output Total 700 Balance 2400 Weight 61.8 kg Musculoskeletal exam: PRESENT: other - Left knee: Dressing clean/dry/intact no erythema or drainage. Moderate thigh swelling without change, intact plantarflexion small flicker of dorsiflexion. Hypoesthesias on the dorsum of the foot. No calf tenderness. Results Laboratory Results: 03/09/20 08:05 03/09/20 04:17 03/08/20 03/08/20 03/08/20 16:33 16:33 16:48 WBC 14.4 H RBC 3.28 L Hgb 9.7 L Hct 29.3 L MCV 90 MCH 29.5 MCHC 33.0 RDW 16.3 H Plt Count 491 H Seg Neutrophils % Sodium 130.0 L Potassium 3.3 L Chloride 82 L Carbon Dioxide 37 H Anion Gap 11 BUN 20 Creatinine 0.43 L Est GFR ( Amer) > 60 Glucose 95 Calcium 8.8 Magnesium Total Bilirubin 1.9 H AST 52 H Alkaline Phosphatase 92 Total Protein 5.2 L Albumin 3.0 L Urine Color DANE Urine Appearance CLOUDY Urine pH 5.0 Ur Specific [place] 1.031 Urine Protein 100 H Urine Glucose (UA) NEGATIVE Urine Ketones 80 H Urine Blood NEGATIVE Urine Nitrite NEGATIVE Ur Leukocyte Esterase TRACE H Urine WBC (Auto) 5 Urine RBC (Auto) 1 03/09/20 03/09/20 03/09/20 04:17 04:17 08:05 WBC Cancelled 10.6 H RBC Cancelled 2.97 L Hgb Cancelled 8.8 L Hct Cancelled 26.2 L MCV Cancelled 88 MCH Cancelled 29.5 MCHC Cancelled 33.6 RDW Cancelled 16.2 H Plt Count Cancelled 411 Seg Neutrophils % Cancelled Not Reportable Sodium 131.9 L Potassium 3.7 Chloride 90 L Carbon Dioxide 32 H Anion Gap 10 BUN 16 Creatinine 0.46 L Est GFR ( Amer) > 60 Glucose 79 Calcium 8.0 L Magnesium 1.8 Total Bilirubin 1.3 AST 43 H Alkaline Phosphatase 74 Total Protein 4.5 L Albumin 2.4 L Urine Color Urine Appearance Urine pH Ur Specific [place] Urine Protein Urine Glucose (UA) Urine Ketones Urine Blood Urine Nitrite Ur Leukocyte Esterase Urine WBC (Auto) Urine RBC (Auto) Impressions: Abdomen/Pelvis CT 03/08/20 00:00 IMPRESSION: 1. Suspected malignancy. Clinical history not available.. 2. New finding of small bowel obstruction. There is no definite colonic dilatation 3. New finding of mild ascites. New finding of peritoneal metastasis more obvious in the right paracolic gutter. Cannot exclude right colonic thickening. 4. previous right hydronephrosis resolved. Very minimal residual right hydronephrosis without obvious obstructive process. New 9 mm right renal hypodensity may represent a small metastasis. 5. Chronic finding of mildly coarse gallbladder wall calcifications. Consistent with porcelain gallbladder and has been associated with increased risk of gallbladder cancer. 6. Uterus demonstrates greater endometrial enlargement. Rule out pathology. There is a small cystic structure with mildly thick wall located posterior to the right ear of the uterus. Question metastasis versus focal adnexal abnormality. KUB X-Ray 03/08/20 00:00 IMPRESSION: Enteric drainage tube tip projects over the gastric body. Diffuse dilatation of bowel loops throughout the imaged abdomen, suspicious for small bowel obstruction. Hyperdense material within both renal collecting systems, ureters, and bladder, indicating excretion of previously administered intravenous contrast due to low. Additionally, there is suspected mild right hydronephrosis. Assessment & Plan - Diagnosis (1) H/O left knee surgery Is this a current diagnosis for this admission?: Yes Plan: Status post left distal femoral arthroplasty 1. Weightbearing as tolerated 2. Postoperative peroneal nerve palsy continue to monitor 3. Staple removal likely in 7 days 4. Follow-up as an outpatient. - Time Time Spent with patient: Less than 15 minutes
--- NOTE | 2020-03-09 18:37 | PDOC PROGRESS REPORT ---
Subjective Date:: 03/09/20 Subjective:: She is passing flatus. No BM yet. Abdominal distention/pain improving. NGT still with + brown output. Reason For Visit: SMALL BOWEL OBSTRUCTION, LYMPHOMA Physical Exam Vital Signs: Temp Pulse Resp BP Pulse Ox 98.2 F 106 H 16 120/80 97 03/09/20 16:46 03/09/20 16:46 03/09/20 16:46 03/09/20 16:46 03/09/20 16:46 Intake & Output 03/08/20 03/09/20 03/10/20 06:59 06:59 06:59 Intake Total 3100 Output Total 700 Balance 2400 Weight 61.8 kg General appearance: PRESENT: no acute distress, cooperative Eye exam: ABSENT: scleral icterus Mouth exam: PRESENT: moist Throat exam: ABSENT: post pharyngeal erythema Neck exam: ABSENT: JVD Respiratory exam: PRESENT: clear to auscultation clare, unlabored Cardiovascular exam: PRESENT: RRR GI/Abdominal exam: PRESENT: diminished bowel sounds, distended, soft, tenderness. ABSENT: firm, guarding, rebound, rigid Rectal exam: PRESENT: deferred Neurological exam: PRESENT: alert, awake Psychiatric exam: PRESENT: appropriate affect Skin exam: ABSENT: rash Results Laboratory Results: 03/09/20 08:05 03/09/20 04:17 03/09/20 03/09/20 03/09/20 04:17 04:17 08:05 WBC Cancelled 10.6 H RBC Cancelled 2.97 L Hgb Cancelled 8.8 L Hct Cancelled 26.2 L MCV Cancelled 88 MCH Cancelled 29.5 MCHC Cancelled 33.6 RDW Cancelled 16.2 H Plt Count Cancelled 411 Seg Neutrophils % Cancelled Not Reportable Sodium 131.9 L Potassium 3.7 Chloride 90 L Carbon Dioxide 32 H Anion Gap 10 BUN 16 Creatinine 0.46 L Est GFR ( Amer) > 60 Glucose 79 Calcium 8.0 L Magnesium 1.8 Total Bilirubin 1.3 AST 43 H Alkaline Phosphatase 74 Total Protein 4.5 L Albumin 2.4 L Impressions: Abdomen/Pelvis CT 03/08/20 00:00 IMPRESSION: 1. Suspected malignancy. Clinical history not available.. 2. New finding of small bowel obstruction. There is no definite colonic dilatation 3. New finding of mild ascites. New finding of peritoneal metastasis more obvious in the right paracolic gutter. Cannot exclude right colonic thickening. 4. previous right hydronephrosis resolved. Very minimal residual right hydronephrosis without obvious obstructive process. New 9 mm right renal hypodensity may represent a small metastasis. 5. Chronic finding of mildly coarse gallbladder wall calcifications. Consistent with porcelain gallbladder and has been associated with increased risk of gallbladder cancer. 6. Uterus demonstrates greater endometrial enlargement. Rule out pathology. There is a small cystic structure with mildly thick wall located posterior to the right ear of the uterus. Question metastasis versus focal adnexal abnormality. KUB X-Ray 03/08/20 00:00 IMPRESSION: Enteric drainage tube tip projects over the gastric body. Diffuse dilatation of bowel loops throughout the imaged abdomen, suspicious for small bowel obstruction. Hyperdense material within both renal collecting systems, ureters, and bladder, indicating excretion of previously administered intravenous contrast due to low. Additionally, there is suspected mild right hydronephrosis. 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 Is this a current diagnosis for this admission?: Yes (2) Dehydration Is this a current diagnosis for this admission?: Yes (3) Follicular lymphoma Qualifiers: Follicular lymphoma type: other follicular type Lymphoma site: multiple regions Qualified Code(s): C82.88 - Other types of follicular lymphoma, lymph nodes of multiple sites Is this a current diagnosis for this admission?: Yes (4) H/O left knee surgery Is this a current diagnosis for this admission?: Yes (5) Hypokalemia Is this a current diagnosis for this admission?: Yes (6) Ileus Is this a current diagnosis for this admission?: Yes (7) Metastatic cancer Qualifiers: Area of secondary neoplastic involvement: peritoneum Qualified Code(s): 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 Most likely metastatic disease to the peritoneum is causing the bowel obstruction and her overall progn osis is exceedingly poor. Surgical and oncology consultations appreciated. NG tube in place with LIS. NPO. Continue intravenous fluids. Pain control. Overall prognosis is poor. The patient would like to remain full code at this time. - Time Time Spent with patient: 35 or more minutes Anticipated Discharge Disposition: Home with Home Health Anticipated Discharge Timeframe: within 72 hours
[2020-03-10] MEDS: HYDROMORPHONE HCL INJ/PF 2 MG/ML AMPULE IV PRN ×3 (06:22→20:21)
--- NOTE | 2020-03-10 07:52 | PDOC PROGRESS REPORT ---
Subjective Date:: 03/10/20 Subjective:: Patient did pass gas yesterday and had a bowel movement with enema. Slightly less coming out from the NG tube. Feeling a little bit better this morning. Had long discussion with patient about family situation, she feels like her daughter and [id number] are trying to take over her healthcare decisions and she feels that her mental status is appropriate, which I agree, to make her own decisions. She wanted records of her last admission and this admission thus far so we will get that for her. Reason For Visit: SMALL BOWEL OBSTRUCTION, LYMPHOMA Physical Exam Vital Signs: Temp Pulse Resp BP Pulse Ox 98.0 F 112 H 16 127/82 H 93 03/10/20 04:59 03/10/20 04:59 03/10/20 04:59 03/10/20 04:59 03/10/20 04:59 Intake & Output 03/09/20 03/10/20 03/11/20 06:59 06:59 06:59 Intake Total 3100 2000 Output Total 700 480 Balance 2400 1520 Weight 61.8 kg 61.8 kg General appearance: PRESENT: no acute distress, well-developed, well-nourished Head exam: PRESENT: atraumatic, normocephalic Eye exam: PRESENT: conjunctiva pink, EOMI, PERRLA. ABSENT: scleral icterus Ear exam: PRESENT: normal external ear exam Mouth exam: PRESENT: moist, tongue midline Neck exam: ABSENT: carotid bruit, JVD, lymphadenopathy, thyromegaly Respiratory exam: PRESENT: clear to auscultation clare. ABSENT: rales, rhonchi, wheezes Cardiovascular exam: PRESENT: RRR. ABSENT: diastolic murmur, rubs, systolic murmur Pulses: PRESENT: normal dorsalis pedis pul Vascular exam: PRESENT: normal capillary refill GI/Abdominal exam: PRESENT: normal bowel sounds, soft. ABSENT: distended, guarding, mass, organolmegaly, rebound, tenderness Rectal exam: PRESENT: deferred Extremities exam: PRESENT: full ROM. ABSENT: calf tenderness, clubbing, pedal edema Neurological exam: PRESENT: alert, awake, oriented to person, oriented to place, oriented to time, oriented to situation, CN II-XII grossly intact. ABSENT: motor sensory deficit Psychiatric exam: PRESENT: appropriate affect, normal mood. ABSENT: homicidal ideation, suicidal ideation Skin exam: PRESENT: dry, intact, warm. ABSENT: cyanosis, rash Results Laboratory Results: 03/09/20 08:05 03/09/20 04:17 03/09/20 08:05 WBC 10.6 H RBC 2.97 L Hgb 8.8 L Hct 26.2 L MCV 88 MCH 29.5 MCHC 33.6 RDW 16.2 H Plt Count 411 Seg Neutrophils % Not Reportable Impressions: Abdomen/Pelvis CT 03/08/20 00:00 IMPRESSION: 1. Suspected malignancy. Clinical history not available.. 2. New finding of small bowel obstruction. There is no definite colonic dilatation 3. New finding of mild ascites. New finding of peritoneal metastasis more obvious in the right paracolic gutter. Cannot exclude right colonic thickening. 4. previous right hydronephrosis resolved. Very minimal residual right hydronephrosis without obvious obstructive process. New 9 mm right renal hypodensity may represent a small metastasis. 5. Chronic finding of mildly coarse gallbladder wall calcifications. Consistent with porcelain gallbladder and has been associated with increased risk of gallbladder cancer. 6. Uterus demonstrates greater endometrial enlargement. Rule out pathology. There is a small cystic structure with mildly thick wall located posterior to the right ear of the uterus. Question metastasis versus focal adnexal abnormality. KUB X-Ray 03/08/20 00:00 IMPRESSION: Enteric drainage tube tip projects over the gastric body. Diffuse dilatation of bowel loops throughout the imaged abdomen, suspicious for small bowel obstruction. Hyperdense material within both renal collecting systems, ureters, and bladder, indicating excretion of previously administered intravenous contrast due to low. Additionally, there is suspected mild right hydronephrosis. Assessment & Plan - Diagnosis (1) SBO (small bowel obstruction) Is this a current diagnosis for this admission?: Yes Plan: Seems to be slightly improved, hopefully will improve over time with medical management (2) Follicular lymphoma Qualifiers: Follicular lymphoma type: other follicular type Lymphoma site: multiple regions Qualified Code(s): C82.88 - Other types of follicular lymphoma, lymph nodes of multiple sites Is this a current diagnosis for this admission?: Yes Plan: Awaiting final path (3) Lung cancer Qualifiers: Laterality: left Lung location: lower lobe of lung Qualified Code(s): C34.32 - Malignant neoplasm of lower lobe, left bronchus or lung Is this a current diagnosis for this admission?: Yes Plan: Awaiting final path (4) Pain due to neoplasm Is this a current diagnosis for this admission?: Yes Plan: Increase Dilaudid yesterday, continue with fentanyl patch, optimize as appropriate (5) Anemia Qualifiers: Anemia type: acquired or hereditary hemolytic anemia Hemolytic anemia type: cold autoimmune Qualified Code(s): 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
--- NOTE | 2020-03-10 08:17 | PDOC PROGRESS REPORT ---
Subjective Date:: 03/10/20 Subjective:: abd feels a bit better after bm yesterday with enema Reason For Visit: SMALL BOWEL OBSTRUCTION, LYMPHOMA Physical Exam Vital Signs: Temp Pulse Resp BP Pulse Ox 98.0 F 112 H 16 127/82 H 93 03/10/20 04:59 03/10/20 04:59 03/10/20 04:59 03/10/20 04:59 03/10/20 04:59 Intake & Output 03/09/20 03/10/20 03/11/20 06:59 06:59 06:59 Intake Total 3100 2000 Output Total 700 480 Balance 2400 1520 Weight 61.8 kg 61.8 kg General appearance: PRESENT: no acute distress Head exam: PRESENT: normocephalic Eye exam: PRESENT: EOMI Ear exam: PRESENT: normal external ear exam Mouth exam: PRESENT: moist Teeth exam: PRESENT: edentulous, poor dentation Neck exam: PRESENT: full ROM Respiratory exam: PRESENT: clear to auscultation clare Cardiovascular exam: PRESENT: RRR Pulses: PRESENT: normal radial pulses, normal femoral pulses Breast: PRESENT: Normal GI/Abdominal exam: PRESENT: distended Rectal exam: PRESENT: deferred Extremities exam: PRESENT: full ROM Musculoskeletal exam: PRESENT: full ROM Neurological exam: PRESENT: alert, awake, oriented to person, oriented to place Psychiatric exam: PRESENT: appropriate affect Skin exam: PRESENT: dry Results Laboratory Results: 03/09/20 08:05 03/09/20 04:17 03/09/20 08:05 WBC 10.6 H RBC 2.97 L Hgb 8.8 L Hct 26.2 L MCV 88 MCH 29.5 MCHC 33.6 RDW 16.2 H Plt Count 411 Seg Neutrophils % Not Reportable Impressions: Abdomen/Pelvis CT 03/08/20 00:00 IMPRESSION: 1. Suspected malignancy. Clinical history not available.. 2. New finding of small bowel obstruction. There is no definite colonic dilatation 3. New finding of mild ascites. New finding of peritoneal metastasis more obvious in the right paracolic gutter. Cannot exclude right colonic thickening. 4. previous right hydronephrosis resolved. Very minimal residual right hydronephrosis without obvious obstructive process. New 9 mm right renal hypodensity may represent a small metastasis. 5. Chronic finding of mildly coarse gallbladder wall calcifications. Consistent with porcelain gallbladder and has been associated with increased risk of gallbladder cancer. 6. Uterus demonstrates greater endometrial enlargement. Rule out pathology. There is a small cystic structure with mildly thick wall located posterior to the right ear of the uterus. Question metastasis versus focal adnexal abnormality. KUB X-Ray 03/08/20 00:00 IMPRESSION: Enteric drainage tube tip projects over the gastric body. Diffuse dilatation of bowel loops throughout the imaged abdomen, suspicious for small bowel obstruction. Hyperdense material within both renal collecting systems, ureters, and bladder, indicating excretion of previously administered intravenous contrast due to low. Additionally, there is suspected mild right hydronephrosis. Assessment & Plan - Time Anticipated Discharge Disposition: Home, Self Care Anticipated Discharge Timeframe: unk - Plan Summary Plan Summary: metastatic lung cancer and lymphoma constipation question of sbo has had some success iwth enema yesteday will add magcitrate today cont ng.
[2020-03-10] MEDS ORDERED: MAGNESIUM CITRATE 296 ML BOTTLE PO ONE (08:45)
[2020-03-10] MEDS ORDERED: ONDANSETRON HCL INJ/PF 4 MG/2 ML SDV ONE (09:24)
[2020-03-10 09:40] LABS: HEMATOCRIT 24.2 % (36.0-47.0); HEMOGLOBIN 8.4 g/dL (12.0-15.5); MEAN CORPUSCULAR HEMOGLOBIN 33.7 pg (27.0-33.4); MEAN CORPUSCULAR HGB CONC 34.7 g/dL (32.0-36.0); PLATELET COUNT 411 10^3/uL (150-450); RED BLOOD COUNT 2.49 10^6/uL (3.72-5.28); WHITE BLOOD COUNT 8.4 10^3/uL (4.0-10.5)
[2020-03-10] MEDS: ENOXAPARIN SODIUM INJ 40 MG/0.4 ML DISP.SYRIN SUBCUT SCH (09:40)
[2020-03-10 09:58] LABS: ALBUMIN 2.6 g/dL (3.5-5.0); ALKALINE PHOSPHATASE 81 U/L (38-126); ANION GAP 12 (5-19); ASPARTATE AMINO TRANSFERASE 41 U/L (14-36); BILIRUBIN,DIRECT 1.3 mg/dL (0.0-0.4); BILIRUBIN,TOTAL 1.9 mg/dL (0.2-1.3); BLOOD UREA NITROGEN 19 mg/dL (7-20); CALCIUM 8.5 mg/dL (8.4-10.2); CARBON DIOXIDE 24 mmol/L (22-30); CHLORIDE 100 mmol/L (98-107); POTASSIUM 4.1 mmol/L (3.6-5.0); TOTAL PROTEIN 4.6 g/dL (6.3-8.2)
[2020-03-10 09:59] LABS: GLUCOSE 88 mg/dL (75-110)
[2020-03-10 10:22] LABS: MEAN CORPUSCULAR VOLUME 97 fl (80-97)
[2020-03-10] MEDS ORDERED: NORMAL SALINE 1000 ML 1,000 ML IV ONE (10:25)
--- NOTE | 2020-03-10 10:30 | RADIOLOGY REPORT (SQ) ---
EXAM DESCRIPTION: ABDOMEN 2 VIEWS IMAGES COMPLETED DATE/TIME: 03/10/2020 9:39 am REASON FOR STUDY: f/u ileus vs sbo COMPARISON: AP view of the abdomen from 03/08/2020. NUMBER OF VIEWS: Two views. TECHNIQUE: AP supine and upright views of the abdomen were obtained. LIMITATIONS: None. FINDINGS: FREE AIR: None. LUNG BASES: Clear. BOWEL GAS PATTERN: Mild persistent distention of several loops of bowel throughout the abdomen. CALCIFICATIONS: Cholelithiasis. SOFT TISSUES: No gross mass or suggestion of organomegaly. HARDWARE: The tip of the enteric tube projects within the gastric lumen. There is a Adams catheter i n place. BONES: No acute abnormality. OTHER: No other findings. IMPRESSION: The tip of the enteric tube projects within the gastric lumen. There is mild persistent distention of several loops of bowel. TECHNICAL DOCUMENTATION: JOB ID: [id number] 2010 [employer]- All Rights Reserved Reading location - IP/workstation name: [email or web address]
--- NOTE | 2020-03-10 10:33 | ADVANCED CARE ---
- Diagnosis (1) Anemia Diagnosis Current: Yes (2) Dehydration Diagnosis Current: Yes (3) Follicular lymphoma Diagnosis Current: Yes (4) Hypokalemia Diagnosis Current: Yes (5) Ileus Diagnosis Current: Yes (6) Metastatic cancer Diagnosis Current: Yes (7) Pain due to neoplasm Diagnosis Current: Yes (8) SBO (small bowel obstruction) Diagnosis Current: Yes (9) Cold agglutinin disease Diagnosis Current: Yes (10) Diffuse lymphadenopathy Diagnosis Current: Yes Attendance: patient (alert and oriented x4) Yessenia (RN) Resuscitation Status: Full Code Discussion: Discussed with patient her overall declining health status and multiple comorbid conditions. She understands that she likely has a recurrence and possible transformation of lymphoma, and that this has a poor prognosis. She does not want "extraordinary measures" to keep her alive. Her goal is to maximize her comfort. If she is a good candidate for chemotherapy or surgery, and either of those things may help her to be more comfortable and live longer with a reasonable quality of life, she would think about getting those things. She would like her CODE STATUS to be changed to DNR/DNI. She has requested that I speak with her children tomorrow in person to help her explain to them why she is changing her code status. She tells me that she is afraid that they will not accept her wishes, and I reassured her we would always honor her wishes for her healthcare. She wishes her children to be her decision makers if she is unable to make decisions for herself, but wants the two of them to make decisions jointly. We will set up a family meeting to speak with her 2 children tomorrow morning in her presence. code status updated Time Spent: >30 minutes
[2020-03-10] MEDS ORDERED: INFLUENZA QUAD (6MOS+) 2020-21 VAC 0.5 ML SYR IM ONE (12:45)
--- NOTE | 2020-03-10 13:09 | PDOC PROGRESS REPORT ---
Subjective Date:: 03/10/20 Subjective:: Patient seen and examined today. No reports of knee pain out of proportion. She has been unable to ambulate with therapy due to ongoing episodes of diarrhea from enema placement at inopportune times. Reason For Visit: SMALL BOWEL OBSTRUCTION, LYMPHOMA Physical Exam Vital Signs: Temp Pulse Resp BP Pulse Ox 97.9 F 118 H 18 122/70 96 03/10/20 12:57 03/10/20 12:57 03/10/20 12:57 03/10/20 12:57 03/10/20 12:57 Intake & Output 03/09/20 03/10/20 03/11/20 06:59 06:59 06:59 Intake Total 3100 2000 Output Total 700 425 850 Balance 2400 1575 -850 Weight 61.8 kg 61.8 kg Physical Exam: No acute distress, alert and orient x3 NG tube in place Left lower extremity Sensation is grossly intact to all distributions in the left lower extremity and foot -She has intact flexion of the toes however she denies any dorsiflexion of the ankle great toe or lesser toes. Gastroc is intact. The wound is clean dry and intact with a sterile dressing placed. -Pulses 2+, compartments soft. Results Laboratory Results: 03/10/20 08:58 03/10/20 08:58 03/10/20 03/10/20 03/10/20 08:58 08:58 08:58 WBC 8.4 RBC 2.49 L Hgb 8.4 L Hct 24.2 L MCV 97 D MCH 33.7 H MCHC 34.7 RDW 16.0 H Plt Count 411 Sodium 135.9 L Potassium 4.1 Chloride 100 Carbon Dioxide 24 Anion Gap 12 BUN 19 Creatinine 0.44 L Est GFR ( Amer) > 60 Glucose 88 Calcium 8.5 Magnesium 1.9 Total Bilirubin 1.9 H AST 41 H Alkaline Phosphatase 81 Total Protein 4.6 L Albumin 2.6 L Blood Type O NEGATIVE Antibody Screen NEGATIVE Impressions: Abdomen/Pelvis CT 03/08/20 00:00 IMPRESSION: 1. Suspected malignancy. Clinical history not available.. 2. New finding of small bowel obstruction. There is no definite colonic dilatation 3. New finding of mild ascites. New finding of peritoneal metastasis more obvious in the right paracolic gutter. Cannot exclude right colonic thickening. 4. previous right hydronephrosis resolved. Very minimal residual right hydronephrosis without obvious obstructive process. New 9 mm right renal hypodensity may represent a small metastasis. 5. Chronic finding of mildly coarse gallbladder wall calcifications. Consistent with porcelain gallbladder and has been associated with increased risk of gallbladder cancer. 6. Uterus demonstrates greater endometrial enlargement. Rule out pathology. There is a small cystic structure with mildly thick wall located posterior to the right ear of the uterus. Question metastasis versus focal adnexal abnormality. KUB X-Ray 03/08/20 00:00 IMPRESSION: Enteric drainage tube tip projects over the gastric body. Diffuse dilatation of bowel loops throughout the imaged abdomen, suspicious for small bowel obstruction. Hyperdense material within both renal collecting systems, ureters, and bladder, indicating excretion of previously administered intravenous contrast due to low. Additionally, there is suspected mild right hydronephrosis. Abdomen X-Ray 03/10/20 07:00 IMPRESSION: The tip of the enteric tube projects within the gastric lumen. There is mild persistent distention of several loops of bowel. Assessment & Plan - Diagnosis (1) left total knee replacement Is this a current diagnosis for this admission?: Yes Plan: - Recommend removal of Adams catheter Dressing changes as needed Weightbearing as tolerated Continue DVT prophylaxis per medicine team Follow-up in my office in approximately 1 week (2) Foot drop, left Is this a current diagnosis for this admission?: Yes Plan: - Will order AFO to prevent gastroc contracture and aid in ambulation - PT - Further monitoring - Time Time Spent with patient: Less than 15 minutes
--- NOTE | 2020-03-10 14:54 | PDOC PROGRESS REPORT ---
Subjective Date:: 03/10/20 Subjective:: Yesterday, had small BM after enema. Today, abdomen less distended and less painful. She is passing flatus. She is requesting to eat/drink. Reason For Visit: SMALL BOWEL OBSTRUCTION, LYMPHOMA Physical Exam Vital Signs: Temp Pulse Resp BP Pulse Ox 97.9 F 118 H 18 122/70 96 03/10/20 12:57 03/10/20 12:57 03/10/20 12:57 03/10/20 12:57 03/10/20 12:57 Intake & Output 03/09/20 03/10/20 03/11/20 06:59 06:59 06:59 Intake Total 3100 2000 Output Total 700 425 850 Balance 2400 1575 -850 Weight 61.8 kg 61.8 kg General appearance: PRESENT: no acute distress, cooperative Eye exam: ABSENT: scleral icterus Mouth exam: PRESENT: dry mucosa Throat exam: ABSENT: post pharyngeal erythema Neck exam: ABSENT: JVD Respiratory exam: PRESENT: clear to auscultation clare, unlabored Cardiovascular exam: PRESENT: tachycardia GI/Abdominal exam: PRESENT: distended, hypoactive bowel sounds, soft. ABSENT: firm, guarding, rebound, rigid Rectal exam: PRESENT: deferred Gentrourinary exam: PRESENT: indwelling catheter Extremities exam: ABSENT: pedal edema Neurological exam: PRESENT: alert, awake, oriented to person, oriented to place, oriented to time, oriented to situation Psychiatric exam: PRESENT: appropriate affect Skin exam: ABSENT: jaundice, rash Results Laboratory Results: 03/10/20 08:58 03/10/20 08:58 03/10/20 03/10/20 03/10/20 08:58 08:58 08:58 WBC 8.4 RBC 2.49 L Hgb 8.4 L Hct 24.2 L MCV 97 D MCH 33.7 H MCHC 34.7 RDW 16.0 H Plt Count 411 Sodium 135.9 L Potassium 4.1 Chloride 100 Carbon Dioxide 24 Anion Gap 12 BUN 19 Creatinine 0.44 L Est GFR ( Amer) > 60 Glucose 88 Calcium 8.5 Magnesium 1.9 Total Bilirubin 1.9 H AST 41 H Alkaline Phosphatase 81 Total Protein 4.6 L Albumin 2.6 L Blood Type O NEGATIVE Antibody Screen NEGATIVE Impressions: Abdomen/Pelvis CT 03/08/20 00:00 IMPRESSION: 1. Suspected malignancy. Clinical history not available.. 2. New finding of small bowel obstruction. There is no definite colonic dilatation 3. New finding of mild ascites. New finding of peritoneal metastasis more obvious in the right paracolic gutter. Cannot exclude right colonic thickening. 4. previous right hydronephrosis resolved. Very minimal residual right hydronephrosis without obvious obstructive process. New 9 mm right renal hypodensity may represent a small metastasis. 5. Chronic finding of mildly coarse gallbladder wall calcifications. Consistent with porcelain gallbladder and has been associated with increased risk of gallbladder cancer. 6. Uterus demonstrates greater endometrial enlargement. Rule out pathology. There is a small cystic structure with mildly thick wall located posterior to the right ear of the uterus. Question metastasis versus focal adnexal abnormality. KUB X-Ray 03/08/20 00:00 IMPRESSION: Enteric drainage tube tip projects over the gastric body. Diffuse dilatation of bowel loops throughout the imaged abdomen, suspicious for small bowel obstruction. Hyperdense material within both renal collecting systems, ureters, and bladder, indicating excretion of previously administered intravenous contrast due to low. Additionally, there is suspected mild right hydronephrosis. Abdomen X-Ray 03/10/20 07:00 IMPRESSION: The tip of the enteric tube projects within the gastric lumen. There is mild persistent distention of several loops of bowel. 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 Is this a current diagnosis for this admission?: Yes (2) Dehydration Is this a current diagnosis for this admission?: Yes (3) Follicular lymphoma Qualifiers: Follicular lymphoma type: other follicular type Lymphoma site: multiple regions Qualified Code(s): C82.88 - Other types of follicular lymphoma, lymph nodes of multiple sites Is this a current diagnosis for this admission?: Yes (4) Hypokalemia Is this a current diagnosis for this admission?: Yes (5) Ileus Is this a current diagnosis for this admission?: Yes (6) Metastatic cancer Qualifiers: Area of secondary neoplastic involvement: peritoneum Qualified Code(s): 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 Follicular lymphoma was treated systemically and she obtained a complete response as per imaging back in , but the primary lung lesion was increasing and biopsy indicated squamous cell, and patient had [employer] radiation in December. After that, she began having pain issues both in the left upper chest at site of previous chest tube and also left knee pain. Knee MRI showed a distal left femur lesion. She was admitted to [facility] 02/24 to 03/03, and underwent left total knee arthroplasty by Dr. Bang. Her hospital course was c/b severe pain treated with narcotics as well as severe narcotic-induced constipation. Upon discharge home last week, she continued to have problem with constipation and tried several different things including oral laxatives, suppositories and ultimately several days of enemas. Unfortunately, nothing seemed to help, and she continued to have worsening nausea/vomiting until she finally presented to the ED on 03/08. In the ED, CT of the abdomen/pelvis showed gastric distention, moderate small bowel d ilation, small ascites and concern for abdominal metastases/tumors. NGT was placed in the ED, producing large amount of feculent output. Bowel Obstruction: due to metastatic disease to abdomen +/- severe opioid- induced constipation. Received enemas on 03/09 with small BM. Surgery has requested to clamp NGT today and give Mg Citrate. - NGT in place - abdominal XR today - surgery consulted, plan as per surgery Pain Control - controlled on current regimen, will continue Dehydration - IVF bolus and continuous IVF ordered Hyponatremia - improving with IVF Hypokalemia - improving with IV repletion Leukocytosis - resolved Anemia - trending down due to hemodilution, no signs/symptoms of active bleeding - transfuse for goal hgb >7 Pathological Bone Fracture s/p L TKR c/b L foot drop: interestingly, although we initially felt that the bone lesion was going to be carcinoma consistent with lung primary, it may actually be lymphoma (final pathology result pending but should be available this week). The overall clinical picture is probably either recurrent follicular lymphoma or Rust's transformation. - orthopedic surgery consulted and following closely - OOB - remove Adams - fall precautions Cold Agglutinin Disease - keep patient/room warm to prevent hemolysis Lack of IV Access - PICC line ordered DVT ppx: Lovenox Code Status: DNR/DNI - Time Time Spent with patient: 35 or more minutes Anticipated Discharge Disposition: Home, Self Care Anticipated Discharge Timeframe: within 72 hours
[2020-03-10] MEDS ORDERED: ONDANSETRON HCL INJ/PF 4 MG/2 ML SDV IV PRN (15:16)
--- NOTE | 2020-03-10 15:39 | RADIOLOGY REPORT (SQ) ---
EXAM DESCRIPTION: PICC INSERTION IMAGES COMPLETED DATE/TIME: 03/10/2020 2:20 pm REASON FOR STUDY: lack of IV access COMPARISON: None. FLUOROSCOPY TIME: 50 seconds. 1 image saved to PACS. TECHNIQUE: Fluoroscopic and Ultrasound Guided PICC Placement. LIMITATIONS: None. PROCEDURE: After written consent and assessment were obtained, the patient was brought into the fluo roscopy room and placed supine on the table. Ultrasound evaluation of potential access sites were per formed. After successfully identifying a patent right upper extremity basilic vein, the right upper a rm was prepped and draped in a sterile fashion along with the ultrasound probe. The entry site was an esthetized with 1% lidocaine. A 21 gauge 7 cm needle was advanced through the skin and into the right basilic vein under live ultrasound guidance. An ultrasound image was saved to PACS confirming acces s site. A 0.018 inch guide wire was then inserted through the needle and into the venous system. The needle was then removed and an 11 blade scalpel was used to make a 1 cm skin incision. A 5 Fr peel- away sheath was advanced over the wire and into the venous system. A measurement was then made using the existing wire and live fluoroscopic guidance. The wire was then removed and trimmed. The PICC was advanced through the peel-away sheath and into the venous system. The peel-away sheath was removed a nd the catheter was adhered to the patients arm with a stat lock. The catheter was then aspirated and flushed and a sterile bandage was placed over the access site. A fluoroscopic spot image was saved to PACS confirming the catheter tip within the SVC. IMPRESSION: SUCCESSFUL PLACEMENT OF A 5 FR DUAL LUMEN 38 CM PICC IN THE RIGHT BASILIC VEIN. COMMENT: Patient medication list reviewed: Yes- Quality ID# 130:Eligible professional attests to doc umenting in the medical record they obtained, updated, or reviewed the patient's current medications. . Quality ID 145: Final reports for procedures using fluoroscopy that document radiation exposure neli veda, or exposure time and number of fluorographic images (if radiation exposure indices are not avail able) Quality ID #76: The patient was prepped and draped using maximum sterile barrier technique including cap, mask, sterile gown, sterile gloves, a large sterile sheet, hand hygiene, and 2% Chlorhexidine fo r cutaneous antisepsis. When ultrasound is used, sterile ultrasound techniques are followed requiring sterile gel and sterile probes. TECHNICAL DOCUMENTATION: JOB ID: [id number] 2010 [employer]- All Rights Reserved rev-08/10 Reading location - IP/workstation name: [email or web address]
[2020-03-10] MEDS ORDERED: NORMAL SALINE 10 ML SDV (AFTER EACH USE) IV PRN (16:30)
[2020-03-10] MEDS: POTASSI CL 20 MEQ/NS 1L 1,000 ML IV PRN (20:35)
[2020-03-10] MEDS: NORMAL SALINE 10 ML SDV (SCHEDULED) IV SCH (22:04)
[2020-03-11] MEDS: HYDROMORPHONE HCL INJ/PF 2 MG/ML AMPULE IV PRN ×4 (03:06→22:09)
[2020-03-11] MEDS: POTASSI CL 20 MEQ/NS 1L 1,000 ML IV PRN ×2 (03:12→15:32)
[2020-03-11 06:35] LABS: HEMATOCRIT 22.9 % (36.0-47.0); MEAN CORPUSCULAR HEMOGLOBIN 31.6 pg (27.0-33.4); MEAN CORPUSCULAR HGB CONC 33.3 g/dL (32.0-36.0); MEAN CORPUSCULAR VOLUME 95 fl (80-97); PLATELET COUNT 387 10^3/uL (150-450); RED BLOOD COUNT 2.42 10^6/uL (3.72-5.28); RED CELL DISTRIBUTION WIDTH 16.5 % (11.5-14.0); WHITE BLOOD COUNT 7.4 10^3/uL (4.0-10.5)
[2020-03-11 06:38] LABS: HEMOGLOBIN 7.6 g/dL (12.0-15.5)
[2020-03-11 06:58] LABS: ANION GAP 8 (5-19); BLOOD UREA NITROGEN 16 mg/dL (7-20); CALCIUM 8.2 mg/dL (8.4-10.2); CARBON DIOXIDE 26 mmol/L (22-30); CHLORIDE 106 mmol/L (98-107); GLUCOSE 91 mg/dL (75-110); POTASSIUM 4.3 mmol/L (3.6-5.0)
--- NOTE | 2020-03-11 08:23 | PDOC PROGRESS REPORT ---
Subjective Date:: 03/11/20 Subjective:: Had long discussion today with patient, about prognosis and next steps of care. She seems to have a good understanding about her current medical status. Today we spent about 40 minutes in discussion. Reason For Visit: SMALL BOWEL OBSTRUCTION, LYMPHOMA Physical Exam Vital Signs: Temp Pulse Resp BP Pulse Ox 97.7 F 104 H 18 126/73 H 100 03/11/20 01:33 03/11/20 07:32 03/11/20 07:32 03/11/20 07:32 03/11/20 07:32 Intake & Output 03/10/20 03/11/20 03/12/20 06:59 06:59 06:59 Intake Total 3000 993 Output Total 425 950 Balance 2575 43 Weight 61.8 kg 64.3 kg General appearance: PRESENT: no acute distress, well-developed, well-nourished Head exam: PRESENT: atraumatic, normocephalic Eye exam: PRESENT: conjunctiva pink, EOMI, PERRLA. ABSENT: scleral icterus Ear exam: PRESENT: normal external ear exam Mouth exam: PRESENT: moist, tongue midline Neck exam: ABSENT: carotid bruit, JVD, lymphadenopathy, thyromegaly Respiratory exam: PRESENT: clear to auscultation clare. ABSENT: rales, rhonchi, wheezes Cardiovascular exam: PRESENT: RRR. ABSENT: diastolic murmur, rubs, systolic murmur Pulses: PRESENT: normal dorsalis pedis pul Vascular exam: PRESENT: normal capillary refill GI/Abdominal exam: PRESENT: normal bowel sounds, soft. ABSENT: distended, guarding, mass, organolmegaly, rebound, tenderness Rectal exam: PRESENT: deferred Extremities exam: PRESENT: full ROM. ABSENT: calf tenderness, clubbing, pedal edema Neurological exam: PRESENT: alert, awake, oriented to person, oriented to place, oriented to time, oriented to situation, CN II-XII grossly intact. ABSENT: motor sensory deficit Psychiatric exam: PRESENT: appropriate affect, normal mood. ABSENT: homicidal ideation, suicidal ideation Skin exam: PRESENT: dry, intact, warm. ABSENT: cyanosis, rash Results Laboratory Results: 03/11/20 05:33 03/11/20 05:53 03/10/20 03/10/20 03/10/20 08:58 08:58 08:58 WBC 8.4 RBC 2.49 L Hgb 8.4 L Hct 24.2 L MCV 97 D MCH 33.7 H MCHC 34.7 RDW 16.0 H Plt Count 411 Sodium 135.9 L Potassium 4.1 Chloride 100 Carbon Dioxide 24 Anion Gap 12 BUN 19 Creatinine 0.44 L Est GFR ( Amer) > 60 Glucose 88 Calcium 8.5 Magnesium 1.9 Total Bilirubin 1.9 H AST 41 H Alkaline Phosphatase 81 Total Protein 4.6 L Albumin 2.6 L Blood Type O NEGATIVE Antibody Screen NEGATIVE 03/11/20 03/11/20 05:33 05:53 WBC 7.4 RBC 2.42 L Hgb 7.6 L Hct 22.9 L MCV 95 MCH 31.6 MCHC 33.3 RDW 16.5 H Plt Count 387 Sodium 140.4 Potassium 4.3 Chloride 106 Carbon Dioxide 26 Anion Gap 8 BUN 16 Creatinine 0.39 L Est GFR ( Amer) > 60 Glucose 91 Calcium 8.2 L Magnesium 2.2 Total Bilirubin AST Alkaline Phosphatase Total Protein Albumin Blood Type Antibody Screen Impressions: Abdomen/Pelvis CT 03/08/20 00:00 IMPRESSION: 1. Suspected malignancy. Clinical history not available.. 2. New finding of small bowel obstruction. There is no definite colonic dilatation 3. New finding of mild ascites. New finding of peritoneal metastasis more obvious in the right paracolic gutter. Cannot exclude right colonic thickening. 4. previous right hydronephrosis resolved. Very minimal residual right hydronephrosis without obvious obstructive process. New 9 mm right renal hypodensity may represent a small metastasis. 5. Chronic finding of mildly coarse gallbladder wall calcifications. Consistent with porcelain gallbladder and has been associated with increased risk of gallbladder cancer. 6. Uterus demonstrates greater endometrial enlargement. Rule out pathology. There is a small cystic structure with mildly thick wall located posterior to the right ear of the uterus. Question metastasis versus focal adnexal abnormality. KUB X-Ray 03/08/20 00:00 IMPRESSION: Enteric drainage tube tip projects over the gastric body. Diffuse dilatation of bowel loops throughout the imaged abdomen, suspicious for small bowel obstruction. Hyperdense material within both renal collecting systems, ureters, and bladder, indicating excretion of previously administered intravenous contrast due to low. Additionally, there is suspected mild right hydronephrosis. PICC Line Insertion 03/10/20 00:00 IMPRESSION: SUCCESSFUL PLACEMENT OF A 5 FR DUAL LUMEN 38 CM PICC IN THE RIGHT BASILIC VEIN. Abdomen X-Ray 03/10/20 07:00 IMPRESSION: The tip of the enteric tube projects within the gastric lumen. There is mild persistent distention of several loops of bowel. Assessment & Plan - Diagnosis (1) SBO (small bowel obstruction) Is this a current diagnosis for this admission?: Yes Plan: Would like to give a few more days to see if it resolves. Told patient that by Sunday if we do not see resolution, it may never resolve. In that case we need to consider comfort care. She understands this course of action. (2) Follicular lymphoma Qualifiers: Follicular lymphoma type: other follicular type Lymphoma site: multiple regions Qualified Code(s): C82.88 - Other types of follicular lymphoma, lymph nodes of multiple sites Is this a current diagnosis for this admission?: Yes Plan: Awaiting final pathology. 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 Probably will get let it get into the low 6 range before we consider transfusion, if transfusion is necessary she will need warmed blood. - Time Time Spent with patient: 35 or more minutes
--- NOTE | 2020-03-11 11:29 | PDOC PROGRESS REPORT ---
Subjective Date:: 03/11/20 Subjective:: Feels okay. Did not tolerate NG clamping for very long yesterday. Passing gas. Reason For Visit: SMALL BOWEL OBSTRUCTION, LYMPHOMA Physical Exam Vital Signs: Temp Pulse Resp BP Pulse Ox 97.7 F 104 H 18 126/73 H 100 03/11/20 10:00 03/11/20 07:32 03/11/20 07:32 03/11/20 07:32 03/11/20 07:32 Intake & Output 03/10/20 03/11/20 03/12/20 06:59 06:59 06:59 Intake Total 3000 993 Output Total 425 950 Balance 2575 43 Weight 61.8 kg 64.3 kg General appearance: PRESENT: no acute distress, cooperative Respiratory exam: PRESENT: clear to auscultation clare Cardiovascular exam: PRESENT: RRR GI/Abdominal exam: PRESENT: other - Soft, mildly distended, no significant tenderness to palpation. Diminished bowel sounds. Results Laboratory Results: 03/11/20 05:33 03/11/20 05:53 03/11/20 03/11/20 05:33 05:53 WBC 7.4 RBC 2.42 L Hgb 7.6 L Hct 22.9 L MCV 95 MCH 31.6 MCHC 33.3 RDW 16.5 H Plt Count 387 Sodium 140.4 Potassium 4.3 Chloride 106 Carbon Dioxide 26 Anion Gap 8 BUN 16 Creatinine 0.39 L Est GFR ( Amer) > 60 Glucose 91 Calcium 8.2 L Magnesium 2.2 Impressions: Abdomen/Pelvis CT 03/08/20 00:00 IMPRESSION: 1. Suspected malignancy. Clinical history not available.. 2. New finding of small bowel obstruction. There is no definite colonic dilatation 3. New finding of mild ascites. New finding of peritoneal metastasis more obvious in the right paracolic gutter. Cannot exclude right colonic thickening. 4. previous right hydronephrosis resolved. Very minimal residual right hydronephrosis without obvious obstructive process. New 9 mm right renal hypodensity may represent a small metastasis. 5. Chronic finding of mildly coarse gallbladder wall calcifications. Consistent with porcelain gallbladder and has been associated with increased risk of gallbladder cancer. 6. Uterus demonstrates greater endometrial enlargement. Rule out pathology. There is a small cystic structure with mildly thick wall located posterior to the right ear of the uterus. Question metastasis versus focal adnexal abnormality. KUB X-Ray 03/08/20 00:00 IMPRESSION: Enteric drainage tube tip projects over the gastric body. Diffuse dilatation of bowel loops throughout the imaged abdomen, suspicious for small bowel obstruction. Hyperdense material within both renal collecting systems, ureters, and bladder, indicating excretion of previously administered intravenous contrast due to low. Additionally, there is suspected mild right hydronephrosis. PICC Line Insertion 03/10/20 00:00 IMPRESSION: SUCCESSFUL PLACEMENT OF A 5 FR DUAL LUMEN 38 CM PICC IN THE RIGHT BASILIC VEIN. Abdomen X-Ray 03/10/20 07:00 IMPRESSION: The tip of the enteric tube projects within the gastric lumen. Th ere is mild persistent distention of several loops of bowel. Assessment & Plan - Diagnosis (1) Ileus Is this a current diagnosis for this admission?: Yes Plan: Versus small bowel obstruction. Will obtain small bowel follow series today. - Time Anticipated Discharge Disposition: Home with Hospice Anticipated Discharge Timeframe: week
[2020-03-11] MEDS: NORMAL SALINE 10 ML SDV (SCHEDULED) IV SCH ×2 (12:33→21:41)
[2020-03-11] MEDS: ENOXAPARIN SODIUM INJ 40 MG/0.4 ML DISP.SYRIN SUBCUT SCH (12:33)
--- NOTE | 2020-03-11 15:40 | RADIOLOGY REPORT (SQ) ---
EXAM DESCRIPTION: UGI W/ SINGLE CONTRAST IMAGES COMPLETED DATE/TIME: 03/11/2020 1:26 pm REASON FOR STUDY: r/o sbo COMPARISON: None. TECHNIQUE: Under fluoroscopic guidance, Gastrografin was instilled through an indwelling NG tube. Fl uoroscopic spot images and routine radiographic images acquired and stored on PACS. 12 MM BARIUM TABLET GIVEN: No LIMITATIONS: None. FLUOROSCOPY TIME: FLUORO TIME: 2 minutes 11 images saved to PACS. FINDINGS: Contrast was instilled through indwelling NG tube, therefore the esophagus was not evaluat ed. GASTRO-ESOPHAGEAL JUNCTION: Small hiatal hernia is present. Marked gastroesophageal reflux was seen throughout the study. STOMACH: Normal without masses or ulcerations. She GASTRIC OUTLET: No delay in emptying. Normal pylorus. DUODENAL BULB: Normal distention. No spasm or ulceration. DUODENUM: Mucosa normal. No extrinsic masses or malrotation. PROXIMAL JEJUNUM: Normal mucosal pattern. No dilatation, segmentation, strictures or masses. NON-GI TRACT STRUCTURES: No significant finding. OTHER: Small bowel portion of the study is on-going. IMPRESSION: NORMAL SINGLE CONTRAST SWALLOW UPPER GI SERIES. COMMENT: SMALL BOWEL PORTION OF THE STUDY IS ON GOING, AND DICTATION WILL BE IN A SEPARATE REPORT. Quality ID 145: Final reports for procedures using fluoroscopy that document radiation exposure neli veda, or exposure time and number of fluorographic images (if radiation exposure indices are not avail able) TECHNICAL DOCUMENTATION: JOB ID: [id number] 2010 [employer]- All Rights Reserved Reading location - IP/workstation name: [email or web address] [email or web address]
--- NOTE | 2020-03-11 17:05 | PDOC PROGRESS REPORT ---
Subjective Date:: 03/11/20 Subjective:: NAEO. She was not able to tolerate having NGT clamped for long yesterday. No real BM since enemas 2 days ago. Feels bloated. Becomes nauseated shortly after suction is turned off on NGT. Still passing gas. Reason For Visit: SMALL BOWEL OBSTRUCTION, LYMPHOMA Physical Exam Vital Signs: Temp Pulse Resp BP Pulse Ox 98.1 F 124 H 18 126/82 H 92 03/11/20 15:34 03/11/20 15:34 03/11/20 15:34 03/11/20 15:34 03/11/20 15:34 Intake & Output 03/10/20 03/11/20 03/12/20 06:59 06:59 06:59 Intake Total 3000 993 1000 Output Total 425 950 500 Balance 2575 43 500 Weight 61.8 kg 64.3 kg General appearance: PRESENT: no acute distress, cooperative Eye exam: PRESENT: conjunctiva pale Mouth exam: PRESENT: dry mucosa Throat exam: ABSENT: post pharyngeal erythema Neck exam: ABSENT: JVD Respiratory exam: PRESENT: clear to auscultation clare, unlabored Cardiovascular exam: PRESENT: RRR GI/Abdominal exam: PRESENT: distended, hypoactive bowel sounds, soft, tenderne ss. ABSENT: guarding, rebound, rigid Rectal exam: PRESENT: deferred Extremities exam: ABSENT: pedal edema Neurological exam: PRESENT: alert, awake, oriented to person, oriented to place, oriented to time, oriented to situation Psychiatric exam: PRESENT: appropriate affect Skin exam: ABSENT: rash Results Laboratory Results: 03/11/20 05:33 03/11/20 05:53 03/11/20 03/11/20 05:33 05:53 WBC 7.4 RBC 2.42 L Hgb 7.6 L Hct 22.9 L MCV 95 MCH 31.6 MCHC 33.3 RDW 16.5 H Plt Count 387 Sodium 140.4 Potassium 4.3 Chloride 106 Carbon Dioxide 26 Anion Gap 8 BUN 16 Creatinine 0.39 L Est GFR ( Amer) > 60 Glucose 91 Calcium 8.2 L Magnesium 2.2 Impressions: Abdomen/Pelvis CT 03/08/20 00:00 IMPRESSION: 1. Suspected malignancy. Clinical history not available.. 2. New finding of small bowel obstruction. There is no definite colonic dilatation 3. New finding of mild ascites. New finding of peritoneal metastasis more obvious in the right paracolic gutter. Cannot exclude right colonic thickening. 4. previous right hydronephrosis resolved. Very minimal residual right hydronephrosis without obvious obstructive process. New 9 mm right renal hypodensity may represent a small metastasis. 5. Chronic finding of mildly coarse gallbladder wall calcifications. Consistent with porcelain gallbladder and has been associated with increased risk of gallbladder cancer. 6. Uterus demonstrates greater endometrial enlargement. Rule out pathology. There is a small cystic structure with mildly thick wall located posterior to the right ear of the uterus. Question metastasis versus focal adnexal abnormality. KUB X-Ray 03/08/20 00:00 IMPRESSION: Enteric drainage tube tip projects over the gastric body. Diffuse dilatation of bowel loops throughout the imaged abdomen, suspicious for small bowel obstruction. Hyperdense material within both renal collecting systems, ureters, and bladder, indicating excretion of previously administered intravenous contrast due to low. Additionally, there is suspected mild right hydronephrosis. PICC Line Insertion 03/10/20 00:00 IMPRESSION: SUCCESSFUL PLACEMENT OF A 5 FR DUAL LUMEN 38 CM PICC IN THE RIGHT BASILIC VEIN. Abdomen X-Ray 03/10/20 07:00 IMPRESSION: The tip of the enteric tube projects within the gastric lumen. There is mild persistent distention of several loops of bowel. Upper GI Series-Limited 03/11/20 00:00 IMPRESSION: NORMAL SINGLE CONTRAST SWALLOW UPPER GI SERIES. 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 Is this a current diagnosis for this admission?: Yes (2) Dehydration Is this a current diagnosis for this admission?: Yes (3) Follicular lymphoma Qualifiers: Follicular lymphoma type: other follicular type Lymphoma site: multiple regions Qualified Code(s): C82.88 - Other types of follicular lymphoma, lymph nodes of multiple sites Is this a current diagnosis for this admission?: Yes (4) Hypokalemia Is this a current diagnosis for this admission?: Yes (5) Ileus Is this a current diagnosis for this admission?: Yes (6) Metastatic cancer Qualifiers: Area of secondary neoplastic involvement: peritoneum Qualified Code(s): 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 Follicular lymphoma was treated systemically and she obtained a complete response as per imaging back in , but the primary lung lesion was increasing, biopsy indicated squamous cell, and patient had [employer] radiation in December. After that, she began having pain issues both in the left upper chest at site of previous chest tube and also left knee pain. Knee MRI showed a distal left femur lesion. She was admitted to [facility] 02/24 to 03/03, and underwent left total knee arthroplasty by Dr. Bang. Her hospital course was c/b severe pain treated with narcotics as well as severe narcotic-induced constipation. Upon discharge home last week, she continued to have problem with constipation and tried several different things including oral laxatives, suppositories and ultimately several days of enemas. Unfortunately, nothing seemed to help, and she continued to have worsening nausea/vomiting until she finally presented to the ED on 03/08. In the ED, CT of the abdomen/pelvis showed gastric distention, moderate small bowel dilation, small ascites and concern for abdominal metastases/tumors. NGT was placed in the ED, producing large amount of feculent output. Small Bowel Obstruction: due to metastatic disease to abdomen +/- severe opioid- induced constipation. Received enemas on 03/09 with small BM. On 03/10, surgery requested to clamp NGT today and give Mg Citrate PO, but patient was not able to tolerate NGT clamping for long. On 03/11, plan is to perform a small bowel follow through with contrast (results pending). - NGT in place to LIS - surgery consulted - she would be an exceedingly high surgical risk and has not had much progress with medical therapy alone over the last 72 hours, poor overall prognosis discussed at length with patient/family today - switch IVF from NS to 1/2NS given rising sodium Pain Control - controlled on current regimen, will continue Anemia: hgb trending down due to hemodilution, no signs/symptoms of active bleeding - she has cold agglutinin disease, so if she needs a transfusion, it should be warmed and will likely still hemolyze - transfuse for goal hgb >7 - active T&S Cold Agglutinin Disease - keep patient/room warm to prevent hemolysis Pathological Bone Fracture s/p L TKR c/b L foot drop: interestingly, although we initially felt that the bone lesion was going to be carcinoma consistent with lung primary, it may actually be lymphoma (final pathology result pending but sh ould be available this week). The overall clinical picture is probably either recurrent follicular lymphoma or Rust's transformation. - orthopedic surgery consulted and following closely - OOB - PT - fall precautions Lack of IV Access - PICC line placed 03/10 Dehydration - resolved with IVF Hyponatremia - resolved with IVF Hypokalemia - resolved with IV repletion Leukocytosis - resolved DVT ppx: Lovenox Code Status: DNR/DNI - Time Time Spent with patient: 35 or more minutes Anticipated Discharge Disposition: Home with Hospice Anticipated Discharge Timeframe: within 48 hours
--- NOTE | 2020-03-11 17:09 | ADVANCED CARE ---
- Diagnosis (1) Follicular lymphoma Diagnosis Current: Yes (2) Metastatic cancer Diagnosis Current: Yes (3) Ileus Diagnosis Current: Yes (4) Pain due to neoplasm Diagnosis Current: Yes (5) SBO (small bowel obstruction) Diagnosis Current: Yes (6) Diffuse lymphadenopathy Diagnosis Current: Yes Attendance: Patient Daughter, Cinthia Son, [place] Resuscitation Status: Do Not Resuscitate Discussion: Patient's poor prognosis discussed at length with patient and family. They are aware that she has metastatic disease, possibly abdominal carcinomatosis, and that if she were to fail medical management of SBO, she would be a high risk surgical candidate. She repeatedly told me and her children that she does not want to suffer and her goal is to be at home with family. They are considering comfort care measures and going home with hospice with NGT in place rather than pursuing surgery if she should fail medical management. I believe this is appropriate. They will need more time to discuss and think this over. Code Status: DNR/DNI We will re-address goals of care tomorrow and consider referral to hospice at that time. Discussed with oncology, surgery. Time Spent: >30 minutes
[2020-03-11] MEDS: 1/2 NORMAL SALINE 1,000 ML IV PRN (18:31)
--- NOTE | 2020-03-11 19:38 | RADIOLOGY REPORT (SQ) ---
EXAM DESCRIPTION: KUB/ABDOMEN (SINGLE VIEW) IMAGES COMPLETED DATE/TIME: 03/11/2020 6:46 pm REASON FOR STUDY: abdominal follow through COMPARISON: 03/10/2020 NUMBER OF VIEWS: One view. TECHNIQUE: Supine radiographic image of the abdomen acquired. LIMITATIONS: None. FINDINGS: BOWEL GAS PATTERN: Nonobstructive. There is contrast in the small bowel and in the cecum. CALCIFICATIONS: No suspicious calcifications. SOFT TISSUES: Porcelain gallbladder. HARDWARE: NG tube is just inside the stomach. BONES: No acute fracture. No worrisome bone lesions. OTHER: No other significant finding. IMPRESSION: No evidence of bowel obstruction. Porcelain gallbladder. TECHNICAL DOCUMENTATION: JOB ID: [id number] 2010 [employer]- All Rights Reserved Reading location - IP/workstation name: [email or web address]
[2020-03-12] MEDS: HYDROMORPHONE HCL INJ/PF 2 MG/ML AMPULE IV PRN ×5 (02:36→21:08)
[2020-03-12] MEDS: 1/2 NORMAL SALINE 1,000 ML IV PRN (06:53)
[2020-03-12 07:16] LABS: HEMATOCRIT 24.2 % (36.0-47.0); MEAN CORPUSCULAR HEMOGLOBIN 31.2 pg (27.0-33.4); MEAN CORPUSCULAR HGB CONC 32.8 g/dL (32.0-36.0); MEAN CORPUSCULAR VOLUME 95 fl (80-97); PLATELET COUNT 311 10^3/uL (150-450); RED BLOOD COUNT 2.54 10^6/uL (3.72-5.28); RED CELL DISTRIBUTION WIDTH 16.5 % (11.5-14.0); WHITE BLOOD COUNT 9.5 10^3/uL (4.0-10.5)
[2020-03-12 07:20] LABS: HEMOGLOBIN 7.9 g/dL (12.0-15.5)
[2020-03-12 07:47] LABS: ANION GAP 10 (5-19); BLOOD UREA NITROGEN 16 mg/dL (7-20); CALCIUM 8.7 mg/dL (8.4-10.2); CARBON DIOXIDE 27 mmol/L (22-30); CHLORIDE 107 mmol/L (98-107); GLUCOSE 108 mg/dL (75-110); POTASSIUM 4.1 mmol/L (3.6-5.0)
[2020-03-12] MEDS ORDERED: HYDROMORPHONE HCL INJ/PF 2 MG/ML AMPULE ONE (08:13)
--- NOTE | 2020-03-12 08:53 | PDOC PROGRESS REPORT ---
Subjective Date:: 03/12/20 Subjective:: Patient doing about the same, still having a lot of output from the NG, had long discussion with patient about patient desires as well as family and we will have further discussions as well. Increasing fentanyl patch today giving extra dose of Dilaudid now. Reason For Visit: SMALL BOWEL OBSTRUCTION, LYMPHOMA Physical Exam Vital Signs: Temp Pulse Resp BP Pulse Ox 97.8 F 116 H 18 126/75 H 97 03/12/20 08:05 03/12/20 08:05 03/12/20 08:05 03/12/20 08:05 03/12/20 08:05 Intake & Output 03/11/20 03/12/20 03/13/20 06:59 06:59 06:59 Intake Total 993 4200 Output Total 950 2600 Balance 43 1600 Weight 64.3 kg 66 kg General appearance: PRESENT: no acute distress, well-developed, well-nourished Head exam: PRESENT: atraumatic, normocephalic Eye exam: PRESENT: conjunctiva pink, EOMI, PERRLA. ABSENT: scleral icterus Ear exam: PRESENT: normal external ear exam Mouth exam: PRESENT: moist, tongue midline Neck exam: ABSENT: carotid bruit, JVD, lymphadenopathy, thyromegaly Respiratory exam: PRESENT: clear to auscultation clare. ABSENT: rales, rhonchi, wheezes Cardiovascular exam: PRESENT: RRR. ABSENT: diastolic murmur, rubs, systolic murmur Pulses: PRESENT: normal dorsalis pedis pul Vascular exam: PRESENT: normal capillary refill GI/Abdominal exam: PRESENT: normal bowel sounds, soft. ABSENT: distended, guarding, mass, organolmegaly, rebound, tenderness Rectal exam: PRESENT: deferred Extremities exam: PRESENT: full ROM. ABSENT: calf tenderness, clubbing, pedal edema Neurological exam: PRESENT: alert, awake, oriented to person, oriented to place, oriented to time, oriented to situation, CN II-XII grossly intact. ABSENT: motor sensory deficit Psychiatric exam: PRESENT: appropriate affect, normal mood. ABSENT: homicidal ideation, suicidal ideation Skin exam: PRESENT: dry, intact, warm. ABSENT: cyanosis, rash Results Laboratory Results: 03/12/20 06:55 03/12/20 06:55 12/18/20 12/18/20 06:55 06:55 WBC 9.5 RBC 2.54 L Hgb 7.9 L Hct 24.2 L MCV 95 MCH 31.2 MCHC 32.8 RDW 16.5 H Plt Count 311 Sodium 144.4 Potassium 4.1 Chloride 107 Carbon Dioxide 27 Anion Gap 10 BUN 16 Creatinine 0.46 L Est GFR ( Amer) > 60 Glucose 108 Calcium 8.7 Magnesium 2.1 Impressions: Abdomen/Pelvis CT 03/08/20 00:00 IMPRESSION: 1. Suspected malignancy. Clinical history not available.. 2. New finding of small bowel obstruction. There is no definite colonic dilatation 3. New finding of mild ascites. New finding of peritoneal metastasis more obvious in the right paracolic gutter. Cannot exclude right colonic thickening. 4. previous right hydronephrosis resolved. Very minimal residual right hydronephrosis without obvious obstructive process. New 9 mm right renal hypodensity may represent a small metastasis. 5. Chronic finding of mildly coarse gallbladder wall calcifications. Consistent with porcelain gallbladder and has been associated with increased risk of gallbladder cancer. 6. Uterus demonstrates greater endometrial enlargement. Rule out pathology. There is a small cystic structure with mildly thick wall located posterior to the right ear of the uterus. Question metastasis versus focal adnexal abnormality. PICC Line Insertion 03/10/20 00:00 IMPRESSION: SUCCESSFUL PLACEMENT OF A 5 FR DUAL LUMEN 38 CM PICC IN THE RIGHT BASILIC VEIN. KUB X-Ray 03/11/20 00:00 IMPRESSION: No evidence of bowel obstruction. Porcelain gallbladder. Upper GI Series-Limited 03/11/20 00:00 IMPRESSION: NORMAL SINGLE CONTRAST SWALLOW UPPER GI SERIES. Assessment & Plan - Diagnosis (1) SBO (small bowel obstruction) Is this a current diagnosis for this admission?: Yes Plan: Not resolving, await final results of the small bowel follow-through. (2) Follicular lymphoma Qualifiers: Follicular lymphoma type: other follicular type Lymphoma site: multiple regions Qualified Code(s): C82.88 - Other types of follicular lymphoma, lymph nodes of multiple sites Is this a current diagnosis for this admission?: Yes Plan: Awaiting path, call them today and has not yet returned from [facility]. Hopefully they can get some answers today. 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
--- NOTE | 2020-03-12 09:09 | RADIOLOGY REPORT (SQ) ---
EXAM DESCRIPTION: SMALL BOWEL SERIES IMAGES COMPLETED DATE/TIME: 03/11/2020 6:46 pm REASON FOR STUDY: r/o sbo COMPARISON: 03/08/2020 CT FLUOROSCOPY TIME: No fluoro images saved to PACS. LIMITATIONS: None. PROCEDURE: Initial hoop bender tank image of abdomen acquired, followed by administration of Gastrografin throu gh an indwelling NG tube. Serial radiographic images acquired. All images stored on PACS. FINDINGS: [employer] KUB: Mild gaseous distention of proximal small bowel. Porcelain gallbladder. Soft tissue planes normal. STOMACH: Marked gastroesophageal reflux. Normal distention without abnormality. DUODENUM: Normal mucosal pattern with adequate distention. No displacement or obstruction. JEJUNUM: Normal mucosal pattern. Mild dilatation without segmentation, strictures or masses. 2.5 hour film demonstrates contrast only to the mid small bowel. Follow-up 6 hour film was to be ayleen en, however, the patient was having severe discomfort and the NG was reconnected to suction per docto r's orders. IMPRESSION: Contrast noted throughout the duodenum and ilium without definitive high-grade obstructi on. Exam was prematurely terminated secondary to patient discomfort. See follow-up radiographs for additional findings. COMMENT: NONE Quality ID 145: Final reports for procedures using fluoroscopy that document radiation exposure neli veda, or exposure time and number of fluorographic images (if radiation exposure indices are not avail able) TECHNICAL DOCUMENTATION: JOB ID: [id number] 2010 [employer]- All Rights Reserved Reading location - IP/workstation name: [email or web address]
--- NOTE | 2020-03-12 09:14 | RADIOLOGY REPORT (SQ) ---
EXAM DESCRIPTION: ABDOMEN 2 VIEWS IMAGES COMPLETED DATE/TIME: 03/12/2020 8:51 am REASON FOR STUDY: f/u sbf COMPARISON: 03/11/2020 NUMBER OF VIEWS: Two views. TECHNIQUE: Supine and erect/decubitus radiographic images of the abdomen acquired. LIMITATIONS: None. FINDINGS: FREE AIR: None. No abnormal gas collections. LUNG BASES: Clear. BOWEL GAS PATTERN: No pathologically dilated loops of bowel. There has been progression of the previ ously administered oral contrast now throughout the colon. CALCIFICATIONS: Calcification of the gallbladder wall and calcified gallstone again noted. SOFT TISSUES: No gross mass or suggestion of organomegaly. HARDWARE: None in the abdomen. BONES: No acute fracture. No worrisome bone lesions. OTHER: No other significant finding. IMPRESSION: Progression of previously administered oral contrast now throughout the colon. No defin itive dilated small bowel loops. Calcified gallstones and gallbladder wall again noted. TECHNICAL DOCUMENTATION: JOB ID: [id number] 2010 [employer]- All Rights Reserved Reading location - IP/workstation name: [email or web address]
[2020-03-12] MEDS ORDERED: PROMETHAZINE HCL INJ 25 MG/1 ML VIAL IV PRN (09:45)
--- NOTE | 2020-03-12 10:06 | PDOC PROGRESS REPORT ---
Subjective Date:: 03/12/20 Subjective:: She continues to have large output through her NGT. She is passing gas but no BM. Reason For Visit: SMALL BOWEL OBSTRUCTION, LYMPHOMA Physical Exam Vital Signs: Temp Pulse Resp BP Pulse Ox 97.8 F 116 H 18 126/75 H 97 03/12/20 08:05 03/12/20 08:05 03/12/20 08:05 03/12/20 08:05 03/12/20 08:05 Intake & Output 03/11/20 03/12/20 03/13/20 06:59 06:59 06:59 Intake Total 993 4200 Output Total 950 2600 Balance 43 1600 Weight 64.3 kg 66 kg General appearance: PRESENT: no acute distress Eye exam: ABSENT: scleral icterus Mouth exam: PRESENT: dry mucosa Throat exam: ABSENT: post pharyngeal erythema Neck exam: ABSENT: JVD Respiratory exam: PRESENT: clear to auscultation clare Cardiovascular exam: PRESENT: RRR GI/Abdominal exam: PRESENT: diminished bowel sounds, distended, soft, tenderness. ABSENT: firm, guarding, rebound, rigid Gentrourinary exam: ABSENT: indwelling catheter Extremities exam: PRESENT: +1 edema Neurological exam: PRESENT: alert, awake, oriented to person, oriented to place, oriented to time, oriented to situation Psychiatric exam: PRESENT: appropriate affect Skin exam: ABSENT: jaundice Results Laboratory Results: 03/12/20 06:55 03/12/20 06:55 03/12/20 03/12/20 06:55 06:55 WBC 9.5 RBC 2.54 L Hgb 7.9 L Hct 24.2 L MCV 95 MCH 31.2 MCHC 32.8 RDW 16.5 H Plt Count 311 Sodium 144.4 Potassium 4.1 Chloride 107 Carbon Dioxide 27 Anion Gap 10 BUN 16 Creatinine 0.46 L Est GFR ( Amer) > 60 Glucose 108 Calcium 8.7 Magnesium 2.1 Impressions: Abdomen/Pelvis CT 03/08/20 00:00 IMPRESSION: 1. Suspected malignancy. Clinical history not available.. 2. New finding of small bowel obstruction. There is no definite colonic dilatation 3. New finding of mild ascites. New finding of peritoneal metastasis more obvious in the right paracolic gutter. Cannot exclude right colonic thickening. 4. previous right hydronephrosis resolved. Very minimal residual right hydronephrosis without obvious obstructive process. New 9 mm right renal hypodensity may represent a small metastasis. 5. Chronic finding of mildly coarse gallbladder wall calcifications. Consistent with porcelain gallbladder and has been associated with increased risk of gallbladder cancer. 6. Uterus demonstrates greater endometrial enlargement. Rule out pathology. There is a small cystic structure with mildly thick wall located posterior to the right ear of the uterus. Question metastasis versus focal adnexal abnormality. PICC Line Insertion 03/10/20 00:00 IMPRESSION: SUCCESSFUL PLACEMENT OF A 5 FR DUAL LUMEN 38 CM PICC IN THE RIGHT BASILIC VEIN. KUB X-Ray 03/11/20 00:00 IMPRESSION: No evidence of bowel obstruction. Porcelain gallbladder. Upper GI Series-Limited 03/11/20 00:00 IMPRESSION: NORMAL SINGLE CONTRAST SWALLOW UPPER GI SERIES. Small Bowel X-Ray 03/11/20 12:00 IMPRESSION: ONGOING SMALL BOWEL EXAM, ABOVE. Abdomen X-Ray 03/12/20 07:00 IMPRESSION: Progression of previously administered oral contrast now throughout the colon. No definitive dilated small bowel loops. Calcified gallstones and gallbladder wall again noted. 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 Is this a current diagnosis for this admission?: Yes (3) Ileus Is this a current diagnosis for this admission?: Yes (4) Pain due to neoplasm Is this a current diagnosis for this admission?: Yes (5) SBO (small bowel obstruction) Is this a current diagnosis for this admission?: Yes (6) Diffuse lymphadenopathy Is this a current diagnosis for this admission?: Yes (7) Goals of care, counseling/discussion Is this a current diagnosis for this admission?: Yes (8) Comfort measures only status Is this a current diagnosis for this admission?: Yes - Plan Summary Summary: LUPILLO DE LA ROSA is a 64 year old female with PMH of both primary squamous cell lung cancer as well as follicular lymphoma. Follicular lymphoma was treated syst emically and she obtained a complete response as per imaging back in , but the primary lung lesion was increasing, biopsy indicated squamous cell, and patient had CyberKnife radiation in December. After that, she began having pain issues both in the left upper chest at site of previous chest tube and also left knee pain. Knee MRI showed a distal left femur lesion. She was admitted to [facility] 02/24 to 03/03, and underwent left total knee arthroplasty by Dr. Bang. Her hospital course was c/b severe pain treated with narcotics as well as severe narcotic-induced constipation. Upon discharge home last week, she continued to have problem with constipation and tried several different things including oral laxatives, suppositories and ultimately several days of enemas. Unfortunately, nothing seemed to help, and she continued to have worsening nausea/vomiting until she finally presented to the ED on 03/08. In the ED, CT of the abdomen/pelvis showed gastric distention, moderate small bowel dilation, small ascites and concern for abdominal metastases/tumors. NGT was placed in the ED, producing large amount of feculent output. Ileus and Partial Bowel Obstruction: due to metastatic disease to abdomen and possibly also severe opioid-induced constipation. Received enemas on 03/09 with small BM. On 03/10, surgery requested to clamp NGT and give Mg Citrate PO, but patient was not able to tolerate NGT clamping for long. On 03/11, plan was to perform a small bowel follow through with contrast, but again the patient was not able to tolerate having her NGT clamped for long before she started having severe N/V. On 03/12, due to ongoing partial obstruction that has not been relieved with NGT/suction and her being an exceedingly poor surgical candidate, patient and her family decided to pursue comfort measures. We will start planning for discharge home with hospice, with NGT in place. - NGT in place to LIS - DC IVF Pain Control - adjustments made by Dr. Hillman to increase Fentanyl patch and dose of IV Dilaudid - she has a PICC line in place and plan is for her to be on a MOTOR TESTER pump at home (do NOT remove PICC line at discharge) Anemia: hgb initially trended down due to hemodilution, but she has had no signs/symptoms of active bleeding. She has cold agglutinin disease, so if she needs a transfusion, it should be warmed and will likely still hemolyze. Cold Agglutinin Disease: keep patient/room warm to prevent hemolysis. Pathological Bone Fracture s/p L TKR c/b L foot drop: interestingly, although we initially felt that the bone lesion was going to be carcinoma consistent with lung primary, it may actually be lymphoma (final pathology result pending but should be available soon). The overall clinical picture is probably either recurrent follicular lymphoma or Rust's transformation. - orthopedic surgery consulted and following closely - fall precautions - pain management as per above Lack of IV Access - PICC line placed 03/10 and will remain in place on discharge Dehydration - resolved with IVF Hyponatremia - resolved with IVF Hypokalemia - resolved with IV repletion Leukocytosis - resolved Code Status: DNR/DNI/Comfort Measures Only Dispo: discharge home with hospice services. She will need a hospital bed, commode, oxygen, NGT suction, and MOTOR TESTER pump. Discharge planning order placed. Discussed with Oncology and Surgery. - Time Time Spent with patient: 35 or more minutes Anticipated Discharge Disposition: Home with Hospice Anticipated Discharge Timeframe: within 24 hours
--- NOTE | 2020-03-12 10:13 | ADVANCED CARE ---
- Diagnosis (1) Follicular lymphoma Diagnosis Current: Yes (2) Metastatic cancer Diagnosis Current: Yes (3) Ileus Diagnosis Current: Yes (4) Pain due to neoplasm Diagnosis Current: Yes (5) SBO (small bowel obstruction) Diagnosis Current: Yes (6) Diffuse lymphadenopathy Diagnosis Current: Yes (7) Goals of care, counseling/discussion Diagnosis Current: Yes (8) Comfort measures only status Diagnosis Current: Yes Resuscitation Status: Comfort Measures Only Discussion: Patient has decided to pursue comfort measures and wants to go home with hospice. Her children respect her decision. Their goal is to get her home [place]. They have already decided that they want [facility]. Time Spent: >30 minutes
[2020-03-12] MEDS: FENTANYL 50 MCG/HR PATCH.TD72 TD SCH (10:54)
[2020-03-12] MEDS: NORMAL SALINE 10 ML SDV (SCHEDULED) IV SCH ×2 (11:05→21:26)
--- NOTE | 2020-03-12 11:43 | PDOC PROGRESS REPORT ---
Subjective Date:: 03/12/20 Reason For Visit: SMALL BOWEL OBSTRUCTION, LYMPHOMA Patient reports no bowel movement no flatus. Physical Exam Vital Signs: Temp Pulse Resp BP Pulse Ox 97.8 F 116 H 18 126/75 H 97 03/12/20 08:05 03/12/20 08:05 03/12/20 08:05 03/12/20 08:05 03/12/20 08:05 Intake & Output 03/11/20 03/12/20 03/13/20 06:59 06:59 06:59 Intake Total 993 4200 Output Total 950 2600 Balance 43 1600 Weight 64.3 kg 66 kg General appearance: PRESENT: other - Slightly agitated. GI/Abdominal exam: PRESENT: other - Abdomen slightly distended, no peritoneal s igns no rigidity. Results Laboratory Results: 03/12/20 06:55 03/12/20 06:55 03/12/20 03/12/20 06:55 06:55 WBC 9.5 RBC 2.54 L Hgb 7.9 L Hct 24.2 L MCV 95 MCH 31.2 MCHC 32.8 RDW 16.5 H Plt Count 311 Sodium 144.4 Potassium 4.1 Chloride 107 Carbon Dioxide 27 Anion Gap 10 BUN 16 Creatinine 0.46 L Est GFR ( Amer) > 60 Glucose 108 Calcium 8.7 Magnesium 2.1 Impressions: Abdomen/Pelvis CT 03/08/20 00:00 IMPRESSION: 1. Suspected malignancy. Clinical history not available.. 2. New finding of small bowel obstruction. There is no definite colonic dilatation 3. New finding of mild ascites. New finding of peritoneal metastasis more obvious in the right paracolic gutter. Cannot exclude right colonic thickening. 4. previous right hydronephrosis resolved. Very minimal residual right hydronephrosis without obvious obstructive process. New 9 mm right renal hypodensity may represent a small metastasis. 5. Chronic finding of mildly coarse gallbladder wall calcifications. Consistent with porcelain gallbladder and has been associated with increased risk of gallbladder cancer. 6. Uterus demonstrates greater endometrial enlargement. Rule out pathology. There is a small cystic structure with mildly thick wall located posterior to the right ear of the uterus. Question metastasis versus focal adnexal abnormality. PICC Line Insertion 03/10/20 00:00 IMPRESSION: SUCCESSFUL PLACEMENT OF A 5 FR DUAL LUMEN 38 CM PICC IN THE RIGHT BASILIC VEIN. KUB X-Ray 03/11/20 00:00 IMPRESSION: No evidence of bowel obstruction. Porcelain gallbladder. Upper GI Series-Limited 03/11/20 00:00 IMPRESSION: NORMAL SINGLE CONTRAST SWALLOW UPPER GI SERIES. Small Bowel X-Ray 03/11/20 12:00 IMPRESSION: ONGOING SMALL BOWEL EXAM, ABOVE. Abdomen X-Ray 03/12/20 07:00 IMPRESSION: Progression of previously administered oral contrast now throughout the colon. No definitive dilated small bowel loops. Calcified gallstones and gallbladder wall again noted. Assessment & Plan - Diagnosis (1) SBO (small bowel obstruction) Is this a current diagnosis for this admission?: Yes Plan: Impression: No evidence of acute abdomen. Acute abdominal series demonstrates contrast passing through the small bowel into the colon after 19 hours. No indication for surgical intervention Plan: 1. Patient moving towards hospice care 2. Surgery will sign off; reconsult if clinically indicated. - Time Anticipated Discharge Disposition: Hospice Center Anticipated Discharge Timeframe: within 48 hours
[2020-03-13] MEDS: HYDROMORPHONE HCL INJ/PF 2 MG/ML AMPULE IV PRN ×5 (01:34→21:30)
--- NOTE | 2020-03-13 11:28 | PDOC PROGRESS REPORT ---
Subjective Date:: 03/13/20 Subjective:: Hospice is being arranged, but unfortunately suction device/canister difficult to locate currently. Cannot deliver until Sunday. Other equipment in process as well. Today had a long discussion with patient, and Nuris from [facility] has been in communication with us as well as family who understand current status of care. Today spent 45 minutes in discussion and coordination of care. Reason For Visit: SMALL BOWEL OBSTRUCTION, LYMPHOMA Physical Exam Vital Signs: Temp Pulse Resp BP Pulse Ox 97.8 F 127 H 18 133/79 H 96 03/12/20 22:00 03/12/20 20:06 03/12/20 20:06 03/12/20 20:06 03/12/20 20:06 Intake & Output 03/12/20 03/13/20 03/14/20 06:59 06:59 06:59 Intake Total 4200 2416 Output Total 2600 2000 Balance 1600 416 Weight 66 kg 66 kg General appearance: PRESENT: no acute distress, well-developed, well-nourished Head exam: PRESENT: atraumatic, normocephalic Eye exam: PRESENT: conjunctiva pink, EOMI, PERRLA. ABSENT: scleral icterus Ear exam: PRESENT: normal external ear exam Mouth exam: PRESENT: moist, tongue midline Neck exam: ABSENT: carotid bruit, JVD, lymphadenopathy, thyromegaly Respiratory exam: PRESENT: clear to auscultation clare. ABSENT: rales, rhonchi, wheezes Cardiovascular exam: PRESENT: RRR. ABSENT: diastolic murmur, rubs, systolic murmur Pulses: PRESENT: normal dorsalis pedis pul Vascular exam: PRESENT: normal capillary refill GI/Abdominal exam: PRESENT: normal bowel sounds, soft. ABSENT: distended, guarding, mass, organolmegaly, rebound, tenderness Rectal exam: PRESENT: deferred Extremities exam: PRESENT: full ROM. ABSENT: calf tenderness, clubbing, pedal edema Neurological exam: PRESENT: alert, awake, oriented to person, oriented to place, oriented to time, oriented to situation, CN II-XII grossly intact. ABSENT: motor sensory deficit Psychiatric exam: PRESENT: appropriate affect, normal mood. ABSENT: homicidal ideation, suicidal ideation Skin exam: PRESENT: dry, intact, warm. ABSENT: cyanosis, rash Results Laboratory Results: 03/12/20 06:55 03/12/20 06:55 Impressions: Abdomen/Pelvis CT 03/08/20 00:00 IMPRESSION: 1. Suspected malignancy. Clinical history not available.. 2. New finding of small bowel obstruction. There is no definite colonic dilatation 3. New finding of mild ascites. New finding of peritoneal metastasis more obvious in the right paracolic gutter. Cannot exclude right colonic thickening. 4. previous right hydronephrosis resolved. Very minimal residual right hydronephrosis without obvious obstructive process. New 9 mm right renal hypodensity may represent a small metastasis. 5. Chronic finding of mildly coarse gallbladder wall calcifications. Consistent with porcelain gallbladder and has been associated with increased risk of gallbladder cancer. 6. Uterus demonstrates greater endometrial enlargement. Rule out pathology. There is a small cystic structure with mildly thick wall located posterior to the right ear of the uterus. Question metastasis versus focal adnexal abnormality. PICC Line Insertion 03/10/20 00:00 IMPRESSION: SUCCESSFUL PLACEMENT OF A 5 FR DUAL LUMEN 38 CM PICC IN THE RIGHT BASILIC VEIN. KUB X-Ray 03/11/20 00:00 IMPRESSION: No evidence of bowel obstruction. Porcelain gallbladder. Upper GI Series-Limited 03/11/20 00:00 IMPRESSION: NORMAL SINGLE CONTRAST SWALLOW UPPER GI SERIES. Small Bowel X-Ray 03/11/20 12:00 IMPRESSION: Contrast noted throughout the duodenum and ilium without definitive high-grade obstruction. Exam was prematurely terminated secondary to patient discomfort. See follow-up radiographs for additional findings. Abdomen X-Ray 03/12/20 07:00 IMPRESSION: Progression of previously administered oral contrast now throughout the colon. No definitive dilated small bowel loops. Calcified gallstones and gallbladder wall again noted. Assessment & Plan - Diagnosis (1) SBO (small bowel obstruction) Is this a current diagnosis for this admission?: Yes Plan: Ultimate DC home with home hospice will need home suction before DC. (2) Follicular lymphoma Qualifiers: Follicular lymphoma type: other follicular type Lymphoma site: multiple regions Qualified Code(s): C82.88 - Other types of follicular lymphoma, lymph nodes of multiple sites Is this a current diagnosis for this admission?: Yes Plan: Still awaiting final path (3) Lung cancer Qualifiers: Laterality: left Lung location: lower lobe of lung Qualified Code(s): C 34.32 - Malignant neoplasm of lower lobe, left bronchus or lung Is this a current diagnosis for this admission?: Yes Plan: Still awaiting final path. 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
[2020-03-13] MEDS: NORMAL SALINE 10 ML SDV (SCHEDULED) IV SCH ×2 (16:31→21:32)
--- NOTE | 2020-03-13 17:12 | PDOC PROGRESS REPORT ---
Subjective Date:: 03/13/20 Subjective:: No adverse events overnight. Patient is on comfort measures. I increased her D ilaudid this morning to help with her pain. Reason For Visit: SMALL BOWEL OBSTRUCTION, LYMPHOMA Physical Exam Vital Signs: Temp Pulse Resp BP Pulse Ox 98.1 F 117 H 18 120/79 99 03/13/20 10:57 03/13/20 10:57 03/13/20 10:57 03/13/20 10:57 03/13/20 10:57 Intake & Output 03/12/20 03/13/20 03/14/20 06:59 06:59 06:59 Intake Total 4200 2416 100 Output Total 2600 2000 1000 Balance 1600 416 -900 Weight 66 kg 66 kg General appearance: PRESENT: no acute distress Extremities exam: PRESENT: +1 edema Neurological exam: PRESENT: alert, awake, oriented to person, oriented to place, oriented to time, oriented to situation Psychiatric exam: PRESENT: appropriate affect Skin exam: ABSENT: jaundice Results Laboratory Results: 03/12/20 06:55 03/12/20 06:55 Impressions: Abdomen/Pelvis CT 03/08/20 00:00 IMPRESSION: 1. Suspected malignancy. Clinical history not available.. 2. New finding of small bowel obstruction. There is no definite colonic dilatation 3. New finding of mild ascites. New finding of peritoneal metastasis more obvious in the right paracolic gutter. Cannot exclude right colonic thickening. 4. previous right hydronephrosis resolved. Very minimal residual right hydronephrosis without obvious obstructive process. New 9 mm right renal hypodensity may represent a small metastasis. 5. Chronic finding of mildly coarse gallbladder wall calcifications. Consistent with porcelain gallbladder and has been associated with increased risk of gallbladder cancer. 6. Uterus demonstrates greater endometrial enlargement. Rule out pathology. There is a small cystic structure with mildly thick wall located posterior to the right ear of the uterus. Question metastasis versus focal adnexal abnormality. PICC Line Insertion 03/10/20 00:00 IMPRESSION: SUCCESSFUL PLACEMENT OF A 5 FR DUAL LUMEN 38 CM PICC IN THE RIGHT BASILIC VEIN. KUB X-Ray 03/11/20 00:00 IMPRESSION: No evidence of bowel obstruction. Porcelain gallbladder. Upper GI Series-Limited 03/11/20 00:00 IMPRESSION: NORMAL SINGLE CONTRAST SWALLOW UPPER GI SERIES. Small Bowel X-Ray 03/11/20 12:00 IMPRESSION: Contrast noted throughout the duodenum and ilium without definitive high-grade obstruction. Exam was prematurely terminated secondary to patient discomfort. See follow-up radiographs for additional findings. Abdomen X-Ray 03/12/20 07:00 IMPRESSION: Progression of previously administered oral contrast now throughout the colon. No definitive dilated small bowel loops. Calcified gallstones and gallbladder wall again noted. 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 Is this a current diagnosis for this admission?: Yes (3) Chronic respiratory failure with hypoxia Is this a current diagnosis for this admission?: Yes (4) Follicular lymphoma Qualifiers: Follicular lymphoma type: other follicular type Lymphoma site: multiple regions Qualified Code(s): C82.88 - Other types of follicular lymphoma, lymph nodes of multiple sites Is this a current diagnosis for this admission?: Yes (5) H/O left knee surgery Is this a current diagnosis for this admission?: Yes (6) Lung cancer Qualifiers: Laterality: left Lung location: lower lobe of lung Qualified Code(s): C34.32 - Malignant neoplasm of lower lobe, left bronchus or lung Is this a current diagnosis for this admission?: Yes (7) Metastatic cancer Qualifiers: Area of secondary neoplastic involvement: peritoneum Qualified Code(s): 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 Is this a current diagnosis for this admission?: Yes (8) Pain due to neoplasm Is this a current diagnosis for this admission?: Yes (9) SBO (small bowel obstruction) Is this a current diagnosis for this admission?: Yes (10) COPD (chronic obstructive pulmonary disease) Qualifiers: COPD type: unspecified COPD Qualified Code(s): J44.9 - Chronic obstructive pulmonary disease, unspecified Is this a current diagnosis for this admission?: Yes - Plan Summary Summary: Per Previous provider: "LUPILLO DE LA ROSA is a 64 year old female with PMH of both primary squamous cell l johan cancer as well as follicular lymphoma. Follicular lymphoma was treated systemically and she obtained a complete response as per imaging back in , but the primary lung lesion was increasing, biopsy indicated squamous cell, and patient had CyberKnife radiation in December. After that, she began having pain issues both in the left upper chest at site of previous chest tube and also left knee pain. Knee MRI showed a distal left femur lesion. She was admitted to [facility] 02/24 to 03/03, and underwent left total knee arthroplasty by Dr. Bang. Her hospital course was c/b severe pain treated with narcotics as well as severe narcotic-induced constipation. Upon discharge home last week, she continued to have problem with constipation and tried several different things including oral laxatives, suppositories and ultimately several days of enemas. Unfortunately, nothing seemed to help, and she continued to have worsening nausea/vomiting until she finally presented to the ED on 03/08. In the ED, CT of the abdomen/pelvis showed gastric distention, moderate small bowel dilation, sma ll ascites and concern for abdominal metastases/tumors. NGT was placed in the ED, producing large amount of feculent output." She will keep her PICC line and at discharge. Plan is for her to go home Sunday with hospice. She needs a home suction canister and that cannot be delivered until Sunday. - Time Time Spent with patient: Less than 15 minutes Anticipated Discharge Disposition: Home with Hospice Anticipated Discharge Timeframe: within 72 hours
[2020-03-14] MEDS: HYDROMORPHONE HCL INJ/PF 2 MG/ML AMPULE IV PRN ×6 (01:04→20:51)
[2020-03-14] MEDS: NORMAL SALINE 10 ML SDV (SCHEDULED) IV SCH ×2 (10:06→21:05)
--- NOTE | 2020-03-14 15:20 | PDOC PROGRESS REPORT ---
Subjective Date:: 03/14/20 Subjective:: No adverse events overnight. Patient is on comfort measures. Appears comfortab le. Reason For Visit: SMALL BOWEL OBSTRUCTION, LYMPHOMA Physical Exam Vital Signs: Temp Pulse Resp BP Pulse Ox 97.4 F 124 H 18 126/72 H 91 L 03/14/20 10:00 03/13/20 19:35 03/13/20 19:35 03/13/20 19:35 03/13/20 19:35 Intake & Output 03/13/20 03/14/20 03/15/20 06:59 06:59 06:59 Intake Total 2416 956 378 Output Total 1999 2850 1000 Balance 630 -4836 -886 Weight 66 kg 81.5 kg General appearance: PRESENT: no acute distress Extremities exam: PRESENT: +1 edema Neurological exam: PRESENT: alert, awake, oriented to person, oriented to place, oriented to time, oriented to situation Psychiatric exam: PRESENT: appropriate affect Skin exam: ABSENT: jaundice Results Laboratory Results: 03/12/20 06:55 03/12/20 06:55 Impressions: Abdomen/Pelvis CT 03/08/20 00:00 IMPRESSION: 1. Suspected malignancy. Clinical history not available.. 2. New finding of small bowel obstruction. There is no definite colonic dilatation 3. New finding of mild ascites. New finding of peritoneal metastasis more obvious in the right paracolic gutter. Cannot exclude right colonic thickening. 4. previous right hydronephrosis resolved. Very minimal residual right hydronephrosis without obvious obstructive process. New 9 mm right renal hypodensity may represent a small metastasis. 5. Chronic finding of mildly coarse gallbladder wall calcifications. Consistent with porcelain gallbladder and has been associated with increased risk of gallbladder cancer. 6. Uterus demonstrates greater endometrial enlargement. Rule out pathology. There is a small cystic structure with mildly thick wall located posterior to the right ear of the uterus. Question metastasis versus focal adnexal abnormality. PICC Line Insertion 03/10/20 00:00 IMPRESSION: SUCCESSFUL PLACEMENT OF A 5 FR DUAL LUMEN 38 CM PICC IN THE RIGHT BASILIC VEIN. KUB X-Ray 03/11/20 00:00 IMPRESSION: No evidence of bowel obstruction. Porcelain gallbladder. Upper GI Series-Limited 03/11/20 00:00 IMPRESSION: NORMAL SINGLE CONTRAST SWALLOW UPPER GI SERIES. Small Bowel X-Ray 03/11/20 12:00 IMPRESSION: Contrast noted throughout the duodenum and ilium without definitive high-grade obstruction. Exam was prematurely terminated secondary to patient discomfort. See follow-up radiographs for additional findings. Abdomen X-Ray 03/12/20 07:00 IMPRESSION: Progression of previously administered oral contrast now throughout the colon. No definitive dilated small bowel loops. Calcified gallstones and gallbladder wall again noted. 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 Is this a current diagnosis for this admission?: Yes (3) Chronic respiratory failure with hypoxia Is this a current diagnosis for this admission?: Yes (4) Follicular lymphoma Qualifiers: Follicular lymphoma type: other follicular type Lymphoma site: multiple regions Qualified Code(s): C82.88 - Other types of follicular lymphoma, lymph nodes of multiple sites Is this a current diagnosis for this admission?: Yes (5) H/O left knee surgery Is this a current diagnosis for this admission?: Yes (6) Lung cancer Qualifiers: Laterality: left Lung location: lower lobe of lung Qualified Code(s): C34.32 - Malignant neoplasm of lower lobe, left bronchus or lung Is this a current diagnosis for this admission?: Yes (7) Metastatic cancer Qualifiers: Area of secondary neoplastic involvement: peritoneum Qualified Code(s): 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 Is this a current diagnosis for this admission?: Yes (8) Pain due to neoplasm Is this a current diagnosis for this admission?: Yes (9) SBO (small bowel obstruction) Is this a current diagnosis for this admission?: Yes (10) COPD (chronic obstructive pulmonary disease) Qualifiers: COPD type: unspecified COPD Qualified Code(s): J44.9 - Chronic obstructive pulmonary disease, unspecified Is this a current diagnosis for this admission?: Yes - Plan Summary Summary: Per Previous provider: "LUPILLO DE LA ROSA is a 64 year old female with PMH of both primary squamous cell lung cancer as well as follicular lymphoma. Follicular lymphoma was treated systemically and she obtained a complete response as per imaging back in October/November, but the primary lung lesion was increasing, biopsy indicated squamous cell, and patient had CyberKnife radiation in December. After that, she began having pain issues both in the left upper chest at site of previous chest tube and also left knee pain. Knee MRI showed a distal left femur lesion. She was admitted to [facility] 02/24 to 03/03, and underwent left total knee arthroplasty by Dr. Bang. Her hospital course was c/b severe pain treated with narcotics as well as severe narcotic-induced constipation. Upon discharge home last week, she continued to have problem with constipation and tried several different things including oral laxatives, suppositories and ultimately several days of enemas. Unfortunately, nothing seemed to help, and she continued to have worsening nausea/vomiting until she finally presented to the ED on 03/08. In the ED, CT of the abdomen/pelvis showed gastric distention, moderate small bowel dilation, small ascites and concern for abdominal metastases/tumors. NGT was placed in the ED, producing large amount of feculent output." She will keep her PICC line and at discharge. Plan is for her to go home Sunday with hospice. She needs a home suction canister and that cannot be delivered until Sunday. - Time Time Spent with patient: Less than 15 minutes Anticipated Discharge Disposition: Home with Hospice Anticipated Discharge Timeframe: within 24 hours
[2020-03-15] MEDS: HYDROMORPHONE HCL INJ/PF 2 MG/ML AMPULE IV PRN ×7 (00:25→21:58)
--- NOTE | 2020-03-15 08:02 | PDOC PROGRESS REPORT ---
Subjective Date:: 03/15/20 Subjective:: Awaiting suction at home. Patient should be able to be discharged after that. If we are unable to locate suction in the next 24 hours, we will need to come up with a different plan. It may be possible for family to manually remove fluid through the syringe to NG. But this would be much more difficult situation Reason For Visit: SMALL BOWEL OBSTRUCTION, LYMPHOMA Physical Exam Vital Signs: Temp Pulse Resp BP Pulse Ox 97.9 F 130 H 19 126/81 H 91 L 03/14/20 20:06 03/14/20 20:06 03/14/20 20:06 03/14/20 20:06 03/14/20 20:06 Intake & Output 03/14/20 03/15/20 03/16/20 06:59 06:59 06:59 Intake Total 956 2015 Output Total 2850 1000 Balance -1894 1016 Weight 81.5 kg 81.5 kg General appearance: PRESENT: no acute distress, well-developed, well-nourished Head exam: PRESENT: atraumatic, normocephalic Eye exam: PRESENT: conjunctiva pink, EOMI, PERRLA. ABSENT: scleral icterus Ear exam: PRESENT: normal external ear exam Mouth exam: PRESENT: moist, tongue midline Neck exam: ABSENT: carotid bruit, JVD, lymphadenopathy, thyromegaly Respiratory exam: PRESENT: clear to auscultation clare. ABSENT: rales, rhonchi, wheezes Cardiovascular exam: PRESENT: RRR. ABSENT: diastolic murmur, rubs, systolic murmur Pulses: PRESENT: normal dorsalis pedis pul Vascular exam: PRESENT: normal capillary refill GI/Abdominal exam: PRESENT: normal bowel sounds, soft. ABSENT: distended, guarding, mass, organolmegaly, rebound, tenderness Rectal exam: PRESENT: deferred Extremities exam: PRESENT: full ROM. ABSENT: calf tenderness, clubbing, pedal edema Neurological exam: PRESENT: alert, awake, oriented to person, oriented to place, oriented to time, oriented to situation, CN II-XII grossly intact. ABSENT: motor sensory deficit Psychiatric exam: PRESENT: appropriate affect, normal mood. ABSENT: homicidal ideation, suicidal ideation Skin exam: PRESENT: dry, intact, warm. ABSENT: cyanosis, rash Results Laboratory Results: 03/12/20 06:55 03/12/20 06:55 Impressions: Abdomen/Pelvis CT 03/08/20 00:00 IMPRESSION: 1. Suspected malignancy. Clinical history not available.. 2. New finding of small bowel obstruction. There is no definite colonic dilatation 3. New finding of mild ascites. New finding of peritoneal metastasis more obvious in the right paracolic gutter. Cannot exclude right colonic thickening. 4. previous right hydronephrosis resolved. Very minimal residual right hydronephrosis without obvious obstructive process. New 9 mm right renal hypodensity may represent a small metastasis. 5. Chronic finding of mildly coarse gallbladder wall calcifications. Consistent with porcelain gallbladder and has been associated with increased risk of gallbladder cancer. 6. Uterus demonstrates greater endometrial enlargement. Rule out pathology. There is a small cystic structure with mildly thick wall located posterior to the right ear of the uterus. Question metastasis versus focal adnexal abnormality. PICC Line Insertion 03/10/20 00:00 IMPRESSION: SUCCESSFUL PLACEMENT OF A 5 FR DUAL LUMEN 38 CM PICC IN THE RIGHT BASILIC VEIN. KUB X-Ray 03/11/20 00:00 IMPRESSION: No evidence of bowel obstruction. Porcelain gallbladder. Upper GI Series-Limited 03/11/20 00:00 IMPRESSION: NORMAL SINGLE CONTRAST SWALLOW UPPER GI SERIES. Small Bowel X-Ray 03/11/20 12:00 IMPRESSION: Contrast noted throughout the duodenum and ilium without definitive high-grade obstruction. Exam was prematurely terminated secondary to patient discomfort. See follow-up radiographs for additional findings. Abdomen X-Ray 03/12/20 07:00 IMPRESSION: Progression of previously administered oral contrast now throughout the colon. No definitive dilated small bowel loops. Calcified gallstones and gallbladder wall again noted. Assessment & Plan - Diagnosis (1) SBO (small bowel obstruction) Is this a current diagnosis for this admission?: Yes Plan: Plan for suction at home as above, not resolving (2) Follicular lymphoma Qualifiers: Follicular lymphoma type: other follicular type Lymphoma site: multiple regions Qualified Code(s): C82.88 - Other types of follicular lymphoma, lymph nodes of multiple sites Is this a current diagnosis for this admission?: Yes Plan: No further treatment planned. 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
[2020-03-15] MEDS: FENTANYL 50 MCG/HR PATCH.TD72 TD SCH (09:35)
[2020-03-15] MEDS: NORMAL SALINE 10 ML SDV (SCHEDULED) IV SCH ×2 (09:36→22:00)
--- NOTE | 2020-03-15 15:23 | PDOC PROGRESS REPORT ---
Subjective Date:: 03/15/20 Subjective:: No adverse events overnight. Patient is on comfort measures. Appears comfortab le. Reason For Visit: SMALL BOWEL OBSTRUCTION, LYMPHOMA Physical Exam Vital Signs: Temp Pulse Resp BP Pulse Ox 97.9 F 117 H 18 117/76 99 03/15/20 10:00 03/15/20 07:50 03/15/20 07:50 03/15/20 07:50 03/15/20 07:50 Intake & Output 03/14/20 03/15/20 03/16/20 06:59 06:59 06:59 Intake Total 956 2016 260 Output Total 2850 1000 800 Balance -1894 1016 -540 Weight 81.5 kg 81.5 kg General appearance: PRESENT: no acute distress Extremities exam: PRESENT: +1 edema Neurological exam: PRESENT: alert, awake, oriented to person, oriented to place, oriented to time, oriented to situation Psychiatric exam: PRESENT: appropriate affect Skin exam: ABSENT: jaundice Results Laboratory Results: 03/12/20 06:55 03/12/20 06:55 Impressions: Abdomen/Pelvis CT 03/08/20 00:00 IMPRESSION: 1. Suspected malignancy. Clinical history not available.. 2. New finding of small bowel obstruction. There is no definite colonic dilatation 3. New finding of mild ascites. New finding of peritoneal metastasis more obvious in the right paracolic gutter. Cannot exclude right colonic thickening. 4. previous right hydronephrosis resolved. Very minimal residual right hydronephrosis without obvious obstructive process. New 9 mm right renal hypodensity may represent a small metastasis. 5. Chronic finding of mildly coarse gallbladder wall calcifications. Consistent with porcelain gallbladder and has been associated with increased risk of gallbladder cancer. 6. Uterus demonstrates greater endometrial enlargement. Rule out pathology. There is a small cystic structure with mildly thick wall located posterior to the right ear of the uterus. Question metastasis versus focal adnexal abnormality. PICC Line Insertion 03/10/20 00:00 IMPRESSION: SUCCESSFUL PLACEMENT OF A 5 FR DUAL LUMEN 38 CM PICC IN THE RIGHT BASILIC VEIN. KUB X-Ray 03/11/20 00:00 IMPRESSION: No evidence of bowel obstruction. Porcelain gallbladder. Upper GI Series-Limited 03/11/20 00:00 IMPRESSION: NORMAL SINGLE CONTRAST SWALLOW UPPER GI SERIES. Small Bowel X-Ray 03/11/20 12:00 IMPRESSION: Contrast noted throughout the duodenum and ilium without definitive high-grade obstruction. Exam was prematurely terminated secondary to patient discomfort. See follow-up radiographs for additional findings. Abdomen X-Ray 03/12/20 07:00 IMPRESSION: Progression of previously administered oral contrast now throughout the colon. No definitive dilated small bowel loops. Calcified gallstones and gallbladder wall again noted. 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 Is this a current diagnosis for this admission?: Yes (3) Chronic respiratory failure with hypoxia Is this a current diagnosis for this admission?: Yes (4) Follicular lymphoma Qualifiers: Follicular lymphoma type: other follicular type Lymphoma site: multiple regions Qualified Code(s): C82.88 - Other types of follicular lymphoma, lymph nodes of multiple sites Is this a current diagnosis for this admission?: Yes (5) H/O left knee surgery Is this a current diagnosis for this admission?: Yes (6) Lung cancer Qualifiers: Laterality: left Lung location: lower lobe of lung Qualified Code(s): C34.32 - Malignant neoplasm of lower lobe, left bronchus or lung Is this a current diagnosis for this admission?: Yes (7) Metastatic cancer Qualifiers: Area of secondary neoplastic involvement: peritoneum Qualified Code(s): 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 Is this a current diagnosis for this admission?: Yes (8) Pain due to neoplasm Is this a current diagnosis for this admission?: Yes (9) SBO (small bowel obstruction) Is this a current diagnosis for this admission?: Yes (10) COPD (chronic obstructive pulmonary disease) Qualifiers: COPD type: unspecified COPD Qualified Code(s): J44.9 - Chronic obstructive pulmonary disease, unspecified Is this a current diagnosis for this admission?: Yes - Plan Summary Summary: Per Previous provider: "LUPILLO DE LA ROSA is a 64 year old female with PMH of both primary squamous cell lung cancer as well as follicular lymphoma. Follicular lymphoma was treated systemically and she obtained a complete response as per imaging back in October/November, but the primary lung lesion was increasing, biopsy indicated squamous cell, and patient had CyberKnife radiation in December. After that, she began having pain issues both in the left upper chest at site of previous chest tube and also left knee pain. Knee MRI showed a distal left femur lesion. She was admitted to [facility] 02/24 to 03/03, and underwent left total knee arthroplasty by Dr. Bang. Her hospital course was c/b severe pain treated with narcotics as well as severe narcotic-induced constipation. Upon discharge home last week, she continued to have problem with constipation and tried several different things including oral laxatives, suppositories and ultimately several days of enemas. Unfortunately, nothing seemed to help, and she continued to have worsening nausea/vomiting until she finally presented to the ED on 03/08. In the ED, CT of the abdomen/pelvis showed gastric distention, moderate small bowel dilation, small ascites and concern for abdominal metastases/tumors. NGT was placed in the ED, producing large amount of feculent output." She will keep her PICC line and at discharge. Plan is for her to go home with hospice. She needs a home suction canister and it has not been delivered as of this afternoon. Once it has been delivered we can discharge her home. - Time Time Spent with patient: Less than 15 minutes Anticipated Discharge Disposition: Home with Hospice Anticipated Discharge Timeframe: within 48 hours
[2020-03-16] MEDS: HYDROMORPHONE HCL INJ/PF 2 MG/ML AMPULE IV PRN ×5 (01:14→15:18)
--- NOTE | 2020-03-16 08:12 | PDOC PROGRESS REPORT ---
Subjective Date:: 03/16/20 Subjective:: Spoke with hospice this morning, suction device will be delivered today, discharge should happen after noon. Discussed this with nursing, transportation will need to be set up, may be set up by hospice. But discharge planning should work with them. Reason For Visit: SMALL BOWEL OBSTRUCTION, LYMPHOMA Physical Exam Vital Signs: Temp Pulse Resp BP Pulse Ox 98.1 F 129 H 22 H 114/71 90 L 03/15/20 22:00 03/16/20 07:48 03/16/20 07:48 03/16/20 07:48 03/16/20 07:48 Intake & Output 03/15/20 03/16/20 03/17/20 06:59 06:59 06:59 Intake Total 2016 1020 Output Total 1000 1650 Balance 1016 -630 Weight 81.5 kg 81.5 kg General appearance: PRESENT: no acute distress, well-developed, well-nourished Head exam: PRESENT: atraumatic, normocephalic Eye exam: PRESENT: conjunctiva pink, EOMI, PERRLA. ABSENT: scleral icterus Ear exam: PRESENT: normal external ear exam Mouth exam: PRESENT: moist, tongue midline Neck exam: ABSENT: carotid bruit, JVD, lymphadenopathy, thyromegaly Respiratory exam: PRESENT: clear to auscultation clare. ABSENT: rales, rhonchi, wheezes Cardiovascular exam: PRESENT: RRR. ABSENT: diastolic murmur, rubs, systolic murmur Pulses: PRESENT: normal dorsalis pedis pul Vascular exam: PRESENT: normal capillary refill GI/Abdominal exam: PRESENT: normal bowel sounds, soft. ABSENT: distended, guarding, mass, organolmegaly, rebound, tenderness Rectal exam: PRESENT: deferred Extremities exam: PRESENT: full ROM. ABSENT: calf tenderness, clubbing, pedal edema Neurological exam: PRESENT: alert, awake, oriented to person, oriented to place, oriented to time, oriented to situation, CN II-XII grossly intact. ABSENT: motor sensory deficit Psychiatric exam: PRESENT: appropriate affect, normal mood. ABSENT: homicidal ideation, suicidal ideation Skin exam: PRESENT: dry, intact, warm. ABSENT: cyanosis, rash Results Laboratory Results: 03/12/20 06:55 03/12/20 06:55 Impressions: Abdomen/Pelvis CT 03/08/20 00:00 IMPRESSION: 1. Suspected malignancy. Clinical history not available.. 2. New finding of small bowel obstruction. There is no definite colonic dilatation 3. New finding of mild ascites. New finding of peritoneal metastasis more obvious in the right paracolic gutter. Cannot exclude right colonic thickening. 4. previous right hydronephrosis resolved. Very minimal residual right hydronephrosis without obvious obstructive process. New 9 mm right renal hypodensity may represent a small metastasis. 5. Chronic finding of mildly coarse gallbladder wall calcifications. Consistent with porcelain gallbladder and has been associated with increased risk of gallbladder cancer. 6. Uterus demonstrates greater endometrial enlargement. Rule out pathology. There is a small cystic structure with mildly thick wall located posterior to the right ear of the uterus. Question metastasis versus focal adnexal abnormality. PICC Line Insertion 03/10/20 00:00 IMPRESSION: SUCCESSFUL PLACEMENT OF A 5 FR DUAL LUMEN 38 CM PICC IN THE RIGHT BASILIC VEIN. KUB X-Ray 03/11/20 00:00 IMPRESSION: No evidence of bowel obstruction. Porcelain gallbladder. Upper GI Series-Limited 03/11/20 00:00 IMPRESSION: NORMAL SINGLE CONTRAST SWALLOW UPPER GI SERIES. Small Bowel X-Ray 03/11/20 12:00 IMPRESSION: Contrast noted throughout the duodenum and ilium without definitive high-grade obstruction. Exam was prematurely terminated secondary to patient discomfort. See follow-up radiographs for additional findings. Abdomen X-Ray 03/12/20 07:00 IMPRESSION: Progression of previously administered oral contrast now throughout the colon. No definitive dilated small bowel loops. Calcified gallstones and gallbladder wall again noted. Assessment & Plan - Diagnosis (1) SBO (small bowel obstruction) Is this a current diagnosis for this admission?: Yes Plan: Continuous suction, no further treatment possible (2) Follicular lymphoma Qualifiers: Follicular lymphoma type: other follicular type Lymphoma site: multiple regions Qualified Code(s): C82.88 - Other types of follicular lymphoma, lymph nodes of multiple sites Is this a current diagnosis for this admission?: Yes Plan: Hospice appropriate (3) Lung cancer Qualifiers: Laterality: left Lung location: lower lobe of lung Qualified Code(s): C34.32 - Malignant neoplasm of lower lobe, left bronchus or lung Is this a current diagnosis for this admission?: Yes Plan: Hospice appropriate (4) Pain due to neoplasm Is this a current diagnosis for this admission?: Yes Plan: Change fentanyl patch today, order given to nursing, give IV Dilaudid right before transport. 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
[2020-03-16] MEDS: NORMAL SALINE 10 ML SDV (SCHEDULED) IV SCH (12:14)
[2020-03-16 14:19] VITALS: BP 114/7
--- NOTE | 2020-03-16 15:34 | PDOC DISCHARGE SUMMARY ---
Impression - Admit/DC Date/PCP Admission Date/Primary Care Provider: 03/08/20 21:37 RICARDO TORRES MD Discharge Date: 03/16/20 - Discharge Diagnosis (1) Comfort measures only status Is this a current diagnosis for this admission?: Yes (2) Anemia Is this a current diagnosis for this admission?: Yes (3) Chronic respiratory failure with hypoxia Is this a current diagnosis for this admission?: Yes (4) Follicular lymphoma Is this a current diagnosis for this admission?: Yes (5) H/O left knee surgery Is this a current diagnosis for this admission?: Yes (6) Lung cancer Is this a current diagnosis for this admission?: Yes (7) Metastatic cancer Is this a current diagnosis for this admission?: Yes (8) Pain due to neoplasm Is this a current diagnosis for this admission?: Yes (9) SBO (small bowel obstruction) Is this a current diagnosis for this admission?: Yes (10) COPD (chronic obstructive pulmonary disease) Is this a current diagnosis for this admission?: Yes - Assessment Summary: Per Previous provider: "LUPILLO DE LA ROSA is a 64 year old female with PMH of both primary squamous cell lung cancer as well as follicular lymphoma. Follicular lymphoma was treated systemically and she obtained a complete response as per imaging back in October/November, but the primary lung lesion was increasing, biopsy indicated squamous cell, and patient had [employer] radiation in December. After that, she began having pain issues both in the left upper chest at site of previous chest tube and also left knee pain. Knee MRI showed a distal left femur lesion. She was admitted to [facility] 02/24 to 03/03, and underwent left total knee arthroplasty by Dr. Bang. Her hospital course was c/b severe pain treated with narcotics as well as severe narcotic-induced constipation. Upon discharge home last week, she continued to have problem with constipation and tried several different things including oral laxatives, suppositories and ultimately several days of enemas. Unfortunately, nothing seemed to help, and she continued to have worsening nausea/vomiting until she finally presented to the ED on 03/08. In the ED, CT of the abdomen/pelvis showed gastric distention, moderate small bowel dilation, small ascites and concern for abdominal metastases/tumors. NGT was placed in the ED, producing large amount of feculent output." She will keep her PICC line and at discharge. Plan is for her to go home with hospice. She needs a home suction canister and it has not been delivered as of this afternoon. Once it has been delivered we can discharge her home. - Additional Information Resuscitation Status: Comfort Measures Only Discharge Diet: As Tolerated Discharge Activity: Bedrest Referrals: [facility] [Outside] RICARDO TORRES MD [Primary Care Provider] - 03/16/20 2:25 pm (THE OFFICE WILL CONTACT THE PATIENT WITH A FOLLOW UP APPT.) Home Medications: Fentanyl [Duragesic 25 mcg/hr Transdermal Patch] 1 each TD [id number] 03/03/20 History of Present Illiness History of Present Illness: LUPILLO DE LA ROSA is a 64 year old female who was diagnosed with stage IV follicular cancer earlier this year. She underwent chemotherapy. Later on she was diagnosed with a squamous cell lung cancer. She received radiation therapy. She had metastatic disease to the left distal femur. She underwent distal femoral resection and endoprosthetic reconstruction on February 26. Malignant metastasis was related to lymphoma. She did not have any bowel movement spontaneously, she required enemas. She was passing gas. She did not have much of an abdominal discomfort. She was discharged home last week. Since she went home ,she did not have any spontaneous bowel movement. She was passing some gas. For the last couple days she started vomiting. She was vomiting numerous times. She developed some abdominal swelling. Because of the excessive vomiting she came to the emergency department. CT scan of the abdomen was done. It looks like she has peritoneal metastasis. CT scan and clinical picture suggestive of small bowel obstruction. Surgical consultation was requested, she is going to be seen by general surgery soon. Patient is going to be admitted to medical service considering her multiple problems. NG tube is in place. The NG tube is on low wall suction. He received pain medication. When I saw her she did not appear to be in pain. Hospital Course Hospital Course: She was very high risk for surgery and so they recommended conservative treatment with an NG tube. She did not show very much improvement if any. When it was deemed that conservative measures have failed, a conversation was had with her and her family, and she decided to go home on hospice. It took some time to get all the arrangements made because she needed a suction canister at home. She was kept comfortable while she was here. She was also seen in consultation by her oncologist Dr. Hillman who will follow her at home while she is on hospice. All of her equipment was delivered today and she was discharged home on hospice. Physical Exam Vital Signs: Temp Pulse Resp BP Pulse Ox 98.1 F 129 H 22 H 114/7 L 90 L 03/16/20 14:17 03/16/20 14:17 03/16/20 14:17 03/16/20 14:17 03/16/20 14:17 Intake & Output 03/15/20 03/16/20 03/17/20 06:59 06:59 06:59 Intake Total 2015 1020 Output Total 1000 1650 Balance 1016 -630 Weight 81.5 kg 81.5 kg General appearance: PRESENT: no acute distress Extremities exam: PRESENT: +1 edema Neurological exam: PRESENT: alert, awake, oriented to person, oriented to place, oriented to time, oriented to situation Psychiatric exam: PRESENT: appropriate affect Skin exam: ABSENT: jaundice Results Laboratory Results: WBC 9.5 10^3/uL (4.0-10.5) 03/12/20 06:55 RBC 2.54 10^6/uL (3.72-5.28) L 03/12/20 06:55 Hgb 7.9 g/dL (12.0-15.5) L 03/12/20 06:55 Hct 24.2 % (36.0-47.0) L 03/12/20 06:55 MCV 95 fl (80-97) 03/12/20 06:55 MCH 31.2 pg (27.0-33.4) 03/12/20 06:55 MCHC 32.8 g/dL (32.0-36.0) 03/12/20 06:55 RDW 16.5 % (11.5-14.0) H 03/12/20 06:55 Plt Count 311 10^3/uL (150-450) 03/12/20 06:55 Lymph % (Auto) Not Reportable 03/09/20 08:05 Henry % (Auto) Not Reportable 03/09/20 08:05 Eos % (Auto) Not Reportable 03/09/20 08:05 Baso % (Auto) Not Reportable 03/09/20 08:05 Absolute Neuts (auto) Not Reportable 03/09/20 08:05 Absolute Lymphs (auto) Not Reportable 03/09/20 08:05 Absolute Monos (auto) Not Reportable 03/09/20 08:05 Absolute Eos (auto) Not Reportable 03/09/20 08:05 Absolute Basos (auto) Not Reportable 03/09/20 08:05 Total Counted 100 03/09/20 08:05 Seg Neutrophils % Not Reportable 03/09/20 08:05 Seg Neuts % (Manual) 91 % (42-78) H 03/09/20 08:05 Band Neutrophils % 2 % (3-5) L 03/09/20 08:05 Lymphocytes % (Manual) 1 % (13-45) L 03/09/20 08:05 Monocytes % (Manual) 6 % (3-13) 03/09/20 08:05 Eosinophils % (Manual) 0 % (0-6) 03/09/20 08:05 Basophils % (Manual) 0 % (0-2) 03/09/20 08:05 Metamyelocytes % 1 % (0-1) 03/08/20 16:33 Abs Neuts (Manual) 9.9 10^3/uL (1.7-8.2) H 03/09/20 08:05 Abs Lymphs (Manual) 0.1 10^3/uL (0.5-4.7) L 03/09/20 08:05 Abs Monocytes (Manual) 0.6 10^3/uL (0.1-1.4) 03/09/20 08:05 Absolute Eos (Manual) 0.0 10^3/uL (0.0-0.6) 03/09/20 08:05 Abs Basophils (Manual) 0.0 10^3/uL (0.0-0.2) 03/09/20 08:05 Platelet Estimate Cancelled 03/09/20 04:17 Clumped Platelets PRESENT 03/08/20 16:33 Platelet Comment ADEQUATE 03/09/20 08:05 Polychromasia 1+ 03/09/20 08:05 Poikilocytosis SLIGHT 03/09/20 08:05 Anisocytosis 1+ 03/09/20 08:05 Ovalocytes SLIGHT 03/09/20 08:05 PT 16.2 SEC (11.4-15.4) H 03/08/20 23:31 INR 1.28 03/08/20 23:31 APTT 35.8 SEC (23.5-35.8) 03/08/20 23:31 Sodium 144.4 mmol/L (137-145) 03/12/20 06:55 Potassium 4.1 mmol/L (3.6-5.0) 03/12/20 06:55 Chloride 107 mmol/L (98-107) 03/12/20 06:55 Carbon Dioxide 27 mmol/L (22-30) 03/12/20 06:55 Anion Gap 10 (5-19) 03/12/20 06:55 BUN 16 mg/dL (7-20) 03/12/20 06:55 Creatinine 0.46 mg/dL (0.52-1.25) L 03/12/20 06:55 Est GFR ( Amer) > 60 (>60) 03/12/20 06:55 Est GFR (MDRD) Non-Af > 60 (>60) 03/12/20 06:55 Glucose 108 mg/dL (75-110) 03/12/20 06:55 Calcium 8.7 mg/dL (8.4-10.2) 03/12/20 06:55 Magnesium 2.1 mg/dL (1.6-2.3) 03/12/20 06:55 Total Bilirubin 1.9 mg/dL (0.2-1.3) H 03/10/20 08:58 Direct Bilirubin 1.3 mg/dL (0.0-0.4) H 03/10/20 08:58 Neonat Total Bilirubin Not Reportable 03/10/20 08:58 Neonat Direct Bilirubin Not Reportable 03/10/20 08:58 Neonat Indirect Bili Not Reportable 03/10/20 08:58 AST 41 U/L (14-36) H 03/10/20 08:58 ALT 19 U/L (<35) 03/10/20 08:58 Alkaline Phosphatase 81 U/L (38-126) 03/10/20 08:58 Total Protein 4.6 g/dL (6.3-8.2) L 03/10/20 08:58 Albumin 2.6 g/dL (3.5-5.0) L 03/10/20 08:58 Urine Color DANE 03/08/20 16:48 Urine Appearance CLOUDY 03/08/20 16:48 Urine pH 5.0 (5.0-9.0) 03/08/20 16:48 Ur Specific [place] 1.031 03/08/20 16:48 Urine Protein 100 mg/dL (NEGATIVE) H 03/08/20 16:48 Urine Glucose (UA) NEGATIVE mg/dL (NEGATIVE) 03/08/20 16:48 Urine Ketones 80 mg/dL (NEGATIVE) H 03/08/20 16:48 Urine Blood NEGATIVE (NEGATIVE) 03/08/20 16:48 Urine Nitrite NEGATIVE (NEGATIVE) 03/08/20 16:48 Urine Bilirubin MODERATE (NEGATIVE) H 03/08/20 16:48 Urine Urobilinogen 4.0 mg/dL (<2.0) H 03/08/20 16:48 Ur Leukocyte Esterase TRACE (NEGATIVE) H 03/08/20 16:48 Urine WBC (Auto) 5 /HPF 03/08/20 16:48 Urine RBC (Auto) 1 /HPF 03/08/20 16:48 Urine Bacteria (Auto) TRACE /HPF 03/08/20 16:48 Squamous Epi Cells Auto 16 /HPF 03/08/20 16:48 Urine Mucus (Auto) MANY /LPF 03/08/20 16:48 Urine Ascorbic Acid NEGATIVE (NEGATIVE) 03/08/20 16:48 Slides for Path Review Cancelled 03/09/20 04:17 Blood Type O NEGATIVE 03/10/20 08:58 Antibody Screen NEGATIVE 03/10/20 08:58 Impressions: Abdomen/Pelvis CT 03/08/20 00:00 IMPRESSION: 1. Suspected malignancy. Clinical history not available.. 2. New finding of small bowel obstruction. There is no definite colonic dilatation 3. New finding of mild ascites. New finding of peritoneal metastasis more obvious in the right paracolic gutter. Cannot exclude right colonic thickening. 4. previous right hydronephrosis resolved. Very minimal residual right hydronephrosis without obvious obstructive process. New 9 mm right renal hypodensity may represent a small metastasis. 5. Chronic finding of mildly coarse gallbladder wall calcifications. Consistent with porcelain gallbladder and has been associated with increased risk of gallbladder cancer. 6. Uterus demonstrates greater endometrial enlargement. Rule out pathology. There is a small cystic structure with mildly thick wall located posterior to the right ear of the uterus. Question metastasis versus focal adnexal abnormality. KUB X-Ray 03/08/20 00:00 IMPRESSION: Enteric drainage tube tip projects over the gastric body. Diffuse dilatation of bowel loops throughout the imaged abdomen, suspicious for small bowel obstruction. Hyperdense material within both renal collecting systems, ureters, and bladder, indicating excretion of previously administered intravenous contrast due to low. Additionally, there is suspected mild right hydronephrosis. PICC Line Insertion 03/10/20 00:00 IMPRESSION: SUCCESSFUL PLACEMENT OF A 5 FR DUAL LUMEN 38 CM PICC IN THE RIGHT BASILIC VEIN. Abdomen X-Ray 03/10/20 07:00 IMPRESSION: The tip of the enteric tube projects within the gastric lumen. There is mild persistent distention of several loops of bowel. KUB X-Ray 03/11/20 00:00 IMPRESSION: No evidence of bowel obstruction. Porcelain gallbladder. Upper GI Series-Limited 03/11/20 00:00 IMPRESSION: NORMAL SINGLE CONTRAST SWALLOW UPPER GI SERIES. Small Bowel X-Ray 03/11/20 12:00 IMPRESSION: Contrast noted throughout the duodenum and ilium without definitive high-grade obstruction. Exam was prematurely terminated secondary to patient discomfort. See follow-up radiographs for additional findings. Abdomen X-Ray 03/12/20 07:00 IMPRESSION: Progression of previously administered oral contrast now throughout the colon. No definitive dilated small bowel loops. Calcified gallstones and gallbladder wall again noted. Plan Time Spent: Greater than 30 Minutes Stroke Is this a Stroke Patient?: No Acute Heart Failure Is this a Heart Failure Patient?: No
== END 2020-03-16 15:40 | disposition hospice, home (50) | DRG 375 ==
LOC: ER 15:02 → EH 21:37 → INTOOBSV 21:37 → OBSVTOIN 21:37 → 4N 23:19
PROVIDERS: ADMIT Internal Medicine; ATTEND Family Medicine
PROC: 0D9670Z Drainage of Stomach with Drainage Device, Via Natural or Artificial Opening (ICD-10-PCS; principal; 2020-03-08)
PROC: 02HV33Z Insertion of Infusion Device into Superior Vena Cava, Percutaneous Approach (ICD-10-PCS; 2020-03-10)
PROC: B548ZZA Ultrasonography of Superior Vena Cava, Guidance (ICD-10-PCS; 2020-03-10)
DX: C78.6 Secondary malignant neoplasm of retroperitoneum and peritoneum (principal); C79.51 Secondary malignant neoplasm of bone; C34.32 Malignant neoplasm of lower lobe, left bronchus or lung; C82.18 Follicular lymphoma grade II, lymph nodes of multiple sites; J96.11 Chronic respiratory failure with hypoxia; K56.7 Ileus, unspecified; D59.12 Cold autoimmune hemolytic anemia; E87.1 Hypo-osmolality and hyponatremia; R18.8 Other ascites; D63.0 Anemia in neoplastic disease; J44.9 Chronic obstructive pulmonary disease, unspecified; E87.6 Hypokalemia; I10 Essential (primary) hypertension; I25.10 Atherosclerotic heart disease of native coronary artery without angina pectoris; G89.3 Neoplasm related pain (acute) (chronic); F32.9 Major depressive disorder, single episode, unspecified; Z96.652 Presence of left artificial knee joint; M19.90 Unspecified osteoarthritis, unspecified site; E86.0 Dehydration; Z79.82 Long term (current) use of aspirin; M21.372 Foot drop, left foot; K59.03 Drug induced constipation; T40.0X5A Adverse effect of opium, initial encounter; Z66 Do not resuscitate; Z51.5 Encounter for palliative care; I25.2 Old myocardial infarction; Z79.899 Other long term (current) drug therapy; Z87.891 Personal history of nicotine dependence; Z88.6 Allergy status to analgesic agent; Z91.013 Allergy to seafood; Z82.49 Family history of ischemic heart disease and other diseases of the circulatory system
CPT/HCPCS: 36415; 36573; 74018; 74019; 74177; 74240; 74250; 80048; 80053; 81001; 83735; 85025; 85027; 85610; 85730; 86850; 86900; 86901; 93005; 93010; 96361; 96374; 96375; 99285; J1170; J1642; J1650; J2405; J2550; J3010; J3480; J3490; J7030; J7120